=== PATIENT | male | born 1945 | race Caucasian/White ===

== ENCOUNTER → 2017-08-12 09:37 | Outpatient (CLI) | payer MEDICARE, BC, SELFPAY | PROVIDERS: Family Provider Family Medicine; PCP Family Medicine; Visit Provider Family Medicine | DX: R69 Illness, unspecified (principal) ==

== ENCOUNTER → 2017-08-16 15:08 | Outpatient (CLI) | payer MEDICARE, BC, SELFPAY ==
--- NOTE | 2017-08-16 16:00 | MRI_ITS ---
STUDY: MRI LUMBAR SPINE WITHOUT CONTRAST REASON FOR EXAM: Male, 72 years old. Low back pain with radicular symptoms in the right hip and leg. TECHNIQUE: Standardized fat and water weighted pulse sequences were obtained in the sagittal and axial planes. COMPARISON: CT of the lumbar spine dated February 13, 2016 and radiographs of the lumbar spine dated January 12, 2017. FINDINGS: T12-L1: Normal endplates. Normal disc height, signal and morphology. Normal bilateral facet joints. Normal central canal and bilateral lateral recesses. Normal bilateral intervertebral neural foramina. There is straightening of the normal lumbar lordosis. There is no substantial scoliosis. Normal conus medullaris that terminates at the T12-L1 level. L1-2: There is narrowing of the disc. There is an annular disc bulge and osteophyte complex. There is mild degenerative arthropathy of facet joints. Neural foramina are bilaterally narrowed without evidence for nerve impingement. There is mild central acquired canal stenosis. L2-3: There is abnormal signal of the inferior endplate of L2 consistent with acute Modic changes. There is also central stenosis. Appears to be a broad central disc protrusion with mild central acquired canal stenosis. There is mild degenerative arthropathy of facet joints. There is artifact at L3 related to the interpedicular screws. Neural foramina are bilaterally narrowed without evidence for nerve impingement. L3-4: There is narrowing of the disc. There is a disc bulge and osteophyte complex. There is significant artifact caused by the interpedicular screws at this level. Bilateral neural foramina are narrowed, severely on the left with potential impingement of the left L3 nerve root at the neural foramen. L4-5: There is narrowing of the disc. There is a disc bulge and osteophyte complex. Patient appears to have had laminectomies at L4 and L5. There is significant artifact secondary to interpedicular screws at this level. There is no significant central acquired canal stenosis. Neural foramina are bilaterally narrowed with potential impingement of the left L4 nerve root at the neural foramen. L5-S1: There is narrowing of the disc. There are chronic Modic signal changes of the endplates. There is an annular disc bulge and osteophyte complex. Patient has had laminectomies of L5. There is moderate degenerative arthropathy of facet joints. There is no significant central acquired canal stenosis. Neural foramina are bilaterally narrowed without definite nerve impingement. Normal visualized sacral ala. There is abnormal signal within the paraspinal soft tissues posterior to L3, L4, L5 and sacrum that are probably postoperative in etiology. There is also suggestion for paraspinal musculature atrophy particularly at L4 and L5. Appears be a large left-sided renal cyst measuring approximately 7.1 cm in greatest dimension. There is a right sided renal cyst measuring 2.1 cm. There is a small left-sided renal cyst. MRI/Spine Lumbar (Routine) IMPRESSION: 1. Status post surgical fusion of the L3, L4, L5 and S1 vertebral segments. 2. There is multilevel degenerative disc disease and degenerative arthropathy of the lumbar spine with neural foraminal narrowing, acquired canal stenosis and potential nerve impingement, as described. Electronically Signed: Briana Vizcarra MD at 6:59 EDT , Service support ,
== END ==
PROVIDERS: Family Provider Family Medicine; PCP Family Medicine
DX: M54.41 Lumbago with sciatica, right side (principal); G89.29 Other chronic pain; M54.16 Radiculopathy, lumbar region; M48.062 Spinal stenosis, lumbar region with neurogenic claudication
CPT/HCPCS: 72148

== ENCOUNTER → 2017-09-14 08:39 | Outpatient (CLI) | payer MEDICARE, BC, SELFPAY ==
[2017-09-14 09:28] LABS: Absolute Lymphocyte Count 1.28 X10^3/ul (0.83-4.51); Absolute Neutrophil Count 1.7 X10^3/uL (2.0-7.7); Basophil# 0.02 X10^3/uL; Basophil% 0.6 % (0-1); Eosinophil# 0.07 X10^3/uL; Eosinophils% 2.1 % (0-5); Hematocrit 44.1 % (40-54); Hemoglobin 14.9 g/dl (13.0-16.5); Lymphocyte # 1.28 X10^3/ul (4.0); Lymphocyte % 38.1 % (19-41); Mean Corp Hgb Conc 33.8 g/gl (32-36); Mean Corpuscular Hgb 31.2 pg (27.0-32.0); Mean Corpuscular Volume 92.3 fL (80-94); Mean Platelet Vol. 10.2 fl (6.2-12.0); Monocyte# 0.26 X10^3/uL; Monocyte% 7.7 % (0-10); Neutrophil # 1.72 X10^3/uL (2.7-7.7); Neutrophil % 51.2 % (47-70); POSITIVE COUNT NO; POSITIVE DIFFERENTIAL NO; POSITIVE MORPHOLOGY NO; Platelet Count 187 K/mm3 (150-450); RBC Distribution Width CV 12.6 % (11.6-14.6); RBC Distribution Width SD 42.2 fl (35.1-43.9); Red Blood Count 4.78 M/mm3 (4.6-6.2); White Blood Count 3.4 K/mm3 (4.4-11.0)
[2017-09-14 09:58] LABS: Vitamin B12 378 pg/mL (211-911)
[2017-09-14 10:05] LABS: BUN 16 mg/dL (7-18); Creatinine, Serum 1.17 mg/dL (0.70-1.30); Glucose 85 mg/dL (74-106)
[2017-09-14 10:06] LABS: ALB/GLOB Ratio 1.1 RATIO (0.9-2.4); AST(SGOT) 26 U/L (15-37); Alanine Aminotransfer ALT/SGPT 25 U/L (16-61); Albumin, Serum 3.6 g/dL (3.2-5.0); Alkaline Phosphatase 68 U/L (45-117); Anion Gap 5 (5-15); BUN/Creat Ratio 13.7 RATIO (10-20); Calcium,Total 8.5 mg/dL (8.5-10.1); Chloride 105 mmol/L (98-107); Cholesterol 194 mg/dL (200); EST Glomerular Filtration Rate 65 mL/min (>60); Est Glom Filt Rate - Afr Amer 79 mL/min (>60); Globulin 3.3 g/dL (2.2-4.2); High Density Lipoprotein 46 mg/dL; Potassium 4.1 mmol/L (3.5-5.1); Protein, Total 6.9 g/dL (6.4-8.2); Sodium Level 139 mmol/L (136-145); Thyroid Stim Hormone (TSH) 0.81 uIU/mL (0.358-3.74); Triglycerides 334 mg/dL; Very Low Density Lipoprotein 67 mg/dL (5-40)
[2017-09-17 09:21] LABS: Vitamin B1, Thiamine 108.3 nmol/L (66.5-200.0)
== END ==
PROVIDERS: Family Provider Family Medicine; PCP Family Medicine; Visit Provider Family Medicine
DX: I25.10 Atherosclerotic heart disease of native coronary artery without angina pectoris (principal); G62.9 Polyneuropathy, unspecified; I10 Essential (primary) hypertension
CPT/HCPCS: 36415; 80053; 80061; 82607; 84425; 84443; 85025

== ENCOUNTER 2017-11-23 11:30 | Outpatient (RCR) | payer MEDICARE, BC, SELFPAY ==
--- NOTE | 2017-10-31 11:15 | HP.PTEVAL_ITS ---
Patient's Visit Information CALE PULLIAM is a 72 year old M referred to Physical Therapy by Saul Maxwell MD with a diagnosis of CHRONIC BACK PAIN AND RADICULAR PAIN. Date of Evaluation: 10/31/17 Physical Therapist: Cary Goode - Visit Plan Frequency: 2-3x /Week Duration: 4-6 Weeks Plan: AQUATIC THERAPY FOR PAIN RELEIF, POSTURE CORRECTION/STRENGTHENING, INSTRUCTION IN APPROPRIATE BODY MECHANICS AND ACTIVITY MODIFICATIONS. DLS STARTING WITH A NEUTRAL SPINE PROGRESSING ROM TOLERATED. ILA LE ROM, STRETCHING AND STRENGTHENING. HEP INSTRUCTION. 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 Present symptoms : PRIMARILY IN LEFT LOW BACK, ILA HIPS AND ON DOWN BOTH LEGS TO THE FEET. SOMETIMES TOES. PAIN, NUMBNESS AND TINGLING AT TIMES. Present since: CHRONIC. Pain Scale: WORST 7/10, LEAST 2/10. Currently: 08/04. Commenced as a result of: DDD. Symptoms at onset: LOW BACK. 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 GETTING DOWN ON HANDS AND KNEES TO PULL WEEDS, ESPECIALLY STANDING ON CONCRETE. 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 TRYING TO EX ON LAND HERE AT [employer] WITH [employer] MEMBERSHIP. Better : HOT TUB, MASSAGING HAMSTRINGS. Disturbed sleep: NO. Previous history/ treatment: BACK SURGERY WITH PT HERE IN MAY 2016. [facility]. HISTORY OF AQUATIC THERAPY HERE. Coughing/sneezing/straining: NEGATIVE. Gait: NO AD'S BUT DISTANCE LIMITED. FEELS STIFF WHEN HE WALKS. Difficulty initiating urinatin: NO. Accidents: NONE SINCE OPERATION ON BACK. Unexplained weight loss: NO. Imaging: LUMBAR MRI: MRI/Spine Lumbar (Routine). IMPRESSION: 1. Status post surgical fusion of the L3, L4, L5 and S1 vertebral. segments. 2. There is multilevel degenerative disc disease and degenerative. arthropathy of the lumbar spine with neural foraminal narrowing, acquired. canal stenosis and potential nerve impingement, as described. Electronically Signed: Briana Vizcarra MD. at 6:59 EDT. PMH: HEART BYPASS 2012. OTHER: PATIENT REPORTS HE SAW DR. INMAN IN [place] A FEW MONTHS AGO. HE ORDERED MRI. PATIENT REPORTS DR. INMAN SAID HE DIDN'T SEE ANYTHING THAT WOULD MAKE HIM THINK HE HAS TO GO BACK IN AND OPERATE AGAIN. NCT PENDING NOV 21 2017. - Objective Sitting/Standing Posture: POOR. Lordosis: REDUCED. Lateral shift: NO. Relevant shift: N/A. Active Correction of posture: BETTER. Other Observations : INDEP GAIT INTO PT WITHOUT ANY AD'S. GOOD CADANCE. PPT. Motor deficit: ILA LE STRENGTH GROSSLY 5/5 WITH MMT'ING EXCEPT HIPS 4/5. Sensory deficit: DECREASED LIGHT TOUCH RIGHT LATERAL LEG COMPARED TO LEFT. NCT PENDING. ROM deficit: TIGHT ILA HS'S AND GASTROC SOLEUS COMPLEX'S. GOOD HIP FLEXION ROM ILA. Reflexes: NT. Dural Signs: NEGATIVE. Lumbar mvmt loss: flex - MOD. ext - KEMAR. R SG - KEMAR. L SG - KEMAR. Core strength: POOR. Palpation: NO ACUTE TENDERNESS OR LOWER THORACIC OR LUMBAR SPINE REGIONS. NOT TENDER IN GREATER TROCH REGIONS EITHER. OTHER: POSITIVE ILA DAVID TESTS. - Goals Goal 1:: DECREASE C/O LOW BACK AND ILA LE SX'S. Goal Time Frame: 4-6 Weeks Goal 2:: IMPROVE SITTING, STANDING, WALKING AND WORK FUNCTION Goal Time Frame: 4-6 Weeks Goal 3:: INSTRUCT IN PROPHYLAXIS Goal Time Frame: 4-6 Weeks - Rehabilitation Potential Rehabilitation Potential: Fair - Anticipated Interventions Patient/Client Instruction: Educate patient on: Condition, Plan of Care, Risk Factors, Benefits of Fitness Program For the Purpose of:: To improve self management Therapeutic Exercise to Include: Strength training, Body mechanics, Postural training, Flexibilty training, Gait and locomotor training, In an aquatic setting, Active ROM, Dynamic Lumbar Stabilization For the Purpose of:: To decrease pain, To decrease swelling/inflammation, To increase ROM, To improve muscle performance and motor function, To increase tolerance to activity/condition/position, To improve ability of physical actions for home/community/work/leisure, To improve gait and locomotor functions Thank you for the opportunity to evaluate your patient. For Medicare and Medicare HMO plans, please review the plan of care and approve it. It will need to be FAXED BACK to us at [phone] for Medicare purposes. Please let me know if there are questions or concerns regarding this plan of care. Physician Signature: Date:
--- NOTE | 2017-11-23 12:23 | HP.PTEVAL ---
Patient's Visit Information CALE PULLIAM is a 72 year old M referred to Physical Therapy by Saul Maxwell MD with a diagnosis of CHRONIC BACK PAIN AND RADICULAR PAIN. Date of Evaluation: 10/31/17 Physical Therapist: Cary Goode - Visit Plan Frequency: 2-3x /Week Duration: 4-6 Weeks Plan: D/C TO INDEP WATER EX, MASSAGE THERAPY AND HOME EX PROGRAM. PATIENT IS AGREEABLE. 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 Present symptoms: PRIMARILY IN LEFT LOW BACK, ILA HIPS AND ON DOWN BOTH LEGS TO THE FEET. SOMETIMES TOES. PAIN, NUMBNESS AND TINGLING AT TIMES. Present since: CHRONIC. Pain Scale: WORST 7/10, LEAST 2/10. Currently: 08/04. Commenced as a result of: DDD. Symptoms at onset: LOW BACK. 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 GETTING DOWN ON HANDS AND KNEES TO PULL WEEDS, ESPECIALLY STANDING ON CONCRETE. 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 TRYING TO EX ON LAND HERE AT [employer] WITH [employer] MEMBERSHIP. Better: HOT TUB, MASSAGING HAMSTRINGS. Disturbed sleep: NO. Previous history/treatment: BACK SURGERY WITH PT HERE IN MAY 2016. [facility]A'[facility]. HISTORY OF AQUATIC THERAPY HERE. Coughing/sneezing/straining: NEGATIVE. Gait: NO AD'S BUT DISTANCE LIMITED. FEELS STIFF WHEN HE WALKS. Difficulty initiating urinatin: NO. Accidents: NONE SINCE OPERATION ON BACK. Unexplained weight loss: NO. Imaging: LUMBAR MRI: MRI/Spine Lumbar (Routine). IMPRESSION: 1. Status post surgical fusion of the L3, L4, L5 and S1 vertebral. segments. 2. There is multilevel degenerative disc disease and degenerative. arthropathy of the lumbar spine with neural foraminal narrowing, acquired. canal stenosis and potential nerve impingement, as described. Electronically Signed: Briana Vizcarra MD. at 6:59 EDT. PMH: HEART BYPASS 2012. OTHER: PATIENT REPORTS HE SAW DR. INMAN IN [place] A FEW MONTHS AGO. HE ORDERED MRI. PATIENT REPORTS DR. INMAN SAID HE DIDN'T SEE ANYTHING THAT WOULD MAKE HIM THINK HE HAS TO GO BACK IN AND OPERATE AGAIN. NCT PENDING NOV 21 2017. - Pain Lumbar Spine Pain Intensity (Out of 10): 2 Comment: L-sided, stiff. RLE Pain Intensity (Out of 10): 1 Comment: Muscle fatigue LLE Pain Intensity (Out of 10): 1 Comment: muscle fatigue - Objective Sitting/Standing Posture: POOR. Lordosis: REDUCED. Lateral shift: NO. Relevant shift: N/A. Active Correction of posture: BETTER. Other Observations: INDEP GAIT INTO PT WITHOUT ANY AD'S. GOOD CADANCE. PPT. Motor deficit: ILA LE STRENGTH GROSSLY 5/5 WITH MMT'ING EXCEPT HIPS 4/5. Sensory deficit: DECREASED LIGHT TOUCH RIGHT LATERAL LEG COMPARED TO LEFT. NCT PENDING. ROM deficit: TIGHT ILA HS'S AND GASTROC SOLEUS COMPLEX'S. GOOD HIP FLEXION ROM ILA. Reflexes: NT. Dural Signs: NEGATIVE. Lumbar mvmt loss: flex - MOD. ext - KEMAR. R SG - KEMAR. L SG - KEMAR. Core strength: POOR. Palpation: NO ACUTE TENDERNESS OR LOWER THORACIC OR LUMBAR SPINE REGIONS. NOT TENDER IN GREATER TROCH REGIONS EITHER. OTHER: POSITIVE ILA DAVID TESTS. - Goals Goal 1:: DECREASE C/O LOW BACK AND ILA LE SX'S. Goal Time Frame: 4-6 Weeks Goal 2:: IMPROVE SITTING, STANDING, WALKING AND WORK FUNCTION Goal Time Frame: 4-6 Weeks Goal 3:: INSTRUCT IN PROPHYLAXIS Goal Time Frame: 4-6 Weeks - Rehabilitation Potential Rehabilitation Potential: Fair - Anticipated Interventions Patient/Client Instruction: Educate patient on: Condition, Plan of Care, Risk Factors, Benefits of Fitness Program For the Purpose of:: To improve self management Therapeutic Exercise to Include: Strength training, Body mechanics, Postural training, Flexibilty training, Gait and locomotor training, In an aquatic setting, Active ROM, Dynamic Lumbar Stabilization For the Purpose of:: To decrease pain, To decrease swelling/inflammation, To increase ROM, To improve muscle performance and motor function, To increase tolerance to activity/condition/position, To improve ability of physical actions for home/community/work/leisure, To improve gait and locomotor functions Thank you for the opportunity to evaluate your patient. For Medicare and Medicare HMO plans, please review the plan of care and approve it. It will need to be FAXED BACK to us at [phone] for Medicare purposes. Please let me know if there are questions or concerns regarding this plan of care. Physician Signature: Date:
--- NOTE | 2017-11-23 12:24 | HP.PTREVAL_ITS ---
Saul Maxwell MD, It has been my pleasure to treat CALE PULLIAM over the last 10 visits for CHRONIC BACK PAIN AND RADICULAR PAIN. Please see the progress note below for an update on the physical therapy plan of care! Subjective: HAD N. CONDUCTION TEST. STATES WASN'T REAL DEFINATIVE BUT THINKS MRI OF THORACIC REGION WILL BE RECOMMENDED. TODAY I FEEL THE BEST THAT I HAVE IN A MONTH. MASSAGE THERAPY HERE AT [facility] YESTERDAY. PATIENT REPORTS HIS FLEXABILITY HAS IMPROVED SINCE STARTING PT THIS TIME. HE STATES THE HOME EX'S AREN'T HIS FAVORITE THING TO DO BUT HE DOES THINK THEY ARE HELPING. PATIENT REPORTS UP TO 6-7/10 BACK AND LEG PAIN AT ITS WORST NOW. 1/10 BACK AND LEG PAIN AT THE LEAST. PATIENT REPORTS THE WATER EX'S SEEM TO BE WORKING HIM OUT GOOD BUT WITHOUT THE PAIN HE GETS EXERCISING ON LAND. Objective/Function: SLOW PROGRESS TOWARD ALL PT GOALS. PATIENT IS A GOOD CANDIDATE TO CONTINUE WATER EX PROGRAM INDEP'LY VS LAND AT THIS TIME. UPON EXAM HE STILL HAS POOR POSTURE AND IS ONLY ABLE TO PARTIALLY CORRECT. DECREASED LORDOSIS. Motor deficit: ILA LE STRENGTH GROSSLY 5/5 WITH MMT'ING EXCEPT HIPS 4/5 AND PATIENT IS ABLE TO INDEP'LY TRANSFER FROM SIT TO STAND WITHOUT UE ASSIST EASILY. Sensory deficit: ILA LE LIGHT TOUCH SENSATION IS INTACT AND SYMMETRICAL WITH TESTING TODAY WHICH WAS AN IMPROVEMENT FROM EVAL. ROM deficit : PATIENT CONTINUES TO HAVE TIGHT ILA HS'S AND GASTROC SOLEUS COMPLEX'S BUT IS TOLERATING STRETCHING PROGRAM WELL. Dural Signs: NEGATIVE. Lumbar mvmt loss: flex - MOD. ext - KEMAR. R SG - KEMAR. L SG - KEMAR. Core strength: FAIR. Palpation: NO ACUTE TENDERNESS OR LOWER THORACIC OR LUMBAR SPINE REGIONS. 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 Plan Plan: D/C TO INDEP WATER EX, MASSAGE THERAPY AND HOME EX PROGRAM. PATIENT IS AGREEABLE. Goals Goal 1:: DECREASE C/O LOW BACK AND ILA LE SX'S. Goal Time Frame: 4-6 Weeks Goal Progress: Goal Met Goal 2:: IMPROVE SITTING, STANDING, WALKING AND WORK FUNCTION Goal Time Frame: 4-6 Weeks Goal Progress: Goal Met Goal 3:: INSTRUCT IN PROPHYLAXIS Goal Time Frame: 4-6 Weeks Goal Progress: Goal Met Anticipated Interventions Patient/Client Instruction: Educate patient on: Condition, Plan of Care, Risk Factors, Benefits of Fitness Program For the Purpose of:: To improve self management Therapeutic Exercise to Include: Strength training, Body mechanics, Postural training, Flexibilty training, Gait and locomotor training, In an aquatic setting, Active ROM, Dynamic Lumbar Stabilization For the Purpose of:: To decrease pain, To decrease swelling/inflammation, To increase ROM, To improve muscle performance and motor function, To increase tolerance to activity/condition/position, To improve ability of physical actions for home/community/work/leisure, To improve gait and locomotor functions Please do not hesitate to contact me at [phone] by phone or Fax: if you have questions or concerns regarding this new plan of care! Sincerely, Cary Goode
--- NOTE | 2017-12-22 13:07 | HP.PTDCSUM ---
HP - PT D/C Summary It has been my pleasure to treat CALE PULLIAM under orders from Saul Maxwell MD, for the diagnosis of CHRONIC BACK PAIN AND RADICULAR PAIN for a total of 10 visit(s). Discharge Date: Please see the following information for a summary of their discharge status. - Subjective Subjective: HAD N. CONDUCTION TEST. STATES WASN'T REAL DEFINATIVE BUT THINKS MRI OF THORACIC REGION WILL BE RECOMMENDED. TODAY I FEEL THE BEST THAT I HAVE IN A MONTH. MASSAGE THERAPY HERE AT [facility] YESTERDAY. PATIENT REPORTS HIS FLEXABILITY HAS IMPROVED SINCE STARTING PT THIS TIME. HE STATES THE HOME EX'S AREN'T HIS FAVORITE THING TO DO BUT HE DOES THINK THEY ARE HELPING. PATIENT REPORTS UP TO 6-7/10 BACK AND LEG PAIN AT ITS WORST NOW. 1/10 BACK AND LEG PAIN AT THE LEAST. PATIENT REPORTS THE WATER EX'S SEEM TO BE WORKING HIM OUT GOOD BUT WITHOUT THE PAIN HE GETS EXERCISING ON LAND. - Pain Lumbar Spine Pain Intensity (Out of 10): 2 RLE Pain Intensity (Out of 10): 1 LLE Pain Intensity (Out of 10): 1 - Overall Improvement % Improvement: 35 - Objective Objective/Function: SLOW PROGRESS TOWARD ALL PT GOALS. PATIENT IS A GOOD CANDIDATE TO CONTINUE WATER EX PROGRAM INDEP'LY VS LAND AT THIS TIME. UPON EXAM HE STILL HAS POOR POSTURE AND IS ONLY ABLE TO PARTIALLY CORRECT. DECREASED LORDOSIS. Motor deficit: ILA LE STRENGTH GROSSLY 5/5 WITH MMT'ING EXCEPT HIPS 4/5 AND PATIENT IS ABLE TO INDEP'LY TRANSFER FROM SIT TO STAND WITHOUT UE ASSIST EASILY. Sensory deficit: ILA LE LIGHT TOUCH SENSATION IS INTACT AND SYMMETRICAL WITH TESTING TODAY WHICH WAS AN IMPROVEMENT FROM EVAL. ROM deficit: PATIENT CONTINUES TO HAVE TIGHT ILA HS'S AND GASTROC SOLEUS COMPLEX'S BUT IS TOLERATING STRETCHING PROGRAM WELL. Dural Signs: NEGATIVE. Lumbar mvmt loss: flex - MOD. ext - KEMAR. R SG - KEMAR. L SG - KEMAR. Core strength: FAIR. Palpation: NO ACUTE TENDERNESS OR LOWER THORACIC OR LUMBAR SPINE REGIONS. 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 - Goals Goal 1:: DECREASE C/O LOW BACK AND ILA LE SX'S. Goal Progress: Goal Met Goal 2:: IMPROVE SITTING, STANDING, WALKING AND WORK FUNCTION Goal Progress: Goal Met Goal 3:: INSTRUCT IN PROPHYLAXIS Goal Progress: Goal Met - Plan Plan: D/C TO INDEP WATER EX, MASSAGE THERAPY AND HOME EX PROGRAM. PATIENT IS AGREEABLE. - D/C Information If there are questions or concerns regarding this patient's physical therapy, please feel free to call me at [phone]. Thank you for the referral of this patient. Sincerely, Cary Goode
== END 2017-11-23 19:00 | disposition home or self-care (01) ==
LOC: PT 11:30
PROVIDERS: Family Provider Family Medicine; PCP Family Medicine; Visit Provider Family Medicine
DX: M54.9 Dorsalgia, unspecified (principal); G89.29 Other chronic pain; M54.10 Radiculopathy, site unspecified
CPT/HCPCS: 97113; 97162; 97164; 97530

== ENCOUNTER → 2018-02-01 14:07 | Outpatient (CLI) | payer MEDICARE, BC, SELFPAY ==
[2018-02-01 15:39] LABS: Basophil# 0.02 X10^3/uL; Basophil% 0.5 % (0-1); Eosinophil# 0.11 X10^3/uL; Eosinophils% 2.7 % (0-5); Hematocrit 44.8 % (40-54); Hemoglobin 15.1 g/dl (13.0-16.5); Lymphocyte % 39.5 % (19-41); Mean Corp Hgb Conc 33.7 g/gl (32-36); Mean Corpuscular Hgb 31.4 pg (27.0-32.0); Mean Corpuscular Volume 93.1 fL (80-94); Mean Platelet Vol. 10.4 fl (6.2-12.0); Monocyte# 0.32 X10^3/uL; Monocyte% 7.9 % (0-10); Neutrophil # 1.99 X10^3/uL (2.7-7.7); Neutrophil % 49.2 % (47-70); Platelet Count 209 K/mm3 (150-450); RBC Distribution Width CV 12.8 % (11.6-14.6); RBC Distribution Width SD 42.4 fl (35.1-43.9); Red Blood Count 4.81 M/mm3 (4.6-6.2); White Blood Count 4.1 K/mm3 (4.4-11.0)
[2018-02-01 15:43] LABS: POSITIVE COUNT NO; POSITIVE DIFFERENTIAL NO; POSITIVE MORPHOLOGY NO
[2018-02-01 16:06] LABS: Vitamin B12 582 pg/mL (211-911); Vitamin D,25 Hydroxy 17.1 ng/mL (29.95-100.01)
[2018-02-01 16:12] LABS: ALB/GLOB Ratio 1.2 RATIO (0.9-2.4); AST(SGOT) 24 U/L (15-37); Alanine Aminotransfer ALT/SGPT 34 U/L (16-61); Albumin, Serum 3.8 g/dL (3.2-5.0); Alkaline Phosphatase 83 U/L (45-117); Anion Gap 9 (5-15); BUN 13 mg/dL (7-18); BUN/Creat Ratio 11.5 RATIO (10-20); Calcium,Total 8.6 mg/dL (8.5-10.1); Chloride 106 mmol/L (98-107); Cholesterol 209 mg/dL (200); Creatinine, Serum 1.13 mg/dL (0.70-1.30); EST Glomerular Filtration Rate 68 mL/min (>60); Est Glom Filt Rate - Afr Amer 82 mL/min (>60); Globulin 3.2 g/dL (2.2-4.2); Glucose 90 mg/dL (74-106); High Density Lipoprotein 45 mg/dL; Potassium 4.1 mmol/L (3.5-5.1); Sodium Level 141 mmol/L (136-145); Triglycerides 516 mg/dL
[2018-02-01 16:13] LABS: CRP < 2.90 mg/L (0.0-3.0); Rheumatoid Factor < 10.0 IU/mL (<15); Thyroid Stim Hormone (TSH) 0.95 uIU/mL (0.358-3.74)
[2018-02-01 16:23] LABS: Erythrocyte Sedimentation Rate 6 mm/hr (0-20)
[2018-02-04 10:45] LABS: ANTINUCLEAR ANTIBODIES DIRECT Negative (Negative)
== END ==
PROVIDERS: Family Provider Family Medicine; PCP Family Medicine; Visit Provider Family Medicine
DX: R53.83 Other fatigue (principal); M25.50 Pain in unspecified joint; I25.10 Atherosclerotic heart disease of native coronary artery without angina pectoris
CPT/HCPCS: 36415; 80053; 80061; 82306; 82607; 84443; 85025; 85652; 86038; 86140; 86431

== ENCOUNTER → 2018-02-07 12:33 | Outpatient (CLI) | payer MEDICARE, BC, SELFPAY ==
--- NOTE | 2018-02-07 12:35 | CT_ITS ---
STUDY: CT CHEST WITHOUT CONTRAST REASON FOR EXAM: Male, 73 years old. Follow-up lung nodule. RADIATION DOSAGE (If Supplied By Facility): CTDIvol = ( 15.21 ) mGy, DLP = ( 535.83 ) mGycm TECHNIQUE: Transaxial imaging was performed without the administration of intravenous contrast material. Water Individualized dose optimization techniques were used for this CT. COMPARISON: CTA of the chest, November 23, 2016. FINDINGS: The lungs are well expanded. There is a 3 mm nodule in the right middle lobe along the underside of the horizontal fissure best seen on image 55 of series 4. There is a pleural-based 5 mm nodule in the right middle lobe best seen on image 63. No other masses or infiltrates are noted. There is no demonstrated pleural abnormality. Normal heart and pericardium. Sternal cerclage wires and vascular clips are present from a prior sternotomy and coronary artery bypass graft procedure (CABG). There are calcified paratracheal lymph nodes. There is small calcifications in the AP window. Normal hilar regions. Normal unenhanced pulmonary arteries. There is atherosclerotic calcification of the aortic arch with tortuosity and elongation of the aortic arch and descending thoracic aorta. There is an increased kyphosis of the thoracic spine. Calcified granulomata within the spleen. CT/Chest without Contrast IMPRESSION: Stable nodular densities in the right middle lobe. Electronically Signed: Azeem Richards DO at 22:38 EST Tel [phone], Service support ,
== END ==
PROVIDERS: Family Provider Family Medicine; PCP Family Medicine; Referring Provider Family Medicine; Visit Provider Family Medicine
DX: R91.1 Solitary pulmonary nodule (principal)
CPT/HCPCS: 71250

== ENCOUNTER → 2018-02-22 10:51 | Outpatient (CLI) | payer MEDICARE, BC, SELFPAY ==
[2018-02-22 12:36] LABS: Cholesterol 186 mg/dL (200); High Density Lipoprotein 53 mg/dL; Triglycerides 138 mg/dL; Very Low Density Lipoprotein 28 mg/dL (5-40)
--- OUTSIDE RECORDS SUMMARY | 2018-04-19 19:22 | XMS RPT_ITS ---
:1945 Author Organization OHIP Support Name Relationship Address Phone PULLIAM, ANTHONY Unavailable [address] + [place] [address] R Unavailable Unavailable Unavailable PULLIAM, ANTHONY Unavailable [address] + [place] [address] R Unavailable Unavailable Unavailable PULLIAM, ANTHONY Unavailable [address] + [place] [address] R Unavailable Unavailable Unavailable PULLIAM, ANTHONY Unavailable [address] + [place] [address] R Unavailable Unavailable Unavailable PULLIAM, ANTHONY Unavailable [address] + [place] [address] R Unavailable Unavailable Unavailable PULLIAM, ANTHONY Unavailable [address] + [place] [address] R Unavailable Unavailable Unavailable PULLIAM, ANTHONY Unavailable [address] + [place] [address] R Unavailable Unavailable Unavailable PULLIAM, ANTHONY Unavailable Unavailable + CALE PULLIAM Unavailable Unavailable Unavailable CJJASKARAN BLACK Unavailable Unavailable + PULLIAM, ANTHONY Unavailable [address] + [place] [address] R Unavailable Unavailable Unavailable PULLIAM, ANTHONY Unavailable [address] + [place] [address] R Unavailable Unavailable Unavailable PULLIAM, ANTHONY Unavailable Unavailable + CALE PULLIAM Unavailable Unavailable Unavailable CJJASKARAN BLACK Unavailable Unavailable + PULLIAM, ANTHONY Unavailable Unavailable + CALE PULLIAM Unavailable Unavailable Unavailable CJJASKARAN BLACK Unavailable Unavailable + PULLIAM, ANTHONY Unavailable [address] + [place] [address] R Unavailable Unavailable Unavailable ANTHONY PULLIAM Unavailable [address] + [place] [address] R Unavailable Unavailable Unavailable Care Team Providers Name Role Phone LUDY REI Attending Unavailable SELF, SELF Referring Unavailable WAYT, ISABEL P Primary Care Unavailable LUNA BOSTONDAR Attending Unavailable RAMIN BERGER Referring Unavailable WAYT, ISABEL P Primary Care Unavailable REI BOSTON Attending Unavailable BOSTON, SAFDAR Referring Unavailable WAYT, ISABEL P Primary Care Unavailable Hortencia, Kush Attending Unavailable Wayt, Isabel Referring Unavailable Hortencia, Kush Attending Unavailable Wayt, Isabel Referring Unavailable Wayt, Isabel Primary Care Unavailable Wayt, Isabel Attending Unavailable Wayt, Isabel Primary Care Unavailable DEON FERNANDEZ Attending Unavailable DEON FERNANDEZ Referring Unavailable Schinner, Saul E Primary Care Unavailable DEON FERNANDEZ Consulting Unavailable Schinner, Saul E Attending Unavailable Schinner, Saul E Primary Care Unavailable Schinner, Saul E Attending Unavailable Schinner, Saul E Referring Unavailable Schinner, Saul E Primary Care Unavailable Schinner, Saul E Attending Unavailable Schinner, Saul E Referring Unavailable Schinner, Saul E Primary Care Unavailable Schinner, Saul E Attending Unavailable Schinner, Saul E Primary Care Unavailable Schinner, Saul E Attending Unavailable Schinner, Saul E Referring Unavailable Schinner, Saul E Primary Care Unavailable Schinner, Saul E Attending Unavailable Schinner, Saul E Primary Care Unavailable Schinner, Saul E Attending Unavailable Schinner, Saul E Referring Unavailable Schinner, Saul E Primary Care Unavailable PROBLEMS PROBLEMS DATE TYPE CONDITION / CODE ATTENDING STATUS SOURCE Unknown 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, 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 / Z95.1(ICD-10) Hospital Repository Unknown M25.559 - Pain in Schinner, Active [place] [facility] unspecified hip / Saul E Community M25.559(ICD-10) Hospital Repository Unknown M54.9 - Dorsalgia, Schinner, Active [place] [facility] unspecified / Saul E Community M54.9(ICD-10) Hospital Repository Unknown 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, 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 / Repository I25.10(ICD-10) Unknown 414.00 - Coronary Schmarcos, Active [facility] atherosclerosis of [facility] unspecified type of Hospital vessel, [place] or graft / Repository 414.00(ICD-9) Unknown G62.9 - Polyneuropathy, Schinphil, Active [place] [facility] unspecified / [facility] G62.9(ICD-10) Hospital Repository Unknown 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, Active [facility] unspecified site / [facility] 355.9(ICD-9) Hospital Repository Admitting Low back pain / LUDY LUNADAR Active [facility] diagnosis M54.5(ICD-10) [facility] Repository Admitting Other chronic pain / LUDY SAFDAR Active [facility] 7 diagnosis G89.29(ICD-10) [facility] Repository Admitting Arthrodesis status / BOSTON, SAFDAR Active [facility] 7 diagnosis Z98.1(ICD-10) [facility] Repository Admitting Follow-up / 145() BOSTON SAFDAR Active [facility] 8 diagnosis [facility] Repository Unknown I48.0 - Paroxysmal atrial Hortencia, Kush Active [facility] fibrillation / Community I48.0(ICD-10) Hospital Repository Unknown I10 - Essential (primary) Hortencia, Kush Active [place] [facility] hypertension / Community I10(ICD-10) Hospital Repository Unknown E78.00 - Pure Hortencia, Kush Active [place] [facility] hypercholesterolemia, Community unspecified / Hospital E78.00(ICD-10) Repository Unknown E78.0 - Pure Hortencia, Kush Active [facility] hypercholesterolemia / Community E78.0(ICD-10) Hospital Repository PROCEDURES PROCEDURES No Procedure Records FoundRESULTS RESULTS HIPS B/L MIN 2 Observed: 03/02/2018 Status: F Source: [place] VIEWS W/ PELVIS 2:04 PM [facility] Imaging Services [address] [place] [address] Hips B/L min 2 views w/ Pelvis MR#: [id number] Acct: [id number] Name: CALE PULLIAM Rep #: [id number] : 1945 M 73 From: Darius Duncan MD PCP: Saul Maxwell MD Status: REG CLI Study: Hips B/L min 2 views w/ Pelvis Date of Exam: 03/02/18 Exam# [id number] Ordering Dr: Saul Maxwell MD STUDY: X-RAY - BILATERAL HIPS WITHOUT PELVIS REASON FOR EXAM: Male, 73 years old. Bilateral hip pain TECHNIQUE: 2 views of the right hip, and 2 views of the left hip were obtained. One view of the pelvis COMPARISON: None. FINDINGS: Right Hip: Normal right femoral head, neck, intertrochanteric region and visualized proximal femur. Normal right acetabulum. There is mild articular joint space narrowing of the right hip. Left Hip: Normal left femoral head, neck, intertrochanteric region and visualized proximal femur. Normal left acetabulum. There is mild articular joint space narrowing of the left hip. Normal bilateral superior and inferior pubic rami , ischial tuberosities and pubic symphysis. Surgical hardware in the lower lumbar spine free of complication, there has been previous laminectomy. RAD/Hips B/L min 2 views w/ Pelvis IMPRESSION: Mild degenerative changes, no demonstrated fracture or suspicious osseous lesion Electronically Signed: Justo Duncan MD at 15:16 EST , Service support , CC: Saul Maxwell MD Microbiology Professor: Signed LIPID PROFILE Collected: 02/22/2018 Status: F Source: [place] 10:52 AM [facility] TYPE CODE TESTS RESULT OUT OF RANGE REFERENCE UNITS LAB L501.4900 200 mg/dL Normal CHOL 186 Result Comment: <200 mg/dL Desirable 200-240 mg/dL Borderline >240 mg/dL High Risk LAB L501.5000 mg/dL Normal TRIG 138 Result Comment: The drugs N-Acetylcysteine and Metamizole may falsely depress this assay. Serum Triglycerides Reference Interval Normal <150 mg/dL Borderline high 150 - 199 mg/dL High 200 - 499 mg/dL Very High > or = 500 mg/dL LAB L501.6400 mg/dL Normal HDL 53 Result Comment: The drugs N-Acetylcysteine and Metamizole may falsely depress this assay. Reference Range HDL <40 mg/dL Low HDL Cholesterol HDL >or= 60 mg/dL High HDL Cholesterol LAB L501.6500 0-130 mg/dL Normal LDL 105 LAB L501.6600 5-40 mg/dL Normal VLDL 28 Performed By: #### L500.4100 #### [facility] [address] [facility] [place], [address] CHEST WITHOUT Observed: 02/07/2018 Status: F Source: [place] CONTRAST 12:35 PM [facility] Imaging Services [address] [place] [address] Chest without Contrast MR#: [id number] Acct: [id number] Name: CALE PULLIAM Rep #: [id number] : 1945 M 73 From: Azeem Richards DO PCP: Saul Maxwell MD Status: REG CLI Study: Chest without Contrast Date of Exam: 02/07/18 Exam# [id number] Ordering Dr: Saul Maxwell MD STUDY: CT CHEST WITHOUT CONTRAST REASON FOR EXAM: Male, 73 years old. Follow-up lung nodule. RADIATION DOSAGE (If Supplied By Facility): CTDIvol = ( 15.21 ) mGy, DLP = ( 535.83 ) mGycm TECHNIQUE: Transaxial imaging was performed without the administration of intravenous contrast material. Water Individualized dose optimization techniques were used for this CT. COMPARISON: CTA of the chest, November 23, 2016. FINDINGS: The lungs are well expanded. There is a 3 mm nodule in the right middle lobe along the underside of the horizontal fissure best seen on image 55 of series 4. There is a pleural-based 5 mm nodule in the right middle lobe best seen on image 63. No other masses or infiltrates are noted. There is no demonstrated pleural abnormality. Normal heart and pericardium. Sternal cerclage wires and vascular clips are present from a prior sternotomy and coronary artery bypass graft procedure (CABG). There are calcified paratracheal lymph nodes. There is small calcifications in the AP window. Normal hilar regions. Normal unenhanced pulmonary arteries. There is atherosclerotic calcification of the aortic arch with tortuosity and elongation of the aortic arch and descending thoracic aorta. There is an increased kyphosis of the thoracic spine. Calcified granulomata within the spleen. CT/Chest without Contrast IMPRESSION: Stable nodular densities in the right middle lobe. Electronically Signed: Azeem Richards DO at 22:38 EST Tel [phone], Service support , CC: Saul Maxwell MD Microbiology Professor: Signed CBC W/DIFF, AUTOMATED Collected: 02/01/2018 Status: F Source: [place] 2:08 PM [facility] TYPE CODE TESTS RESULT OUT OF RANGE REFERENCE UNITS LAB L100.1000 4.4-11.0 K/mm3 Low WBC 4.1 LAB L100.1200 4.6-6.2 M/mm3 Normal RBC 4.81 LAB L100.1300 13.0-16.5 g/dl Normal HGB 15.1 LAB L100.1400 40-54 % Normal HCT 44.8 LAB L100.1500 80-94 fL Normal MCV 93.1 LAB L100.1600 27.0-32.0 pg Normal MCH 31.4 LAB L100.1700 32-36 g/gl Normal MCHC 33.7 LAB L100.1810 11.6-14.6 % Normal RDW CV 12.8 LAB L100.1820 35.1-43.9 fl Normal RDW SD 42.4 LAB L100.1900 150-450 K/mm3 Normal PLT 209 LAB L100.2000 6.2-12.0 fl Normal MPV 10.4 LAB L100.2100 47-70 % Normal NEUT% 49.2 LAB L100.2200 19-41 % Normal LY% 39.5 LAB L100.2300 0-10 % Normal MONO% 7.9 LAB L100.2400 0-5 % Normal EO% 2.7 LAB L100.2500 0-1 % Normal BASO% 0.5 LAB L100.2550 0.0-0.9 % Normal IM GRAN % 0.200 Result Comment: IG% - Immature Granulocytes (promyelocytes, myelocytes and metamyelocytes) > 1% indicates that a LEFT SHIFT is Present. LAB L100.2620 2.0-7.7 X10 3/uL Normal Absolute Neut 2.0 LAB L100.2720 0.83-4.51 X10 3/ul Normal Absolute Lymph 1.60 Performed By: #### L100.0100, L503.0105, L506.1000, L500.4050, L500.4100, L501.9520, L505.7010, L101.9900 #### [facility] [address] [place], [address] #### L3100.5475 #### [facility] (refer to report for specific site) refer to report for address and phone number VITAMIN B12 Collected: 02/01/2018 Status: F Source: [place] 2:08 PM [facility] TYPE CODE TESTS RESULT OUT OF RANGE REFERENCE UNITS LAB L503.0105 211-911 pg/mL Normal Vitamin B12 582 Performed By: #### L100.0100, L503.0105, L506.1000, L500.4050, L500.4100, L501.9520, L505.7010, L101.9900 #### [facility] [address] [facility]. [place], [place], [address] #### L3100.5475 #### [facility] (refer to report for specific site) refer to report for address and phone number VITAMIN D,25 HYDROXY Collected: 02/01/2018 Status: F Source: [place] 2:08 PM [facility] TYPE CODE TESTS RESULT OUT OF REFERENCE UNITS RANGE LAB L506.1000 29.95-100.01 ng/mL Low Vitamin D 17.1 25-OH Result Comment: Vitamin D 25(OH) Status Range Deficiency <20 ng/mL (50nmol/L) Insuffciency 20 - 30 ng/mL (50 - 75 nmol/L) Sufficiency 30 - 100 ng/mL (75 - 250 nmol/L) Toxicity >100 ng/mL (>250 nmol/L) Performed By: #### L100.0100, L503.0105, L506.1000, L500.4050, L500.4100, L501.9520, L505.7010, L101.9900 #### [facility] [address] [place], [address] #### L3100.5475 #### [facility] (refer to report for specific site) refer to report for address and phone number COMPREHENSIVE METABOLIC Collected: 02/01/2018 Status: F Source: [facility] 2:08 PM [facility] TYPE CODE TESTS RESULT OUT OF RANGE REFERENCE UNITS LAB L501.0100 74-106 mg/dL Normal GLU 90 Result Comment: Please note revised GLUCOSE reference range effective 2017. LAB L501.1000 7-18 mg/dL Normal BUN 13 LAB L501.1100 0.70-1.30 mg/dL Normal CREAT,SERUM 1.13 Result Comment: The validity of the calculated GFR AND GFRAA in patients over 70 years has not been determined. Clinical correlation is essential. LAB L501.1110 >60 mL/min Normal EST GFR 68 Result Comment: Non- GFR Calc LAB L501.1115 >60 mL/min Normal EST GFR - AA 82 Result Comment: GFR Calc LAB L501.1300 10-20 RATIO Normal BUN/CRE 11.5 LAB L501.1500 6.4-8.2 g/dL T Normal PROT 7.0 LAB L501.1800 3.2-5.0 g/dL Normal ALB 3.8 LAB L501.1950 2.2-4.2 g/dL Normal GLOB 3.2 LAB L501.2000 0.9-2.4 RATIO Normal A/G 1.2 LAB L501.2200 8.5-10.1 mg/dL CA Normal 8.6 LAB L501.4100 15-37 U/L Normal AST 24 Result Comment: Slight Hemolysis, Result may be falsely increased. LAB L501.4305 45-117 U/L Normal ALK P 83 LAB L501.4405 16-61 U/L Normal ALT 34 LAB L501.4600 0.20-1.00 mg/dL Normal T BILI 0.30 LAB L501.5300 136-145 mmol/L Normal NA 141 LAB L501.5600 3.5-5.1 mmol/L Normal K 4.1 Result Comment: Slight Hemolysis, Result may be falsely increased. LAB L501.5900 98-107 mmol/L Normal CL 106 LAB L501.6100 21.0-32.0 mmol/L Normal CO2 26.0 LAB L501.6200 5-15 Normal 9 GAP Performed By: #### L100.0100, L503.0105, L506.1000, L500.4050, L500.4100, L501.9520, L505.7010, L101.9900 #### [facility] [address] [place], [address] #### L3100.5475 #### [facility] (refer to report for specific site) refer to report for address and phone number LIPID PROFILE Collected: 02/01/2018 Status: F Source: [place] 2:08 PM [facility] TYPE CODE TESTS RESULT OUT OF RANGE REFERENCE UNITS LAB L501.4900 200 mg/dL High CHOL 209 Result Comment: <200 mg/dL Desirable 200-240 mg/dL Borderline >240 mg/dL High Risk LAB L501.5000 mg/dL High TRIG 516 Result Comment: The drugs N-Acetylcysteine and Metamizole may falsely depress this assay. TRIGLYCERIDE IS GREATER THAN 400 mg/dL. LDL RESULT IS INVALID AND WILL NOT BE REPORTED. Serum Triglycerides Reference Interval Normal <150 mg/dL Borderline high 150 - 199 mg/dL High 200 - 499 mg/dL Very High > or = 500 mg/dL LAB L501.6400 mg/dL Normal HDL 45 Result Comment: The drugs N-Acetylcysteine and Metamizole may falsely depress this assay. Reference Range HDL <40 mg/dL Low HDL Cholesterol HDL >or= 60 mg/dL High HDL Cholesterol LAB L501.6500 0-130 mg/dL Test Normal not performed LDL LAB L501.6600 5-40 mg/dL Test Normal not performed VLDL Performed By: #### L100.0100, L503.0105, L506.1000, L500.4050, L500.4100, L501.9520, L505.7010, L101.9900 #### [facility] [address] [facility] [place], [address] #### L3100.5475 #### [facility] (refer to report for specific site) refer to report for address and phone number THYROID STIM HORMONE Collected: 02/01/2018 Status: F Source: [place] ([facility]) 2:08 PM [facility] TYPE CODE TESTS RESULT OUT OF RANGE REFERENCE UNITS LAB L501.9520 0.358-3.74 uIU/mL Normal TSH 0.95 Performed By: #### L100.0100, L503.0105, L506.1000, L500.4050, L500.4100, L501.9520, L505.7010, L101.9900 #### [facility] [facility] [place], [address] #### L3100.5475 #### [facility] (refer to report for specific site) refer to report for address and phone number RHEUMATOID FACTOR Collected: 02/01/2018 Status: F Source: [place] 2:08 PM [facility] TYPE CODE TESTS RESULT OUT OF RANGE REFERENCE UNITS LAB L505.7010 <15 IU/mL Normal RHEUMATOID FAC < 10.0 Performed By: #### L100.0100, L503.0105, L506.1000, L500.4050, L500.4100, L501.9520, L505.7010, L101.9900 #### [facility] [address] [facility] [place], [address] #### L3100.5475 #### [facility] (refer to report for specific site) refer to report for address and phone number ERYTHROCYTE SED RATE Collected: 02/01/2018 Status: F Source: [place] 2:08 PM [facility] TYPE CODE TESTS RESULT OUT OF RANGE REFERENCE UNITS LAB L102.0000 0-20 mm/hr Normal SED RATE 6 Performed By: #### L100.0100, L503.0105, L506.1000, L500.4050, L500.4100, L501.9520, L505.7010, L101.9900 #### [facility] [address] [facility] [place], [address] #### L3100.5475 #### [facility] (refer to report for specific site) refer to report for address and phone number ANTINUCLEAR ANTIBODIES Collected: 02/01/2018 Status: F Source: [place] DIRECT 2:08 PM [facility] TYPE CODE TESTS RESULT OUT OF RANGE REFERENCE UNITS LAB L3100.5475 Negative Normal Negative GERMANIA-DIRECT Result Comment: Performed at: - [facility] [id number] [employer] Sales Manager: Sukhdev Benedict PhD, Phone: [phone] Performed By: #### L100.0100, L503.0105, L506.1000, L500.4050, L500.4100, L501.9520, L505.7010, L101.9900 #### [facility] [address] [facility] [place], [address] #### L3100.5475 #### [facility] (refer to report for specific site) refer to report for address and phone number CRP Collected: 02/01/2018 Status: F Source: [place] 2:08 PM [facility] TYPE CODE TESTS RESULT OUT OF RANGE REFERENCE UNITS LAB L501.6710 0.0-3.0 mg/L Normal < 2.90 C-REACTIVE PROT Result Comment: C-Reactive Protein (CRP) provides useful information for the diagnosis, therapy and monitoring of inflammatory processes and associated diseases. For the evaluation of Relative Risk for Cardiovascular Disease, a High Sensitivity CRP (HSCRP) should be ordered. Performed By: #### L501.6710 #### [facility] [address] [place], [address] PT D/C SUMMARY (1) Observed: 12/22/2017 Status: F Source: [place] 1:07 PM [facility] [address] [place] [address] Fax REHABILITATION SERVICES DISCHARGE SUMMARY MR#: [id number] Acct: [id number] Name: CALE PULLIAM Rep #: [id number] : 1945 72 From: Cary Goode PT, Cert. MDT Referring Dr.: Saul Maxwell MD Status: REG RCR Insurance: MEDICARE PART A B [facility] [facility] - PT D/C Summary It has been my pleasure to treat CALE PULLIAM under orders from Saul Maxwell MD, for the diagnosis of CHRONIC BACK PAIN AND RADICULAR PAIN for a total of 10 visit(s). Discharge Date: Please see the following information for a summary of their discharge status. - Subjective Subjective: HAD N. CONDUCTION TEST. STATES WASN'T REAL DEFINATIVE BUT THINKS MRI OF THORACIC REGION WILL BE RECOMMENDED. TODAY I FEEL THE BEST THAT I HAVE IN A MONTH. MASSAGE THERAPY HERE AT [facility] YESTERDAY. PATIENT REPORTS HIS FLEXABILITY HAS IMPROVED SINCE STARTING PT THIS TIME. HE STATES THE HOME EX'S AREN'T HIS FAVORITE THING TO DO BUT HE DOES THINK THEY ARE HELPING. PATIENT REPORTS UP TO 6-7/10 BACK AND LEG PAIN AT ITS WORST NOW. 1/10 BACK AND LEG PAIN AT THE LEAST. PATIENT REPORTS THE WATER EX'S SEEM TO BE WORKING HIM OUT GOOD BUT WITHOUT THE PAIN HE GETS EXERCISING ON LAND. - Pain Lumbar Spine Pain Intensity (Out of 10): 2 RLE Pain Intensity (Out of 10): 1 LLE Pain Intensity (Out of 10): 1 - Overall Improvement % Improvement: 35 - Objective Objective/Function: SLOW PROGRESS TOWARD ALL PT GOALS. PATIENT IS A GOOD CANDIDATE TO CONTINUE WATER EX PROGRAM INDEP'LY VS LAND AT THIS TIME. UPON EXAM HE STILL HAS POOR POSTURE AND IS ONLY ABLE TO PARTIALLY CORRECT. DECREASED LORDOSIS. Motor deficit: ILA LE STRENGTH GROSSLY 5/5 WITH MMT'ING EXCEPT HIPS 4/5 AND PATIENT IS ABLE TO INDEP'LY TRANSFER FROM SIT TO STAND WITHOUT UE ASSIST EASILY. Sensory deficit: ILA LE LIGHT TOUCH SENSATION IS INTACT AND SYMMETRICAL WITH TESTING TODAY WHICH WAS AN IMPROVEMENT FROM EVAL. ROM deficit: PATIENT CONTINUES TO HAVE TIGHT ILA HS'S AND GASTROC SOLEUS COMPLEX'S BUT IS TOLERATING STRETCHING PROGRAM WELL. Dural Signs: NEGATIVE. Lumbar mvmt loss: flex - MOD. ext - KEMAR. R SG - KEMAR. L SG - KEMAR. Core strength: FAIR. Palpation: NO ACUTE TENDERNESS OR LOWER THORACIC OR LUMBAR SPINE REGIONS. 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 - Goals Goal 1:: DECREASE C/O LOW BACK AND ILA LE SX'S. Goal Progress: Goal Met Goal 2:: IMPROVE SITTING, STANDING, WALKING AND WORK FUNCTION Goal Progress: Goal Met Goal 3:: INSTRUCT IN PROPHYLAXIS Goal Progress: Goal Met - Plan Plan: D/C TO INDEP WATER EX, MASSAGE THERAPY AND HOME EX PROGRAM. PATIENT IS AGREEABLE. - D/C Information If there are questions or concerns regarding this patient's physical therapy, please feel free to call me at [phone]. Thank you for the referral of this patient. Sincerely, Cary Goode <Electronically signed by Cert. LUZ MARIA Alvarado PTT> 12/22/17 1307 CC: Saul Maxwell MD CHANDRA Signed RE-EVALUATION - PT (1) Observed: 11/23/2017 Status: F Source: [place] 12:38 PM [facility] [address] [facility] [place] [address] Fax REEVALUATION / MEDICARE RECERTIFICATION PHYSICAL THERAPY MR#: [id number] Acct: [id number] Name: CALE PULLIAM Rep #: [id number] : 1945 72 From: Cary Goode PT CertFlorentin LOERAT Referring Dr.: Saul Maxwell MD Status: REG RCR Insurance: MEDICARE PART A B ANTHCHANA Madridner, MD, It has been my pleasure to treat CALE PULLIAM over the last 10 visits for CHRONIC BACK PAIN AND RADICULAR PAIN. Please see the progress note below for an update on the physical therapy plan of care! Subjective: HAD N. CONDUCTION TEST. STATES WASN'T REAL DEFINATIVE BUT THINKS MRI OF THORACIC REGION WILL BE RECOMMENDED. TODAY I FEEL THE BEST THAT I HAVE IN A MONTH. MASSAGE THERAPY HERE AT [facility] YESTERDAY. PATIENT REPORTS HIS FLEXABILITY HAS IMPROVED SINCE STARTING PT THIS TIME. HE STATES THE HOME EX'S AREN'T HIS FAVORITE THING TO DO BUT HE DOES THINK THEY ARE HELPING. PATIENT REPORTS UP TO 6-7/10 BACK AND LEG PAIN AT ITS WORST NOW. 1/10 BACK AND LEG PAIN AT THE LEAST. PATIENT REPORTS THE WATER EX'S SEEM TO BE WORKING HIM OUT GOOD BUT WITHOUT THE PAIN HE GETS EXERCISING ON LAND. Objective/Function: SLOW PROGRESS TOWARD ALL PT GOALS. PATIENT IS A GOOD CANDIDATE TO CONTINUE WATER EX PROGRAM INDEP'LY VS LAND AT THIS TIME. UPON EXAM HE STILL HAS POOR POSTURE AND IS ONLY ABLE TO PARTIALLY CORRECT. DECREASED LORDOSIS. Motor deficit: ILA LE STRENGTH GROSSLY 5/5 WITH MMT'ING EXCEPT HIPS 4/5 AND PATIENT IS ABLE TO INDEP'LY TRANSFER FROM SIT TO STAND WITHOUT UE ASSIST EASILY. Sensory deficit: ILA LE LIGHT TOUCH SENSATION IS INTACT AND SYMMETRICAL WITH TESTING TODAY WHICH WAS AN IMPROVEMENT FROM EVAL. ROM deficit: PATIENT CONTINUES TO HAVE TIGHT ILA HS'S AND GASTROC SOLEUS COMPLEX'S BUT IS TOLERATING STRETCHING PROGRAM WELL. Dural Signs: NEGATIVE. Lumbar mvmt loss: flex - MOD. ext - KEMAR. R SG - KEMAR. L SG - KEMAR. Core strength: FAIR. Palpation: NO ACUTE TENDERNESS OR LOWER THORACIC OR LUMBAR SPINE REGIONS. 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 Plan Plan: D/C TO INDEP WATER EX, MASSAGE THERAPY AND HOME EX PROGRAM. PATIENT IS AGREEABLE. Goals Goal 1:: DECREASE C/O LOW BACK AND ILA LE SX'S. Goal Time Frame: 4-6 Weeks Goal Progress: Goal Met Goal 2:: IMPROVE SITTING, STANDING, WALKING AND WORK FUNCTION Goal Time Frame: 4-6 Weeks Goal Progress: Goal Met Goal 3:: INSTRUCT IN PROPHYLAXIS Goal Time Frame: 4-6 Weeks Goal Progress: Goal Met Anticipated Interventions Patient/Client Instruction: Educate patient on: Condition, Plan of Care, Risk Factors, Benefits of Fitness Program For the Purpose of:: To improve self management Therapeutic Exercise to Include: Strength training, Body mechanics, Postural training, Flexibilty training, Gait and locomotor training, In an aquatic setting, Active ROM, Dynamic Lumbar Stabilization For the Purpose of:: To decrease pain, To decrease swelling/inflammation, To increase ROM, To improve muscle performance and motor function, To increase tolerance to activity/condition/position, To improve ability of physical actions for home/community/work/leisure, To improve gait and locomotor functions Please do not hesitate to contact me at [phone] by phone or if you have questions or concerns regarding this new plan of care! Sincerely, Cary Goode <Electronically signed by Cert. JEFFERY Alvarado PT> 11/23/17 1238 CC: Saul Maxwell MD CHANDRA Signed For Medicare only, by signing this I certify the plan of care. Physicians Signature Date INITAL EVALUATION (1) Observed: 10/31/2017 Status: F Source: [place] - PT 12:33 PM [facility] [place] [place] [address] Fax REHABILITATION SERVICES INITIAL EVALUATION MR#: [id number] Acct: [id number] Name: CALE PULLIAM Rep #: [id number] : 1945 72 From: Cert. JEFFERY Alvarado PT Referring Dr.: Saul Maxwell MD Status: REG RCR Insurance: MEDICARE PART A B ANTH Patient's Visit Information CALE PULLIAM is a 72 year old M referred to Physical Therapy by Saul Maxwell MD with a diagnosis of CHRONIC BACK PAIN AND RADICULAR PAIN. Date of Evaluation: 10/31/17 Physical Therapist: Cary Tolentino Cross - Visit Plan Frequency: 2-3x /Week Duration: 4-6 Weeks Plan: AQUATIC THERAPY FOR PAIN RELEIF, POSTURE CORRECTION/STRENGTHENING, INSTRUCTION IN APPROPRIATE BODY MECHANICS AND ACTIVITY MODIFICATIONS. DLS STARTING WITH A NEUTRAL SPINE PROGRESSING ROM TOLERATED. ILA LE ROM, STRETCHING AND STRENGTHENING. HEP INSTRUCTION. 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 Present symptoms: PRIMARILY IN LEFT LOW BACK, ILA HIPS AND ON DOWN BOTH LEGS TO THE FEET. SOMETIMES TOES. PAIN, NUMBNESS AND TINGLING AT TIMES. Present since: CHRONIC. Pain Scale: WORST 7/10, LEAST 2/10. Currently: 08/04. Commenced as a result of: DDD. Symptoms at onset: LOW BACK. 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 GETTING DOWN ON HANDS AND KNEES TO PULL WEEDS, ESPECIALLY STANDING ON CONCRETE. 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 TRYING TO EX ON LAND HERE AT [employer] WITH [employer]. Better: HOT TUB, MASSAGING HAMSTRINGS. Disturbed sleep: NO. Previous history/treatment: BACK SURGERY WITH PT HERE IN MAY 2016. LAURA'S. HISTORY OF AQUATIC THERAPY HERE. Coughing/sneezing/straining: NEGATIVE. Gait: NO AD'S BUT DISTANCE LIMITED. FEELS STIFF WHEN HE WALKS. Difficulty initiating urinatin: NO. Accidents: NONE SINCE OPERATION ON BACK. Unexplained weight loss: NO. Imaging: LUMBAR MRI: MRI/Spine Lumbar (Routine). IMPRESSION: 1. Status post surgical fusion of the L3, L4, L5 and S1 vertebral. segments. 2. There is multilevel degenerative disc disease and degenerative. arthropathy of the lumbar spine with neural foraminal narrowing, acquired. canal stenosis and potential nerve impingement, as described. Electronically Signed: Briana Vizcarra MD. at 6:59 EDT. PMH: HEART BYPASS 2012. OTHER: PATIENT REPORTS HE SAW DR. INMAN IN [place] A FEW MONTHS AGO. HE ORDERED MRI. PATIENT REPORTS DR. INMAN SAID HE DIDN'T SEE ANYTHING THAT WOULD MAKE HIM THINK HE HAS TO GO BACK IN AND OPERATE AGAIN. NCT PENDING NOV 21 2017. - Objective Sitting/Standing Posture: POOR. Lordosis: REDUCED. Lateral shift: NO. Relevant shift: N/A. Active Correction of posture: BETTER. Other Observations: INDEP GAIT INTO PT WITHOUT ANY AD'S. GOOD CADANCE. PPT. Motor deficit: ILA LE STRENGTH GROSSLY 5/5 WITH MMT'ING EXCEPT HIPS 4/5. Sensory deficit: DECREASED LIGHT TOUCH RIGHT LATERAL LEG COMPARED TO LEFT. NCT PENDING. ROM deficit: TIGHT ILA HS'S AND GASTROC SOLEUS COMPLEX'S. GOOD HIP FLEXION ROM ILA. Reflexes: NT. Dural Signs: NEGATIVE. Lumbar mvmt loss: flex - MOD. ext - KEMAR. R SG - KEMAR. L SG - KEMAR. Core strength: POOR. Palpation: NO ACUTE TENDERNESS OR LOWER THORACIC OR LUMBAR SPINE REGIONS. NOT TENDER IN GREATER TROCH REGIONS EITHER. OTHER: POSITIVE ILA DAVID TESTS. - Goals Goal 1:: DECREASE C/O LOW BACK AND ILA LE SX'S. Goal Time Frame: 4-6 Weeks Goal 2:: IMPROVE SITTING, STANDING, WALKING AND WORK FUNCTION Goal Time Frame: 4-6 Weeks Goal 3:: INSTRUCT IN PROPHYLAXIS Goal Time Frame: 4-6 Weeks - Rehabilitation Potential Rehabilitation Potential: Fair - Anticipated Interventions Patient/Client Instruction: Educate patient on: Condition, Plan of Care, Risk Factors, Benefits of Fitness Program For the Purpose of:: To improve self management Therapeutic Exercise to Include: Strength training, Body mechanics, Postural training, Flexibilty training, Gait and locomotor training, In an aquatic setting, Active ROM, Dynamic Lumbar Stabilization For the Purpose of:: To decrease pain, To decrease swelling/inflammation, To increase ROM, To improve muscle performance and motor function, To increase tolerance to activity/condition/position, To improve ability of physical actions for home/community/work/leisure, To improve gait and locomotor functions Thank you for the opportunity to evaluate your patient. For Medicare and Medicare HMO plans, please review the plan of care and approve it. It will need to be FAXED BACK to us at [phone] for Medicare purposes. Please let me know if there are questions or concerns regarding this plan of care. Physician Signature: Date: <Electronically signed by Cary Goode PT, Cert. MDT> 10/31/17 1233 CC: Saul Maxwell MD CHANDRA Signed For Medicare only, by signing this I certify the plan of care. Physicians Signature Date VITAMIN B1, THIAMINE Collected: 09/14/2017 Status: F Source: [place] 8:51 AM [facility] [place] TYPE CODE TESTS RESULT OUT OF RANGE REFERENCE UNITS LAB L3300.8000 66.5-200.0 nmol/L Normal VIT B1 108.3 Result Comment: This test was developed and its performance characteristics determined by [facility]. It has not been cleared or approved by the Food and Drug Administration. Performed at: [facility] [address] [id number] Agricultural Equipment Sales Manager: Shane Putnam MD, Phone: [phone] Performed By: #### L3300.8000 #### [facility] (refer to report for specific site) refer to report for address and phone number CBC W/DIFF, AUTOMATED Collected: 09/14/2017 Status: F Source: [place] 8:49 AM [facility] [place] Order Comment: Order Date: 09/08/17 Order Info: [id number] - CBCD TYPE CODE TESTS RESULT OUT OF RANGE REFERENCE UNITS LAB L100.1000 4.4-11.0 K/mm3 Low WBC 3.4 LAB L100.1200 4.6-6.2 M/mm3 Normal RBC 4.78 LAB L100.1300 13.0-16.5 g/dl Normal HGB 14.9 LAB L100.1400 40-54 % Normal HCT 44.1 LAB L100.1500 80-94 fL Normal MCV 92.3 LAB L100.1600 27.0-32.0 pg Normal MCH 31.2 LAB L100.1700 32-36 g/gl Normal MCHC 33.8 LAB L100.1810 11.6-14.6 % Normal RDW CV 12.6 LAB L100.1820 35.1-43.9 fl Normal RDW SD 42.2 LAB L100.1900 150-450 K/mm3 Normal PLT 187 LAB L100.2000 6.2-12.0 fl Normal MPV 10.2 LAB L100.2100 47-70 % Normal NEUT% 51.2 LAB L100.2200 19-41 % Normal LY% 38.1 LAB L100.2300 0-10 % Normal MONO% 7.7 LAB L100.2400 0-5 % Normal EO% 2.1 LAB L100.2500 0-1 % Normal BASO% 0.6 LAB L100.2550 0.0-0.9 % Normal IM GRAN % 0.300 Result Comment: IG% - Immature Granulocytes (promyelocytes, myelocytes and metamyelocytes) > 1% indicates that a LEFT SHIFT is Present. LAB L100.2620 2.0-7.7 X10 3/uL Low Absolute Neut 1.7 LAB L100.2720 0.83-4.51 X10 3/ul Normal Absolute Lymph 1.28 Performed By: #### L100.0100, L503.0105, L500.4050, L500.4100, L501.9520 #### [facility] [address] [facility]. [place], [place], [address] VITAMIN B12 Collected: 09/14/2017 Status: F Source: [place] 8:49 AM [facility] [place] Order Comment: Order Date: 09/08/17 Order Info: 2132-9 - B12 TYPE CODE TESTS RESULT OUT OF RANGE REFERENCE UNITS LAB L503.0105 211-911 pg/mL Normal Vitamin B12 378 Performed By: #### L100.0100, L503.0105, L500.4050, L500.4100, L501.9520 #### [facility] [address] [place], [place], [address] COMPREHENSIVE METABOLIC Collected: 09/14/2017 Status: F Source: [facility] 8:49 AM [facility] Order Comment: Order Date: 09/08/17 Order Info: [id number] - CMP Order Info: [id number] - LIPID Order Info: 3016-3 - TSH TYPE CODE TESTS RESULT OUT OF RANGE REFERENCE UNITS LAB L501.0100 74-106 mg/dL Normal GLU 85 Result Comment: Please note revised GLUCOSE reference range effective 2017. LAB L501.1000 7-18 mg/dL Normal BUN 16 LAB L501.1100 0.70-1.30 mg/dL Normal CREAT,SERUM 1.17 Result Comment: The validity of the calculated GFR AND GFRAA in patients over 70 years has not been determined. Clinical correlation is essential. LAB L501.1110 >60 mL/min Normal EST GFR 65 Result Comment: Non- GFR Calc LAB L501.1115 >60 mL/min Normal EST GFR - AA 79 Result Comment: GFR Calc LAB L501.1300 10-20 RATIO Normal BUN/CRE 13.7 LAB L501.1500 6.4-8.2 g/dL T Normal PROT 6.9 LAB L501.1800 3.2-5.0 g/dL Normal ALB 3.6 LAB L501.1950 2.2-4.2 g/dL Normal GLOB 3.3 LAB L501.2000 0.9-2.4 RATIO Normal A/G 1.1 LAB L501.2200 8.5-10.1 mg/dL CA Normal 8.5 LAB L501.4100 15-37 U/L Normal AST 26 LAB L501.4305 45-117 U/L Normal ALK P 68 LAB L501.4405 16-61 U/L Normal ALT 25 LAB L501.4600 0.20-1.00 mg/dL T Normal BILI 0.60 LAB L501.5300 136-145 mmol/L NA Normal 139 LAB L501.5600 3.5-5.1 mmol/L K Normal 4.1 LAB L501.5900 98-107 mmol/L CL Normal 105 LAB L501.6100 21.0-32.0 mmol/L Normal CO2 29.0 LAB L501.6200 5-15 Normal GAP 5 Performed By: #### L100.0100, L503.0105, L500.4050, L500.4100, L501.9520 #### [facility] [address] [place], [address] LIPID PROFILE Collected: 09/14/2017 Status: F Source: [place] 8:49 AM [facility] Order Comment: Order Date: 09/08/17 Order Info: [id number] - CMP Order Info: [id number] - LIPID Order Info: 3016-3 - TSH TYPE CODE TESTS RESULT OUT OF RANGE REFERENCE UNITS LAB L501.4900 200 mg/dL Normal CHOL 194 Result Comment: <200 mg/dL Desirable 200-240 mg/dL Borderline >240 mg/dL High Risk LAB L501.5000 mg/dL High TRIG 334 Result Comment: The drugs N-Acetylcysteine and Metamizole may falsely depress this assay. Serum Triglycerides Reference Interval Normal <150 mg/dL Borderline high 150 - 199 mg/dL High 200 - 499 mg/dL Very High > or = 500 mg/dL LAB L501.6400 mg/dL Normal HDL 46 Result Comment: The drugs N-Acetylcysteine and Metamizole may falsely depress this assay. Reference Range HDL <40 mg/dL Low HDL Cholesterol HDL >or= 60 mg/dL High HDL Cholesterol LAB L501.6500 0-130 mg/dL Normal LDL 81 LAB L501.6600 5-40 mg/dL High VLDL 67 Performed By: #### L100.0100, L503.0105, L500.4050, L500.4100, L501.9520 #### [facility] [address] [facility]. [place], [place], [address] THYROID STIM HORMONE Collected: 09/14/2017 Status: F Source: [place] (TSH) 8:49 AM [facility] [place] Order Comment: Order Date: 09/08/17 Order Info: [id number] - CMP Order Info: [id number] - LIPID Order Info: [id number] - TSH TYPE CODE TESTS RESULT OUT OF RANGE REFERENCE UNITS LAB L501.9520 0.358-3.74 uIU/mL Normal TSH 0.81 Performed By: #### L100.0100, L503.0105, L500.4050, L500.4100, L501.9520 #### [facility] [address] [facility] [place], [address] SPINE LUMBAR Observed: 08/16/2017 Status: F Source: [place] (ROUTINE) 3:39 PM [facility] Services [address] [place] [address] Spine Lumbar (Routine) MR#: [id number] Acct: [id number] Name: CALE PULLIAM Rep #: [id number] : 1945 M 72 From: Briana Vizcarra MD PCP: Saul Maxwell MD Status: REG CLI Study: Spine Lumbar (Routine) Date of Exam: 08/16/17 Exam# [id number] Ordering Dr: Ramin Berger STUDY: MRI LUMBAR SPINE WITHOUT CONTRAST REASON FOR EXAM: Male, 72 years old. Low back pain with radicular symptoms in the right hip and leg. TECHNIQUE: Standardized fat and water weighted pulse sequences were obtained in the sagittal and axial planes. COMPARISON: CT of the lumbar spine dated February 13, 2016 and radiographs of the lumbar spine dated January 12, 2017. FINDINGS: T12-L1: Normal endplates. Normal disc height, signal and morphology. Normal bilateral facet joints. Normal central canal and bilateral lateral recesses. Normal bilateral intervertebral neural foramina. There is straightening of the normal lumbar lordosis. There is no substantial scoliosis. Normal conus medullaris that terminates at the T12-L1 level. L1-2: There is narrowing of the disc. There is an annular disc bulge and osteophyte complex. There is mild degenerative arthropathy of facet joints. Neural foramina are bilaterally narrowed without evidence for nerve impingement. There is mild central acquired canal stenosis. L2-3: There is abnormal signal of the inferior endplate of L2 consistent with acute Modic changes. There is also central stenosis. Appears to be a broad central disc protrusion with mild central acquired canal stenosis. There is mild degenerative arthropathy of facet joints. There is artifact at L3 related to the interpedicular screws. Neural foramina are bilaterally narrowed without evidence for nerve impingement. L3-4: There is narrowing of the disc. There is a disc bulge and osteophyte complex. There is significant artifact caused by the interpedicular screws at this level. Bilateral neural foramina are narrowed, severely on the left with potential impingement of the left L3 nerve root at the neural foramen. L4-5: There is narrowing of the disc. There is a disc bulge and osteophyte complex. Patient appears to have had laminectomies at L4 and L5. There is significant artifact secondary to interpedicular screws at this level. There is no significant central acquired canal stenosis. Neural foramina are bilaterally narrowed with potential impingement of the left L4 nerve root at the neural foramen. L5-S1: There is narrowing of the disc. There are chronic Modic signal changes of the endplates. There is an annular disc bulge and osteophyte complex. Patient has had laminectomies of L5. There is moderate degenerative arthropathy of facet joints. There is no significant central acquired canal stenosis. Neural foramina are bilaterally narrowed without definite nerve impingement. Normal visualized sacral ala. There is abnormal signal within the paraspinal soft tissues posterior to L3, L4, L5 and sacrum that are probably postoperative in etiology. There is also suggestion for paraspinal musculature atrophy particularly at L4 and L5. Appears be a large left-sided renal cyst measuring approximately 7.1 cm in greatest dimension. There is a right sided renal cyst measuring 2.1 cm. There is a small left-sided renal cyst. MRI/Spine Lumbar (Routine) IMPRESSION: 1. Status post surgical fusion of the L3, L4, L5 and S1 vertebral segments. 2. There is multilevel degenerative disc disease and degenerative arthropathy of the lumbar spine with neural foraminal narrowing, acquired canal stenosis and potential nerve impingement, as described. Electronically Signed: Briana Vizcarra MD at 6:59 EDT , Service support , CC: Saul Maxwell MD; Ramin Berger Microbiology Professor: Signed XR SPINE LUMBOSACRAL AP Observed: 08/09/2017 Status: F Source: [facility] 2:47 PM [facility] REPOSITORY EXAM: XR SPINE LUMBOSACRAL AP AND LATERAL, 08/09/2017 14:36 PM COMPARISON: Lumbar spine radiographs 10/06/2016 CLINICAL INDICATIONS: postop RELEVANT CLINICAL HISTORY: Z98.1:Arthrodesis status M54.5:Low back pain G89.29:Other chronic pain FINDINGS: 2 images obtained Vertebral: There are 5 typical lumbar spine vertebral bodies in unchanged alignment with intact L3-L1 posterior fusion hardware. Stable L2-L4 minimal stepwise retrolisthesis. Disc: Disc spaces are stable with multilevel degenerative disc disease. Joint: Facet joints appear anatomically aligned. IMPRESSION: Intact L3-S1 posterior fusion hardware with multilevel degenerative disc disease and unchanged alignment. TOTAL+%FREE Collected: 03/23/2017 Status: F Source: [place] 9:51 AM [facility] TYPE CODE TESTS RESULT OUT OF RANGE REFERENCE UNITS LAB L3110.0700 0.0-4.0 ng/mL Normal PSA, 1.1 TOTAL Result Comment: Stephanie ECLIA methodology. According to the [place] [employer], Serum PSA should decrease and remain at undetectable levels after radical prostatectomy. The AUA defines biochemical recurrence as an initial PSA value 0.2 ng/mL or greater followed by a subsequent confirmatory PSA value 0.2 ng/mL or greater. Values obtained with different assay methods or kits cannot be used interchangeably. Results cannot be interpreted as absolute evidence of the presence or absence of malignant disease. LAB L3110.0800 N/A ng/mL Normal PSA, 0.27 FREE Result Comment: Stephanie ECLIA methodology. LAB L3110.0900 . % Normal PSA, FREE 24.5 % Result Comment: The table below lists the probability of prostate cancer for men with non-suspicious JORGE results and total PSA between 4 and 10 ng/mL, by patient age (Vincent et al, LORI 1998, 279:1542). % Free PSA 50-64 yr 65-75 yr 0.00-10.00% 56% 55% 10.01-15.00% 24% 35% 15.01-20.00% 17% 23% 20.01-25.00% 10% 20% >25.00% 5% 9% Please note: Vincent et al did not make specific recommendations regarding the use of percent free PSA for any other population of men. Performed at: [facility] [id number] Agricultural Equipment Sales Manager: Sukhdev Benedict PhD, Phone: [phone] Performed By: #### L3110.0500 #### [facility] (refer to report for specific site) refer to report for address and phone number CARDIOLOGY VISIT Observed: 03/15/2017 Status: F Source: [place] REPORT 9:34 AM [facility] [place] [address] [place] [address] OFFICE VISIT Date of Service: 03/15/17 MR#: [id number] Acct: [id number] Name: CALE PULLIAM Rep #: [id number] : 1945 Provider: Kush Burnett MD Age/Sex: 72/M Location: [facility] Status: Signed HPI 6 M FU: Chief Complaint: Follow up Details: CALE PULLIAM, is a 72 M who presents to the office today for a follow-up visit. He is a gentleman with a history of coronary artery disease status post coronary bypass surgery in 2012. He had a left internal mammary artery to the left anterior descending artery, saphenous vein graft to the diagonal vessel and ramus intermedius. He also had some postoperative atrial fibrillation as well as hypertension and hyperlipidemia. His major complaints today are related to occasional swelling of his lower extremities for which his has adjusted his Lasix. He has had no dizziness or diaphoresis no near syncope or syncope. As you remember he had back surgery and says that it is getting better. He has no major complaints that at this time. His physical exam demonstrates clear lung moeller regular rate and rhythm and no pedal edema. Intake Vital Signs03/15/17 Height 5 ft 5 in 03/15/17 Weight: 407 lb 13.683 oz 03/15/17 Body Mass Index (BMI) 67.8 03/15/17 Blood Pressure 90/50 Intake Visit Reasons: 6 M FU Accompanied by: Allergies egg Allergy (Severe, Verified 06/14/16 18:44) Other Egg Derived Allergy (Severe, Verified 06/14/16 18:44) Food Allergy soy Allergy (Verified 06/14/16 18:45) Nausea flu shot Adverse Reaction (Severe, Uncoded 03/14/17 07:55) unknown Medications Flaxseed Oil/[place] 3,6,9 [Sv Flaxseed Oil 1,300 mg Sftgl] 1 ea PO DAILY 09/03/13 [History Confirmed 03/14/17] Magnesium 250 mg PO DAILY 09/03/13 [History Confirmed 03/14/17] Cyanocobalamin (Vitamin B-12) [Vitamin B-12] 200 mcg PO BID 06/14/16 [History Confirmed 03/14/17] Acetaminophen [Tylenol Tablet] 325 - 650 mg PO Q4H PRN PRN #0 tab 06/22/16 [Rx Confirmed 03/14/17] Aspirin [Aspirin, Baby] 81 mg PO DAILY@0800 tab.chew 06/22/16 [Rx Confirmed 03/14/17] Calcium Carb/Vitamin D [Os-Marito 500MG + D] 1 tab PO BIDCM tab 06/22/16 [Rx Confirmed 03/14/17] Gabapentin [Neurontin] 600 mg PO DAILY@1700,2200 #60 tab 06/22/16 [Rx Confirmed 03/14/17] Magnesium Hydroxide [Milk Of Magnesia] 30 ml PO .PRN X 1 PRN #0 udc 06/22/16 [Rx Confirmed 03/14/17] docusate sodium 100 mg capsule 100 mg PO QDAY 03/14/17 [History Confirmed 03/14/17] ibuprofen 200 mg tablet 200 mg PO .COMPLEX 03/14/17 [History Confirmed 03/14/17] modafinil 200 mg tablet 200 mg PO QDAY 03/14/17 [History Confirmed 03/14/17] apixaban 5 mg tablet 5 mg PO BID 03/15/17 [History Confirmed 03/15/17] apixaban 5 mg tablet 5 mg PO BID #60 tab 03/15/17 [Rx Confirmed 03/15/17] furosemide 40 mg tablet 40 mg PO .1/2 to 1 tablet qd tab 03/15/17 [History Confirmed 03/15/17] metoprolol tartrate 25 mg tablet 12.5 mg PO BID #60 tab 03/15/17 [Rx Confirmed 03/15/17] riboflavin (vitamin B2) 100 mg tablet 100 mg PO QDAY 03/15/17 [History Confirmed 03/15/17] Ejection fraction %: 65 to 70 PFSH Medical History Bradycardia (Chronic) Hyperlipidemia (Chronic) Atherosclerotic heart disease of [place] coronary artery without angina pectoris (Chronic) HTN (hypertension) (Chronic) AF (paroxysmal atrial fibrillation) (Chronic) Hypopituitarism (Chronic) CAD (coronary artery disease) (Chronic) Lumbar stenosis (Chronic) Obesity (Acute) RLS (restless legs syndrome) (Chronic) JULIA (obstructive sleep apnea) (Chronic) Laceration of hand (Inactive) Restless leg syndrome (Inactive) Surgical History S/P CABG x 3 (Chronic) Family History Father CAD (coronary artery disease) CABG and pacemaker COPD (chronic obstructive pulmonary disease) Mother , age 69 infection, aneurysms No problems noted. Sister Clotting disorder Brother Clotting disorder Social History Smoking Status: Never smoker ROS Const Const: Negative for fatigue, weakness, body ache, fever(s), headache(s), chills, frequent falls, night sweats, daytime sleepiness, difficulty sleeping, excessive sweating, weight gain, weight loss, increased appetite, poor appetite, anorexia or other ENT ENT: Negative for headache(s), Negative for balance problems Cardio Chest Pain: No Palpitations: Negative for Yes or No Edema: Bilateral (Increased Lasix back to full pill Tuesday) Muscle aches with walking: None Resp Respiratory: Negative for SOB with activity, SOB at rest, SOB orthopnea\SOB lying down, Coughing up blood/hemoptysis, chest congestion, pain on inspiration, snoring, stridor, wheezing, crackles, paroxysmal nocturnal dyspnea or other Musc Musc: Negative for muscle aches/ myalgia, muscle weakness, joint pain or balance problems Neuro Neuro: Negative for weakness, Negative for headache(s), Negative for frequent falls Endo Endo: Negative for fatigue or excessive sweating Cardiology Exam Const Appearance: cooperative, healthy appearing, well developed, well groomed and no acute distress Nutritional Appearance: well nourished and average body habitus Orientation: alert, awake and oriented x3 Head Head: normal to inspection, normocephalic and atraumatic Ears: hearing grossly normal bilaterally and external ears normal Nose: external nose normal, nasal mucous membranes and turbinates normal, nares normal, septum normal, no nasal discharge Face and Sinus: face symmetric Mouth: oral mucosae normal, tongue normal, oropharynx normal and moist mucous membranes Teeth and gingiva: dentition normal Throat: posterior oropharynx normal, tonsils normal and uvula midline Eyes General: appearance normal, both eyes and all related structures Eyelids: eyelids normal Conjunctivae: conjunctivae normal Pupils: PERRL, normal by confrontation and accommodation normal EOM: EOM intact bilaterally Neck Neck: normal visual inspection, trachea midline and no JVD JVD: +5 Carotids: normal carotid upstroke and bounding pulses Chest Chest inspection: normal inspection of the chest, symmetric chest movement and normal respiratory effort Auscultation: Bilateral: Clear to Auscultation Cardio Palpation: normal PMI Rate: regular rate Rhythm: regular rhythm Heart sounds: S1 normal, S2 normal and normal, physiologic split S2; negative rub, gallop or murmur GI GI: normal to inspection, soft, no hepatosplenomegaly and bowel sounds present Neuro General: alert, awake, oriented x3, no focal sensory deficit, gait normal and moves all extremities Skin Skin: no rashes or lesions noted Extremities Pulses: Normal: Right Femoral Pulse, Left Femoral Pulse, Right Dorsalis Pedis Pulse, Left Dorsalis Pedis Pulse, Right Posterior Tibial Pulse, Left Posterior Tibial Pulse, Right Radial Pulse, Left Radial Pulse Lower Extremity Edema: None: Bilateral Musculoskel Musculoskeletal: No joint tenderness Psych Psychological: normal affect Assessment AND Plan 1. S/P CABG x 3 Z95.1 [facility] 12/01/2012 Plan He appears to be stable at this time my plan is for him to continue the current medical therapy without making any changes. He remains active and at this time I do not think we need any stress testing. 2. AF (paroxysmal atrial fibrillation) I48.0 Plan He does have a history of paroxysmal atrial fibrillation but it does not appear that he has had any symptomatic recurrence at this time we will continue to monitor him closely and he will remain on anticoagulation. 3. Essential hypertension I10; I10; I10 Plan His blood pressure appears to be better controlled on the current medical therapy he has not had any dizziness and will continue watching him on the same without making any changes. As noted before he can adjust his Lasix based on his weight as well as evidence of pedal edema. 4. Pure hypercholesterolemia E78.00; E78.00; E78.00; E78.0 Plan His most recent lipid profile demonstrated total cholesterol of 190, LDL of 89, and HDL of 64. We will continue the same without making any changes. 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) 03/15/17 0934 <Electronically signed by Kush Burnett MD> Date Kush Burnett MD Cosigner Signature: Date (if applicable) CC: Isabel Art ALLERGIES ALLERGIES DATE TYPE / CODE NAME / REACTION SEVERITY SOURCE CODE 03/14/2018 Drug Egg Food Allergy [place] Allergy/[id number](SN Derived/F0 Community OMED CT) [id number]([facility]) Repository 03/14/2018 Drug egg/K56205 Other [place] Allergy/126238983(SN 6947(RXNOR [facility] OMED CT) M) Hospital Repository 03/14/2018 Drug soy/F27340 Nausea Unknown [place] Allergy/316838034(SN 3405(RXNOR [facility] OMED CT) M) Hospital Repository 03/14/2017 Miscellaneous flu shot Unknown SV [place] Allergy/672256655([facility]) Hospital Repository ENCOUNTERS ENCOUNTERS ADMIT/DISCHARGE ACCOUNT NUMBER ADMITTING ENCOUNTER LOCATION SOURCE CLASS 03/14/2018/03/14/20 [id number] Ambulatory BMSBuilding: Kristin 18 BMS.[facility] Repository 03/02/2018 [id number] Ambulatory [facility] ding:MTRAD Repository 02/22/2018 [id number] Ambulatory [facility] ding:MFPLAB Repository 02/07/2018 [id number] [facility] ding:CT Repository 02/01/2018 [id number] [facility] ding:MFPLAB Repository 11/23/2017/11/24/19 [id number] Ambulatory [address] ding:PT Repository 09/14/2017 [id number] Ambulatory [facility] ding:LAB Repository 08/16/2017 [id number] Ambulatory Building:IMG [facility] Repository 08/16/2017 [id number] Ambulatory [facility] ding:MRI Repository 08/12/2017 [id number] Ambulatory [facility] ding:MFPLAB Repository 08/09/2017 [id number] Ambulatory Building:CRD [facility] Repository 08/09/2017 [id number] Ambulatory Building:STACY [facility] Repository 03/23/2017 [id number] Ambulatory [facility] ding:LAB Repository 03/15/2017/03/15/20 [id number] Ambulatory BMSBuilding: Kristin 17 BMS.[facility] Repository PAYERS PAYERS ENCOUNTER GUARANTOR PAYER SUBSCRIBER SOURCE 03/14/2018 CALE Boyd Primary CALE [id number] Insurance:MEDICARE PART CHAPMANDOB: [facility] HARRIS A olicy Number: [id number] [id number] Repository [address]Kto: 330) Date:2017-03-15 [phone] () 03/14/2018 Secondary CALE Foster Insurance:ANTHEMPolicy [facility] Community Number: [id number] [id number] Repository Date:[id number] [address]SJ: 03/14/2018 Tertiary Insurance:SELF NOT GIVENUNK [place] PAY INSURANCEPolicy Community Number: Effective Hospital Date:2018-03-14 Repository 03/02/2018 CALE Boyd Primary CALE [id number] Insurance:MEDICARE PART CHAPMANDOB: [facility] HARRIS A olicy Number: [id number], [place] [id number] Repository [address]Jle: (330) Date:2018-03-02 [phone] () 03/02/2018 Secondary CALE Foster Insurance:ANTHEMPolicy [facility]: Community Number: [id number] Hospital [id number] Repository Date:8776-77-03[address]BSMFWZ, [place] [address]AE: 03/02/2018 Tertiary Insurance:SELF NOT GIVENUNK [place] PAY INSURANCEPolicy Community Number: Effective Hospital Date:2018-03-02 Repository 02/22/2018 CALE L Primary CALE [place] [id number] Insurance:MEDICARE PART CHAPMANDOB: [place] BPolicy Number: [id number], [place] [id number] Repository [address]Xog: (634) Date:2018-02-22 [phone] () 02/22/2018 Secondary CALE Boyd Kristin Insurance:ANTHEMPolicy CHAPMANDOB: Community Number: [id number] Health Care [id number] Repository Date:6180-97-38[address]JQRZBEF, [place] [address]MV: 02/22/2018 Tertiary Insurance:SELF NOT GIVENUNK [place] PAY INSURANCEPolicy Community Number: Effective Hospital Date:2018-02-22 Repository 02/07/2018 CALE L Primary CALE Boyd [place] [id number] Insurance:MEDICARE PART CHAPMANDOB: [place] BPolicy Number: [id number], [place] [id number] Repository [address]Llc: (392) Date:2018-02-02 [phone] () 02/07/2018 Secondary CALE Deb Kristin Insurance:ANTHEMPolicy CHAPMANDOB: Community Number: [id number] Health Care [id number] Repository Date:9079-86-11[address]OTHFY[place], [place] [address]PZ: 02/07/2018 Tertiary Insurance:SELF NOT GIVENUNK [place] PAY INSURANCEPolicy Community Number: Effective Hospital Date:2018-02-02 Repository 02/01/2018 CALE L Primary CALE [place] [id number] Insurance:MEDICARE PART CHAPMANDOB: [facility] KIMBERLY [place] BPolicy Number: [id number], [place] [id number] Repository [address]Tiv: ([phone]) Date:2018-02-01 [phone] () 02/01/2018 Secondary CALE Boyd [place] Insurance:ANTHEMPolicy CHAPMANDOB: Community Number: [id number] Hospital [id number] Repository Date:4606-20-97[address]ZJDTHVT [place] [address]RJ: 02/01/2018 Tertiary Insurance:SELF NOT GIVENUNK Krist[place] PAY INSURANCEPolicy Community Number: Effective Hospital Date:2018-02-01 Repository 11/23/2017 CALE L Primary CALE Foster [id number] Insurance:MEDICARE PART CHAPMANDOB: [facility] HARRIS A BPolicy Number: [id number], [place] [id number] Repository [address]Wtd: 330) Date:2012-01-27 [phone] () 11/23/2017 Secondary CALE Boyd [place] Insurance:ANTHEMPolicy CHAPMANDOB: Community Number: [id number] Health Care [id number] Repository Date:4029-92-31[address]BQUQYBZ, [place] [address]AR: 11/23/2017 Tertiary Insurance:SELF NOT GIVENUNK [place] PAY INSURANCEPolicy Community Number: Effective Hospital Date:2017-10-26 Repository 09/14/2017 CALE L Primary CALE [place] [id number] Insurance:MEDICARE PART CHAPMANDOB: [facility] HARRIS A BPolicy Number: [id number], [place] [id number] Repository [address]Jau: (330) Date:2017-09-14 [phone] () 09/14/2017 Secondary CALE Boyd [place] Insurance:ANTHEMPolicy CHAPMANDOB: Community Number: [id number] Health Care [id number] Repository Date:5898-44-02[address]BBDVBZG [place] [address]RK: 09/14/2017 Tertiary Insurance:SELF NOT GIVENUNK [place] PAY INSURANCEPolicy Community Number: Effective Hospital Date:2017-09-14 Repository 08/16/2017 CALE L Primary CALE Deb [facility] CHAPMANDOB: Insurance:MEDICARE A CHAPMANDOB: [place] W AND BPolicy Number: [id number] [facility] [id number] [address] [place], [place] Date:4495-51-00Bxct [place], [place] Repository [address]Lio: (330) Name:CARE [id number]: () [phone] () 08/16/2017 Secondary CALE Boyd [facility] Insurance:ANTHEM CHAPMANDOB: [facility] [id number] [facility] Number: W [facility] [id number] [place], [place] Repository Date:0251-21-11Glvu [address]Bvm: (330) Name:[facility] CARE 2-1014 () 08/16/2017 CALE Boyd Primary CALE Foster [id number] W Insurance:MEDICARE PART CHAPMANDOB: [facility] HARRIS BPolicy Number: [id number], [place] [id number] Repository [address]Kwe: (330) Date:2017-08-10 [phone] () 08/16/2017 Secondary CALE Foster Insurance:ANTHEMPolicy [facility]: Community Number: [id number] Health Care [id number] Repository Date:9783-68-12[address]IBWBEYM, [place] [address]RR: 08/16/2017 Tertiary Insurance:SELF NOT GIVENUNK [place] [facility] Number: Effective Hospital Date:2017-08-10 Repository 08/12/2017 CALE Boyd Primary CALE Foster [id number] W Insurance:MEDICARE PART CHAPMANDOB: [facility] HARRIS A BPolicy Number: [id number], [place] [id number] Repository [address]Zqz: (330) Date:2017-08-12 [phone] () 08/12/2017 Secondary CALE Foster Insurance:ANTHEMPolicy [facility]: Community Number: [id number] Hospital [id number] Repository Date:3526-83-25V[address]ZWHTV[address], [place] [address]AG: 08/12/2017 Tertiary Insurance:[facility] Number: Effective Hospital Date:2017-08-12 Repository 08/09/2017 CALE Boyd Primary CALE Boyd [facility] Insurance:MEDICARE A CHAPMANDOB: [place] W AND BPolicy Number: [id number] [facility] [id number] W [facility] [place], [place] Date:9135-00-50Incb [place] Repository [address]Njw: (330) Name:CARE [id number]: (HP) [phone] () 08/09/2017 Secondary CALE Boyd [facility] Insurance:[facility]: [facility] [id number] [facility] Number: [facility] [id number] [place] Repository Date:2761-00-92Guzm [address]Wbz: (330) Name:MANAGED CARE 8-43 () 08/09/2017 CALE Boyd Primary CALE Boyd [facility]: Insurance:MEDICARE A [facility]: [place] W AND BPolicy Number: [id number] [facility] [id number] W [facility] [place], [place] Date:3003-98-24Ugzz [place] Repository [address]Iik: (330) Name:CARE [id number]: (HP) [phone] () 08/09/2017 Secondary CALE Boyd [facility]: [facility] [id number] [facility] Number: [facility] [id number] [place] Repository Date:4867-55-00Ivhw [address]Enx: (330) Name:MANAGED CARE [phone] () 03/23/2017 CALE Boyd Primary CALE Boyd [place] [address] [address] Insurance:MEDICARE PART CHAPMANDOB: [facility] BPolicy Number: [id number], [place] [id number] Repository [address]Jtd: (330) Date:2017-03-23 [phone] () 03/23/2017 Secondary CALE Boyd Kristin Insurance:ANTHEMPolicy CHAPMANDOB: Community Number: [id number] Hospital [id number] Repository Date:6251-51-75[address]SFUWMOD, [place] [address]DX: 03/23/2017 Tertiary Insurance:SELF NOT GIVENUNK [place] PAY INSURANCEPolicy Community Number: Effective Hospital Date:2017-03-23 Repository 03/15/2017 CALE Boyd Primary CALE Foster [id number] Insurance:MEDICARE PART CHAPMANDOB: [facility] KIMBERLY [place] BPolicy Number: [id number], [place] [id number] Repository [address]Voe: (330) Date:2017-02-26 [phone] () 03/15/2017 Secondary CALE [place] Insurance:ANTHEMPolicy CHAPMANDOB: Community Number: [id number] Hospital [id number] Repository Date:6104-58-65[address]EUHHNHQ, [place] [address]CL: 03/15/2017 Tertiary Insurance:SELF NOT GIVENUNK [place] PAY INSURANCEPolicy Community Number: Effective Hospital Date:2017-02-26 Repository
== END ==
PROVIDERS: Family Provider Family Medicine; PCP Family Medicine; Visit Provider Family Medicine
DX: E78.1 Pure hyperglyceridemia (principal)
CPT/HCPCS: 36415; 80061

== ENCOUNTER → 2018-03-02 13:58 | Outpatient (CLI) | payer MEDICARE, BC, SELFPAY ==
--- NOTE | 2018-03-02 14:02 | RAD_ITS ---
STUDY: X-RAY - BILATERAL HIPS WITHOUT PELVIS REASON FOR EXAM: Male, 73 years old. Bilateral hip pain TECHNIQUE: 2 views of the right hip, and 2 views of the left hip were obtained. One view of the pelvis COMPARISON: None. FINDINGS: Right Hip: Normal right femoral head, neck, intertrochanteric region and visualized proximal femur. Normal right acetabulum. There is mild articular joint space narrowing of the right hip. Left Hip: Normal left femoral head, neck, intertrochanteric region and visualized proximal femur. Normal left acetabulum. There is mild articular joint space narrowing of the left hip. Normal bilateral superior and inferior pubic rami , ischial tuberosities and pubic symphysis. Surgical hardware in the lower lumbar spine free of complication, there has been previous laminectomy. RAD/Hips B/L min 2 views w/ Pelvis IMPRESSION: Mild degenerative changes, no demonstrated fracture or suspicious osseous lesion Electronically Signed: Justo Duncan MD at 15:16 EST , Service support ,
== END ==
PROVIDERS: Family Provider Family Medicine; PCP Family Medicine; Referring Provider Family Medicine; Visit Provider Family Medicine
DX: M25.559 Pain in unspecified hip (principal)
CPT/HCPCS: 73521

== ENCOUNTER → 2018-04-12 15:46 | Outpatient (CLI) | payer MEDICARE, BC, SELFPAY ==
[2018-03-14 08:43] VITALS: BMI 29.9
--- NOTE | 2018-04-12 15:52 | RAD_ITS ---
STUDY: X-RAY CHEST REASON FOR EXAM: Male, 73 years old. Bronchitis with shortness of breath and cough TECHNIQUE: PA and lateral COMPARISON: November 18, 2016 FINDINGS: Mild eventration right hemidiaphragm and minor prominence of the markings in the right lower lobe There is no demonstrated pleural abnormality. Normal size heart. Normal mediastinum and chaitanya. Normal visualized pulmonary arteries. Normal visualized aortic arch and descending thoracic aorta. Postsurgical change status post median sternotomy and CABG Dorsal spine demonstrates moderate spondylosis. Normal visualized ribs, clavicles, and shoulders. There is no demonstrated abnormality of the visualized soft tissue structures of the upper abdomen. No significant change since prior study RAD/Chest PA and Lateral IMPRESSION: No acute cardiopulmonary pathology Electronically Signed: Jean Kurtz MD at 16:08 EST , Service support ,
--- OUTSIDE RECORDS SUMMARY | 2018-06-17 15:21 | XMS RPT_ITS ---
:1945 Author Organization OHIP Support Name Relationship Address Phone ANTHONY PULLIAM Unavailable [address] + [place] [address] R Unavailable Unavailable Unavailable PULLIAM, ANTHONY Unavailable [address] + [place] [address] R Unavailable Unavailable Unavailable PULLIAM, ANTHONY Unavailable [address] + [place] [address] R Unavailable Unavailable Unavailable PULLIAM, ANTHONY Unavailable [address] + [place] [address] R Unavailable Unavailable Unavailable PULLIAM, ANTHONY Unavailable [address] + [place] [address] R Unavailable Unavailable Unavailable PULLIAM, ANTHONY Unavailable [address] + [place] [address] R Unavailable Unavailable Unavailable PULLIAM, ANTHONY Unavailable [address] + [place] [address] R Unavailable Unavailable Unavailable PULLIAM, ANTHONY Unavailable [address] + [place] [address] R Unavailable Unavailable Unavailable PULLIAM, ANTHONY Unavailable [address] + [place] [address] R Unavailable Unavailable Unavailable PULLIAM, ANTHONY Unavailable [address] + [place] [address] R Unavailable Unavailable Unavailable PULLIAM, ANTHONY Unavailable Unavailable + CALE PULLIAM Unavailable Unavailable Unavailable JASKARAN CORONA Unavailable Unavailable + PULLIAM, ANTHONY Unavailable [address] + [place] [address] R Unavailable Unavailable Unavailable PULLIAM, ANTHONY Unavailable [address] + [place] [address] R Unavailable Unavailable Unavailable LAURA PULLIAMLA Unavailable Unavailable + PULLIAMCALE GORDON Unavailable Unavailable Unavailable CJJASKARAN BLACK Unavailable Unavailable + ANTHONY PULLIAM Unavailable Unavailable + CALE PULLIAM Unavailable Unavailable Unavailable CJJASKARAN BLACK Unavailable Unavailable + Care Team Providers Name Role Phone BOSTONLUNADAShanthi Attending Unavailable BOSTON, SAFDAR Referring Unavailable WAYT, ISABEL P Primary Care Unavailable BOSTON, SAFDAR Attending Unavailable SELF, SELF Referring Unavailable WAYT, ISABEL P Primary Care Unavailable BOSTON, SAFDAR Attending Unavailable RAMIN BERGER Referring Unavailable WAYT, ISABEL P Primary Care Unavailable Hortencia, [place] Attending Unavailable Wayt, Isabel Referring Unavailable Hortencia, [place] Attending Unavailable Hortencia, [place] Referring Unavailable Schinner, Saul E Primary Care Unavailable Schinner, Saul E Attending Unavailable Schinner, Saul E Referring Unavailable Schinner, Saul E Primary Care Unavailable Schinner, Saul E Primary Care Unavailable Darlene Farmer Attending Unavailable DEON FERNANDEZ Attending Unavailable DEON FERNANDEZ [...] TYPE CONDITION / CODE ATTENDING STATUS SOURCE 04/12/2018 Unknown J20.9 - Acute Saul Maxwell Active [facility] bronchitis, [facility] unspecified / Hospital J20.9(ICD-10) Repository 03/14/2018 Unknown 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, [place] Active [place] aortocoronary bypass Community graft / Hospital Z95.1(ICD-10) Repository 03/02/2018 Unknown M25.559 - Pain in Saul Maxwell [place] unspecified hip / [facility] M25.559(ICD-10) Hospital Repository 12/22/2017 Unknown M54.9 - Dorsalgia, Saul Maxwell Active [place] unspecified / E Community M54.9(ICD-10) Hospital Repository 10/11/2017 Unknown I25.10 - Alissa Saul Badillo [place] Atherosclerotic E Community heart disease of [facility] coronary Repository artery without angina pectoris / I25.10(ICD-10) 10/11/2017 Unknown 414.00 - Coronary CristopherevanSaul villarreal [facility] atherosclerosis of [facility] unspecified type of Hospital vessel, [facility] or Repository graft / 414.00(ICD-9) 10/11/2017 Unknown G62.9 - Cristopherevanphil Saul Active [facility] Polyneuropathy, [facility] unspecified / Hospital G62.9(ICD-10) Repository 10/11/2017 Unknown 355.9 - Mononeuritis MercyphilSaul Active [facility] of unspecified site E Community / 355.9(ICD-9) Hospital Repository 01/11/2017 Admitting Low back pain / BOSTON, SAFDAR Active [facility] diagnosis M54.5(ICD-10) [facility] Repository 01/11/2017 Admitting Other chronic pain / BOSTON, SAFDAR Active [facility] diagnosis G89.29(ICD-10) [facility] Repository 07/12/2016 Admitting Arthrodesis status / BOSTON, SAFDAR Active [facility] diagnosis Z98.1(ICD-10) [facility] Repository 08/09/2017 Admitting Follow-up / 145() BOSTON, SAFDAR Active [facility] diagnosis [facility] Repository PROCEDURES PROCEDURES No Procedure Records FoundRESULTS RESULTS EMERGENCY DEPARTMENT Observed: 04/22/2018 Status: F Source: LONGS SUMMARY 4:39 PM [facility] HOSPITAL REPOSITORY [facility] Medical Records Department [address] [place] [address] Emergency Department Summary 04/22/18 1045 MR#: [id number] Acct: [id number] Name: CALE PULLIAM Rep #: [id number] : 1945 73 From: Darlene Farmer MD PCP: Saul Maxwell MD Status: DEP ER - ER Visit Summary Date of Service: 04/22/18 Chief Complaint: Cough with right-sided chest pain History of Present Illness: The patient is a 73 M who was diagnosed with bronchitis 10 days ago. He finished a Z-Diallo on April 16. Cough continues and has sharp right-sided chest pain that started yesterday. He had 2 episodes of hemoptysis today. states that the cough actually started in early February while he was tearing out an old floor in their home. Past history is significant for coronary disease, hypertension, high cholesterol, A. fib, sleep apnea. Patient has had a prior PE in 2017. Physical Examination: Vital signs significant only for bradycardia with a heart rate of 52. Patient sitting upright in bed. He appears ill but in no acute distress. Head neck examination was dry mucous membranes. Heart is bradycardic and regular. Lungs sounds are clear. He does have reproducible chest wall tenderness on the right. No crepitus noted. Abdomen is soft nontender. Lower extremity examination was no significant calf tenderness or edema. Test Results: EKG is sinus bradycardia 52 bpm. Lateral T inversions are noted that are unchanged when compared to prior study. Portable chest x- ray shows no acute disease per my review. CBC was a white count of 4.3, otherwise normal. Chemistry studies normal. Troponin negative. CTA of the chest shows no evidence of PE or dissection. No infiltrate noted. Emergency Department Course and Treatment: Patient was given IV fluids here. Test results are discussed with patient and at bedside. At this time patient likely has viral bronchitis and that it is not responding to antibiotics. He has reproducible chest wall pain. There is reported hemoptysis, but this is likely from airway irritation from his frequent coughing. Patient reportedly cannot afford Tessalon Perles and Robitussin has not been beneficial. They state they have not tried Delsym [id number]. They are willing to try this. Treatment Plan: [] Disposition: Discharge Impression: 1. Bronchitis 2. Chest wall pain 3. Reported hemoptysis This note was generated with LettuceThinneration software. It may contain incorrect words, spelling, and punctuation that were not noted in review of the chart prior to signing ED Disposition - Plan for ED Patient: Disposition: Home or Assisted Living Chief Complaint: Chest Pain Instructions: Acute Bronchitis, ED Strain Chest Wall, ED Hemoptysis Prescriptions: Benzonatate [Tessalon Perle] 200 mg PO TID PRN PRN #20 capsule PRN Reason: Cough Referrals: Saul Maxwell MD [Primary Care Provider] - 3-5 Days What to do if you have Problems For any increased pain, shortness of breath, bleeding, nausea or vomiting, chest pain, or any unexpected problems, contact your Primary Care Provider. Call [facility] ([phone]) or report to the closest Emergency Room. Call 911 if necessary. 04/22/18 1639 <Electronically signed by Darlene Farmer MD> Date Darlene Farmer MD Cosigner Signature (If Indicated): Date CC: Saul Maxwell MD DISCHARGE INSTRUCTION Observed: 04/22/2018 Status: F Source: LONGS 12:17 PM [facility] [place] [place] REPOSITORY [facility] Medical Records Department [address] [place] [address] Discharge Instruction 04/22/18 1216 MR#: [id number] Acct: [id number] Name: CALE PULLIAM Rep #: [id number] : 1945 73 From: Darlene Farmer MD PCP: Saul Maxwell MD Status: REG ER ED Disposition - Plan for ED Patient: Disposition: Home or Assisted Living Chief Complaint: Chest Pain Instructions: Acute Bronchitis, ED Strain Chest Wall, ED Hemoptysis Referrals: Saul Maxwell MD [Primary Care Provider] - 3-5 Days What to do if you have Problems For any increased pain, shortness of breath, bleeding, nausea or vomiting, chest pain, or any unexpected problems, contact your Primary Care Provider. Call [facility] ([phone]) or report to the closest Emergency Room. Call 911 if necessary. 04/22/18 1217 <Electronically signed by Darlene Farmer MD> Date Darlene Farmer MD Cosigner Signature (If Indicated): Date CC: Saul Maxwell MD DISCHARGE INSTRUCTION Observed: 04/22/2018 Status: F Source: KRISTIN 12:10 PM [facility] [place] [place] REPOSITORY [facility] Medical Records Department [address] [place] [address] Discharge Instruction 04/22/18 1208 MR#: [id number] Acct: [id number] Name: HERACLIOCALE Deb Rep #: [id number] : 1945 73 From: Darlene Farmer MD PCP: Saul aMxwell MD Status: REG ER ED Disposition - Plan for ED Patient: Disposition: Home or Assisted Living Chief Complaint: Chest Pain Instructions: ED Strain Chest Wall, Acute Bronchitis, ED Hemoptysis Prescriptions: Benzonatate [Tessalon Perle] 200 mg PO TID PRN PRN #20 capsule PRN Reason: Cough Referrals: Saul Maxwell MD [Primary Care Provider] - 3-5 Days What to do if you have Problems For any increased pain, shortness of breath, bleeding, nausea or vomiting, chest pain, or any unexpected problems, contact your Primary Care Provider. Call [facility] ([phone]) or report to the closest Emergency Room. Call 911 if necessary. 04/22/18 1210 <Electronically signed by Darlene Farmer MD> Date Darlene Farmer MD Cosigner Signature (If Indicated): Date CC: Saul Maxwell MD CTA CHEST W/WO Observed: 04/22/2018 Status: F Source: K[place]ST[place] CONTRAST 10:31 AM [facility] [place] [place] REPOSITORY [facility] Imaging Services [address] [place] [address] CTA Chest W/WO Contrast MR#: [id number] Acct: [id number] Name: CALE PULLIAM Rep #: [id number] : 1945 M 73 From: Joey Araya MD PCP: Saul Maxwell MD Status: REG ER Study: CTA Chest W/WO Contrast Date of Exam: 04/22/18 Exam# [id number] Ordering Dr: Darlene Farmer MD STUDY: CTA CHEST REASON FOR EXAM: Male, 73 years old. Chest pain. Bronchitis and hemoptysis. Previous history of PE. RADIATION DOSAGE (If Supplied By Facility): CTDIvol = ( 18.35 ) mGy, DLP = ( 579.52 ) mGycm TECHNIQUE: The examination was performed with the intravenous administration of 75ML ml of Isovue 370 contrast material. Post-processing of the angiographic images was performed, with multiplanar reformation and 3D reconstruction. Individualized dose optimization techniques were used for this CT. COMPARISON: 11/23/2016. FINDINGS: Normal enhancement of the main pulmonary artery and right and left pulmonary arteries. Normal enhancement of the bilateral peripheral pulmonary arteries. There is no demonstrated pulmonary embolism. Normal thoracic aorta and visualized great vessels. There is no demonstrated aortic dissection. Normal heart and pericardium. Normal mediastinum. Normal hilar regions. Normal visualized trachea and bronchi. The lungs are hyper expanded, with flattening of the hemidiaphragms. No infiltrates or effusions. Stable small nodules in the right middle lobe as far back as November 14, 2016. Normal chest wall structures. Normal osseous structures. Normal visualized upper abdomen. CT/CTA Chest W/WO Contrast IMPRESSION: Normal CTA chest examination, without a demonstrated pulmonary embolism or arterial dissection. No acute chest disease. Electronically Signed: Joey Araya MD at 11:22 EST , Service support , CC: Darlene Farmer MD; Saul Maxwell MD Beer Cooler: Signed CBC W/DIFF, AUTOMATED Collected: 04/22/2018 Status: F Source: KRISTIN 10:00 AM [facility] [place] [place] REPOSITORY TYPE CODE TESTS RESULT OUT OF RANGE REFERENCE UNITS LAB L100.1000 4.4-11.0 K/mm3 Low WBC 4.3 LAB L100.1200 4.6-6.2 M/mm3 Normal RBC 4.86 LAB L100.1300 13.0-16.5 g/dl Normal HGB 14.7 LAB L100.1400 40-54 % Normal HCT 45.2 LAB L100.1500 80-94 fL Normal MCV 93.0 LAB L100.1600 27.0-32.0 pg Normal MCH 30.2 LAB L100.1700 32-36 g/gl Normal MCHC 32.5 LAB L100.1810 11.6-14.6 % Normal RDW CV 12.8 LAB L100.1820 35.1-43.9 fl Normal RDW SD 43.3 LAB L100.1900 150-450 K/mm3 Normal PLT 221 LAB L100.2000 6.2-12.0 fl Normal MPV 9.5 LAB L100.2100 47-70 % Normal NEUT% 54.2 LAB L100.2200 19-41 % Normal LY% 34.1 LAB L100.2300 0-10 % Normal MONO% 8.0 LAB L100.2400 0-5 % Normal EO% 2.8 LAB L100.2500 0-1 % Normal BASO% 0.7 LAB L100.2550 0.0-0.9 % Normal IM GRAN % 0.200 Result Comment: IG% - Immature Granulocytes (promyelocytes, myelocytes and metamyelocytes) > 1% indicates that a LEFT SHIFT is Present. LAB L100.2620 2.0-7.7 X10 3/uL Normal Absolute Neut 2.3 LAB L100.2720 0.83-4.51 X10 3/ul Normal Absolute Lymph 1.45 Performed By: #### L100.0100 #### [facility] [address] [place], [place], [id number] BASIC METABOLIC Collected: 04/22/2018 Status: F Source: LONGS PROFILE (BMP) 10:00 AM [facility] [place] [place] REPOSITORY TYPE CODE TESTS RESULT OUT OF RANGE REFERENCE UNITS LAB L501.0100 74-106 mg/dL Normal GLU 85 Result Comment: Please note revised GLUCOSE reference range effective 2017. LAB L501.1000 7-18 mg/dL Normal BUN 18 LAB L501.1100 0.70-1.30 mg/dL Normal CREAT,SERUM 1.21 Result Comment: The validity of the calculated GFR AND GFRAA in patients over 70 years has not been determined. Clinical correlation is essential. LAB L501.1110 >60 mL/min Normal EST GFR 63 Result Comment: Non- GFR Calc LAB L501.1115 >60 mL/min Normal EST GFR - AA 76 Result Comment: GFR Calc LAB L501.1255 ml/min Normal Estimated CRCL 48.71 LAB L501.1300 10-20 RATIO Normal BUN/CRE 14.9 LAB L501.2200 8.5-10 mg/dL Normal .1 CA 8.8 LAB L501.5300 136-14 mmol/L Normal 5 NA 145 LAB L501.5600 3.5-5. mmol/L Normal 1 K 4.1 LAB L501.5900 98-107 mmol/L Normal CL 106 LAB L501.6100 21.0-3 mmol/L Normal 2.0 CO2 29.0 LAB L501.6200 5-15 Normal GAP 10 Performed By: #### L500.2500, L501.4010 #### [facility] [address] [place], [place], [id number] TROPONIN-I Collected: 04/22/2018 Status: F Source: LONGS 10:00 AM [facility] [place] [place] REPOSITORY TYPE CODE TESTS RESULT OUT OF RANGE REFERENCE UNITS LAB L501.4010 <0.045 ng/mL Normal < 0.015 TROPONIN-I Result Comment: TROPONIN-I EXPECTED VALUES <0.045 Negative 0.045 - 0.590 Consistent with Cardiac Damage > OR = 0.600 Critical Value Not every elevated troponin is indicative of [place]. These values should be used with clinical judgement in examining the patient's clinical picture for diagnosis. To establish a diagnosis of [place] versus myocardial injury, there must be a demonstrated rise and/or fall in the troponin values, in addition to ischemic symptoms, EKG changes, new regional wall motion abnormality, and/or angiographical evidence. PLEASE NOTE: REFERENCE RANGES EDITED 17 Performed By: #### L500.2500, L501.4010 #### [facility] [address] [place], [address] CHEST 1 VIEW Observed: 04/22/2018 Status: F Source: LONGS (PORTABLE) 9:52 AM [facility] [place] [place] REPOSITORY [facility] Imaging Services [address] [place] [address] Chest 1 View (Portable) MR#: [id number] Acct: [id number] Name: HERACLIOCALE Deb Rep #: [id number] : 1945 M 73 From: Darius Reyna MD PCP: Saul Maxwell MD Status: REG ER Study: Chest 1 View (Portable) Date of Exam: 04/22/18 Exam# [id number] Ordering Dr: Darlene Farmer MD STUDY: X-RAY CHEST REASON FOR EXAM: Male, 73 years old. Cough. TECHNIQUE: Single AP portable upright view of the chest. COMPARISON: PA and lateral chest x-ray April 12, 2018. FINDINGS: The lungs overall are more fully expanded today, there is mild elevation of the right diaphragm. Small linear densities in the lung bases may be focal sites of scarring. The lungs are otherwise clear. There is no demonstrated pleural abnormality. Normal size heart. Sternal cerclage wires are present from a prior sternotomy. Normal mediastinum and chaitanya. Normal visualized pulmonary arteries. There is stable mild tortuosity of the descending thoracic aorta. There are stable multilevel degenerative changes of the visualized thoracic spine. Normal visualized ribs, clavicles, and shoulders. There is no demonstrated abnormality of the visualized soft tissue structures of the upper abdomen. RAD/Chest 1 View (Portable) IMPRESSION: Prior median sternotomy. No acute cardiopulmonary disease. Electronically Signed: Justo Reyna MD at 12:20 EST , Service support , CC: Darlene Farmer MD; Saul Maxwell MD Beer Cooler: Signed CHEST PA AND LATERAL Observed: 04/12/2018 Status: F Source: LONGS 3:52 PM [facility] [place] [place] REPOSITORY [facility] Imaging Services [address] [place] [address] Chest PA and Lateral MR#: [id number] Acct: [id number] Name: PULLIAMCALE Rep #: [id number] : 1945 73 From: Jean Kurtz MD PCP: Saul Maxwell MD Status: REG CLI Study: Chest PA and Lateral Date of Exam: 04/12/18 Exam# [id number] Ordering Dr: Saul Maxwell MD STUDY: X-RAY CHEST REASON FOR EXAM: Male, 73 years old. Bronchitis with shortness of breath and cough TECHNIQUE: PA and lateral COMPARISON: November 18, 2016 FINDINGS: Mild eventration right hemidiaphragm and minor prominence of the markings in the right lower lobe There is no demonstrated pleural abnormality. Normal size heart. Normal mediastinum and chaitanya. Normal visualized pulmonary arteries. Normal visualized aortic arch and descending thoracic aorta. Postsurgical change status post median sternotomy and CABG Dorsal spine demonstrates moderate spondylosis. Normal visualized ribs, clavicles, and shoulders. There is no demonstrated abnormality of the visualized soft tissue structures of the upper abdomen. No significant change since prior study RAD/Chest PA and Lateral IMPRESSION: No acute cardiopulmonary pathology Electronically Signed: Jean Kurtz MD at 16:08 EST , Service support , CC: Saul Maxwell MD Beer Cooler: Signed CARDIOLOGY VISIT Observed: 03/16/2018 Status: F Source: LONGS REPORT 1:44 PM [facility] [place] [place] REPOSITORY [facility] [address] [place] [address] OFFICE VISIT Date of Service: 03/14/18 MR#: [id number] Acct: [id number] Name: CALE PULLIAM Rep #: [id number] : 1945 Provider: Kush Burnett MD Age/Sex: 73/M [place] [facility] Status: Signed HPI HPI Chief Complaint: Follow up Details: CALE PULLIAM, is a 73 M who presents to the office today [...] rhythm and no pedal edema. Intake Vital Signs03/14/18 Height 5 ft 5 in 03/14/18 Weight: 180 lb 03/14/18 Body Mass Index (BMI) 29.9 03/14/18 Blood Pressure 108/78 03/14/18 Blood Pressure Location Lt brachial Intake Visit Reasons: 1 Y FU Signal Inspector Required: No Accompanied by: Is patient in pain?: No Allergies egg Allergy (Severe, Verified 03/14/18 08:43) Other Egg Derived Allergy (Severe, Verified 03/14/18 08:43) Food Allergy soy Allergy (Verified 03/14/18 08:43) Nausea flu shot Adverse Reaction (Severe, Uncoded 03/14/17 07:55) unknown Medications Flaxseed Oil/[place] 3,6,9 [Sv Flaxseed Oil 1,300 mg Sftgl] 1 ea PO DAILY 09/03/13 [History Confirmed 03/14/18] Aspirin [Aspirin, Baby] 81 mg PO DAILY@0800 tab.chew 06/22/16 [Rx Confirmed 03/14/18] Gabapentin [Neurontin] 600 mg PO DAILY@1700,2200 #60 tab 06/22/16 [Rx Confirmed 03/14/18] modafinil 200 mg tablet 200 mg PO QDAY 03/14/17 [History Confirmed 03/14/18] riboflavin (vitamin B2) 100 mg tablet 100 mg PO QDAY 03/15/17 [History Confirmed 03/14/18] metoprolol tartrate 25 mg tablet 12.5 mg PO BID #60 tab 07/29/17 [Rx Confirmed 03/14/18] furosemide 40 mg tablet 40 mg PO QDAY PRN #90 tab 03/14/18 [Rx Confirmed 03/14/18] PFSH Medical History Bradycardia (Chronic) Hyperlipidemia (Chronic) Atherosclerotic heart disease of [facility] coronary artery without angina pectoris (Chronic) HTN (hypertension) (Chronic) AF (paroxysmal atrial fibrillation) (Chronic) Hypopituitarism (Chronic) CAD (coronary artery disease) (Chronic) JULIA (obstructive sleep apnea) (Chronic) Surgical History S/P CABG x 3 (Chronic) Family History Father CAD (coronary artery disease) CABG and pacemaker COPD (chronic obstructive pulmonary disease) Mother , age 69 infection, aneurysms No problems noted. Sister Clotting disorder Brother Clotting disorder Social History Smoking Status: Never smoker ROS Const Const: Negative for fatigue, weakness, night sweats, excessive sweating, frequent falls, headache(s) or daytime sleepiness Eyes Eyes: Negative for loss of peripheral vision, transient loss of vision, blind spots, double vision or blurry vision ENT ENT: Negative for headache(s), dizziness, balance problems, Nosebleed/epistaxis, tongue swelling or lip swelling Cardio Chest Pain: No Palpitations: No Edema: None Muscle aches with walking: None Resp Respiratory: Negative for SOB at rest, SOB orthopnea\SOB lying down, Cough, paroxysmal nocturnal dyspnea or SOB with activity GI GI: Negative nausea, vomiting, heartburn, black,tarry stools or bright, red blood in stools : Negative for hematuria Musc Musc: Negative for balance problems, muscle aches/ myalgia, muscle weakness or joint pain Skin Skin: Negative non-healing lesions, unusual bruising or rash Neuro Neuro: Negative for weakness, frequent falls, headache(s), double vision, dizziness, lightheadedness, orthostatic symptoms, blurry vision or lack of coordination Tony Hematologic/Lymphatic: Negative for easy bruising or easy bleeding Endo Endo: Negative for fatigue, excessive sweating, cold intolerance, heat intolerance, increased thirst/drinking or hair loss Psych Psych: Negative for anxiety or depression Allergy Allergy/Immunology: Negative for throat swelling, Negative for tongue swelling, Negative for hives, Negative for rash, Negative for lip swelling Cardiology Exam Const Appearance: cooperative, healthy appearing, [...] Plan 1. S/P CABG x 3 Z95.1 [facility] 12/01/2012 Plan He appears to be doing well status post coronary artery bypass surgery. At this time it is 5 years since his bypass surgery and at some point I would suggest that we obtain a myocardial perfusion stress test. Orders Orders: 2. Essential hypertension I10 Plan He does have a history of hypertension which is well controlled on the current medical therapy no changes will be made. He would adjust his Lasix on an as-needed basis. 3. AF (paroxysmal atrial fibrillation) I48.0 Plan He does have a history of paroxysmal atrial fibrillation but it does not appear that he has had any symptomatic recurrence. He remains on anticoagulation which will be continued. 4. Pure hypercholesterolemia E78.00 Plan He does have a history of hyperlipidemia. His most recent lipid profile demonstrated total cholesterol 186, LDL 105, and HDL 53. No other changes will be made. Thank you for allowing me to participate in the care of your patient. 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) Coding Level of Care Code Off vis,est,level 3 Diagnoses S/P CABG x 3 Z95.1 Essential hypertension I10 Hypertension type: essential hypertension AF (paroxysmal atrial fibrillation) I48.0 Pure hypercholesterolemia E78.00 Hyperlipidemia type: pure hypercholesterolemia Coding Level of Care Code Off vis,est,level 3 Diagnoses S/P CABG x 3 Z95.1 Essential hypertension I10 Hypertension type: essential hypertension AF (paroxysmal atrial fibrillation) I48.0 Pure hypercholesterolemia E78.00 Hyperlipidemia type: pure hypercholesterolemia 03/16/18 1344 <Electronically signed by Kush Burnett MD> Date Kush Becerra Signature: Date (if applicable) CC: ANAND Art HIPS B/L MIN 2 Observed: 03/02/2018 Status: F Source: KRISTIN VIEWS W/ PELVIS 2:04 PM [facility] [place] [place] REPOSITORY [facility] Imaging Services [address] [place] [address] Hips B/L min 2 views w/ Pelvis MR#: [id number] Acct: [id number] Name: CALE PULLIAM Rep #: [id number] : 1945 M 73 From: Darius Duncan MD PCP: Saul Maxwell MD Status: REG CLI Study: Hips B/L min 2 views w/ Pelvis Date of Exam: 03/02/18 Exam# [id number] Ordering Dr: Saul Maxwell MD STUDY: X-RAY [...] Service support , CC: Saul Maxwell MD Beer Cooler: Signed LIPID PROFILE Collected: 02/22/2018 Status: F Source: KRISTIN 10:52 AM [facility] [place] REPOSITORY TYPE CODE TESTS RESULT OUT OF [...] VLDL 28 Performed By: #### L500.4100 #### [facility] [address] [place], [address] CHEST WITHOUT Observed: 02/07/2018 Status: F Source: KRISTIN CONTRAST 12:35 PM [facility] [place] [place] REPOSITORY [facility] Imaging Services [address] [place] [address] Chest without Contrast MR#: [id number] Acct: [id number] Name: HERACLIOCALE Deb Rep #: [id number] : 1945 M 73 From: Azeem Richards DO PCP: Saul Maxwell MD Status: REG CLI Study: Chest without Contrast Date of Exam: 02/07/18 Exam# [id number] Ordering Dr: Saul Maxwell MD STUDY: CT [...] Azeem Richards DO at 22:38 EST Tel [phone], Service support , CC: Saul Maxwell MD Beer Cooler: Signed CBC W/DIFF, AUTOMATED Collected: 02/01/2018 Status: F Source: KRISTIN 2:08 PM [facility] [place] [place] REPOSITORY TYPE CODE TESTS RESULT OUT OF [...] L506.1000, L500.4050, L500.4100, L501.9520, L505.7010, L101.9900 #### [facility] [place], [address] #### L3100.5475 #### [facility] (refer to report for specific site) refer to report for address and phone number VITAMIN B12 Collected: 02/01/2018 Status: F Source: LONGS 2:08 PM [facility] [place] [place] REPOSITORY TYPE CODE TESTS RESULT OUT OF RANGE REFERENCE UNITS LAB L503.0105 211-911 pg/mL Normal Vitamin B12 582 Performed By: #### L100.0100, L503.0105, L506.1000, L500.4050, L500.4100, L501.9520, L505.7010, L101.9900 #### [facility] [address] [place], [address] #### L3100.5475 #### [facility] (refer to report for specific site) refer to report for address and phone number VITAMIN D,25 HYDROXY Collected: 02/01/2018 Status: F Source: LONGS 2:08 PM [facility] [place] REPOSITORY TYPE CODE TESTS RESULT OUT OF [...] L506.1000, L500.4050, L500.4100, L501.9520, L505.7010, L101.9900 #### [facility] [address] [place], [address] #### L3100.5475 #### [facility] (refer to report for specific site) refer to report for address and phone number COMPREHENSIVE METABOLIC Collected: 02/01/2018 Status: F Source: [facility] 2:08 PM [facility] [place] [place] REPOSITORY TYPE CODE TESTS RESULT OUT OF [...] L506.1000, L500.4050, L500.4100, L501.9520, L505.7010, L101.9900 #### [facility] [address] [place], [place], [address] #### L3100.5475 #### [facility] (refer to report for specific site) refer to report for address and phone number LIPID PROFILE Collected: 02/01/2018 Status: F Source: KRISTIN 2:08 PM [facility] [place] REPOSITORY TYPE CODE TESTS RESULT OUT OF [...] L506.1000, L500.4050, L500.4100, L501.9520, L505.7010, L101.9900 #### [facility] [address] [place], [address] #### L3100.5475 #### [facility] (refer to report for specific site) refer to report for address and phone number THYROID STIM HORMONE Collected: 02/01/2018 Status: F Source: LONGS (TSH) 2:08 PM [facility] [place] [place] REPOSITORY TYPE CODE TESTS RESULT OUT OF RANGE REFERENCE UNITS LAB L501.9520 0.358-3.74 uIU/mL Normal TSH 0.95 Performed By: #### L100.0100, L503.0105, L506.1000, L500.4050, L500.4100, L501.9520, L505.7010, L101.9900 #### [facility] [address] [place], [address] #### L3100.5475 #### [facility] (refer to report for specific site) refer to report for address and phone number RHEUMATOID FACTOR Collected: 02/01/2018 Status: F Source: KRISTIN 2:08 PM [facility] [place] REPOSITORY TYPE CODE TESTS RESULT OUT OF RANGE REFERENCE UNITS LAB L505.7010 <15 IU/mL Normal RHEUMATOID FAC < 10.0 Performed By: #### L100.0100, L503.0105, L506.1000, L500.4050, L500.4100, L501.9520, L505.7010, L101.9900 #### [facility] [address] [place], [address] #### L3100.5475 #### [facility] (refer to report for specific site) refer to report for address and phone number ERYTHROCYTE SED RATE Collected: 02/01/2018 Status: F Source: LONGS 2:08 PM [facility] [place] [place] REPOSITORY TYPE CODE TESTS RESULT OUT OF RANGE REFERENCE UNITS LAB L102.0000 0-20 mm/hr Normal SED RATE 6 Performed By: #### L100.0100, L503.0105, L506.1000, L500.4050, L500.4100, L501.9520, L505.7010, L101.9900 #### [facility] [place], [address] #### L3100.5475 #### [facility] (refer to report for specific site) refer to report for address and phone number ANTINUCLEAR ANTIBODIES Collected: 02/01/2018 Status: F Source: KRISTIN DIRECT 2:08 PM [facility] [place] [place] REPOSITORY TYPE CODE TESTS RESULT OUT OF RANGE REFERENCE UNITS LAB L3100.5475 Negative Normal Negative GERMANIA-DIRECT Result Comment: Performed at: - [facility] [address] [place], [place] [id number] Slip Cover Operator: Sukhdev Benedict PhD, Phone: [phone] Performed By: #### L100.0100, L503.0105, L506.1000, L500.4050, L500.4100, L501.9520, L505.7010, L101.9900 #### [facility] [address] [place], [address] #### L3100.5475 #### [facility] (refer to report for specific site) refer to report for address and phone number CRP Collected: 02/01/2018 Status: F Source: LONGS 2:08 PM [facility] [place] [place] REPOSITORY TYPE CODE TESTS RESULT OUT OF RANGE REFERENCE UNITS LAB L501.6710 0.0-3.0 mg/L Normal < 2.90 C-REACTIVE PROT Result Comment: C-Reactive Protein (CRP) provides useful information for the diagnosis, therapy and monitoring of inflammatory processes and associated diseases. For the evaluation of Relative Risk for Cardiovascular Disease, a High Sensitivity CRP (HSCRP) should be ordered. Performed By: #### L501.6710 #### [facility] [address] [place], [address] PT D/C SUMMARY (1) Observed: 12/22/2017 Status: F Source: LONGS 1:07 PM [facility] [place] [place] REPOSITORY [facility] Therapy [address] [place], [place] [address] Fax REHABILITATION SERVICES DISCHARGE SUMMARY MR#: [id number] Acct: [id number] Name: CALE PULLIAM Rep #: [id number] : 1945 72 From: Cary Goode PT, Cert. MDT Referring Dr.: Saul Maxwell MD Status: REG RCR Insurance: MEDICARE PART A B ANTHEM - PT D/C Summary It has been [...] IN A MONTH. MASSAGE THERAPY HERE AT [facility] YESTERDAY. PATIENT REPORTS HIS FLEXABILITY HAS IMPROVED [...] please feel free to call me at [phone]. Thank you for the referral of this patient. Sincerely, Cary Goode <Electronically signed by Cary Goode PT, Cert. MDT> 12/22/17 1300 CC: Saul Maxwell MD CHANDRA Signed RE-EVALUATION - PT (1) Observed: 11/23/2017 Status: F Source: KRISTIN 12:38 PM [facility] [place] [place] REPOSITORY [facility] [address] [place], [place] [address] Fax REEVALUATION / MEDICARE RECERTIFICATION PHYSICAL THERAPY MR#: [id number] Acct: [id number] Name: CALE PULLIAM Rep #: [id number] : 1945 72 From: Cary Goode PT, Cert. MDT Referring Dr.: Saul Maxwell MD Status: REG RCR Insurance: MEDICARE PART A B ANTHEM Saul Maxwell MD, It has been my pleasure to [...] IN A MONTH. MASSAGE THERAPY HERE AT [facility] YESTERDAY. PATIENT REPORTS HIS FLEXABILITY HAS IMPROVED [...] do not hesitate to contact me at [phone] by phone or if you have questions or concerns regarding this new plan of care! Sincerely, Cary Goode <Electronically signed by Cary Goode PT, Cert. MDT> 11/23/17 1238 CC: Saul Maxwell MD CHANDRA Signed For Medicare only, by signing this I certify the plan of care. Physicians Signature Date INITAL EVALUATION (1) Observed: 10/31/2017 Status: F Source: KRISTIN Fontaine PT 12:33 PM [facility] [place] [place] REPOSITORY [facility] [address] [place] [address]. [address] [place] [address] Fax REHABILITATION SERVICES INITIAL EVALUATION MR#: [id number] Acct: [id number] Name: CALE PULLIAM Rep #: [id number] : 1945 72 From: Cary Goode PT, Cert. MDT Referring Dr.: Saul Maxwell MD Status: REG RCR Insurance: MEDICARE PART A B ANTHEM Patient's Visit Information CALE PULLIAM is a 72 year old M referred to Physical Therapy by Saul Maxwell MD with a diagnosis of CHRONIC BACK PAIN AND RADICULAR PAIN. Date of Evaluation: 10/31/17 Physical Therapist: Cary Goode - Visit Plan Frequency: 2-3x /Week Duration: [...] TRYING TO EX ON L[place] HERE AT [place] WITH [employer]. Better: HOT TUB, MASSAGING HAMSTRINGS. Disturbed [...] PATIENT REPORTS HE SAW DR. INMAN IN [place] A FEW MONTHS AGO. HE ORDERED MRI. [...] to be FAXED BACK to us at [phone] for Medicare purposes. Please let me know if there are questions or concerns regarding this plan of care. Physician Signature: Date: <Electronically signed by Cary Goode PT, Cert. MDT> 10/31/17 1233 CC: Saul Maxwell MD CHANDRA Signed For Medicare only, by signing this I certify the plan of care. Physicians Signature Date VITAMIN B1, THIAMINE Collected: 09/14/2017 Status: F Source: KRISTIN 8:51 AM [facility] [place] REPOSITORY TYPE CODE TESTS RESULT OUT OF RANGE REFERENCE UNITS LAB L3300.8000 66.5-200.0 nmol/L Normal VIT B1 108.3 Result Comment: This test was developed and its performance characteristics determined by [facility]. It has not been cleared or approved by the Food and Drug Administration. Performed at: [address] [id number] Slip Cover Operator: Shane Putnam MD, Phone: [phone] Performed By: #### L3300.8000 #### [facility] (refer to report for specific site) refer to report for address and phone number CBC W/DIFF, AUTOMATED Collected: 09/14/2017 Status: F Source: KRISTIN 8:49 AM [facility] [place] [place] REPOSITORY Order Comment: Order Date: 09/08/17 Order [...] #### L100.0100, L503.0105, L500.4050, L500.4100, L501.9520 #### [facility] [address] [place], [address] VITAMIN B12 Collected: 09/14/2017 Status: F Source: KRISTIN 8:49 AM [facility] [place] [place] REPOSITORY Order Comment: Order Date: 09/08/17 Order Info: 2132-9 - B12 TYPE CODE TESTS RESULT OUT OF RANGE REFERENCE UNITS LAB L503.0105 211-911 pg/mL Normal Vitamin B12 378 Performed By: #### L100.0100, L503.0105, L500.4050, L500.4100, L501.9520 #### [facility] [place], [address] COMPREHENSIVE METABOLIC Collected: 09/14/2017 Status: F Source: KRISTIN FISHER 8:49 AM [facility] [place] [place] REPOSITORY Order Comment: Order Date: 09/08/17 Order Info: 0786-1 - CMP Order Info: 90252-8 - LIPID Order Info: 3016-3 - TSH [...] #### L100.0100, L503.0105, L500.4050, L500.4100, L501.9520 #### [facility] [address] [place], [place], [address] LIPID PROFILE Collected: 09/14/2017 Status: F Source: KRISTIN 8:49 AM [facility] [place] [place] REPOSITORY Order Comment: Order Date: 09/08/17 Order Info: 0786-1 - CMP Order Info: 90622-3 - LIPID Order Info: 3016-3 - TSH [...] #### L100.0100, L503.0105, L500.4050, L500.4100, L501.9520 #### [facility] [address] [place], [place], [address] THYROID STIM HORMONE Collected: 09/14/2017 Status: F Source: KRISTIN (TSH) 8:49 AM [facility] [place] [place] REPOSITORY Order Comment: Order Date: 09/08/17 Order Info: 0786-1 - CMP Order Info: [id number] - LIPID Order Info: 3016-3 - TSH TYPE CODE TESTS RESULT OUT OF RANGE REFERENCE UNITS LAB L501.9520 0.358-3.74 uIU/mL Normal TSH 0.81 Performed By: #### L100.0100, L503.0105, L500.4050, L500.4100, L501.9520 #### [facility] [address] [place], [address] SPINE LUMBAR Observed: 08/16/2017 Status: F Source: LONGS (ROUTINE) 3:39 PM [facility] [place] [place] REPOSITORY [facility] Imaging Services [address] [place] [address] Spine Lumbar (Routine) MR#: [id number] Acct: [id number] Name: CALE PULLIAM Rep #: [id number] : 1945 M 72 From: Briana Vizcarra MD PCP: Saul Maxwell MD Status: REG CLI Study: Spine Lumbar (Routine) Date of Exam: 08/16/17 Exam# [id number] Ordering Dr: Ramin Berger STUDY: MRI LUMBAR [...] , CC: Saul Maxwell MD; Ramin Berger Beer Cooler: Signed XR SPINE LUMBOSACRAL AP Observed: 08/09/2017 Status: F Source: [facility] 2:47 PM [facility] REPOSITORY EXAM: XR SPINE LUMBOSACRAL AP AND [...] multilevel degenerative disc disease and unchanged alignment. RGIES ALLERGIES DATE TYPE / CODE NAME / REACTION SEVERITY SOURCE CODE 04/22/2018 Drug Egg Food Allergy SV [place] Allergy/354535283(SN Derived/F0 [facility] OMED CT) 12628100([facility] Repository 04/22/2018 Drug egg/B36079 Other SV Kristin Allergy/659242412(SN 6947(RXNOR [facility] OMED CT) M) Hospital Repository 04/22/2018 Drug soy/U89007 Nausea Unknown [place] Allergy/658572305(SN 3405(RXNOR [facility] OMED CT) M) Hospital Repository 04/22/2018 Miscellaneous flu shot Unknown SV [place] Allergy/227432542([facility]ly [facility] OMED CT) Hospital Repository ENCOUNTERS ENCOUNTERS ADMIT/DISCHARGE ACCOUNT NUMBER ADMITTING ENCOUNTER LOCATION SOURCE CLASS 04/22/2018/04/22/19 [id number] Emergency [place] ding:ED Repository 04/12/2018 [id number] Ambulatory [facility] ding:MTRAD Repository 04/10/2018 [id number] Ambulatory [facility] ding:CVS Repository 03/14/2018/03/14/20 [id number] Ambulatory BMSBuilding: [place] 18 [facility] Hospital Repository 03/02/2018 [id number] Ambulatory [facility] ding:MTRAD Repository 02/22/2018 [id number] Ambulatory [facility] ding:MFPLAB Repository 02/07/2018 [id number] Ambulatory [facility] ding:CT Repository 02/01/2018 [id number] Ambulatory [facility] ding:MFPLAB Repository 11/23/2017/11/24/19 [id number] Ambulatory Kristin [address] ding:PT Repository 09/14/2017 [id number] Ambulatory [facility] ding:LAB Repository 08/16/2017 [id number] Ambulatory Building:IMG [facility] Repository 08/16/2017 [id number] [facility] Rep[facility] 08/12/2017 [id number] Ambulatory [facility] ding:MFPLAB Repository 08/09/2017 [id number] Ambulatory Building:CRD [facility] Repository 08/09/2017 [id number] Ambulatory Building:STACY [facility] Repository PAYERS PAYERS ENCOUNTER GUARANTOR PAYER SUBSCRIBER SOURCE 04/22/2018 CALE Boyd Primary CALE Foster [id number] W Insurance:MEDICARE PART CHAPMANDOB: [facility] KIMBERLY [place] BPolicy Number: [id number] [id number] Repository [address]Ztv: 330) Date:2018-04-22 [phone] (HP) 04/22/2018 Secondary CALE Foster Insurance:ANTHEMPolicy CHAPMANDOB: [facility] Number: [id number] Hospital [id number] Repository Date:1691-17-00[address] [place] [address]OH: 04/22/2018 Tertiary Insurance:SELF NOT GIVENUNK [place] PAY INSURANCEPoly [facility] Number: Effective Hospital Date:2018-04-22 Repository 04/12/2018 CALE Boyd Primary CALE [place] [id number] Insurance:MEDICARE PART CHAPMANDOB: Community [place] A BPolicy Number: [id number], [place] [id number] Repository [address]Azj: (330) Date:2018-04-12 [phone] () 04/12/2018 Secondary CALE Boyd [place] Insurance:ANTHEMPolicy CHAPMANDOB: Community Number: [id number] Hospital [id number] Repository Date:9058-09-88HC [address] [place] [address]IS: 04/12/2018 Tertiary Insurance:SELF NOT GIVENUNK Kristin PAY INSURANCEPolicy Community Number: Effective Hospital Date:2018-04-12 Repository 04/10/2018 CALE Boyd Primary CALE [place] [id number] Insurance:MEDICARE PART CHAPMANDOB: Community [place] A BPolicy Number: [id number], [place] [id number] Repository [address]Mej: 330) Date:2018-03-15 [phone] () 04/10/2018 Secondary CALE Boyd [place] Insurance:ANTHEMPolicy CHAPMANDOB: Community Number: [id number] Comprehensive Health Care [id number] Repository Date:4728-14-99SL [address] [place] [address]OS: 04/10/2018 Tertiary Insurance:SELF NOT GIVENUNK [place] PAY INSURANCEPolicy Community Number: Effective Hospital Date:2018-03-15 Repository 03/14/2018 CALE Boyd Primary CALE Foster [id number] W Insurance:MEDICARE PART CHAPMANDOB: Community [place] A BPolicy Number: [id number], [place] [id number] Repository [address]Sbx: 330) Date:2017-03-15 [phone] () 03/14/2018 Secondary CALE Boyd [place] Insurance:ANTHEMPolicy CHAPMANDOB: Community Number: [id number] Hospital [id number] Repository Date:3576-75-92EO [address] [place] [address]FV: 03/14/2018 Tertiary Insurance:SELF NOT GIVENUNK Kristin PAY INSURANCEPolicy Community Number: Effective Hospital Date:2018-03-14 Repository 03/02/2018 CALE Boyd Primary CALE [id number] Insurance:MEDICARE PART CHAPMANDOB: Community [place] A BPolicy Number: [id number], [place] [id number] Repository [address]Aqb: 330) Date:2018-03-02 [phone] () 03/02/2018 Secondary CALE Boyd Kristin Insurance:ANTHEMPolicy CHAPMANDOB: Community Number: [id number] Hospital [id number] Repository Date:4306-33-18PC [address] [place] [address] 19[address]IP: 03/02/2018 Tertiary Insurance:SELF NOT GIVENUNK Kristin PAY INSURANCEPolicy Community Number: Effective Hospital Date:2018-03-02 Repository 02/22/2018 CLAE Boyd Primary CALE PULLIAM[address] Insurance:MEDICARE PART CHAPMANDOB: Community [place] A BPolicy Number: [id number], [place] [id number] Repository [address]Wsd: (404) Date:2018-02-22 [phone] () 02/22/2018 Secondary CALE Foster Insurance:ANTHEMPolicy CHAPMANDOB: Community Number: [id number] Hospital [id number] Repository Date:5239-82-81MI [address] [place] [address]VI: 02/22/2018 Tertiary Insurance:SELF NOT GIVENUNK Kristin PAY INSURANCEPolicy Community Number: Effective Hospital Date:2018-02-22 Repository 02/07/2018 CALE Boyd Primary CALE PULLIAM[address] Insurance:MEDICARE PART CHAPMANDOB: Community [place] A BPolicy Number: [id number], [place] [id number] Repository [address]Rwv: (330) Date:2018-02-02 [phone] () 02/07/2018 Secondary CALE Boyd Kristin Insurance:ANTHEMPolicy CHAPMANDOB: Community Number: [id number] Hospital [id number] Repository Date:0463-32-22ZS [address], [place] [address]TE: 02/07/2018 Tertiary Insurance:SELF NOT GIVENUNK [place] PAY INSURANCEPolicy Community Number: Effective Hospital Date:2018-02-02 Repository 02/01/2018 CALE L Primary CALE [place] [id number] W Insurance:MEDICARE PART CHAPMANDOB: [place] BPolicy Number: [id number], [place] [id number] Repository [address]Oqx: (505) Date:2018-02-01 [phone] () 02/01/2018 Secondary CALE Boyd Kristin Insurance:ANTHEMPolicy CHAPMANDOB: Community Number: [id number] Comprehensive Health Care [id number] Repository Date:9828-89-95[address], [place] [address]UK: 02/01/2018 Tertiary Insurance:SELF NOT GIVENUNK [place] PAY INSURANCEPolicy Community Number: Effective Hospital Date:2018-02-01 Repository 11/23/2017 CALE L Primary CALE [place] [id number] W Insurance:MEDICARE PART CHAPMANDOB: [place] BPolicy Number: [id number], [place] [id number] Repository [address]Kox: (330) Date:2012-01-27 [phone] () 11/23/2017 Secondary CALE Boyd [place] Insurance:ANTHEMPolicy CHAPMANDOB: Community Number: [id number] Hospital [id number] Repository Date:5375-13-16[address], [place] [address]FY: 11/23/2017 Tertiary Insurance:SELF NOT GIVENUNK Kristin PAY INSURANCEPolicy Community Number: Effective Hospital Date:2017-10-26 Repository 09/14/2017 CALE L Primary CALE [place] [id number] W Insurance:MEDICARE PART CHAPMANDOB: [facility] KIMBERLY [place] BPolicy Number: [id number], [place] [id number] Repository [address]Aui: (330) Date:2017-09-14 [phone] () 09/14/2017 Secondary CALE Deb [place] Insurance:ANTHEMPolicy CHAPMANDOB: Community Number: [id number] Hospital [id number] Repository Date:2367-32-77[address]XZMOMNB, [place] [address]LA: 09/14/2017 Tertiary Insurance:SELF NOT GIVENUNK [place] PAY INSURANCEPolicy Community Number: Effective Hospital Date:2017-09-14 Repository 08/16/2017 CALE Boyd Primary CALE Boyd [facility] CHAPMANDOB: Insurance:MEDICARE A CHAPMANDOB: [place] W AND BPolicy Number: [id number] [facility] [id number] [place], [place] Date:0717-28-88Bnon [place], [place] Repository [address]Udb: (330) Name:CARE [id number]: () [phone] () 08/16/2017 Secondary CALE Boyd [facility] Insurance:ANTHEM CHAPMANDOB: [facility] [id number] [place] [address] Number: [facility] [id number] [place], [place] Repository Date:3536-38-04Tosh [address]Vbd: (330) Name:MANAGED CARE [phone] () 08/16/2017 CALE Boyd Primary CALE Boyd [id number] Insurance:MEDICARE PART CHAPMANDOB: [facility] BPolicy Number: [id number], [place] [id number] Repository [address]Mxz: (330) Date:2017-08-10 [phone] () 08/16/2017 Secondary CALE Boyd [place] Insurance:ANTHEMPolicy CHAPMANDOB: Community Number: [id number] Hospital [id number] Repository Date:5741-86-72YK [address]IBZD[address], [place] [address]SN: 08/16/2017 Tertiary Insurance:SELF NOT GIVENUNK [place] PAY INSURANCEPoly Community Number: Effective Hospital Date:2017-08-10 Repository 08/12/2017 CALE Boyd Primary CALE Boyd [place] [address] [address] Insurance:MEDICARE PART CHAPMANDOB: [facility] BPolicy Number: [id number], [place] [id number] Repository [address]Otu: (330) Date:2017-08-12 [phone] () 08/12/2017 Secondary CALE Boyd [place] Insurance:ANTHEMPolicy CHAPMANDOB: [facility] Number: [id number] Hospital [id number] Repository Date:4700-73-29HM [address]XSXCRGW, [place] [address]GG: 08/12/2017 Tertiary Insurance:SELF NOT GIVENUNK [place] [facility] Community Number: Effective Hospital Date:2017-08-12 Repository 08/09/2017 CALE Boyd Primary CALE Boyd [facility]: Insurance:MEDICARE A CHAPMANDOB: [place] AND BPolicy Number: [id number] [facility] [id number] [place] Date:[id number] [place], [place] Repository [address]Mlv: ([phone]) Name:CARE [id number]: () [phone] () 08/09/2017 Secondary CALE Boyd [facility] Insurance:ANTHEM CHAPMANDOB: [facility] [id number] [facility] Medical Number: [facility] [id number] [place] Repository Date:[id number] [id number]: ([phone]) Name:[facility] CARE [phone] () 08/09/2017 CALE Boyd [facility] [place] W AND BPolicy Number: [id number] [facility] [id number] [place], [place] Date:[id number] [place], [place] Repository [address]Acn: ([phone]) Name:CARE [id number]: () [phone] () 08/09/2017 Secondary CALE Boyd [facility] Insurance:DON ORTIZ: [facility] [id number] [facility] Number: [facility] [id number] [place], [place] Repository Date:[id number] [id number]: ([phone]) Name:[facility] CARE [phone] ()
== END ==
PROVIDERS: Family Provider Family Medicine; PCP Family Medicine; Referring Provider Family Medicine; Visit Provider Family Medicine
DX: J20.9 Acute bronchitis, unspecified (principal)
CPT/HCPCS: 71046

== ENCOUNTER 2018-04-22 09:23 | Emergency (ER) | payer MEDICARE, BC, SELFPAY ==
[2018-03-14 08:43] VITALS: BMI 29.9
[2018-04-22] VITALS (7 sets, daily range): BP systolic 109–144; BP diastolic 76–92; PULSE 49–55; RESP 13–18; TEMP 36.9; O2SAT 95–98; BMI 30.7
--- NOTE | 2018-04-22 09:51 | RAD_ITS ---
STUDY: X-RAY CHEST REASON FOR EXAM: Male, 73 years old. Cough. TECHNIQUE: Single AP portable upright view of the chest. COMPARISON: PA and lateral chest x-ray April 12, 2018. FINDINGS: The lungs overall are more fully expanded today, there is mild elevation of the right diaphragm. Small linear densities in the lung bases may be focal sites of scarring. The lungs are otherwise clear. There is no demonstrated pleural abnormality. Normal size heart. Sternal cerclage wires are present from a prior sternotomy. Normal mediastinum and chaitanya. Normal visualized pulmonary arteries. There is stable mild tortuosity of the descending thoracic aorta. There are stable multilevel degenerative changes of the visualized thoracic spine. Normal visualized ribs, clavicles, and shoulders. There is no demonstrated abnormality of the visualized soft tissue structures of the upper abdomen. RAD/Chest 1 View (Portable) IMPRESSION: Prior median sternotomy. No acute cardiopulmonary disease. Electronically Signed: Justo Reyna MD at 12:20 EST , Service support ,
--- NOTE | 2018-04-22 09:51 | EKG12_ITS ---
Test Reason : CP Blood Pressure : / mmHG Vent. Rate : 052 BPM Atrial Rate : 052 BPM P-R Int : 140 ms QRS Dur : 102 ms QT Int : 432 ms P-R-T Axes : 022 019 108 degrees QTc Int : 401 ms Sinus bradycardia Incomplete right bundle branch block T wave abnormality, consider lateral ischemia Abnormal ECG Confirmed by FAZAL LOERA, JING ([id number]), avid editor FERNANDO ROLDAN ([id number]) on 04/25/2018 2:12:27 PM Referred By: MARISABEL Confirmed By:JING DIEHL MD
[2018-04-22 10:16] LABS: Absolute Lymphocyte Count 1.45 X10^3/ul (0.83-4.51); Absolute Neutrophil Count 2.3 X10^3/uL (2.0-7.7); Basophil# 0.03 X10^3/uL; Basophil% 0.7 % (0-1); Eosinophil# 0.12 X10^3/uL; Eosinophils% 2.8 % (0-5); Hematocrit 45.2 % (40-54); Hemoglobin 14.7 g/dl (13.0-16.5); Lymphocyte # 1.45 X10^3/ul (4.0); Lymphocyte % 34.1 % (19-41); Mean Corp Hgb Conc 32.5 g/gl (32-36); Mean Corpuscular Hgb 30.2 pg (27.0-32.0); Mean Platelet Vol. 9.5 fl (6.2-12.0); Monocyte# 0.34 X10^3/uL; Neutrophil % 54.2 % (47-70); POSITIVE COUNT NO; POSITIVE DIFFERENTIAL NO; POSITIVE MORPHOLOGY NO; Platelet Count 221 K/mm3 (150-450); RBC Distribution Width CV 12.8 % (11.6-14.6); RBC Distribution Width SD 43.3 fl (35.1-43.9); Red Blood Count 4.86 M/mm3 (4.6-6.2); White Blood Count 4.3 K/mm3 (4.4-11.0)
[2018-04-22] MEDS: 0.9% Normal Saline 1,000 ML 150 ML IV (10:16)
[2018-04-22 10:29] LABS: Anion Gap 10 (5-15); BUN 18 mg/dL (7-18); BUN/Creat Ratio 14.9 RATIO (10-20); Calcium,Total 8.8 mg/dL (8.5-10.1); Chloride 106 mmol/L (98-107); Creatinine, Serum 1.21 mg/dL (0.70-1.30); EST Glomerular Filtration Rate 63 mL/min (>60); Est Glom Filt Rate - Afr Amer 76 mL/min (>60); Estimated Creatinine Clearance 48.71 ml/min; Glucose 85 mg/dL (74-106); Potassium 4.1 mmol/L (3.5-5.1); Sodium Level 145 mmol/L (136-145)
--- NOTE | 2018-04-22 10:31 | CT_ITS ---
STUDY: CTA CHEST REASON FOR EXAM: Male, 73 years old. Chest pain. Bronchitis and hemoptysis. Previous history of PE. RADIATION DOSAGE (If Supplied By Facility): CTDIvol = ( 18.35 ) mGy, DLP = ( 579.52 ) mGycm TECHNIQUE: The examination was performed with the intravenous administration of 75ML ml of Isovue 370 contrast material. Post-processing of the angiographic images was performed, with multiplanar reformation and 3D reconstruction. Individualized dose optimization techniques were used for this CT. COMPARISON: 11/23/2016. FINDINGS: Normal enhancement of the main pulmonary artery and right and left pulmonary arteries. Normal enhancement of the bilateral peripheral pulmonary arteries. There is no demonstrated pulmonary embolism. Normal thoracic aorta and visualized great vessels. There is no demonstrated aortic dissection. Normal heart and pericardium. Normal mediastinum. Normal hilar regions. Normal visualized trachea and bronchi. The lungs are hyper expanded, with flattening of the hemidiaphragms. No infiltrates or effusions. Stable small nodules in the right middle lobe as far back as November 14, 2016. Normal chest wall structures. Normal osseous structures. Normal visualized upper abdomen. CT/CTA Chest W/WO Contrast IMPRESSION: Normal CTA chest examination, without a demonstrated pulmonary embolism or arterial dissection. No acute chest disease. Electronically Signed: Joey Araya MD at 11:22 EST , Service support ,
--- NOTE | 2018-04-22 10:45 | ED.VISSUMM ---
- ER Visit Summary Date of Service: 04/22/18 Chief Complaint: Cough with right-sided chest pain History of Present Illness: The patient is a 73 M who was diagnosed with bronchitis 10 days ago. He finished a Z-Diallo on April 16. Cough continues and has sharp right-sided chest pain that started yesterday. He had 2 episodes of hemoptysis today. states that the cough actually started in early February while he was tearing out an old floor in their home. Past history is significant for coronary disease, hypertension, high cholesterol, A. fib, sleep apnea. Patient has had a prior PE in 2017. Physical Examination: Vital signs significant only for bradycardia with a heart rate of 52. Patient sitting upright in bed. He appears ill but in no acute distress. Head neck examination was dry mucous membranes. Heart is bradycardic and regular. Lungs sounds are clear. He does have reproducible chest wall tenderness on the right. No crepitus noted. Abdomen is soft nontender. Lower extremity examination was no significant calf tenderness or edema. Test Results: EKG is sinus bradycardia 52 bpm. Lateral T inversions are noted that are unchanged when compared to prior study. Portable chest x-ray shows no acute disease per my review. CBC was a white count of 4.3, otherwise normal. Chemistry studies normal. Troponin negative. CTA of the chest shows no evidence of PE or dissection. No infiltrate noted. Emergency Department Course and Treatment: Patient was given IV fluids here. Test results are discussed with patient and at bedside. At this time patient likely has viral bronchitis and that it is not responding to antibiotics. He has reproducible chest wall pain. There is reported hemoptysis, but this is likely from airway irritation from his frequent coughing. Patient reportedly cannot afford Tessalon Perles and Robitussin has not been beneficial. They state they have not tried Delsym [id number]. They are willing to try this. Treatment Plan: [] Disposition: Discharge Impression: 1. Bronchitis 2. Chest wall pain 3. Reported hemoptysis This note was generated with [employer] dictation software. It may contain incorrect words, spelling, and punctuation that were not noted in review of the chart prior to signing ED Disposition - Plan for ED Patient: Disposition: Home or Assisted Living Chief Complaint: Chest Pain Instructions: Acute Bronchitis, ED Strain Chest Wall, ED Hemoptysis Prescriptions: Benzonatate [Tessalon Perle] 200 mg PO TID PRN PRN #20 capsule PRN Reason: Cough Referrals: Saul Maxwell MD [Primary Care Provider] - 3-5 Days
--- NOTE | 2018-04-22 12:08 | ED.DEP ---
ED Disposition - Plan for ED Patient: Disposition: Home or Assisted Living Chief Complaint: Chest Pain Instructions: ED Strain Chest Wall, Acute Bronchitis, ED Hemoptysis Prescriptions: Benzonatate [Tessalon Perle] 200 mg PO TID PRN PRN #20 capsule PRN Reason: Cough Referrals: Saul Maxwell MD [Primary Care Provider] - 3-5 Days
--- NOTE | 2018-04-22 12:16 | ED.DEP ---
ED Disposition - Plan for ED Patient: Disposition: Home or Assisted Living Chief Complaint: Chest Pain Instructions: Acute Bronchitis, ED Strain Chest Wall, ED Hemoptysis Referrals: Saul Maxwell MD [Primary Care Provider] - 3-5 Days
== END 2018-04-22 13:07 | disposition home or self-care (01) ==
PROVIDERS: Emergency Provider Emergency Medicine; Family Provider Family Medicine; PCP Family Medicine
DX: J40 Bronchitis, not specified as acute or chronic (principal); R07.89 Other chest pain; R04.2 Hemoptysis; I10 Essential (primary) hypertension; E78.00 Pure hypercholesterolemia, unspecified; I48.91 Unspecified atrial fibrillation; I25.10 Atherosclerotic heart disease of native coronary artery without angina pectoris; G47.30 Sleep apnea, unspecified; Z86.711 Personal history of pulmonary embolism; Z95.1 Presence of aortocoronary bypass graft
CPT/HCPCS: 71045; 71275; 80048; 84484; 85025; 93005; 96360; 96361; 99284; J7030; Q9967; A4216

== ENCOUNTER → 2018-05-24 08:03 | Outpatient (CLI) | payer MEDICARE, BC, SELFPAY ==
[2018-04-22 09:27] VITALS: BMI 30.7
[2018-05-24 10:19] LABS: Absolute Lymphocyte Count 1.51 X10^3/ul (0.83-4.51); Basophil# 0.01 X10^3/uL; Basophil% 0.2 % (0-1); Eosinophil# 0.14 X10^3/uL; Eosinophils% 3.5 % (0-5); Hematocrit 47.1 % (40-54); Hemoglobin 15.6 g/dl (13.0-16.5); Lymphocyte # 1.51 X10^3/ul (4.0); Lymphocyte % 37.5 % (19-41); Mean Corp Hgb Conc 33.1 g/gl (32-36); Mean Corpuscular Hgb 30.8 pg (27.0-32.0); Mean Corpuscular Volume 93.1 fL (80-94); Mean Platelet Vol. 10.2 fl (6.2-12.0); Monocyte# 0.35 X10^3/uL; Monocyte% 8.7 % (0-10); Neutrophil # 2.01 X10^3/uL (2.7-7.7); Neutrophil % 49.9 % (47-70); Platelet Count 187 K/mm3 (150-450); RBC Distribution Width CV 12.5 % (11.6-14.6); RBC Distribution Width SD 41.9 fl (35.1-43.9); Red Blood Count 5.06 M/mm3 (4.6-6.2)
[2018-05-24 10:23] LABS: POSITIVE COUNT NO; POSITIVE DIFFERENTIAL NO; POSITIVE MORPHOLOGY NO
[2018-05-24 10:53] LABS: Vitamin D,25 Hydroxy 39.1 ng/mL (29.95-100.01)
[2018-05-24 11:04] LABS: ALB/GLOB Ratio 1.4 RATIO (0.9-2.4); AST(SGOT) 26 U/L (15-37); Alanine Aminotransfer ALT/SGPT 27 U/L (16-61); Albumin, Serum 3.8 g/dL (3.2-5.0); Alkaline Phosphatase 72 U/L (45-117); Anion Gap 7 (5-15); BUN 17 mg/dL (7-18); BUN/Creat Ratio 14.9 RATIO (10-20); Calcium,Total 8.7 mg/dL (8.5-10.1); Chloride 105 mmol/L (98-107); Cholesterol 219 mg/dL (200); Creatinine, Serum 1.14 mg/dL (0.70-1.30); EST Glomerular Filtration Rate 67 mL/min (>60); Est Glom Filt Rate - Afr Amer 81 mL/min (>60); Globulin 2.8 g/dL (2.2-4.2); Glucose 81 mg/dL (74-106); High Density Lipoprotein 48 mg/dL; Magnesium 2.1 mg/dL (1.6-2.6); Potassium 4.7 mmol/L (3.5-5.1); Protein, Total 6.6 g/dL (6.4-8.2); Sodium Level 139 mmol/L (136-145); Triglycerides 337 mg/dL; Very Low Density Lipoprotein 67 mg/dL (5-40)
== END ==
PROVIDERS: Family Provider Family Medicine; PCP Family Medicine; Referring Provider Family Medicine; Visit Provider Family Medicine
DX: E55.9 Vitamin D deficiency, unspecified (principal); I48.0 Paroxysmal atrial fibrillation; I25.10 Atherosclerotic heart disease of native coronary artery without angina pectoris
CPT/HCPCS: 36415; 80053; 80061; 82306; 83735; 85025

== ENCOUNTER → 2018-10-10 | Outpatient (CLI) | payer MEDICARE, BC, SELFPAY ==
[2018-08-04 13:22] VITALS: BMI 29.9
[2018-10-10 12:30] LABS: Absolute Lymphocyte Count 0.98 X10^3/uL (0.83-4.51); Absolute Neutrophil Count 1.9 X10^3/uL (2.0-7.7); Basophil# 0.02 X10^3/uL; Basophil% 0.6 % (0-1); Eosinophil# 0.07 X10^3/uL; Eosinophils% 2.1 % (0-5); Hematocrit 45.6 % (40-54); Lymphocyte # 0.98 X10^3/ul (4.0); Lymphocyte % 29.1 % (19-41); Mean Corp Hgb Conc 32.9 g/dL (32-36); Mean Corpuscular Hgb 30.7 pg (27.0-32.0); Mean Corpuscular Volume 93.3 fL (80-94); Mean Platelet Vol. 9.9 fl (6.2-12.0); Monocyte# 0.37 X10^3/uL; NRBC Flagged by Analyzer 0 % (0-5); Neutrophil # 1.92 X10^3/uL (2.7-7.7); Neutrophil % 56.9 % (47-70); Platelet Count 172 K/mm3 (150-450); RBC Distribution Width CV 11.9 % (11.6-14.6); Red Blood Count 4.89 M/mm3 (4.6-6.2); White Blood Count 3.4 K/mm3 (4.4-11.0)
[2018-10-10 13:05] LABS: Vitamin D,25 Hydroxy 23.8 ng/mL (29.95-100.01)
[2018-10-10 13:18] LABS: ALB/GLOB Ratio 1.5 RATIO (0.9-2.4); AST(SGOT) 32 U/L (15-37); Alanine Aminotransfer ALT/SGPT 25 U/L (16-61); Albumin, Serum 3.8 g/dL (3.2-5.0); Alkaline Phosphatase 87 U/L (45-117); Anion Gap 4 (5-15); BUN 15 mg/dL (7-18); BUN/Creat Ratio 13.8 RATIO (10-20); Calcium,Total 8.8 mg/dL (8.5-10.1); Chloride 109 mmol/L (98-107); Creatinine, Serum 1.09 mg/dL (0.70-1.30); EST Glomerular Filtration Rate 71 mL/min (>60); Est Glom Filt Rate - Afr Amer 86 mL/min (>60); Globulin 2.6 g/dL (2.2-4.2); Glucose 79 mg/dL (74-106); Magnesium 2.2 mg/dL (1.6-2.6); Potassium 4.2 mmol/L (3.5-5.1); Protein, Total 6.4 g/dL (6.4-8.2); Sodium Level 142 mmol/L (136-145)
[2018-10-11 09:04] LABS: CPK Total, Creatine Kinase 426 U/L (39-308); Ferritin 105 ng/mL (26-388)
== END | disposition home or self-care (01) ==
LOC: MFPLAB 11:00
PROVIDERS: Family Provider Family Medicine; PCP Family Medicine; Referring Provider Family Medicine; Visit Provider Family Medicine
DX: E55.9 Vitamin D deficiency, unspecified (principal); G47.62 Sleep related leg cramps; I48.0 Paroxysmal atrial fibrillation; I25.10 Atherosclerotic heart disease of native coronary artery without angina pectoris
CPT/HCPCS: 36415; 80053; 82306; 82550; 82728; 83735; 85025

== ENCOUNTER → 2018-11-20 09:53 | Outpatient (CLI) | payer MEDICARE, BC, SELFPAY ==
[2018-08-04 13:22] VITALS: BMI 29.9
[2018-11-20 13:03] LABS: CPK Total, Creatine Kinase 347 U/L (39-308); Ferritin 94 ng/mL (26-388)
== END ==
PROVIDERS: Family Provider Family Medicine; PCP Family Medicine; Visit Provider Family Medicine
DX: G47.62 Sleep related leg cramps (principal)
CPT/HCPCS: 36415; 82550; 82728

== ENCOUNTER → 2018-11-22 11:08 | Outpatient (CLI) | payer MEDICARE, BC, SELFPAY ==
[2018-08-04 13:22] VITALS: BMI 29.9
[2018-11-22 14:36] LABS: PSA,Total - Annual Screen 0.94 ng/mL (0.00-4.00)
== END ==
PROVIDERS: Family Provider Family Medicine; PCP Family Medicine; Referring Provider Family Medicine; Visit Provider Family Medicine
DX: Z12.5 Encounter for screening for malignant neoplasm of prostate (principal)
CPT/HCPCS: 36415; 84153; G0103

== ENCOUNTER → 2019-03-14 15:55 | Outpatient (CLI) | payer MEDICARE, BC, SELFPAY ==
[2018-08-04 13:22] VITALS: BMI 29.9
[2019-03-14 17:40] LABS: Absolute Lymphocyte Count 1.17 X10^3/uL (0.83-4.51); Absolute Neutrophil Count 4.4 X10^3/uL (2.0-7.7); Basophil# 0.02 X10^3/uL; Basophil% 0.3 % (0-1); Eosinophil# 0.11 X10^3/uL; Eosinophils% 1.8 % (0-5); Hematocrit 46.2 % (40-54); Hemoglobin 15.3 g/dL (13.0-16.5); Lymphocyte # 1.17 X10^3/ul (4.0); Mean Corp Hgb Conc 33.1 g/dL (32-36); Mean Corpuscular Hgb 30.8 pg (27.0-32.0); Mean Corpuscular Volume 93.1 fL (80-94); Mean Platelet Vol. 10.1 fl (6.2-12.0); Monocyte% 8.1 % (0-10); NRBC Flagged by Analyzer 0 % (0-5); Neutrophil # 4.35 X10^3/uL (2.7-7.7); Neutrophil % 70.6 % (47-70); Platelet Count 208 K/mm3 (150-450); RBC Distribution Width CV 12.4 % (11.6-14.6); RBC Distribution Width SD 42.3 fl (35.1-43.9); Red Blood Count 4.96 M/mm3 (4.6-6.2); White Blood Count 6.2 K/mm3 (4.4-11.0)
[2019-03-14 18:12] LABS: ALB/GLOB Ratio 1.5 RATIO (0.9-2.4); AST(SGOT) 27 U/L (15-37); Alanine Aminotransfer ALT/SGPT 27 U/L (16-61); Alkaline Phosphatase 83 U/L (45-117); Anion Gap 4 (5-15); BUN 19 mg/dL (7-18); BUN/Creat Ratio 16.2 RATIO (10-20); Calcium,Total 9.4 mg/dL (8.5-10.1); Chloride 106 mmol/L (98-107); Cholesterol 210 mg/dL (200); Creatinine, Serum 1.17 mg/dL (0.70-1.30); EST Glomerular Filtration Rate 65 mL/min (>60); Est Glom Filt Rate - Afr Amer 79 mL/min (>60); Globulin 2.7 g/dL (2.2-4.2); Glucose 112 mg/dL (74-106); High Density Lipoprotein 54 mg/dL; Potassium 4.4 mmol/L (3.5-5.1); Protein, Total 6.7 g/dL (6.4-8.2); Sodium Level 142 mmol/L (136-145); Triglycerides 304 mg/dL; Very Low Density Lipoprotein 61 mg/dL (5-40)
[2019-03-14 18:25] LABS: Vitamin D,25 Hydroxy 48.4 ng/mL (29.95-100.01)
[2019-03-15 10:21] LABS: Hemoglobin A1c 5.7 % (4.2-6.3)
== END ==
PROVIDERS: Family Provider Family Medicine; PCP Family Medicine; Referring Provider Family Medicine; Visit Provider Family Medicine
DX: E55.9 Vitamin D deficiency, unspecified (principal); I25.10 Atherosclerotic heart disease of native coronary artery without angina pectoris; I10 Essential (primary) hypertension; R73.09 Other abnormal glucose
CPT/HCPCS: 36415; 80053; 80061; 82306; 83036; 85025

== ENCOUNTER → 2019-11-07 08:08 | Outpatient (CLI) | payer MEDICARE, BC, SELFPAY ==
[2019-03-15 08:14] VITALS: BMI 29.9
[2019-11-07 10:03] LABS: Absolute Lymphocyte Count 1.62 X10^3/uL (0.83-4.51); Absolute Neutrophil Count 3.1 X10^3/uL (2.0-7.7); Basophil# 0.03 X10^3/uL; Basophil% 0.6 % (0-1); Eosinophil# 0.09 X10^3/uL; Eosinophils% 1.7 % (0-5); Hematocrit 49.2 % (40-54); Hemoglobin 16.2 g/dL (13.0-16.5); Lymphocyte # 1.62 X10^3/ul (4.0); Lymphocyte % 30.6 % (19-41); Mean Corp Hgb Conc 32.9 g/dL (32-36); Mean Corpuscular Hgb 31.7 pg (27.0-32.0); Mean Corpuscular Volume 96.3 fL (80-94); Mean Platelet Vol. 9.7 fl (6.2-12.0); Monocyte# 0.49 X10^3/uL; Monocyte% 9.2 % (0-10); NRBC Flagged by Analyzer 0 % (0-5); Neutrophil # 3.05 X10^3/uL (2.7-7.7); Neutrophil % 57.5 % (47-70); Platelet Count 208 K/mm3 (150-450); RBC Distribution Width CV 12.9 % (11.6-14.6); RBC Distribution Width SD 45.7 fl (35.1-43.9); Red Blood Count 5.11 M/mm3 (4.6-6.2); White Blood Count 5.3 K/mm3 (4.4-11.0)
[2019-11-07 10:36] LABS: Vitamin D,25 Hydroxy 84.6 ng/mL
[2019-11-07 10:40] LABS: ALB/GLOB Ratio 1.1 RATIO (0.9-2.4); AST(SGOT) 33 U/L (15-37); Alanine Aminotransfer ALT/SGPT 39 U/L (16-61); Albumin, Serum 3.7 g/dL (3.2-5.0); Alkaline Phosphatase 62 U/L (45-117); Anion Gap 4 (5-15); BUN 20 mg/dL (7-18); BUN/Creat Ratio 17.5 RATIO (10-20); Calcium,Total 9.1 mg/dL (8.5-10.1); Chloride 105 mmol/L (98-107); Cholesterol 199 mg/dL (200); Creatinine, Serum 1.14 mg/dL (0.70-1.30); EST Glomerular Filtration Rate 67 mL/min (>60); Est Glom Filt Rate - Afr Amer 81 mL/min (>60); Globulin 3.4 g/dL (2.2-4.2); Glucose 91 mg/dL (74-106); High Density Lipoprotein 65 mg/dL; Magnesium 2.4 mg/dL (1.6-2.6); Potassium 4.6 mmol/L (3.5-5.1); Protein, Total 7.1 g/dL (6.4-8.2); Sodium Level 140 mmol/L (136-145); Triglycerides 142 mg/dL; Very Low Density Lipoprotein 28 mg/dL (5-40)
[2019-11-07 11:46] LABS: Hemoglobin A1c 5.6 % (3.8-5.6)
== END ==
PROVIDERS: PCP Family Medicine; Referring Provider Family Medicine; Visit Provider Family Medicine
DX: E55.9 Vitamin D deficiency, unspecified (principal); I48.0 Paroxysmal atrial fibrillation; R73.02 Impaired glucose tolerance (oral); I25.10 Atherosclerotic heart disease of native coronary artery without angina pectoris
CPT/HCPCS: 36415; 80053; 80061; 82306; 83036; 83735; 85025

== ENCOUNTER → 2019-11-28 08:27 | Outpatient (CLI) | payer MEDICARE, BC, SELFPAY ==
[2019-03-15 08:14] VITALS: BMI 29.9
--- NOTE | 2019-11-28 08:32 | RAD_ITS ---
STUDY: X-RAY - RIGHT SHOULDER REASON FOR EXAM: Male, 74 years old. Right shoulder pain after cutting trees x 3 weeks TECHNIQUE: 4 view(s) of the shoulder. COMPARISON: None. FINDINGS: Normal glenohumeral articulation. Normal acromioclavicular joint. Normal acromion. Normal humeral head and visualized proximal humerus. Soft tissue calcification superior to the humeral head may be due to calcific tendinopathy. Normal visualized pulmonary apex. 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 Electronically Signed: Wilfred Meyers DO at 16:51 EDT Tel [phone], Service support ,
== END ==
PROVIDERS: PCP Family Medicine; Referring Provider Family Medicine; Visit Provider Family Medicine
DX: M25.511 Pain in right shoulder (principal)
CPT/HCPCS: 73030

== ENCOUNTER → 2020-01-21 09:16 | Outpatient (CLI) | payer MEDICARE, BC, SELFPAY ==
[2019-03-15 08:14] VITALS: BMI 29.9
[2020-01-21 11:08] LABS: BUN 18 mg/dL (7-18); Creatinine, Serum 1.15 mg/dL (0.70-1.30); EST Glomerular Filtration Rate 66 mL/min (>60); Est Glom Filt Rate - Afr Amer 80 mL/min (>60)
== END ==
PROVIDERS: PCP Family Medicine; Visit Provider Family Medicine
DX: Z01.812 Encounter for preprocedural laboratory examination (principal)
CPT/HCPCS: 36415; 82565; 84520

== ENCOUNTER → 2020-01-25 12:23 | Outpatient (CLI) | payer MEDICARE, BC, SELFPAY ==
[2019-03-15 08:14] VITALS: BMI 29.9
--- NOTE | 2020-01-25 12:29 | MRI_ITS ---
STUDY: MRI LUMBAR SPINE WITH AND WITHOUT CONTRAST REASON FOR EXAM: Male, 74 years old. Stenosis, prior surgery, persistant pain lower back and legs TECHNIQUE: Standardized fat and water weighted pulse sequences were obtained in the sagittal and axial planes. iv dotarem 17cc was administered for the contrast portion of the examination. COMPARISON: 08/16/2017 FINDINGS: T12-L1: Normal endplates. Normal disc height, hydration and morphology. Normal bilateral facet joints. Normal central canal and bilateral lateral recesses. Normal bilateral intervertebral neural foramina. Normal lumbar lordosis. Mild dextroscoliosis. Normal conus medullaris that terminates at the T12. L1-2: No change in the mild broad disc protrusion which produces mild spinal stenosis and mild bilateral neural foraminal stenosis. L2-3: Mild bilateral facet hypertrophy with fluid in the facet joints consistent with instability and mild ligament flavum hypertrophy. No change in the 2 mm retrolisthesis of L2 on L3 with a mild broad disc protrusion which produces moderate spinal stenosis with moderate bilateral lateral recess stenosis with abutment of the L3 nerve roots bilaterally and moderate bilateral neural foraminal stenosis. L3-4: Status post transpedicular fixation with anatomic alignment and no spinal stenosis or neural foraminal stenosis which is unchanged. L4-5: Status post posterior decompression and transpedicular fixation with anatomic alignment and no spinal stenosis or neural foraminal stenosis which is unchanged. L5-S1: Status post posterior decompression with transpedicular fixation with 2 mm retrolisthesis of L5 on S1 with mild spinal stenosis and mild bilateral neural foraminal stenosis which is unchanged. Normal visualized sacral ala. Normal visualized paraspinous soft tissue structures. There is no demonstrated abnormal enhancement. MRI/Spine Lumbar W/WO Contrast IMPRESSION: No change from 08/16/2017. Electronically Signed: Ayden Torres MD at 18:36 EDT Tel , Service support ,
== END ==
PROVIDERS: PCP Family Medicine; Referring Provider Anesthesiology Pain Medicine; Visit Provider Anesthesiology Pain Medicine
DX: M46.96 Unspecified inflammatory spondylopathy, lumbar region (principal); M51.37 Other intervertebral disc degeneration, lumbosacral region; M54.17 Radiculopathy, lumbosacral region; M47.817 Spondylosis without myelopathy or radiculopathy, lumbosacral region; M48.07 Spinal stenosis, lumbosacral region
CPT/HCPCS: 72158; A9575

== ENCOUNTER → 2020-03-26 13:28 | Outpatient (CLI) | payer MEDICARE, BC, SELFPAY ==
[2020-02-26 12:07] VITALS: BMI 29.9
== END ==
PROVIDERS: PCP Family Medicine; Visit Provider Family Medicine
DX: B34.9 Viral infection, unspecified (principal)
CPT/HCPCS: 87635; U0003

== ENCOUNTER → 2020-04-30 15:53 | Outpatient (CLI) | payer MEDICARE, BC, SELFPAY ==
[2020-02-26 12:07] VITALS: BMI 29.9
--- NOTE | 2020-04-30 15:55 | RAD_ITS ---
STUDY: X-RAY - CERVICAL SPINE REASON FOR EXAM: Male, 75 years old. right shoulder pain that goes up into the right side of the neck sometimes TECHNIQUE: 5 view(s) of the cervical spine were obtained. COMPARISON: 05/23/2012 FINDINGS: Normal anterior atlantoaxial articulation. Normal odontoid process. Normal cervical lordosis. There is multi-level endplate spondylosis. There is multi-level degenerative disc disease with multilevel disc space narrowing. There is multi-level osseous foraminal stenosis. 2 mm retrolisthesis of C3 on C4, 2 mm of anterolisthesis of C4 on C5, and 2 mm retrolisthesis of C5 on C6. The soft tissue structures are unremarkable. RAD/Cerv Spine 4 or 5 Views IMPRESSION: Worsening diffuse degenerative disc disease with subluxation at multiple levels. Electronically Signed: Ayden Torres MD at 16:20 EST Tel , Service support ,
== END ==
PROVIDERS: PCP Family Medicine; Referring Provider Nurse Practitioner Family; Visit Provider Nurse Practitioner Family
DX: M54.2 Cervicalgia (principal)
CPT/HCPCS: 72050

== ENCOUNTER → 2020-05-27 08:27 | Outpatient (CLI) | payer MEDICARE, BC, SELFPAY ==
[2020-02-26 12:07] VITALS: BMI 29.9
[2020-05-27 10:05] LABS: Absolute Lymphocyte Count 1.64 X10^3/uL (0.83-4.51); Absolute Neutrophil Count 2.4 X10^3/uL (2.0-7.7); Basophil# 0.02 X10^3/uL; Basophil% 0.4 % (0-1); Eosinophil# 0.09 X10^3/uL; Eosinophils% 1.9 % (0-5); Hematocrit 47.2 % (40-54); Hemoglobin 15.6 g/dL (13.0-16.5); Lymphocyte # 1.64 X10^3/ul (4.0); Lymphocyte % 35.5 % (19-41); Mean Corp Hgb Conc 33.1 g/dL (32-36); Mean Corpuscular Hgb 30.9 pg (27.0-32.0); Mean Corpuscular Volume 93.5 fL (80-94); Mean Platelet Vol. 9.7 fl (6.2-12.0); Monocyte# 0.45 X10^3/uL; Monocyte% 9.7 % (0-10); NRBC Flagged by Analyzer 0 % (0-5); Neutrophil % 52.1 % (47-70); Platelet Count 217 K/mm3 (150-450); RBC Distribution Width CV 12.5 % (11.6-14.6); RBC Distribution Width SD 42.9 fl (35.1-43.9); Red Blood Count 5.05 M/mm3 (4.6-6.2); White Blood Count 4.6 K/mm3 (4.4-11.0)
[2020-05-27 10:32] LABS: ALB/GLOB Ratio 1.2 RATIO (0.9-2.4); AST(SGOT) 28 U/L (15-37); Alanine Aminotransfer ALT/SGPT 28 U/L (16-61); Albumin, Serum 3.6 g/dL (3.2-5.0); Alkaline Phosphatase 56 U/L (45-117); Anion Gap 4 (5-15); BUN 12 mg/dL (7-18); Calcium,Total 8.7 mg/dL (8.5-10.1); Chloride 108 mmol/L (98-107); Cholesterol 204 mg/dL (200); Creatinine, Serum 1.09 mg/dL (0.70-1.30); EST Glomerular Filtration Rate 70 mL/min (>60); Est Glom Filt Rate - Afr Amer 85 mL/min (>60); Globulin 3.1 g/dL (2.2-4.2); Glucose 86 mg/dL (74-106); High Density Lipoprotein 48 mg/dL; Magnesium 2.2 mg/dL (1.6-2.6); Potassium 4.3 mmol/L (3.5-5.1); Protein, Total 6.7 g/dL (6.4-8.2); Sodium Level 139 mmol/L (136-145); Triglycerides 384 mg/dL; Very Low Density Lipoprotein 77 mg/dL (5-40)
[2020-05-27 10:35] LABS: Hemoglobin A1c 5.3 % (3.8-5.6); Vitamin D,25 Hydroxy 61.8 ng/mL
== END ==
PROVIDERS: PCP Family Medicine; Referring Provider Family Medicine; Visit Provider Family Medicine
DX: I48.0 Paroxysmal atrial fibrillation (principal); E55.9 Vitamin D deficiency, unspecified; I25.10 Atherosclerotic heart disease of native coronary artery without angina pectoris; R73.02 Impaired glucose tolerance (oral)
CPT/HCPCS: 36415; 80053; 80061; 82306; 83036; 83735; 85025

== ENCOUNTER 2020-07-07 09:41 | Observation (INO) | payer MEDICARE, BC, SELFPAY ==
[2020-02-26 12:07] VITALS: BMI 29.9
[2020-07-07] VITALS (8 sets, daily range): BP systolic 121–144; BP diastolic 70–108; PULSE 55–65; RESP 12–18; TEMP 36.6–37.1; O2SAT 96–98; BMI 29.9
--- NOTE | 2020-07-07 09:59 | EKG12_ITS ---
Test Reason : Blood Pressure : / mmHG Vent. Rate : 057 BPM Atrial Rate : 057 BPM P-R Int : 140 ms QRS Dur : 146 ms QT Int : 436 ms P-R-T Axes : 015 028 109 degrees QTc Int : 424 ms Sinus bradycardia with marked sinus arrhythmia Right bundle branch block Abnormal ECG Confirmed by JENI LOERA, RAMIN ([id number]), newspaper photo editor SHAMEKA VARGAS ([id number]) on 07/09/2020 11:17:59 AM Referred By: FRANKLIN Confirmed By:RAMIN NGO MD
--- NOTE | 2020-07-07 10:00 | RAD_ITS ---
STUDY: X-RAY - RIGHT KNEE REASON FOR EXAM: Male, 75 years old. Trauma TECHNIQUE: 4 view(s) of the knee. COMPARISON: Comparison is made with prior study dated 09/27/2015. FINDINGS: Normal visualized distal femur. Normal visualized proximal tibia and fibula. Normal proximal tibiofibular articulation. There is moderate degenerative arthrosis of the medial femorotibial compartment with moderate joint space narrowing. Normal lateral femorotibial compartment. There is mild degenerative arthrosis of the patellofemoral articulation. Surgical clips are seen along the posterior medial portion of the knee joint. RAD/Knee 4 or More Views IMPRESSION: Degenerative arthrosis. Electronically Signed: Vicente Sexton MD at 11:27 EDT , Service support ,
--- NOTE | 2020-07-07 10:00 | VDLE_ITS ---
Reason For Study: Pain RIGHT GSV is normal. CFV is compressible, spontaneous, phasic, competent and demonstrates normal augmentation. FV is compressible, spontaneous, phasic, competent and demonstrates normal augmentation. POP V is compressible, spontaneous, phasic, competent and demonstrates normal augmentation. T/P Trunk is compressible. PTV is compressible. RT PerV is compressible. Procedure This is a venous duplex using B-mode, color flow and spectral Doppler. Exam performed portable in ED. A preliminary report was called and/or faxed to [facility]. VL/Venous Duplex US, Unilateral Interpretation Summary Deep veins of the right lower extremity are patent and compressible segmentally . There is no evidence of right lower extremity deep vein thrombosis. Valvular competence erum ears intact within the proximal deep venous system on the right . The right great saphenous vein a ppears patent and compressible segmentally. Ordering Physician: Luis Carlos Kothari Referring Physician: Saul Maxwell Performed By: Lianna Plunkett RVT
--- NOTE | 2020-07-07 10:02 | ED.DCSUM_ITS ---
History of Present Illness Chief Complaint: Dizziness Narrative: Patient presents with lightheadedness that started while he was at [employer] today. He had an appointment today for knee injury that he sustained about a week ago that has not gone away completely. He felt very lightheaded and he felt like he was going to pass out if he was going to stand too much longer. No chest pain or shortness of breath no pleuritic component no back pain or tearing sensation. No vertigo. No headache or vision changes. Past medical history: High blood pressure, hypercholesterolemia, history of coronary artery bypass Medications: Reviewed Social history: Lives with Review of systems: All systems negative except as indicated General: Denies: Fever. There is lightheadedness as in HPI Eyes: Denies: Visual changes - bilaterally ENT: Denies: Rhinorrhea, Sore throat Cardiovascular: Denies: Chest pain Respiratory: Denies: Dyspnea, Cough Gastrointestinal: Denies: Abdominal pain, Nausea, Vomiting Genitourinary: Denies: Dysuria Musculoskeletal: Right knee pain and contusion as in HPI Skin: Denies: Rash Neurological: Denies: Headache, no focal weakness Psych: Reports: negative Hematologic: Denies: Easy bruising, Easy bleeding Physical exam General: Well nourished, Well developed, No Acute Distress Head: Normocephalic, Atraumatic Eyes: Conjunctiva not pale ENT: Slightly dry mucous membranes Neck: Supple, Nontender, No lymphadenopathy Cardiovascular: Regular rate, Regular rhythm Respiratory: No distress, CTA bilaterally Abdomen: Soft, Nontender, Nondistended Back: Nontender, Normal Inspection. Negative for: CVA tenderness Extremities: Right knee has some tenderness its mostly in the popliteal region. There is no laxity on anterior posterior medial or lateral stressors. Normal extensor mechanism. There is a contusion distally all the way to the ankle. Skin: Normal color, No rash Neurological: Alert, Normal Strength, Normal Sensation Psychological: Normal affect Past Medical History - Allergies and Home Meds Allergies/Adverse Reactions: Allergies egg Allergy (Severe, Verified 07/07/20 09:44) Other fluid retention, nausea Egg Derived Allergy (Severe, Verified 07/07/20 09:44) Food Allergy nausea, vomitting, fluid retention soy Allergy (Verified 07/07/20 09:44) Nausea flu shot Adverse Reaction (Severe, Uncoded 07/07/20 09:44) unknown Primary Care Physician: Saul Maxwell MD [Primary Care Provider] - Surgical History: coronary bypass surgery, herniorrhaphy, total knee arthroplasty, tonsillectomy Smoking Status: Never smoker - Family History Maternal Family History: Family History (Last Reviewed 02/26/20 @ 13:[address] uKsh Burnett MD) Father CAD (coronary artery disease) COPD (chronic obstructive pulmonary disease) Mother No problems noted. Sister Clotting disorder Brother Clotting disorder Family History: Reports: No pertinent history - age 69 Paternal Family History: Family History (Last Reviewed 02/26/20 @ 13:[address] Kush Burnett MD) Father CAD (coronary artery disease) COPD (chronic obstructive pulmonary disease) Mother No problems noted. Sister Clotting disorder Brother Clotting disorder Family History: Reports: Cancer - age 88 Physical Exam Vital Signs/Narrative: Vital Signs Temp Pulse Resp BP Pulse Ox 07/07/20 09:44 98 F 55 L 16 136/70 H 96 Diagnostic/Tx/Re-eval Chest X-Ray - ED: 1 View, Read by ED Physician, Read by Radiologist, Normal, Lungs - Rhythm Strip Rhythm Strip: Sinus Rhythm Rate: 57 Ectopy: None - EKG Initial EKG Interpretation: - - Sinus rhythm with a rate of 57. Normal MN and QTc intervals. - Medical Decision Making Patient is found to have an acute stroke. His NIH stroke scale however is a 0 he does have a positive Romberg. I will admit him. His NIH is 0 therefore he does not meet criteria for TPA. ED Disposition - Plan for ED Patient: Disposition: Acute Care Hospital [facility] Referrals: Saul Maxwell MD [Primary Care Provider] -
[2020-07-07 10:31] LABS: Hemoglobin 14.9 g/dL (13.0-16.5); Mean Corp Hgb Conc 32.4 g/dL (32-36); Mean Corpuscular Volume 95.6 fL (80-94); Mean Platelet Vol. 9.5 fl (6.2-12.0); Platelet Count 213 K/mm3 (150-450); RBC Distribution Width CV 12.7 % (11.6-14.6); RBC Distribution Width SD 44.8 fl (35.1-43.9); Red Blood Count 4.81 M/mm3 (4.6-6.2); White Blood Count 4.6 K/mm3 (4.4-11.0)
[2020-07-07 10:47] LABS: ALB/GLOB Ratio 1.2 RATIO (0.9-2.4); AST(SGOT) 32 U/L (15-37); Alanine Aminotransfer ALT/SGPT 35 U/L (16-61); Albumin, Serum 3.7 g/dL (3.2-5.0); Alkaline Phosphatase 52 U/L (45-117); Anion Gap 3 (5-15); BUN 17 mg/dL (7-18); BUN/Creat Ratio 16.2 RATIO (10-20); Chloride 104 mmol/L (98-107); Creatinine, Serum 1.05 mg/dL (0.70-1.30); EST Glomerular Filtration Rate 74 mL/min (>60); Est Glom Filt Rate - Afr Amer 89 mL/min (>60); Glucose 78 mg/dL (74-106); Potassium 3.8 mmol/L (3.5-5.1); Protein, Total 6.7 g/dL (6.4-8.2); Sodium Level 138 mmol/L (136-145)
[2020-07-07] MEDS: Ondansetron 4 MG/2 ML Vial IV (10:57)
[2020-07-07] MEDS: 0.9% Normal Saline 1,000 ML 999 ML IV (10:57)
--- NOTE | 2020-07-07 11:10 | RAD_ITS ---
STUDY: X-RAY CHEST REASON FOR EXAM: Male, 75 years old. Weakness TECHNIQUE: Single AP portable view of the chest. COMPARISON: Comparison is made with prior study dated 10/20/2018. FINDINGS: EKG electrodes are seen. Mild elevation of the right diaphragm. Minimal increased linear markings at the left lung base suggestive of linear atelectasis. There is no demonstrated pleural abnormality. Sternal cerclage wires and vascular clips are present from a prior sternotomy and coronary artery bypass graft procedure (CABG). Normal mediastinum and chaitanya. Normal visualized pulmonary arteries. There is atherosclerotic calcification of the aortic arch with tortuosity. There are degenerative changes of the visualized thoracic spine. Normal visualized ribs, clavicles, and shoulders. There is no demonstrated abnormality of the visualized soft tissue structures of the upper abdomen. RAD/Chest 1 View (Portable) IMPRESSION: Minimal increased linear markings at the left lung base suggestive of linear atelectasis. Electronically Signed: Vicente Sexton MD at 11:28 EDT , Service support ,
--- NOTE | 2020-07-07 12:06 | CT_ITS ---
STUDY: CT BRAIN WITHOUT CONTRAST REASON FOR EXAM: Male, 75 years old. Disequilibrium. Lightheadedness. RADIATION DOSAGE (If Supplied By Facility): CTDIvol = ( 44.99 ) mGy, DLP = ( 779.24 ) mGycm TECHNIQUE: Transaxial CT imaging of the brain was performed without administration of intravenous contrast material. Individualized dose optimization techniques were used for this CT. COMPARISON: Comparison is made with prior study 06/19/2016. FINDINGS: Normal soft tissue structures. Normal calvarium. There is mild cerebral atrophy with widening of the extra-axial spaces and ventricular dilatation. I suspect a focal area of decreased attenuation in the deep left parietal lobe. This may represent an early area of ischemia. Normal basal ganglia and thalami. Normal brainstem. Normal cerebellum. There is no intracranial hemorrhage. There are no findings of an acute ischemic infarction. Atherosclerotic calcification of the vertebral arteries and the cavernous portions of the internal carotid arteries bilaterally. Normal visualized paranasal sinuses. CT/Brain/Head without Contrast IMPRESSION: Findings suggestive of early area of ischemia in the deep left parietal lobe. Electronically Signed: Vicente Sexton MD at 13:03 EDT , Service support ,
--- NOTE | 2020-07-07 13:41 | ED.DCSUM_ITS ---
History of Present Illness Chief Complaint: Dizziness Narrative: This template was generated solely for the purpose of an NIH stroke scale. See the general template for full dictation. Past Medical History - Allergies and Home Meds Allergies/Adverse Reactions: Allergies egg Allergy (Severe, Verified 07/07/20 09:44) Other fluid retention, nausea Egg Derived Allergy (Severe, Verified 07/07/20 09:44) Food Allergy nausea, vomitting, fluid retention soy Allergy (Verified 07/07/20 09:44) Nausea flu shot Adverse Reaction (Severe, Uncoded 07/07/20 09:44) unknown Primary Care Physician: Saul Maxwell MD [Primary Care Provider] - Surgical History: coronary bypass surgery, herniorrhaphy, total knee arthroplasty, tonsillectomy Smoking Status: Never smoker - Family History Maternal Family History: Family History (Last Reviewed 02/26/20 @ 13:[address] Kush Burnett MD) Father CAD (coronary artery disease) COPD (chronic obstructive pulmonary disease) Mother No problems noted. Sister Clotting disorder Brother Clotting disorder Family History: Reports: No pertinent history - age 69 Paternal Family History: Family History (Last Reviewed 02/26/20 @ 13:[address] Kush Burnett MD) Father CAD (coronary artery disease) COPD (chronic obstructive pulmonary disease) Mother No problems noted. Sister Clotting disorder Brother Clotting disorder Family History: Reports: Cancer - age 88 STROKE Vital Signs/Narrative: Vital Signs Temp Pulse Resp BP Pulse Ox 07/07/20 10:44 57 L 15 139/88 H 98 07/07/20 09:44 98 F 55 L 16 136/70 H 96 - NIHSS Initial 1a Level of Consciousness: 0 1b LOC Questions (Score 2 if aphasic/stupor): 0 1c LOC Commands (Only score 1st attempt): 0 2 Best Gaze (If aphasic, use reflexive mvmts.): 0 3 Visual: 0 4 Facial Palsy: 0 5 Motor Arm Right (UN = amputation/fusion): 0 5 Motor Arm Left: 0 6 Motor Leg Right: 0 6 Motor Leg Left: 0 7 Limb ataxia (Only + if out of proportion): 0 8 Sensory (Aphasia/stupor=0 or 1, coma=2): 0 9 Best Language: 0 10 Dysarthria (mute, coma=2, intubated=UN): 0 11 Extinction and Inattention (only scored if +): 0 Total Score: 0 Diagnostic/Tx/Re-eval - Rhythm Strip Rhythm Strip: Sinus Rhythm Rate: 57 Ectopy: None ED Disposition - Plan for ED Patient: Disposition: Acute Care Hospital [facility] Referrals: Saul Maxwell MD [Primary Care Provider] -
--- NOTE | 2020-07-07 13:48 | NURSING ---
DR GRACE IN ER
--- NOTE | 2020-07-07 13:49 | PCM.HP.STD ---
Problem List (1) Atherosclerosis of coronary artery of [place] heart without angina pectoris Status: Chronic (2) H/O coronary artery bypass surgery Status: Chronic Comment: CABG x 3: HOROWITZ-LAD, SVG-D1 and SVG-Ramus 12/01/2012 (3) Essential (primary) hypertension Status: Chronic (4) Hyperlipidemia Status: Chronic Qualifiers: Hyperlipidemia type: pure hypercholesterolemia Qualified Code(s): E78.00 - Pure hypercholesterolemia, unspecified; E78.00 - Pure hypercholesterolemia, unspecified; E78.00 - Pure hypercholesterolemia, unspecified; E78.0 - Pure hypercholesterolemia History of Present Illness Date of Admission: 07/07/20 Chief Complaint: Dizziness, The patient is a 75 year old M with past medical history as mentioned above presented to the emergency room because of dizziness. Today, patient was walking at [employer], felt dizzy and lightheaded. He sat down and this lasted for about couple of minutes and then he felt better. He mentioned that he was about to pass out but he did not. He denied syncope. He denied chest pain or shortness of breath. He described this dizziness as being unsteady and about to fall. He denied spinning sensation. He stated that a week ago, he fell off a ladder and he injured his right knee. He has been having right knee pain and 3 days ago, he had large bruise on his right knee down to his right leg. In the emergency department, patient stood up, closed his eyes and he was about to fall. He had positive Romberg sign. He had a history of CAD status post CABG and he has been on aspirin and beta-blockers. He had a history of hypertension which has been under control with metoprolol. He had a history of hyperlipidemia and currently, he is not on statins. In the emergency department, he was bradycardic, other vitals were stable. Initial NIH stroke scale was 0. He did have positive Romberg sign according to ED physician. Routine blood work was unremarkable. EKG revealed sinus bradycardia, no acute ischemic changes. Troponin was negative. X-ray of the right knee showed no fractures. Chest x-ray showed no acute findings. CT scan brain showed findings suggestive of early ischemia of the deep left parietal lobe. Patient is being admitted for suspected stroke for evaluation and treatment. Past Medical History Past Medical History (Chronic Problems): Chronic Problems (Last Reviewed 02/26/20 @ 13:[address] Kush Burnett MD) Atherosclerosis of coronary artery of [place] heart without angina pectoris (Chronic) H/O coronary artery bypass surgery (Chronic 12/01/12) CABG x 3: HOROWITZ-LAD, SVG-D1 and SVG-Ramus 12/01/2012 Right bundle branch block (RBBB) (Chronic) Essential (primary) hypertension (Chronic) Hyperlipidemia (Chronic) Medical History: Medical History (Last Reviewed 02/26/20 @ 13:[address] Kush Burnett MD) Atherosclerosis of coronary artery of [place] heart without angina pectoris (Chronic) I25.10 Right bundle branch block (RBBB) (Chronic) I45.10 Essential (primary) hypertension (Chronic) I10 Hyperlipidemia (Chronic) E78.5 Basal cell carcinoma C44.91 Lumbar stenosis M48.061 Lung nodule R91.1 Obesity E66.9 Obstructive sleep apnea G47.33 Peripheral neuropathy G62.9 RLS (restless legs syndrome) G25.81 Squamous cell carcinoma C44.92 Postoperative atrial fibrillation I97.89, I48.91 Pulmonary embolism Onset Date: 10/2016 I26.99 Bradycardia (Inactive) R00.1 Allergies egg Allergy (Severe, Verified 07/07/20 09:44) Other fluid retention, nausea Egg Derived Allergy (Severe, Verified 07/07/20 09:44) Food Allergy nausea, vomitting, fluid retention soy Allergy (Verified 07/07/20 09:44) Nausea flu shot Adverse Reaction (Severe, Uncoded 07/07/20 09:44) unknown Home Medications: Ambulatory Orders Medication Instructions Recorded Flaxseed Oil/[place] 3,6,9 [Sv 1 ea PO BID 09/03/13 Flaxseed Oil 1,300 mg Sftgl] Aspirin [Aspirin, Baby] 81 mg PO DAILY@0800 tab.chew 06/22/16 modafinil 200 mg tablet 200 mg PO QDAY 03/14/17 lactobacillus combination no.4 3 3,000 mmu cells PO DAILY 03/15/19 billion cell capsule metoprolol tartrate 25 mg tablet 12.5 mg PO BID #60 tab 09/24/19 ascorbic acid (vitamin C) 1,000 mg 1,000 mg PO DAILY tab 02/26/20 tablet baclofen 10 mg tablet 10 mg PO TID PRN tab 02/26/20 C,E,Zinc,Copper 11/Gvduw8g/Lut 1 capsule PO DAILY 07/07/20 [Ocuvite Adult 50 Plus Softgel] Cholecalciferol (Vitamin D3) 2,000 unit PO DAILY 07/07/20 [D3-2000] Furosemide 20 mg PO DAILY 07/07/20 Gabapentin [Neurontin] 600 mg PO QHS 07/07/20 Multivitamins,Therapeutic 1 tablet PO DAILY 07/07/20 [Multivitamin] Tonic Water 8 oz PO QHS 07/07/20 Zinc Sulfate (50mg elemental) 220 mg PO DAILY 07/07/20 [Zinc Sulfate] Surgical History: Surgical History (Last Reviewed 02/26/20 @ 13:[address] Kush Burnett MD) H/O coronary artery bypass surgery (Chronic) Onset Date: 12/01/12 Z95.1 CABG x 3: HOROWITZ-LAD, SVG-D1 and SVG-Ramus 12/01/2012 History of lumbar laminectomy Z98.890 Surgical History: coronary bypass surgery, herniorrhaphy, total knee arthroplasty, tonsillectomy Psychiatric History: No pertinent psych hx Lives: Spouse/ Significant Other Smoking Status: Never smoker Alcohol: Occasional Drugs: None - *Family History Maternal Family History: Family History (Last Reviewed 02/26/20 @ 13:[address] Kush Burnett MD) Father CAD (coronary artery disease) COPD (chronic obstructive pulmonary disease) Mother No problems noted. Sister Clotting disorder Brother Clotting disorder Paternal Family History: Family History (Last Reviewed 02/26/20 @ 13:[address] Kush Burnett MD) Father CAD (coronary artery disease) COPD (chronic obstructive pulmonary disease) Mother No problems noted. Sister Clotting disorder Brother Clotting disorder History Items: Cancer - age 88 Review of Systems Constitutional: Denies: Anorexia, Chills, Fever, Weakness Eyes: Denies: Blurred vision, Double vision, Drainage, Redness HEENT: Denies: Difficulty Hearing, Ear Pain, Eye Pain, Nasal Congestion, Sore Throat Cardiovascular: Reports: Light Headedness. Denies: Chest Pain, Chest Pressure, Chest Tightness, Palpitations, Syncope Respiratory: Denies: Cough, Hemoptysis, Pleuritic Pain, Sputum production, Wheezing Gastrointestinal: Reports: Nausea. Denies: Abdominal Pain, Constipation, Diarrhea, Vomiting Genitourinary: Denies: Dysuria, Frequency, Hematuria Musculoskeletal: Reports: Joint Pain. Denies: Arm Pain, Back Pain, Foot Pain Skin: Denies: Dryness, Rash Neurological: Reports: Balance problems. Denies: Double vision, Change in Speech, Slurred speech, Confusion, Headaches, Incoordination, Numbness Psychiatric: Denies: Anxiety, Depression Endocrine: Denies: Change in Body Habitus, Polydipsia, Polyuria VTE Information - Inpt Only VTE Present on Admission: No VTE Mechan Device Prophylaxis: None VTE Pharm Prophylaxis ordered?: Yes - Physical Exam Vitals/I&O's: Vital Signs Temp Pulse Resp BP Pulse Ox 98 F 57 L 15 139/88 H 98 07/07/20 09:44 07/07/20 10:44 07/07/20 10:44 07/07/20 10:44 07/07/20 10:44 Oxygen Delivery Method Room Air Weight: 180 lb Body Mass Index (BMI) 29.9 Finger Stick Blood Glucose 128 Intake and Output for Last 24 Hours 07/05/20 07/06/20 07/07/20 23:59 23:59 23:59 Intake Total 1000 / 1000 Balance 1000 / 1000 General: Alert, Oriented x3, Cooperative, No apparent distress HEENT: Atraumatic, PERRLA, EOMI, Normocephalic Oral: Moist Mucosa, No Gingival or Mucosal Lesions/ Ulcerations Neck: Supple, No JVD, Negative Carotid Bruits, Trachea Midline, Thyroid Normal Size and Texture Lungs: Clear to auscultation, Normal air movement, No rhonchi, No wheeze, No rales Cardiovascular: Regular rate, Regular Rhythm, Normal S1, Normal S2, PMI Normal Abdomen: Bowel Sounds Present, Soft, Non Tender, Non-Distended, No Hepato-splenomegaly Extremities: No clubbing, No cyanosis, No edema Skin: No rashes, No breakdown Lymphatic: No Cervical, Supraclavicular, or Inguinal Adenopathy Neurological: Cranial nerves II-XII grossly intact, Motor Exam 5/5 strength throughout Psych/Mental Status: Normal Affect, Appropriate, Alert and oriented to time, place, person, mood and affect Laboratory Results 07/07/20 10:20: WBC 4.6, RBC 4.81, Hgb 14.9, Hct 46.0, MCV 95.6 H, MCH 31.0, MCHC 32.4, RDW Std Deviation 44.8 H, RDW Coeff of [place] 12.7, Plt Count 213, MPV 9.5 07/07/20 10:20: Sodium 138, Potassium 3.8, Chloride 104, Carbon Dioxide 31.0, Anion Gap 3 L, BUN 17, Creatinine 1.05, Estim Creat Clear Calc 54.50, Est GFR (MDRD) Af Amer 89, Est GFR (MDRD) Non-Af 74, BUN/Creatinine Ratio 16.2, Glucose 78, Calcium 9.0, Total Bilirubin 0.40, AST 32, ALT 35, Alkaline Phosphatase 52, Troponin I < 0.015, Total Protein 6.7, Albumin 3.7, Globulin 3.0, Albumin/Globulin Ratio 1.2 Clinical Impression(s) from Imaging Studies Knee X-Ray 07/07/20 10:00 IMPRESSION: Degenerative arthrosis. Electronically Signed: Vicente Sexton MD at 11:27 EDT , Service support , Chest X-Ray 07/07/20 11:10 IMPRESSION: Minimal increased linear markings at the left lung base suggestive of linear atelectasis. Electronically Signed: Vicente Sexton MD at 11:28 EDT , Service support , Brain CT 07/07/20 12:06 IMPRESSION: Findings suggestive of early area of ischemia in the deep left parietal lobe. Electronically Signed: Vicente Sexton MD at 13:03 EDT , Service support , Assessment/Plan This is a 75 years old male patient presented to the emergency room because of dizziness, had a history of fall and right knee pain 1 week ago, found to have positive Romberg sign in the ED and CT scan brain revealed findings suggestive of early area of ischemia in the deep left parietal lobe and he is being admitted for suspected stroke. #1 dizziness/ataxia/suspected stroke: CT scan brain reviewed as above. Patient has no focal deficit on physical exam at this time. NIH stroke scale was 0 in the ED, not a candidate for TPA. EKG revealed sinus bradycardia, no acute findings. Plan: Admit to PCU for observation, cardiac monitoring, NIH stroke scale, start aspirin and Lipitor, MRI brain, MRA of the the neck, 2D echocardiogram, IV fluids, Tylenol as needed, Zofran as needed, PT OT evaluation and treatment. Consider consult [facility] tele-neurology if MRI is positive for stroke. #2 fall/right knee injury: Due to mechanical fall. X-ray of the right knee showed no acute fractures. Plan for pain control. #3 CAD status post CABG: EKG was unremarkable. Troponin was negative. Continue aspirin, statins and beta-blockers. #4 hypertension: Blood pressure stable, continue metoprolol. #5 hyperlipidemia: Check lipid profile, start Lipitor. #6 DVT prophylaxis: Subcu Lovenox. This note was generated with [employer] dictation software. It may contain incorrect words, spelling, and punctuation that were not noted in checking the note before signing. OBSV E&M: 00652 Initial observation care L3
--- NOTE | 2020-07-07 14:13 | MRI_ITS ---
STUDY: MRA NECK WITH AND WITHOUT CONTRAST REASON FOR EXAM: Male, 75 years old. Ataxia TECHNIQUE: 3-D xsyv-gn-mpsego (TOF) imaging was performed in an 1.5 T MRI scanner. IV dotarem 15ml was administered for the contrast enhanced images. COMPARISON: None. FINDINGS: RIGHT CAROTID ARTERIES: Normal right common carotid artery (CCA). Normal right common carotid bulb. Normal origin of the right internal carotid (ICA) artery without a hemodynamically significant stenosis. Normal visualized cervical portion of the right internal carotid artery. Normal origin of the right external carotid artery (ECA). LEFT CAROTID ARTERIES: Normal left common carotid artery (CCA). Normal left common carotid bulb. Normal origin of the left internal carotid (ICA) artery without a hemodynamically significant stenosis. Normal visualized cervical portion of the left internal carotid artery. Normal origin of the left external carotid artery (ECA). VERTEBRAL ARTERIES: Normal antegrade flow within the bilateral vertebral artery without a hemodynamically significant stenosis. MRI/MRA Neck WITH and W/O Contrast IMPRESSION: Normal bilateral cervical carotid and vertebral arteries. Electronically Signed: Jean Kurtz MD at 22:38 EDT , Service support ,
--- NOTE | 2020-07-07 14:13 | MRI_ITS ---
STUDY: MRA OF THE HEAD WITHOUT CONTRAST REASON FOR EXAM: Male, 75 years old. Ataxia TECHNIQUE: 3-D bbhc-fv-mpwsqv (TOF) imaging was performed with MIPs. The study was performed unenhanced. COMPARISON: None. FINDINGS: Normal bilateral petrous carotid arteries. Normal right cavernous carotid artery with a normal supraclinoid bifurcation. Normal left cavernous carotid artery with a normal supraclinoid bifurcation. Normal right A1 segments of the anterior cerebral artery. Normal left A1 segments of the anterior cerebral artery. Anterior communicating artery not visualized consistent with normal variant. Normal bilateral A2 segments of the anterior cerebral arteries. Normal right M1 and diminished flow within the M2 segments of the middle cerebral arteries, with a normal M1 bifurcation. Normal left M1 and diminished flow in the M2 segments of the middle cerebral arteries, with a normal M1 bifurcation. Posterior communicating arteries are not visualized consistent with normal variant). Normal bilateral vertebral arteries. Normal basilar artery with a normal basilar bifurcation. The visualized bilateral superior cerebellar (SCA) arteries are normal. Normal bilateral P1, P2 and visualized P3 segments of the posterior cerebral arteries. There is no demonstrated aneurysm of the [place] of [place]. There is no major vessel occlusion or hemodynamically significant stenosis. There is no demonstrated abnormality of the visualized brain. MRI/MRA Head ONLY without Contrast IMPRESSION: There appears to be diminished flow within the M2 segments of the middle cerebral arteries bilaterally possibly artifactual. Repeat scan with contrast or CTA would be helpful for further evaluation if clinically warranted Electronically Signed: Jean Kurtz MD at 22:38 EDT , Service support ,
--- NOTE | 2020-07-07 14:13 | MRI_ITS ---
STUDY: MRI BRAIN WITHOUT CONTRAST REASON FOR EXAM: Male, 75 years old. Imbalance TECHNIQUE: Standardized multiplanar fat and water weighted pulse sequences were obtained. COMPARISON: CT of the brain 07/07/2020 FINDINGS: Mild atrophy and moderate periventricular white matter ischemic changes without mass effect or restricted diffusion... Vertebrobasilar dolichoectasia consistent with systemic hypertension Normal bilateral basal ganglia. Normal thalami. There is no extra-axial fluid accumulation. Normal flow voids within the major intracranial circulation suggesting patency by spin echo criteria. Normal sella turcica, pituitary gland, infundibular stalk, optic chiasm and hypothalamus. Normal tectal plate and pineal gland. Normal midbrain, hugh and medulla. Normal cerebellum. Normal basal cisterns. Normal bilateral temporal bones. Normal bilateral internal auditory canals. No demonstrated orbital abnormality, within the constraints of a routine brain study. Normal visualized paranasal sinuses. Normal calvarium and skull base. Normal visualized soft tissue structures. Normal visualized upper cervical spine. MRI/Brain without Contrast IMPRESSION: Moderate periventricular white matter ischemic changes without evidence for acute infarct. Electronically Signed: Jean Kurtz MD at 22:34 EDT , Service support ,
--- NOTE | 2020-07-07 14:13 | ECHOD_ITS ---
Reason For Study: Syncope/Near Syncope Procedure This was a 2D Doppler, Color Flow transthoracic echocardiogram. Exam performed portable in patient room. Left Ventricle Normal LV size. Left ventricular systolic function is normal. The estimated ejection fraction is 55 %. Mild segmental systolic dysfunction (see wall motion). Stage 1 diastolic dysfunction. Infero- Basal: Akinetic. Mid-Inferior: Hypokinetic. Basal inferoseptal: Hypokinetic. There are regional wall motion abnormalities as specified. Right Ventricle Normal RV size. Normal systolic function. Atria Normal left atrium. Normal right atrium. Bubble contrast study negative for right to left interatrial shunt. Mitral Valve Mild focal mitral valve calcification. Tricuspid Valve Normal tricuspid valve. Mild tricuspid valve insufficiency. Pulmonary artery systolic pressure is 30 mmHg. Aortic Valve Trisinus/trileaflet aortic valve. Mild focal aortic valve calcification. Pulmonic Valve Normal pulmonic valve. Great Vessels Normal aortic root. The pulmonary artery is normal size. Normal inferior vena cava. Pericardium/Pleural No pericardial effusion. Medication Performed a rapid injection of agitated mix of 9 cc saline and 1cc air to assess for atrial septal defect. MMode/2D Measurements & Calculations LVIDd: 5.0 cm IVSd: 1.6 cm Ao root diam: 3.3 cm LVIDs: 3.0 cm LVPWd: 1.1 cm RVDd: 4.7 cm FS: 40.4 % LAV(MOD-bp): 76.3 ml LVAd ap4: 25.8 cm2 SV(MOD-sp4): 48.4 ml LAV(MOD-bp) Indexed: 40.3 ml/m2 EDV(MOD-sp4): 78.1 ml LAV(MOD-sp2): 81.2 ml EDV(sp4-el): 74.0 ml LAV(MOD-sp4): 70.8 ml LVAs ap4: 14.0 cm2 ESV(MOD-sp4): 29.7 ml ESV(sp4-el): 27.6 ml EF(MOD-sp4): 61.9 % EF(sp4-el): 62.7 % SV(sp4-el): 46.4 ml LA A4 area: 22.1 cm2 LA dimension(2D): 5.7 cm RA A4 area: 14.7 cm2 Doppler Measurements & Calculations MV E max yakov: 72.5 cm/sec Lat Peak E' Yakov: 8.8 cm/sec Med Peak E' Yakov: 4.8 cm/sec MV A max yakov: 99.3 cm/sec E/E' lat: 8.3 E/E' med: 15.0 MV E/A: 0.73 Ao V2 max: 188.3 cm/sec LV V1 max: 92.5 cm/sec PA V2 max: 88.6 cm/sec Ao max P.2 mmHg LV V1 max P.4 mmHg Ao V2 mean: 129.8 cm/sec Ao mean P.5 mmHg Ao V2 VTI: 41.0 cm PI end-d yakov: 134.8 cm/sec TR max yakov: 255.7 cm/sec TR max P.1 mmHg ECHO/Echo Complete Interpretation Summary Normal LV size. Left ventricular systolic function is normal. The estimated ejection fraction is 55 %. Mild segmental systolic dysfunction (see wall motion). Bubble contrast study negative for right to left interatrial shunt. Stage 1 diastolic dysfunction. Pulmonary artery systolic pressure is 30 mmHg. Ordering Physician: Abbe Jeong Referring Physician: Saul Maxwell Performed By: Maria Teresa Mcginnis, MARLA, RVT
[2020-07-07] MEDS: Acetaminophen 325 MG Tablet 650 MG PO (15:59)
[2020-07-07] MEDS: 0.9% Normal Saline 1,000 ML 75 ML IV (16:07)
--- NOTE | 2020-07-07 20:00 | NURSING ---
Nih late d/t pt being off the floor at mri. [facility] completed as soon as pt returned from mri.
[2020-07-08] VITALS (13 sets, daily range): BP systolic 106–153; BP diastolic 58–88; PULSE 49–68; RESP 16–18; TEMP 36.7–36.9; O2SAT 95–98
[2020-07-08] MEDS: Acetaminophen 325 MG Tablet 650 MG PO (02:32)
[2020-07-08 05:52] LABS: Cholesterol 186 mg/dL (200); High Density Lipoprotein 39 mg/dL; Triglycerides 448 mg/dL
--- NOTE | 2020-07-08 09:24 | MRI_ITS ---
STUDY: MRI CERVICAL SPINE WITHOUT CONTRAST REASON FOR EXAM: Male, 75 years old. ataxia, cervical pathology suspected TECHNIQUE: Standardized fat and water weighted pulse sequences were obtained in the sagittal and axial planes. COMPARISON: X-ray , MRI 02/13/2016 FINDINGS: Normal foramen magnum and brainstem-cervical cord junction. Normal craniovertebral junction. Normal anterior atlantoaxial articulation. Normal odontoid process. Normal cervical lordosis. Normal vertebral bodies and posterior osseous elements. C2-3: Normal endplates. Normal disc height, signal and morphology. Normal central canal and intervertebral neural foramina. C3-4: No change in the mild broad disc osteophyte complex which produces mild spinal stenosis and mild bilateral neural foraminal stenosis. C4-5: No change in the 2 mm of anterolisthesis of C4 on C5 with a mild broad disc osteophyte complex which produces mild spinal stenosis and mild bilateral neural foraminal stenosis. C5-6: No change in the mild broad disc osteophyte complex which produces mild spinal stenosis and mild bilateral neural foraminal stenosis. C6-7: No change in the mild broad disc osteophyte complex which produces mild spinal stenosis and mild bilateral neural foraminal stenosis. C7-T1: Normal endplates. Normal disc height, signal and morphology. Normal central canal and intervertebral neural foramina. Normal cervical cord. Normal visualized soft tissue structures. MRI/Spine Cervical (Routine) IMPRESSION: No change from 02/13/2016. Electronically Signed: Ayden Torres MD at 11:01 EDT Tel , Service support ,
[2020-07-08] MEDS: Aspirin 81 MG TAB.CHEW PO (09:29)
[2020-07-08] MEDS: Meclizine 12.5 MG Tablet PO (12:36)
[2020-07-08 12:45] LABS: Vitamin B12 481 pg/mL (211-911)
--- NOTE | 2020-07-08 15:45 | PCM.PN.HOSP ---
Reason for Visit: Follow-up on ataxia Subjective: Patient was seen and examined. He admits to dizziness especially when he turns his head or moves around. MRI cervical spine shows chronic changes, unchanged from previous. Orthostatic vitals are negative. Objective: Physical exam: General: Alert, Oriented x3, Cooperative, No apparent distress, Well developed HEENT: Atraumatic Oral: Moist Mucosa Neck: Supple Lungs: Clear to auscultation Cardiovascular: HS I+II, regular, no murmurs Abdomen: Bowel Sounds Present, Soft, Non Tender Extremities: No edema Skin: No rashes, No breakdown Neurological: Grossly intact Psych/Mental Status: Appropriate Vitals/I&O's: Vital Signs Temp Pulse Resp BP Pulse Ox 98.4 F 64 18 128/84 H 96 07/08/20 15:10 07/08/20 15:10 07/08/20 15:10 07/08/20 15:10 07/08/20 15:10 Oxygen Delivery Method Room Air Weight: 81.873 kg Body Mass Index (BMI) 30.0 Finger Stick Blood Glucose 128 Orthostatic Vital Signs Start: 07/08/20 09:45 Freq: q24h Status: Active Protocol: Activity Type Activity Date Activity User E-Sign Co-Sign Detail Recorded Client Recorded Date Recorded By Document 07/08/20 09:10 [facility] [id number] 07/08/20 09:46 [facility] 07/08/20 09:10 Orthostatic Vitals Standing -Blood Pressure (90/60-120/80) 153/88 H -Extremity Use Right Arm -Pulse Rate (60-100) 59 L Sitting -Blood Pressure (90/60-120/80) 138/77 H -Extremity Use Right Arm -Pulse Rate (60-100) 62 Lying -Blood Pressure (90/60-120/80) 130/69 H -Extremity Use Right Arm -Pulse Rate (60-100) 58 L Intake and Output for Last 24 Hours 07/06/20 07/07/20 07/08/20 23:59 23:59 23:59 Intake Total 1908.75 / 1908.75 1191.25 / 1191.25 Output Total 250 / 250 750 / 750 Balance 1658.75 / 1658.75 441.25 / 441.25 Laboratory Results 07/07/20 10:20: Vitamin B12 481 07/08/20 05:20: Triglycerides 448 H, Cholesterol 186, LDL Cholesterol TNP, VLDL Cholesterol TNP, HDL Cholesterol 39 L 07/08/20 05:20: Folate 34.80 Current Medications Acetaminophen (Acetaminophen 325 Mg Tablet) 650 mg PO Q6H PRN PRN PRN Reason: Pain Score 1-10/Temp > 100.7 F Last Admin: 07/08/20 02:32 Dose: 650 mg Documented by: Aspirin (Aspirin 81 Mg Tab.Chew) 81 mg PO DAILY@0800 [facility] Last Admin: 07/08/20 09:29 Dose: 81 mg Documented by: Atorvastatin Calcium (Atorvastatin Calcium 80 Mg Tablet) 80 mg PO QHS [facility] Last Admin: 07/07/20 20:59 Dose: Not Given Documented by: Enoxaparin Sodium (Enoxaparin 40 Mg/0.4 Ml Syringe) 40 mg SC DAILY [facility] Last Admin: 07/08/20 09:15 Dose: Not Given Documented by: Gabapentin (Gabapentin 600 Mg Tablet) 600 mg PO QHS [facility] Last Admin: 07/07/20 20:58 Dose: Not Given Documented by: Meclizine HCl (Meclizine 12.5 Mg Tablet) 12.5 mg PO TID PRN PRN PRN Reason: Vertigo Last Admin: 07/08/20 12:36 Dose: 12.5 mg Documented by: Metoprolol Tartrate (Metoprolol Tartrate 25 Mg Tablet) 12.5 mg PO BID [facility] Last Admin: 07/08/20 09:00 Dose: Not Given Documented by: Modafinil (Modafinil 200 Mg Tablet) 200 mg PO DAILY [facility] Last Admin: 07/08/20 09:28 Dose: Not Given Documented by: Ondansetron HCl (Ondansetron 4 Mg/2 Ml Vial) 4 mg IV Q8H PRN PRN PRN Reason: NAUSEA/VOMITING Senna/Docusate Sodium (Senna/Docusate Sodium 1 Tablet) 2 tablet PO BID PRN PRN PRN Reason: Constipation Sodium Chloride (0.9% Saline Lock 10 Ml Syringe) 10 - 40 ml IV UD PRN PRN Reason: SALINE FLUSH STROKE Vital Signs/Narrative: Vital Signs Temp Pulse Resp BP Pulse Ox 07/08/20 15:10 98.4 F 64 18 128/84 H 96 07/08/20 12:10 62 Medical Necessity - Tobacco Use Smoking Status: Never smoker Tobacco Use: Non-smoker Assessment/Plan 1. Acute ataxia, likely secondary to acute BPPV. Acute stroke ruled out with negative MRI. Cervical spine MRI shows straightening of lordosis with mild degenerative changes with annular bulges from C3-4 through C6-7. C4-5 mild right foraminal stenosis, C5-6 mild left foraminal stenosis. We will do a trial of meclizine, PT to teach vestibular exercises ENT follow-up at discharge 2. Right knee/thigh hematoma secondary to mechanical fall, x-ray of the right knee showed no acute fractures, continue to monitor 3. CAD status post CABG/hypertension/hyperlipidemia, continue on metoprolol, atorvastatin, aspirin, gabapentin 4. DVT PPx- Lovenox SC Inpatient E&M: 51754 Subs Hosp L2
[2020-07-08] MEDS: Metoprolol Tartrate 25 MG Tablet 12.5 MG PO (20:56)
[2020-07-08] MEDS: Gabapentin 600 MG Tablet PO (20:57)
[2020-07-09 02:50] VITALS: BP 104/69; PULSE 52; RESP 15; TEMP 36.6; O2SAT 95
[2020-07-09 03:00] VITALS: PULSE 54
[2020-07-09 05:55] VITALS: BP 110/74; BP 114/87; BP 119/73; PULSE 53; PULSE 57; PULSE 60
[2020-07-09] MEDS: Acetaminophen 325 MG Tablet 650 MG PO (06:05)
[2020-07-09 07:00] VITALS: PULSE 56
[2020-07-09 08:05] VITALS: O2SAT 8
[2020-07-09 08:50] VITALS: BP 114/65; PULSE 54; RESP 18; TEMP 36.7; O2SAT 98
--- NOTE | 2020-07-09 09:05 | DCINST_ITS ---
- Discharge Diagnoses Current Active Problems: Current Active and Chronic Problems (Last Reviewed 02/26/20 @ 13:[address] Kush Burnett MD) Atherosclerosis of coronary artery of [place] heart without angina pectoris (Chronic) H/O coronary artery bypass surgery (Chronic 12/01/12) CABG x 3: HOROWITZ-LAD, SVG-D1 and SVG-Ramus 12/01/2012 Essential (primary) hypertension (Chronic) Hyperlipidemia (Chronic) Reason(s) for Visit for Discharge Instructions: Ataxia You will use the following diet at home:: Cardiac Your food should be the consistency of: Regular Your liquids should be the consistency of: Regular/Thin Discharge Activity: Return to Normal Activity Allergies/Adverse Reactions: Allergies egg Allergy (Severe, Verified 07/07/20 14:27) fluid retention, nausea, flu-like symptoms fluid retention, nausea Egg Derived Allergy (Severe, Verified 07/07/20 09:44) Food Allergy nausea, vomitting, fluid retention soy Allergy (Verified 07/07/20 14:27) Nausea/BODY ACHES/flu like symptoms flu shot Allergy (Severe, Uncoded 07/07/20 14:27) hypotension/kidney failure Medications to take at Discharge Aspirin [Aspirin, Baby] 81 mg PO DAILY@0800 tab.chew 06/22/16 modafinil 200 mg tablet 200 mg PO QDAY 03/14/17 lactobacillus combination no.4 3 billion cell capsule 3,000 mmu cells PO DAILY 03/15/19 metoprolol tartrate 25 mg tablet 12.5 mg PO BID #60 tab 09/24/19 ascorbic acid (vitamin C) 1,000 mg tablet 1,000 mg PO DAILY tab 02/26/20 C,E,Zinc,Copper 11/Bvqoa6s/Lut [Ocuvite Adult 50 Plus Softgel] 1 capsule PO DAILY 07/07/20 Cholecalciferol (Vitamin D3) [D3-2000] 2,000 unit PO DAILY 07/07/20 Multivitamins,Therapeutic [Multivitamin] 1 tablet PO DAILY 07/07/20 Gabapentin [Neurontin] 100 mg PO QHS 30 Days #30 capsule 07/09/20 Meclizine HCl [Antivert] 12.5 mg PO TID PRN PRN 3 Days #9 tablet 07/09/20 The following prescriptions were given: Meclizine HCl [Antivert] 12.5 mg PO TID PRN PRN 3 Days #9 tablet PRN Reason: Vertigo Transmission Status: Pending to [facility] Gabapentin [Neurontin] 100 mg PO QHS 30 Days #30 capsule Transmission Status: Pending to [facility] Primary Care Physician: Saul Maxwell MD [Primary Care Provider] - Please follow up with your Primary Care Physician in: within 2 weeks Test Results: Test results from this visit will be discussed in further detail at your follow- up appointment, if applicable. Please Follow Up With: NEUROLOGY When: as scheduled Please Follow Up With: Shahid Joseph MD When: as scheduled Proposed Discharge Date: 07/09/20
[2020-07-09] MEDS: Aspirin 81 MG TAB.CHEW PO (09:06)
--- NOTE | 2020-07-09 09:06 | DS.PCM_ITS ---
Discharge Date and Diagnosis Date of Admission: 07/07/20 Date of Discharge: 07/09/20 - Primary Discharge Diagnosis Acute Problems: Ataxia likely secondary to BPPV Polypharmacy Right knee/thigh hematoma secondary to acute mechanical fall - Secondary Discharge Diagnosis Chronic Problems: Chronic Problems (Last Reviewed 02/26/20 @ 13:[address] Kush Burnett MD) Atherosclerosis of coronary artery of [place] heart without angina pectoris (Chr onic) H/O coronary artery bypass surgery (Chronic 12/01/12) CABG x 3: HOROWITZ-LAD, SVG-D1 and SVG-Ramus 12/01/2012 Right bundle branch block (RBBB) (Chronic) Essential (primary) hypertension (Chronic) Hyperlipidemia (Chronic) Hospital Course and Treatment Imaging Results: Clinical Impression(s) from Imaging Studies Knee X-Ray 07/07/20 10:00 IMPRESSION: Degenerative arthrosis. Electronically Signed: Vicente Sexton MD at 11:27 EDT , Service support , Venous Doppler Study 07/07/20 10:00 Interpretation Summary Deep veins of the right lower extremity are patent and compressible segmentally. There is no evidence of right lower extremity deep vein thrombosis. Valvular competence appears intact within the proximal deep venous system on the right . The right great saphenous vein appears patent and compressible segmentally. Ordering Physician: Luis Carlos Kothari Referring Physician: Saul Maxwell Performed By: Lianna Plunkett RVT Chest X-Ray 07/07/20 11:10 IMPRESSION: Minimal increased linear markings at the left lung base suggestive of linear atelectasis. Electronically Signed: Vicente Sexton MD at 11:28 EDT , Service support , Brain CT 07/07/20 12:06 IMPRESSION: Findings suggestive of early area of ischemia in the deep left parietal lobe. Electronically Signed: Vicente Sexton MD at 13:03 EDT , Service support , Brain MRI 07/07/20 14:13 IMPRESSION: Moderate periventricular white matter ischemic changes without evidence for acute infarct. Electronically Signed: Jean Kurtz MD at 22:34 EDT , Service support , Echocardiogram 07/07/20 14:13 Interpretation Summary Normal LV size. Left ventricular systolic function is normal. The estimated ejection fraction is 55 %. Mild segmental systolic dysfunction (see wall motion). Bubble contrast study negative for right to left interatrial shunt. Stage 1 diastolic dysfunction. Pulmonary artery systolic pressure is 30 mmHg. Ordering Physician: Abbe Jeong Referring Physician: Saul Maxwell Performed By: Maria Teresa Mcginnis, HEIDICS, RVT Head MRA 07/07/20 14:13 IMPRESSION: There appears to be diminished flow within the M2 segments of the middle cerebral arteries bilaterally possibly artifactual. Repeat scan with contrast or CTA would be helpful for further evaluation if clinically warranted Electronically Signed: Jean Kurtz MD at 22:38 EDT , Service support , Neck MRA 07/07/20 14:13 IMPRESSION: Normal bilateral cervical carotid and vertebral arteries. Electronically Signed: Jean Kurtz MD at 22:38 EDT , Service support , Cervical Spine MRI 07/08/20 09:24 IMPRESSION: No change from 02/13/2016. Electronically Signed: Ayden Torres MD at 11:01 EDT Tel , Service support , Operations: None Procedures: 2-D Echocardiogram Summary of Care Provided: The patient is a 75 year old M has medical history of restless leg, hypertension who comes in with dizziness that okay as well as he was at [facility]. Patient felt lightheaded and felt he was going to pass out. Did not pass out. He sat down and afterward felt better. He fell a week prior to admission was he was on a ladder and injured his right knee. He has been having right knee pain with a large bruise to his right leg. In the emergency department, patient had a positive Romberg sign on exam. His NIHSS score was 0. His EKG showed sinus bradycardia, no acute ischemic changes. Troponins were negative. X-ray of the right knee showed no fractures. CT of the brain was suggestive of early ischemia of the deep left parietal lobe. He was admitted to the telemetry floor for stroke evaluation. He had MRI of the brain as well as MRA of the head and neck that were done and was negative. His 2D echo with an EF of 55%, stage I diastolic dysfunction. Triglycerides were 448, cholesterol was 186, current B12 was 481, folate was 34.8. Patient continued to be dizzy. Orthostatic vitals were negative. He underwent MRI of the cervical spine that showed unchanged chronic degenerative changes. Patient was started on a trial of meclizine and PT and OT were consulted. He underwent vestibular exercises. He felt improved the next day was discharged to follow-up with his primary care doctor as well as ENT and neurology. Subjective: On the day of discharge, patient was seen and examined. He denied any dizziness. I had a long discussion with him and his at the bedside. We went over his medications. He has severe restless leg syndrome and gabapentin and other medications help. I had decreased her gabapentin to 100 mg. I asked him to follow-up with ENT and also with neurology to have his medications titrated. Objective: Physical exam: General: Alert, Oriented x3, Cooperative, No apparent distress, Well developed HEENT: Atraumatic Oral: Moist Mucosa Neck: Supple Lungs: Clear to auscultation Cardiovascular: HS I+II, regular, no murmurs Abdomen: Bowel Sounds Present, Soft, Non Tender Extremities: No edema Skin: No rashes, No breakdown Neurological: Grossly intact Psych/Mental Status: Appropriate - Physical Exam Vitals/I&O's: Vital Signs Temp Pulse Resp BP Pulse Ox 98.1 F 54 L 18 114/65 98 07/09/20 08:50 07/09/20 08:50 07/09/20 08:50 07/09/20 08:50 07/09/20 08:50 Oxygen Delivery Method Room Air Weight: 81.873 kg Body Mass Index (BMI) 30.0 Finger Stick Blood Glucose 128 Orthostatic Vital Signs Start: 07/08/20 09:45 Freq: q24h Status: Active Protocol: Activity Type Activity Date Activity User E-Sign Co-Sign Detail Recorded Client Recorded Date Recorded By Document 07/09/20 05:55 JEIMY [id number] 07/09/20 06:02 JEIMY 07/09/20 05:55 Orthostatic Vitals Standing -Blood Pressure (90/60-120/80) 114/87 H -Extremity Use Left Arm -Pulse Rate (60-100) 60 Sitting -Blood Pressure (90/60-120/80) 119/73 -Extremity Use Left Arm -Pulse Rate (60-100) 57 L Lying -Blood Pressure (90/60-120/80) 110/74 -Extremity Use Left Arm -Pulse Rate (60-100) 53 L Intake and Output for Last 24 Hours 07/07/20 07/08/20 07/09/20 23:59 23:59 23:59 Intake Total 1908.75 / 1908.75 1431.25 / 1731.25 480 / 480 Output Total 250 / 250 1075 / 1075 Balance 1658.75 / 1658.75 356.25 / 656.25 480 / 480 Laboratory Results 07/07/20 10:20: Vitamin B12 481 07/08/20 05:20: Folate 34.80 Current Medications Acetaminophen (Acetaminophen 325 Mg Tablet) 650 mg PO Q6H PRN PRN PRN Reason: Pain Score 1-10/Temp > 100.7 F Last Admin: 07/09/20 06:05 Dose: 650 mg Documented by: Aspirin (Aspirin 81 Mg Tab.Chew) 81 mg PO DAILY@0800 [facility] Last Admin: 07/08/20 09:29 Dose: 81 mg Documented by: Atorvastatin Calcium (Atorvastatin Calcium 80 Mg Tablet) 80 mg PO QHS [facility] Last Admin: 07/08/20 20:55 Dose: Not Given Documented by: Enoxaparin Sodium (Enoxaparin 40 Mg/0.4 Ml Syringe) 40 mg SC DAILY [facility] Last Admin: 07/08/20 09:15 Dose: Not Given Documented by: Gabapentin (Gabapentin 100 Mg Capsule) 100 mg PO QHS [facility] Meclizine HCl (Meclizine 12.5 Mg Tablet) 12.5 mg PO TID PRN PRN PRN Reason: Vertigo Last Admin: 07/08/20 12:36 Dose: 12.5 mg Documented by: Metoprolol Tartrate (Metoprolol Tartrate 25 Mg Tablet) 12.5 mg PO BID [facility] Last Admin: 07/08/20 20:56 Dose: 12.5 mg Documented by: Modafinil (Modafinil 200 Mg Tablet) 200 mg PO DAILY [facility] Last Admin: 07/08/20 09:28 Dose: Not Given Documented by: Ondansetron HCl (Ondansetron 4 Mg/2 Ml Vial) 4 mg IV Q8H PRN PRN PRN Reason: NAUSEA/VOMITING Senna/Docusate Sodium (Senna/Docusate Sodium 1 Tablet) 2 tablet PO BID PRN PRN PRN Reason: Constipation Sodium Chloride (0.9% Saline Lock 10 Ml Syringe) 10 - 40 ml IV UD PRN PRN Reason: SALINE FLUSH Discharge Diet: Low fat/ Low Cholesterol, 2000 mg Sodium Diet Discharge Activity: Return to Normal Activity Home Medications: Medications to take at Discharge Aspirin [Aspirin, Baby] 81 mg PO DAILY@0800 tab.chew 06/22/16 modafinil 200 mg tablet 200 mg PO QDAY 03/14/17 lactobacillus combination no.4 3 billion cell capsule 3,000 mmu cells PO DAILY 03/15/19 metoprolol tartrate 25 mg tablet 12.5 mg PO BID #60 tab 09/24/19 ascorbic acid (vitamin C) 1,000 mg tablet 1,000 mg PO DAILY tab 02/26/20 C,E,Zinc,Copper 11/Xdeha1k/Lut [Ocuvite Adult 50 Plus Softgel] 1 capsule PO DAILY 07/07/20 Cholecalciferol (Vitamin D3) [D3-2000] 2,000 unit PO DAILY 07/07/20 Multivitamins,Therapeutic [Multivitamin] 1 tablet PO DAILY 07/07/20 Gabapentin [Neurontin] 100 mg PO QHS 30 Days #30 capsule 07/09/20 Meclizine HCl [Antivert] 12.5 mg PO TID PRN PRN 3 Days #9 tablet 07/09/20 Following Prescriptions Were Given to Patient: Meclizine HCl [Antivert] 12.5 mg PO TID PRN PRN 3 Days #9 tablet PRN Reason: Vertigo Transmission Status: [facility] Gabapentin [Neurontin] 100 mg PO QHS 30 Days #30 capsule Transmission Status: [facility] Primary Care Physician: Saul Maxwell MD [Primary Care Provider] - Please follow up with your Primary Care Physician in: within 2 weeks Please Follow Up With: NEUROLOGY When: as scheduled Please Follow Up With: Shahid Joseph MD When: as scheduled Disposition: Home Minutes spent on discharge:: 40 Patient Condition:: Stable Medical Necessity - Tobacco Use Smoking Status: Never smoker Tobacco Use: Non-smoker Meaningful Use Info Meaningful Use Diagnoses (Choose all that apply): None applicable OBSV E&M: 51680 Observation care discharge
[2020-07-09] MEDS: Modafinil 200 MG Tablet PO (09:09)
--- NOTE | 2020-07-09 10:03 | PHA.DC.MC ---
Pharmacy Service has performed discharge medication reconciliation and counseling for this patient. 1. MECLIZINE 12.5MG PO TID PRN VERTIGO The patient's discharge medication list was reviewed for discrepancies and discrepancies were resolved. Home Medications Aspirin [Aspirin, Baby] 81 mg PO DAILY@0800 tab.chew 06/22/16 modafinil 200 mg tablet 200 mg PO QDAY 03/14/17 lactobacillus combination no.4 3 billion cell capsule 3,000 mmu cells PO DAILY 03/15/19 metoprolol tartrate 25 mg tablet 12.5 mg PO BID #60 tab 09/24/19 ascorbic acid (vitamin C) 1,000 mg tablet 1,000 mg PO DAILY tab 02/26/20 C,E,Zinc,Copper 11/Bcrau9v/Lut [Ocuvite Adult 50 Plus Softgel] 1 capsule PO DAILY 07/07/20 Cholecalciferol (Vitamin D3) [D3-2000] 2,000 unit PO DAILY 07/07/20 Multivitamins,Therapeutic [Multivitamin] 1 tablet PO DAILY 07/07/20 Gabapentin [Neurontin] 100 mg PO QHS 30 Days #30 capsule 07/09/20 Meclizine HCl [Antivert] 12.5 mg PO TID PRN PRN 3 Days #9 tablet 07/09/20 The patient was counseled on the following discharge medications and changes in medications for homegoing were reviewed. The Reason for Use, instructions for use, and potential side effects were reviewed for all new medications. The patient's questions regarding all of their medications were answered. The patient was able to verbally demonstrate an understanding of their discharge medications.
--- NOTE | 2020-07-09 10:09 | CASEMGMT ---
This RN CM to room with MEI form, explanation done-pt voices understanding, and signs MEI form. Original to chart and copy to pt. Pt provided with Medicare IP vs OBS booklet. Pt voices no further questions/concerns/needs. SStaten RN CM
--- NOTE | 2020-07-09 11:03 | CASEMGMT ---
SW did not complete a PHQ 9 as per chart patient did not have a Stroke or TIA. Felisha Montesinos [employer] MARY
== END 2020-07-09 09:00 | disposition home or self-care (01) ==
LOC: ED 13:39 → PCU 14:30
PROVIDERS: Admitting Provider Hospitalist; Emergency Provider Emergency Medicine; PCP Family Medicine; Visit Provider Internal Medicine
DX: H81.10 Benign paroxysmal vertigo, unspecified ear (principal); I10 Essential (primary) hypertension; R29.700 NIHSS score 0; I25.10 Atherosclerotic heart disease of native coronary artery without angina pectoris; E78.5 Hyperlipidemia, unspecified; S70.11XA Contusion of right thigh, initial encounter; W11.XXXA Fall on and from ladder, initial encounter; Y93.9 Activity, unspecified; Y92.9 Unspecified place or not applicable; Y99.9 Unspecified external cause status; R00.1 Bradycardia, unspecified; I45.10 Unspecified right bundle-branch block; E66.9 Obesity, unspecified; G47.33 Obstructive sleep apnea (adult) (pediatric); G25.81 Restless legs syndrome; G62.9 Polyneuropathy, unspecified; Z86.711 Personal history of pulmonary embolism; Z95.1 Presence of aortocoronary bypass graft; Z79.899 Other long term (current) drug therapy; Z79.82 Long term (current) use of aspirin; Z68.30 Body mass index [BMI] 30.0-30.9, adult
CPT/HCPCS: 70450; 70544; 70549; 70551; 71045; 72141; 73564; 80053; 80061; 82607; 82746; 84484; 85027; 93005; 93306; 93971; 94762; 96361; 96374; 97110; 97162; 97166; 97530; 97535; 99218; 99284; A9575; J7030; A4216; G0378; J2405

== ENCOUNTER → 2020-08-21 09:40 | Outpatient (CLI) | payer MEDICARE, BC, SELFPAY ==
--- NOTE | 2020-08-21 09:43 | CDU_ITS ---
Reason For Study: Right ICA stenosis Rt. Velocities/BP Lt. Velocities/BP Prox CCA 98.2/14.7 cm/sec. Prox CCA 112.1/15.1 cm/sec. Mid CCA 100.8/13.4 cm/sec. Mid CCA 96.1/17.6 cm/sec. Dist CCA 87.8/14.7 cm/sec. Dist CCA 92.4/16.3 cm/sec. Prox ICA 102.3/20 cm/sec. Prox ICA 90/9.7 cm/sec. Mid ICA 94.9/22.5 cm/sec. Mid ICA 65.1/20.1 cm/sec. Dist ICA 74/22.5 cm/sec. Dist ICA 91.6/26.7 cm/sec. Rt. ICA/CCA = 1.04. Lt. ICA/CCA = 0.95. Prox ECA 152.1/11.5 cm/sec. Prox ECA 147.7/9.4 cm/sec. Rt. Vert. 38.1/8.8 cm/sec. Lt. Vert. 39.5/10.7 cm/sec. Right Extracranial There is intimal thickening but no significant atherosclerotic plaque noted in the right common carotid artery. There is heterogeneous, irregular atherosclerotic plaque noted in the right internal carotid artery. There is intimal thickening but no significant atherosclerotic plaque noted in the right external carotid artery. Antegrade flow is noted in the right vertebral artery. There is heterogeneous, irregular atherosclerotic plaque noted in the right bulb. Left Extracranial There is homogeneous, smooth atherosclerotic plaque noted in the left common carotid artery. There is heterogeneous, smooth atherosclerotic plaque noted in the left internal carotid artery. There is intimal thickening but no significant atherosclerotic plaque noted in the left external carotid artery. Antegrade flow is noted in the left vertebral artery. There is heterogeneous, irregular atherosclerotic plaque noted in the left bulb. Procedure Carotid Duplex 23756. This is a Carotid Duplex examination using B-mode, color flow and specral Doppler. Exam performed in department. VL/Carotid Duplex Ultrasound Interpretation Summary Calcific plaque of the proximal right internal carotid artery with less than 50 % stenosis. Less than 50% stenosis right external carotid artery Smooth plaque at the proximal left internal carotid artery with less than 50% s tenosis Less than 50% stenosis left external carotid artery Patent and antegrade vertebral arteries bilaterally Ordering Physician: Jeff Barber Referring Physician: Saul Maxwell Performed By: Lianna Plunkett RVT
== END ==
PROVIDERS: PCP Family Medicine; Referring Provider Psychiatry & Neurology Neurology; Visit Provider Psychiatry & Neurology Neurology
DX: R55 Syncope and collapse (principal); I69.322 Dysarthria following cerebral infarction
CPT/HCPCS: 93880

== ENCOUNTER → 2020-09-11 05:56 | Outpatient (CLI) | payer MEDICARE, BC, SELFPAY ==
--- NOTE | 2020-09-11 17:20 | STRESSREP ---
Stress Test Report Exercise myocardial perfusion stress test. 75-year-old man with a history of coronary artery bypass surgery. Stress protocol: Resting EKG demonstrates normal sinus rhythm with a rate of 52 bpm T wave inversions are noted inferolaterally. The resting blood pressure is 1 and 30/80 8 mmHg. The patient exercised according to regular Giuseppe protocol for total duration of 8 minutes completing 2 minutes into stage III of the Giuseppe protocol. The maximum heart rate attained was 157 bpm which was 106% of maximum protected heart rate the maximum workload was 10.1 metabolic equivalents. At rest there were no ST or T wave changes noted to suggest ischemia and at peak exercise upsloping ST changes were noted with did not meet the criteria for ischemia. No clinical angina was noted. Test was terminated due to dyspnea. Myocardial perfusion protocol. 11.9 mCi of technetium 99m sestamibi was injected at rest. The patient exercised for 8 minutes and at peak exercise 33.1 mCi of technetium 99m sestamibi was injected stress images were obtained stress and rest images were reconstructed and compared in the short axis vertical long and horizontal long axis. Gated images were also obtained to Perfusion SPECT analysis: Review of the stress images demonstrate normal uptake of tracer noted in all areas of the myocardium the resting images similarly demonstrate normal uptake of tracer noted in all areas of the myocardium. No areas of reversibility are noted to suggest ischemia and no previous infarct is noted. Gated SPECT analysis: The gated ejection fraction is 61%. Conclusion: Normal exercise myocardial perfusion stress test at a moderate to high workload. No clinical angina noted. No arrhythmias noted. Preserved ejection fraction.
== END ==
PROVIDERS: PCP Family Medicine; Referring Provider Nurse Practitioner Family; Visit Provider Nurse Practitioner Family
DX: R53.83 Other fatigue (principal); I47.2 Ventricular tachycardia; Z95.1 Presence of aortocoronary bypass graft
CPT/HCPCS: 78452; 93017; A9500; A4216

== ENCOUNTER → 2020-11-26 10:59 | Outpatient (CLI) | payer MEDICARE, BC, SELFPAY ==
[2020-11-26 12:54] LABS: PSA,Total - Annual Screen 1.03 ng/mL (0.00-4.00)
== END ==
PROVIDERS: PCP Family Medicine; Referring Provider Family Medicine; Visit Provider Family Medicine
DX: Z12.5 Encounter for screening for malignant neoplasm of prostate (principal)
CPT/HCPCS: 36415; 84153; G0103

== ENCOUNTER → 2020-12-04 10:20 | Outpatient (CLI) | payer MEDICARE, BC, SELFPAY ==
[2020-12-04 11:34] LABS: Anion Gap 6 (5-15); BUN 16 mg/dL (7-18); BUN/Creat Ratio 15.7 RATIO (10-20); Calcium,Total 9.1 mg/dL (8.5-10.1); Chloride 107 mmol/L (98-107); Creatinine, Serum 1.02 mg/dL (0.70-1.30); EST Glomerular Filtration Rate 76 mL/min (>60); Est Glom Filt Rate - Afr Amer 92 mL/min (>60); Glucose 110 mg/dL (74-106); Potassium 4.1 mmol/L (3.5-5.1); Sodium Level 140 mmol/L (136-145)
== END ==
PROVIDERS: PCP Family Medicine; Referring Provider Physician Assistant Medical; Visit Provider Physician Assistant Medical
DX: I25.10 Atherosclerotic heart disease of native coronary artery without angina pectoris (principal)
CPT/HCPCS: 36415; 80048

== ENCOUNTER → 2021-01-22 12:53 | Outpatient (CLI) | payer MEDICARE, BC, SELFPAY ==
--- NOTE | 2021-01-22 12:56 | CT_ITS ---
STUDY: CT SCAN SHOULDER RIGHT REASON FOR EXAM: Male, 75 years old. 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 Individualized dose optimization techniques were used for this CT.? TECHNIQUE: Multiple axial tomographic images were obtained without intravenous contrast administration. Sagittal and coronal imaging was obtained as well. COMPARISON: None. FINDINGS: Mild to moderate degree of joint space narrowing of the glenohumeral joint. There is narrowing of the distance between the humeral head and the acromion suggestive of rotator cuff pathology. No soft tissue masses seen. 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 Electronically Signed: Vicente Sexton MD at 15:43 EDT , Service support ,
== END ==
PROVIDERS: PCP Family Medicine; Referring Provider Specialist; Visit Provider Specialist
DX: M19.011 Primary osteoarthritis, right shoulder (principal)
CPT/HCPCS: 73200

== ENCOUNTER → 2021-02-25 17:49 | Outpatient (CLI) | payer MEDICARE, BC, SELFPAY | PROVIDERS: PCP Family Medicine; Referring Provider Family Medicine; Visit Provider Family Medicine | DX: U07.1 COVID-19 (principal) | CPT/HCPCS: 87635; U0005; U0003 ==

== ENCOUNTER 2021-02-27 15:02 | Outpatient (CLI) | payer MEDICARE, BC, SELFPAY ==
[2021-02-27] MEDS: 0.9% Normal Saline 1,000 ML 999 ML IV (15:15)
[2021-02-27 15:39] VITALS: BP 120/73; PULSE 66; RESP 16; TEMP 38.3; O2SAT 95; BMI 29.9
[2021-02-27] MEDS: 0.9% Saline Lock 10 ML Syringe IV (15:42)
[2021-02-27 16:43] VITALS: BP 125/70; PULSE 79; RESP 16; TEMP 36.6; O2SAT 95
[2021-02-27 17:04] VITALS: BP 129/71; PULSE 59; RESP 16; TEMP 37.4; O2SAT 96
[2021-02-27 17:56] VITALS: BP 124/76; PULSE 61; RESP 16; TEMP 37.6; O2SAT 97
== END 2021-02-27 18:04 | disposition home or self-care (01) ==
LOC: MS3OUT 15:02 → MS3 15:03
PROVIDERS: PCP Family Medicine; Referring Provider Nurse Practitioner Adult Health; Visit Provider Nurse Practitioner Adult Health
DX: Z23 Encounter for immunization (principal); U07.1 COVID-19
CPT/HCPCS: J7030; J7050; M0245; Q0245; A4216

== ENCOUNTER 2021-03-03 13:35 | Emergency (ER) | payer MEDICARE, BC, SELFPAY ==
[2021-03-03 13:36] VITALS: BP 142/84; PULSE 60; RESP 20; TEMP 36.1; O2SAT 99; BMI 29.9
[2021-03-03 14:08] VITALS: RESP 16; O2SAT 96
--- NOTE | 2021-03-03 14:08 | RAD_ITS ---
STUDY: X-RAY CHEST REASON FOR EXAM: Male, 76 years old. sob TECHNIQUE: AP portable COMPARISON: 07/07/2020 FINDINGS: Elevated right hemidiaphragm and mild subsegmental atelectasis in the right lower lobe.. There is no demonstrated pleural abnormality. Postop change status post median sternotomy and CABG. Normal size heart. Normal mediastinum and chaitanya. Normal visualized pulmonary arteries. Mildly calcified aortic arch and descending thoracic aorta. Normal visualized thoracic spine. Normal visualized ribs, clavicles, and shoulders. There is no demonstrated abnormality of the visualized soft tissue structures of the upper abdomen. RAD/Chest 1 View (Portable) IMPRESSION: Elevated right hemidiaphragm and mild subsegmental atelectasis at the right base Electronically Signed: Jean Kurtz MD at 18:24 EST , Service support ,
--- NOTE | 2021-03-03 15:20 | EKG12_ITS ---
Test Reason : R/O BLOOD CLOTS COVI Blood Pressure : / mmHG Vent. Rate : 059 BPM Atrial Rate : 059 BPM P-R Int : 138 ms QRS Dur : 132 ms QT Int : 416 ms P-R-T Axes : 034 005 056 degrees QTc Int : 411 ms Sinus bradycardia Right bundle branch block T wave abnormality, consider lateral ischemia Abnormal ECG When compared with ECG of 07-JUL-2020 10:21, Nonspecific T wave abnormality, improved in Inferior leads Confirmed by FAZAL LOERA, JING ([id number]), editor newspaper SHAMEKA VARGAS ([id number]) on 03/04/2021 1:57:44 PM Referred By: BIANKA Confirmed By:JING DIEHL MD
--- NOTE | 2021-03-03 15:57 | CT_ITS ---
EXAM: CT ANGIOGRAPHY CHEST WITHOUT AND WITH INTRAVENOUS CONTRAST CLINICAL INDICATION: hemoptysis TECHNIQUE: Helically acquired angiography images were obtained of the chest without and with intravenous contrast. This CT exam was performed using one or more of the following dose reduction techniques: automated exposure control, adjustment of the mA and/or kV according to patient size, and/or use of iterative reconstruction technique. This report was created using [employer] report generation technology. MIP reconstructed images were created and reviewed. CONTRAST: IV 100mL [id number] COMPARISON: 04/22/2018 FINDINGS: PULMONARY ARTERIES: No demonstrated pulmonary embolism or arterial dissection. AORTA: There are thoracic aortic calcifications consistent for atherosclerotic disease. There is no dissection or hematoma noted in the thoracic aorta. There are coronary arterial calcifications. GREAT VESSELS OF AORTIC ARCH: Unremarkable. Normal in caliber. No evidence of dissection. LUNGS AND PLEURAL SPACES: Bilateral peripheral infiltrates suggesting pneumonia. No mass. No pleural effusion or thickening. HEART: See findings above and below. MEDIASTINUM: Unremarkable. No mediastinal or hilar adenopathy. Esophagus is unremarkable. No hiatal hernia. THYROID: Unremarkable. No thyroid lesions. BONES/JOINTS: Multiple median sternotomy wires are noted consistent for cardiac surgery. No suspicious lytic or blastic abnormality. KIDNEYS AND URETERS: Simple cysts of both kidneys. These are stable. NO Follow-up required. CT/CTA Chest W/WO Contrast IMPRESSION: 1. Bilateral peripheral infiltrates suggesting pneumonia. 2. No demonstrated pulmonary embolism or arterial dissection. Electronically Signed: Waylon Huber MD at 17:37 EST , Service support ,
--- NOTE | 2021-03-03 16:07 | EDS_ITS ---
HPI History of Present Illness Chief Complaint: Shortness of Breath Detail of Chief Complaint: Covid, hemoptysis Informant: patient Narrative Narrative: Patient presents on day 8 of Covid symptoms. He states this morning around 4 AM he got a coughing fit and when he spit into the sink had blood in the sputum. Because he has a history of PE he contacted his doctor who wanted him checked for a blood clot. Patient does report some chest pain but states it seems to be more consistent with soreness from coughing. He does have some chills. He is not vaccinated against Covid secondary to a prior reaction to the flu shot. [facility] Medical History Atherosclerosis of coronary artery of [place] heart without angina pectoris Basal cell carcinoma Bradycardia Essential (primary) hypertension Hyperlipidemia Lumbar stenosis Lung nodule Obesity Obstructive sleep apnea Peripheral neuropathy Postoperative atrial fibrillation Pulmonary embolism (10/2016) Right bundle branch block (RBBB) RLS (restless legs syndrome) Squamous cell carcinoma Home Medications aspirin 81 mg PO DAILY@0800 tab.chew 06/22/16 [Rx Last Taken 07/06/20] modafinil 200 mg tablet 200 mg PO QDAY 03/14/17 [History Last Taken 07/06/20] lactobacillus combination no.4 3 billion cell capsule 3,000 mmu cells PO DAILY 03/15/19 [History Last Taken 07/07/20] ascorbic acid (vitamin C) 1,000 mg tablet 1,000 mg PO DAILY tab 02/26/20 [History Last Taken 07/07/20] C,E,zinc,copper [id number] 1 capsule PO DAILY 07/07/20 [History Last Taken 07/06/20] cholecalciferol (vitamin D3) 2,000 unit PO DAILY 07/07/20 [History Last Taken 07/07/20] multivitamin 1 tablet PO DAILY 07/07/20 [History Last Taken 07/07/20] loratadine 10 mg tablet 10 mg PO DAILY #14 tab 07/28/20 [Rx Last Taken Unknown] furosemide 20 mg tablet 20 mg PO DAILY #90 tab 12/02/20 [Rx Last Taken Unknown] metoprolol tartrate 25 mg tablet 12.5 mg PO BID #90 tab 12/02/20 [Rx Last Taken Unknown] flaxseed 2,400 mg PO DAILY 02/27/21 [History Last Taken Unknown] gabapentin 600 mg PO QHS 02/27/21 [History Last Taken Unknown] dexamethasone [Decadron] 6 mg PO DAILY #9 tab 03/03/21 [Rx Last Taken Unknown] Allergy/AdvReac Type Severity Reaction Status Date / Time egg Allergy Severe fluid Verified 03/03/21 13:38 retention, nausea, flu-like symptoms Egg Derived Allergy Severe Food Verified 03/03/21 13:38 Allergy soy Allergy Nausea/BODY Verified 03/03/21 13:38 ACHES/flu like symptoms flu shot Allergy Severe hypotension/kidney Uncoded 03/03/21 13:38 failure Family History Father CAD (coronary artery disease) CABG and pacemaker COPD (chronic obstructive pulmonary disease) Alcoholism Myocardial infarction Melanoma Heart disease Mother , age 69 infection, aneurysms Hypertension Heart disease Depression Sister Clotting disorder Brother Clotting disorder Grandfather Seizures Surgical History H/O coronary artery bypass surgery (12/01/12) History of lumbar laminectomy Social History Smoking Status: Never smoker Electronic Cigarette Use: not used second hand exposure: Yes (Mother and Father smoked when he was a child ) alcohol intake: current alcohol intake frequency: 0-2 drinks per day Alcohol type: beer and wine substance use type: does not use ROS ROS ED Constitutional Constitutional ED: Reports chills; Denies fever(s) Eyes Eyes: Denies change in vision ENT ENT ED: Denies sore throat Cardiovascular Cardiovascular: Reports chest pain Respiratory/Chest Respiratory/Chest: Reports cough, dyspnea and sputum Gastrointestinal Gastrointestinal: Denies abdominal pain, diarrhea, nausea or vomiting Genitourinary Genitourinary ED: Denies dysuria Musculoskeletal Musculoskeletal: Denies back pain Integumentary Denies rash Neurologic Neurologic: Reports weakness Allergic/Immunologic Allergic/Immunologic ED: Denies urticaria EXAM Physical Exam Const Vital Signs: 03/03/21 13:36 03/03/21 14:08 03/03/21 16:20 Temperature 97.0 F L Temperature Source Temporal Pulse Rate 60 62 Respiratory Rate 20 H 16 18 Respiratory Effort Respiratory Depth Respiratory Pattern Blood Pressure 142/84 H 142/87 H Blood Pressure Mean 103 105 Pulse Ox 99 96 98 Oxygen Delivery Method Room Air Room Air Room Air 03/03/21 16:21 Temperature Temperature Source Pulse Rate Respiratory Rate Respiratory Effort Normal Respiratory Depth Normal Respiratory Pattern Normal Blood Pressure Blood Pressure Mean Pulse Ox Oxygen Delivery Method Room Air Positive well nourished and well developed General Appearance ED: well developed HEENT Reports normocephalic and head/scalp atraumatic Eyes PERRL and EOMs intact bilaterally Neck supple Chest Wall inspection of chest normal and palpation of chest normal Resp normal respiratory effort Auscultation: diminished lung sounds Cardio regular rate and regular rhythm GI non-tender Palpation: soft Extremity normal to inspection Neuro oriented x3 Neuro Narrative: No focal neuro deficits. Sensorium / Orientation: alert Psych mental status grossly normal Skin no rashes or lesions noted MDM MDM MDM Narrative Medical decision making narrative: Chest x-ray and EKG obtained per nursing protocol. Lab work and CTA ordered at the time of my exam. Lab Data Attestation: I reviewed the patient's lab results. Labs: Laboratory Results - last 24 hr 03/03/21 03/03/21 14:35 14:35 WBC 4.1 L RBC 5.03 Hgb 15.6 Hct 47.0 MCV 93.4 MCH 31.0 MCHC 33.2 RDW Std Deviation 40.9 RDW Coeff of Heather 11.9 Plt Count 169 MPV 10.5 Immature Gran % (Auto) 0.200 Neut % (Auto) 60.5 Lymph % (Auto) 28.6 Wise % (Auto) 9.0 Eos % (Auto) 1.2 Baso % (Auto) 0.5 Absolute Neuts (auto) 2.5 Absolute Lymphs (auto) 1.18 Nucleated RBC % 0 Sodium 140 Potassium 4.8 Chloride 106 Carbon Dioxide 29.0 Anion Gap 5 BUN 14 Creatinine 1.00 Estim Creat Clear Calc 56.38 Est GFR (MDRD) Af Amer 94 Est GFR (MDRD) Non-Af 78 BUN/Creatinine Ratio 14.0 Glucose 93 Calcium 9.7 Radiography Chest X-Ray - ED: 1 View, Read by ED Physician and Chronic Changes Diagnostic Testing: Clinical Impression(s) from Imaging Studies Chest CTA 03/03/21 15:57 IMPRESSION: 1. Bilateral peripheral infiltrates suggesting pneumonia. 2. No demonstrated pulmonary embolism or arterial dissection. Electronically Signed: Waylon Huber MD at 17:37 EST , Service support , EKG Initial EKG: Attestation: I personally reviewed and interpreted this EKG as follows: Interpretation: Sinus Bradycardia (Sinus bradycardia 59 bpm. Lateral T inversions. No prior studies available for comparison. No ST change.) Treatment and Re-Evaluation Comments:: Lab work unremarkable. CTA of the chest reveals bilateral infiltrates but no evidence of PE. O2 sats are stable in the mid 90s on room air. Patient has not been treated with steroids for his Covid. I will treat him with a course of Decadron, first dose given here. I believe his hemoptysis likely secondary to his coughing spell causing small tear and some capillaries. Discharge Plan Triage Chief Complaint: Shortness of Breath ED Provider: Darlene Farmer Dx/Rx/DC Orders Clinical Impression: COVID-19 Instructions: Coronavirus Disease 2019 (COVID-19): Overview, Coronavirus D isease 2019 (COVID-19): Caring for Yourself or Others Prescriptions: New dexamethasone [Decadron] 6 mg tablet 6 mg PO DAILY Qty: 9 RF: 0 No Action modafinil 200 mg tablet 200 mg PO QDAY RF: 0 Probiotic 3 billion cell capsule 3,000 mmu cells PO DAILY RF: 0 ascorbic acid (vitamin C) 1,000 mg tablet 1,000 mg PO DAILY RF: 0 loratadine 10 mg tablet 10 mg PO DAILY Qty: 14 RF: 0 aspirin 81 MG tablet,chewable 81 mg PO DAILY@0800 RF: 0 C,E,zinc,copper [id number] 1 EACH capsule 1 capsule PO DAILY RF: 0 multivitamin 1 TABLET tablet 1 tablet PO DAILY RF: 0 cholecalciferol (vitamin D3) 50 MCG capsule 2,000 unit PO DAILY RF: 0 gabapentin 600 mg tablet 600 mg PO QHS RF: 0 flaxseed 1,000 mg Capsule 2,400 mg PO DAILY RF: 0 metoprolol tartrate 25 mg tablet 12.5 mg PO BID Qty: 90 RF: 3 furosemide 20 mg tablet 20 mg PO DAILY Qty: 90 RF: 3 Primary Care Provider: Saul Maxwell Referrals: Saul Maxwell MD [Primary Care Provider] - 1-2 Weeks Disposition Disposition: Home, Self Care
[2021-03-03 16:20] VITALS: BP 142/87; PULSE 62; RESP 18; O2SAT 98
[2021-03-03 16:21] VITALS: O2SAT 99
[2021-03-03 16:33] LABS: Absolute Lymphocyte Count 1.18 X10^3/uL (0.83-4.51); Absolute Neutrophil Count 2.5 X10^3/uL (2.0-7.7); Basophil# 0.02 X10^3/uL; Basophil% 0.5 % (0-1); Eosinophil# 0.05 X10^3/uL; Eosinophils% 1.2 % (0-5); Hemoglobin 15.6 g/dL (13.0-16.5); Lymphocyte # 1.18 X10^3/ul (0.83-4.51); Lymphocyte % 28.6 % (19-41); Mean Corp Hgb Conc 33.2 g/dL (32-36); Mean Corpuscular Volume 93.4 fL (80-94); Mean Platelet Vol. 10.5 fl (6.2-12.0); Monocyte# 0.37 X10^3/uL; NRBC Flagged by Analyzer 0 % (0-5); Neutrophil % 60.5 % (47-70); Platelet Count 169 K/mm3 (150-450); RBC Distribution Width CV 11.9 % (11.6-14.6); RBC Distribution Width SD 40.9 fl (35.1-43.9); Red Blood Count 5.03 M/mm3 (4.6-6.2); White Blood Count 4.1 K/mm3 (4.4-11.0)
[2021-03-03 16:46] LABS: Anion Gap 5 (5-15); BUN 14 mg/dL (7-18); Calcium,Total 9.7 mg/dL (8.5-10.1); Chloride 106 mmol/L (98-107); EST Glomerular Filtration Rate 78 mL/min (>60); Est Glom Filt Rate - Afr Amer 94 mL/min (>60); Estimated Creatinine Clearance 56.38 ml/min; Glucose 93 mg/dL (74-106); Potassium 4.8 mmol/L (3.5-5.1); Sodium Level 140 mmol/L (136-145)
[2021-03-03 18:13] VITALS: BP 168/90; PULSE 68; RESP 18; O2SAT 96
[2021-03-03] MEDS: dexAMETHasone 4 MG Tablet 6 MG PO (18:15)
== END 2021-03-03 18:22 | disposition home or self-care (01) ==
PROVIDERS: Emergency Provider Emergency Medicine; PCP Family Medicine
DX: U07.1 COVID-19 (principal); E66.9 Obesity, unspecified; E78.5 Hyperlipidemia, unspecified; G47.33 Obstructive sleep apnea (adult) (pediatric); G62.9 Polyneuropathy, unspecified; I10 Essential (primary) hypertension; I25.10 Atherosclerotic heart disease of native coronary artery without angina pectoris; I45.10 Unspecified right bundle-branch block; I48.91 Unspecified atrial fibrillation; M48.061 Spinal stenosis, lumbar region without neurogenic claudication; Z79.52 Long term (current) use of systemic steroids; Z79.82 Long term (current) use of aspirin; Z86.711 Personal history of pulmonary embolism
CPT/HCPCS: 71045; 71275; 80048; 85025; 93005; 94760; 99285; Q9967; A4216

== ENCOUNTER 2021-04-02 08:57 | Outpatient (CLI) | payer MEDICARE, BC, SELFPAY ==
[2021-04-02 09:00] LABS: Bacteria 0 SEEN /hpf (None Seen); Mucous, Urine 0 SEEN /hpf (<or=2+); Red Blood Cells-Urine 0 SEEN /hpf (0-5); White Blood Cells 0 SEEN /hpf (0-5)
[2021-04-02 10:02] LABS: Color, Urine Yellow (Yellow); Glucose, Dipstick Normal (Normal); Ketone-Dipstick 5 mg/dl (Negative); Leukocyte Esterase-Dipstick Negative /ul (Negative); Nitrite-Dipstick Negative (Negative); Occult Blood-Urine Negative /ul (Negative); Protein-Dipstick 15 mg/dl (Negative); Specific Gravity, Urine 1.025 (1.002-1.030); Urine Bilirubin Dipstick Negative (Negative); Urine Clarity Sl. Cloudy (Clear); Urine Urobilinogen Normal (Normal)
[2021-04-02 10:06] LABS: Absolute Lymphocyte Count 1.13 X10^3/uL (0.83-4.51); Absolute Neutrophil Count 2.8 X10^3/uL (2.0-7.7); Basophil# 0.03 X10^3/uL; Basophil% 0.7 % (0-1); Eosinophil# 0.12 X10^3/uL; Eosinophils% 2.6 % (0-5); Hematocrit 44.3 % (40-54); Hemoglobin 14.3 g/dL (13.0-16.5); Lymphocyte # 1.13 X10^3/ul (0.83-4.51); Lymphocyte % 24.7 % (19-41); Mean Corp Hgb Conc 32.3 g/dL (32-36); Mean Corpuscular Hgb 30.7 pg (27.0-32.0); Mean Corpuscular Volume 95.1 fL (80-94); Mean Platelet Vol. 9.6 fl (6.2-12.0); Monocyte# 0.45 X10^3/uL; Monocyte% 9.8 % (0-10); NRBC Flagged by Analyzer 0 % (0-5); Neutrophil # 2.82 X10^3/uL (2.7-7.7); Neutrophil % 61.8 % (47-70); Platelet Count 232 K/mm3 (150-450); RBC Distribution Width CV 12.7 % (11.6-14.6); RBC Distribution Width SD 44.5 fl (35.1-43.9); Red Blood Count 4.66 M/mm3 (4.6-6.2); White Blood Count 4.6 K/mm3 (4.4-11.0)
[2021-04-02 10:12] LABS: Calcium Oxalate Crystals Ur RARE /hpf (<or=2+); Squamous Epithelial Cells - UA 0-5 SEEN /hpf (0-5)
[2021-04-02 10:27] LABS: Vitamin D,25 Hydroxy 71.7 ng/mL
[2021-04-02 10:32] LABS: Hemoglobin A1c 5.5 % (3.8-5.6)
[2021-04-02 10:35] LABS: ALB/GLOB Ratio 0.9 RATIO (0.9-2.4); AST(SGOT) 23 U/L (15-37); Alanine Aminotransfer ALT/SGPT 30 U/L (16-61); Alkaline Phosphatase 72 U/L (45-117); Anion Gap 6 (5-15); BUN 16 mg/dL (7-18); BUN/Creat Ratio 16.8 RATIO (10-20); Calcium,Total 8.6 mg/dL (8.5-10.1); Chloride 106 mmol/L (98-107); Cholesterol 181 mg/dL (200); Creatinine, Serum 0.95 mg/dL (0.70-1.30); EST Glomerular Filtration Rate 82 mL/min (>60); Est Glom Filt Rate - Afr Amer 99 mL/min (>60); Globulin 3.5 g/dL (2.2-4.2); Glucose 96 mg/dL (74-106); High Density Lipoprotein 42 mg/dL; Magnesium 2.4 mg/dL (1.6-2.6); Protein, Total 6.5 g/dL (6.4-8.2); Sodium Level 141 mmol/L (136-145); Thyroid Stim Hormone (TSH) 0.73 uIU/mL (0.358-3.74); Triglycerides 397 mg/dL; Very Low Density Lipoprotein 79 mg/dL (5-40)
== END 2021-04-02 23:59 | disposition short-term general hospital (02) ==
LOC: MFPLAB 08:58
PROVIDERS: PCP Family Medicine; Referring Provider Family Medicine; Visit Provider Family Medicine
DX: I10 Essential (primary) hypertension (principal); R73.02 Impaired glucose tolerance (oral); E55.9 Vitamin D deficiency, unspecified
CPT/HCPCS: 36415; 80053; 80061; 81001; 82306; 83036; 83735; 84443; 85025

== ENCOUNTER 2021-06-15 08:21 | Day surgery (SDC) | payer MEDICARE, BC, SELFPAY ==
[2021-06-15] VITALS (7 sets, daily range): BP systolic 122–135; BP diastolic 78–88; PULSE 58–62; RESP 16–18; TEMP 36.3–36.9; O2SAT 94–99; BMI 30.9
[2021-06-15] MEDS: Lactated Ringers 1,000 ML 15 ML IV (10:15)
[2021-06-15] MEDS: Cefazolin 2 GM in 0.9% Normal Saline 100 ML IV (10:35)
--- NOTE | 2021-06-15 10:45 | RAD_ITS ---
EXAM: XR LUMBOSACRAL SPINE, 2 OR 3 VIEWS : 1945 CLINICAL INDICATION: percutaneous spinal cord stimulator TECHNIQUE: Frontal and lateral views of the lumbar spine and sacrum. This report was created using [employer] report [employer] technology. COMPARISON: None. FINDINGS: VERTEBRAE: Unremarkable. Preserved vertebral body height. No fracture. No spondylolisthesis. Preservation of the normal lumbar lordosis. No significant facet arthropathy. DISC SPACES: No acute findings. Disc spaces are maintained. GASTROINTESTINAL TRACT: Unremarkable as visualized. Included bowel gas pattern is non-obstructive. TUBES, LINES AND DEVICES: 7 images were obtained intraoperatively. These show placement of stimulator leads posterior to the mid thoracic vertebral bodies. They are or the lateral pedicle screws in the lumbar spine. RAD/Lumbar Spine 2 or 3 Views IMPRESSION: Intraoperative placement of spinal stimulators. at 1207 Reported and signed by: Johnathon Burrows MD Electronically Signed: Johnathon Burrows MD at 12:05 EDT ,
[2021-06-15] MEDS: Lidocaine 2% (20 ml mdv) 20 ML Vial (11:41)
[2021-06-15] MEDS: Bupivacaine 0.25% 30 ML Vial (11:41)
--- NOTE | 2021-06-15 15:49 | OP.PCM_ITS ---
Report of Operation Date of Procedure: 06/15/21 Description of Surgical Findings:: Pre-Operative Diagnosis: Lumbosacral radiculopathy, lumbosacral degenerative disc disease, lumbosacral spinal stenosis, lumbar postlaminectomy syndrome Post-Operative Diagnosis: Lumbosacral radiculopathy, lumbosacral degenerative d isc disease, lumbosacral spinal stenosis, postlaminectomy syndrome of the lumbar spine Surgery/Procedure Performed:: 1. Spinal cord stimulator thoracolumbar leads placement x2 #2 spinal cord stimulator Medtronic intellus generator placement #3 spinal cord stimulator generator pocket creation at the left gluteal region #4 spinal cord stimulator programming, 5-intraoperative fluoroscopic interpretation ANESTHESIA: MAC COMPLICATIONS: None BLOOD LOSS: Minimal Implanted device: Spinal cord stimulator lead [id number] lot number [id number], lead #2 [id number] lot number [id number] Medtronic spinal cord stimulator generator intellus serial number [id number] PROCEDURE IN DETAIL: History and physical today was reviewed. Risks and benefits of procedure explained. The patient understood, agreed to procedure, informed consent was obtained. IV inserted per routine protocol. The patient was taken to the operating room, placed in the prone position with a pillow positioned underneath the abdomen. A 2 g of Ancef IV piggyback was infused per anesthesia. The lower back and right gluteal area was prepped and draped in a sterile fashion using iodine x3 Ioban was placed. The C-arm was brought in p osition for AP view at the T12-L1 vertebral bodies under direct visualization fluoroscopy on a true AP view the T12-L1 interlaminar space was identified skin and subcutaneous tissue and size approximately 10 cc of a mix of 2% lidocaine and 0.25% Marcaine using a 25-gauge regular needle followed by a 25-gauge 3-1/2 inch spinal needle towards the interlaminar space at T12-L1, the skin and subcutaneous tissue were then anesthetized and using an 11-gauge blade was then taken down to the skin and subcutaneous tissue using a 14-gauge 3-1/2 inch Touhy needle provided by the [employer] kit the needle was passed through the skin towards the interlaminar space at T12-L1 and a left paramedian approach the needle was then advanced under direct visualization fluoroscopy towards the interlaminar space at L2-3 [id number] technique was then carried to air towards the interlaminar space at T12-L1 once the tip of the needle was in the epidural space and loss of resistance was encountered to air and after confirmation of AP-- as well as oblique view of the spinal cord stimulator lead was then advanced under direct visualization fluoroscopy to be at the tip of the lead at T8 and the bottom of the lead around mid T10 after confirmation of AP as well as well as lateral view to confirm correct placement of the lead in the posterior compartment of the epidural space the previous procedure was then repeated to the same level on the right parapmedian approach, interlaminar space the second lead was then inserted under direct visualization with fluoroscopy to be at the tip of T8 and mid T10 area the leads were were then connected to the external neurostimulator and patient was then awakened to confirm satisfactory coverage of the painful area once satisfactory coverage was then achieved the stylette of each needle was then removed and the skin and subcutaneous tissue on to the left of the paramedian needles was then taken anesthetized with a total of 10 cc of the previous mixture of 0.25% Marcaine and 2% lidocaine using a 25-gauge regular needle the incision was then taken down through the skin and subcutaneous tissue towards the fascia making sure hemostasis was then maintained via cautery, the spinal cord stimulator leads were then passed through the above incision and secured using the anhor and sutured down with a 2-0 silk to the fascia at that level the spinal cord stimul ator leads were then tunneled via a tunneler provided by the [employer] kit towards the previously incised spinal cord stimulator battery at the left gluteal region skin and subcutaneous tissue were anesthetized with approximately 10 cc of a mix of 2% lidocaine and 0.25% Marcaine using a 25 gauge regular needle, skin and subcutaneous tissue was then taken down with the 11-gauge blade hemostasis was maintained with Bovie and direct pressure the incision was then taken down to the fascia and the battery was then secured with the 2-0 silk sutures that were the spinal cord stimulator leads the upper lead was then marked the new until spinal cord stimulator battery was then provided Via [employer] kit the battery was then reattached of the spinal cord stimulator make ensure that the top lead is attached to the top position from 0-7 electrodes and the bottom from 8-15 electrodes once impedance was then checked to be in the proper average number the intellus battery was then inserted into the pocket and impedance with when checked again the pocket was then inspected to confirm hemostasis in place, the intellus battery was then secured to the fascia using a 2-0 silk to the upper eyes of the battery confirming an upward writing of the intellus facing posterior, once complete confirmation the battery was then placed in the position and the the mid paramedian and the gluteal incisions were then closed primarily through a 3-0 Vicryl in a running fashion followed by a 4- 0 Vicryl to the skin, hemostasis was then maintained during the procedure the skin was then covered with a Steri-Strips and bacitracin patient was then returned into the supine position in a stable condition and returned to recovery in a stable condition patient experienced no signs or symptoms of intrathecal or intravascular injection patient experienced no paresthesia the procedure was completed without any apparent difficulty any complication the patient appeared to tolerate well, motor as well as sensory function was unchanged from prior to the procedure ESTIMATED BLOOD LOSS: Minimal less than 25 mL ASSESSMENT AND PLAN: This is a 76-year-old male with lumbosacral radiculopathy lumbosacral degenerative disc disease lumbosacral spinal stenosis status post 1. Spinal cord stimulator thoracolumbar leads placement x2 #2 spinal cord stimulator Medtronic intellus generator placement #3 spinal cord stimulator generator pocket creation at the left gluteal region #4 spinal cord stimulator programming, 5-intraoperative fluoroscopic interpretation patient will continue his current medications a prescription was provided to the patient Augmentin 500 mg 1 p.o. every 8 hours for 7 days postop instruction were given in writing to the patient and his and daughter as well as verbally and in writing, davon ent will follow approximately 1 week for reevaluation.
== END 2021-06-15 23:59 | disposition home or self-care (01) ==
LOC: SDC 08:21 → AC 09:18
PROVIDERS: PCP Family Medicine; Referring Provider Anesthesiology Pain Medicine; Visit Provider Anesthesiology Pain Medicine
PROC: (CPT 63685; principal; 2021-06-15 09:55)
DX: M48.07 Spinal stenosis, lumbosacral region (principal); I48.91 Unspecified atrial fibrillation; M51.17 Intervertebral disc disorders with radiculopathy, lumbosacral region; M96.1 Postlaminectomy syndrome, not elsewhere classified; G89.29 Other chronic pain; Z79.899 Other long term (current) drug therapy; Z79.82 Long term (current) use of aspirin; Z86.16 Personal history of COVID-19; E78.5 Hyperlipidemia, unspecified; R42 Dizziness and giddiness; I45.10 Unspecified right bundle-branch block; I65.21 Occlusion and stenosis of right carotid artery; I25.10 Atherosclerotic heart disease of native coronary artery without angina pectoris; I10 Essential (primary) hypertension; Z95.1 Presence of aortocoronary bypass graft; R53.83 Other fatigue; M19.90 Unspecified osteoarthritis, unspecified site; Z86.14 Personal history of Methicillin resistant Staphylococcus aureus infection; Z86.19 Personal history of other infectious and parasitic diseases; R91.1 Solitary pulmonary nodule; E66.9 Obesity, unspecified; G47.33 Obstructive sleep apnea (adult) (pediatric); G62.9 Polyneuropathy, unspecified; Z86.711 Personal history of pulmonary embolism; G25.81 Restless legs syndrome; Z68.30 Body mass index [BMI] 30.0-30.9, adult
CPT/HCPCS: 63685; 63650; 72100; 76000; 87426; C1778; C1820; C9803; J7120; J2405; J3490

== ENCOUNTER → 2021-07-20 | Outpatient (CLI) | payer MEDICARE, BC, SELFPAY ==
[2021-07-20 10:10] LABS: Absolute Lymphocyte Count 1.47 X10^3/uL (0.83-4.51); Absolute Neutrophil Count 2.2 X10^3/uL (2.0-7.7); Basophil# 0.03 X10^3/uL; Basophil% 0.7 % (0-1); Eosinophil# 0.11 X10^3/uL; Eosinophils% 2.6 % (0-5); Hematocrit 46.9 % (40-54); Hemoglobin 15.2 g/dL (13.0-16.5); Lymphocyte # 1.47 X10^3/ul (0.83-4.51); Lymphocyte % 35.3 % (19-41); Mean Corp Hgb Conc 32.4 g/dL (32-36); Mean Corpuscular Hgb 30.8 pg (27.0-32.0); Mean Corpuscular Volume 94.9 fL (80-94); Mean Platelet Vol. 9.6 fl (6.2-12.0); Monocyte# 0.37 X10^3/uL; Monocyte% 8.9 % (0-10); NRBC Flagged by Analyzer 0 % (0-5); Neutrophil # 2.17 X10^3/uL (2.7-7.7); Neutrophil % 52.3 % (47-70); Platelet Count 200 K/mm3 (150-450); Red Blood Count 4.94 M/mm3 (4.6-6.2); White Blood Count 4.2 K/mm3 (4.4-11.0)
[2021-07-20 10:25] LABS: Vitamin D,25 Hydroxy 53.7 ng/mL
[2021-07-20 10:30] LABS: ALB/GLOB Ratio 1.1 RATIO (0.9-2.4); AST(SGOT) 30 U/L (15-37); Alanine Aminotransfer ALT/SGPT 32 U/L (16-61); Albumin, Serum 3.7 g/dL (3.2-5.0); Alkaline Phosphatase 57 U/L (45-117); Anion Gap 6 (5-15); BUN 17 mg/dL (7-18); BUN/Creat Ratio 15.5 RATIO (10-20); Calcium,Total 8.7 mg/dL (8.5-10.1); Chloride 106 mmol/L (98-107); Cholesterol 226 mg/dL (200); EST Glomerular Filtration Rate 70 mL/min (>60); Est Glom Filt Rate - Afr Amer 84 mL/min (>60); Globulin 3.3 g/dL (2.2-4.2); Glucose 102 mg/dL (74-106); High Density Lipoprotein 33 mg/dL; Magnesium 2.2 mg/dL (1.6-2.6); Potassium 4.2 mmol/L (3.5-5.1); Sodium Level 140 mmol/L (136-145); Triglycerides 614 mg/dL
[2021-07-21 11:27] LABS: Hemoglobin A1c 5.3 % (3.8-5.6)
== END | disposition home or self-care (01) ==
LOC: MTLAB 08:35
PROVIDERS: PCP Family Medicine; Referring Provider Family Medicine; Visit Provider Family Medicine
DX: R73.09 Other abnormal glucose (principal); I48.0 Paroxysmal atrial fibrillation; I25.10 Atherosclerotic heart disease of native coronary artery without angina pectoris; E55.9 Vitamin D deficiency, unspecified
CPT/HCPCS: 36415; 80053; 80061; 82306; 83036; 83735; 85025

== ENCOUNTER → 2021-08-01 | Outpatient (CLI) | payer MEDICARE, BC, SELFPAY ==
--- NOTE | 2021-08-01 07:56 | CT_ITS ---
STUDY: CT Chest W/O Contrast Injection 08/01/2021 9:38 AM REASON FOR EXAM: Male, 76 years old. nodule Individualized dose optimization techniques were used for this CT. TECHNIQUE: Transaxial imaging was performed withoutIV contrast material. COMPARISON: 03.03.21. 1.26.19 FINDINGS: There are degenerative changes of the shoulders. There is no pneumothorax. There is no demonstrated pleural abnormality. Bilateral minimal peripheral infiltrates suggesting pneumonia that is persistent but improved since the prior study. There are multiple median sternotomy wires. There are calcifications of the coronary arteries. Normal mediastinum. Normal hilar regions. Normal pulmonary arteries. There is atherosclerotic calcification of the aortic arch with tortuosity and elongation of the aortic arch and descending thoracic aorta. There are multi-level degenerative changes of the thoracic spine. There are hypodensities in both kidneys. These are consistent for cysts. No follow up required. CT/Chest without Contrast IMPRESSION: Bilateral minimal peripheral infiltrates suggesting pneumonia that is persistent but improved since the prior study vs recurrence . No nodules noted. There are hypodensities in both kidneys. These are consistent for cysts. If of concern CT of the abdomen and pelvis can better evaluate. Electronically Signed: Waylon Huber MD at 9:44 EDT ,
== END | disposition home or self-care (01) ==
LOC: CT 07:53
PROVIDERS: PCP Family Medicine; Referring Provider Family Medicine; Visit Provider Family Medicine
DX: R91.1 Solitary pulmonary nodule (principal)
CPT/HCPCS: 71250

== ENCOUNTER 2021-08-07 06:29 | Day surgery (SDC) | payer MEDICARE, BC, SELFPAY ==
[2021-08-07] VITALS (9 sets, daily range): BP systolic 91–135; BP diastolic 55–88; PULSE 60–67; RESP 16–18; TEMP 36.4–37.3; O2SAT 95–99; BMI 30.8
[2021-08-07] MEDS: Lactated Ringers 1,000 ML 15 ML IV (06:40)
--- NOTE | 2021-08-07 06:57 | HP.PCM_ITS ---
History and Physical Date of Admission: 08/07/21 Intake Visit Reasons: Colonoscopy Chief Complaint: c-scope Intelligence Manager Required: No Is patient in pain?: No Allergies egg Allergy (Severe, Verified 07/16/21 08:15) fluid retention, nausea, flu-like symptoms Egg Derived Allergy (Severe, Verified 07/16/21 08:15) Food Allergy soy Allergy (Verified 07/16/21 08:15) Nausea/BODY ACHES/flu like symptoms flu shot Allergy (Severe, Uncoded 07/16/21 08:15) hypotension/kidney failure Medications aspirin 81 mg PO DAILY@0800 tab.chew 06/22/16 [Rx Confirmed 07/16/21] modafinil 200 mg tablet 200 mg PO BID 03/14/17 [History Confirmed 07/16/21] lactobacillus combination no.4 3 billion cell capsule 3,000 mmu cells PO DAILY 03/15/19 [History Confirmed 07/16/21] ascorbic acid (vitamin C) 1,000 mg tablet 1,000 mg PO DAILY tab 02/26/20 [History Confirmed 07/16/21] cholecalciferol (vitamin D3) 2,000 unit PO DAILY 07/07/20 [History Confirmed 07/16/21] multivitamin 1 tablet PO DAILY 07/07/20 [History Confirmed 07/16/21] flaxseed 3,000 mg PO DAILY 02/27/21 [History Confirmed 07/16/21] gabapentin 600 mg PO QHS 02/27/21 [History Confirmed 07/16/21] furosemide 20 mg tablet 20 mg PO DAILY PRN #90 tab 03/31/21 [Rx Confirmed 07/16/21] vitamin B complex 1 tab PO DAILY 03/31/21 [History Confirmed 07/16/21] metoprolol tartrate 25 mg tablet 12.5 mg PO BID #90 tab 05/19/21 [Rx Confirmed 07/16/21] acetaminophen [Tylenol Arthritis] 1,300 mg PO Q8H 06/09/21 [History Confirmed 07/16/21] calcium 600 mg PO DAILY 06/09/21 [History Confirmed 07/16/21] duloxetine 60 mg PO QHS 06/09/21 [History Confirmed 07/16/21] elderberry fruit [Elderberry] 200 mg PO DAILY 06/09/21 [History Confirmed 07/16/21] hydrocodone-acetaminophen 1 tab PO Q8H PRN 06/09/21 [History Confirmed 07/16/21] methocarbamol 250 mg PO TID 06/09/21 [History Confirmed 07/16/21] milk thistle 200 mg PO DAILY 06/09/21 [History Confirmed 07/16/21] vit C,P-Cn-lxfui-lutein-zeaxan [PreserVision AREDS-2] 1 tab PO DAILY 06/09/21 [History Confirmed 07/16/21] zinc 50 mg PO DAILY 06/09/21 [History Confirmed 07/16/21] PFSH Medical History (Updated 07/16/21 @ 06:[address] Khurram Wilder MD) Alcohol use Ambulates with cane Arthritis Atherosclerosis of coronary artery of [place] heart without angina pectoris Basal cell carcinoma Bradycardia Cancer Cardiology follow-up encounter CPAP (continuous positive airway pressure) dependence Essential (primary) hypertension Hepatitis History of atrial fibrillation History of echocardiogram History of edema History of pain when walking History of steroid therapy History of stress test Hx MRSA infection Hx of benign essential tremor Hx of Clostridium difficile infection Hx of mitral valve prolapse Hyperlipidemia Injury of head and neck Leg cramps Loss of hearing Lumbar stenosis Lung nodule Non-smoker Obesity Obstructive sleep apnea Peripheral neuropathy Postoperative atrial fibrillation Pulmonary embolism (10/2016) Right bundle branch block (RBBB) RLS (restless legs syndrome) Squamous cell carcinoma Syncope Wears glasses Yeast infection Surgical History (Updated 06/09/21 @ 16:00 by Leann Hopson) H/O coronary artery bypass surgery (12/01/12) History of incision and drainage History of lumbar laminectomy Hx of hemorrhoidectomy Hx of hernia repair Hx of tonsillectomy Family History Father CAD (coronary artery disease) CABG and pacemaker COPD (chronic obstructive pulmonary disease) Alcoholism Myocardial infarction Melanoma Heart disease Mother , age 69 infection, aneurysms Hypertension Heart disease Depression Sister Clotting disorder Brother Clotting disorder Grandfather Seizures Social History Smoking Status: Never smoker Electronic Cigarette Use: not used second hand exposure: Yes (Mother and Father smoked when he was a child ) alcohol intake: current alcohol intake frequency: 0-2 drinks per day Alcohol type: beer and wine substance use type: does not use HPI HPI HPI: CALE PULLIAM, is a 76 M who presents to the office today for who presents in referral from Dr Saul Maxwell for colonoscopy. A written copy of my surgical consult recommendations will be returned to him. The patient had a previous colonoscopy in 2010. Patient has a history of atrial fibrillation. He he requests only being on a low-dose 81 mg aspirin. He has a history of mitral valve prolapse. He had Covid-19 February 25, 2021. He has chronic low back pain and a pain stimulator in the left lower back. He has had problems with urinary retention status post surgical procedures. Patient fairly recently has had a pain stimulator in place. This has greatly assisted with his back pain. He states that there is been wound drainage and has been on several courses of antibiotics. States the wound apparently is improving. When he was on extreme narcotics he did have some hemorrhoid problems. Now not so much. February 2020 when he had COVID-19. He did receive monoclonal antibody. If he has a residual problem that is chronic fatigue. He claims every time he has anesthesia he frequently gets urinary retention. He is not chronically on any treatment. Apparently it only happens with anesthesia. ROS General General: Yes fatigue; No weight change, appetite, colon cancer, breast cancer or weakness HEENT HEENT: No difficulty swallowing, eye injury, eye surgery, swollen glands or hoarseness Endo Endocrine: No thyroid disease, diabetes mellitus, thyroid cancer, Hair loss, heat intolerance or cold intolerance Skin Skin: No rash or changing moles Breast Breast: No left breast lump, right breast lump, nipple discharge, breast pain, abnormal mammogram, abnormal US or breast enlargement Musc Musculoskeletal: Yes back problems and arthritis; No rheumatoid arthritis, gout or joint pain Cardio Cardiovascular: Yes murmur, heart disease and high blood pressure; No pacemaker, atrial fibrillation, heart attack, heart stent, palpitations, shortness of breat with exertion or chest pain Psych Psychiatric: No depression, anxiety or hearing voices Resp Respiratory: No shortness of breath, Yes sleep apnea, No cough, No COPD, No asthma, No emphysema and No wheezing Gastro Gastrointestinal: No abdominal pain, No nausea or vomiting, No diarrhea, No constipation, Yes blood in stool, No acid reflux, Yes hemorrhoids, No ulcers, No gallbladder problem and No black,tarry stools Tony Hematologic: No blood thinners, No blood disorders, No bleeding, No anemia and No blood clots Neuro Neurologic: No system reviewed and no additional complaints, except as documented, No as per HPI, No abnormal gait, No abnormal hearing, No abnormal movements, No abnormal speech, No behavioral changes, No burning sensations, No confusion, No convulsions, No disequilibrium, No dizziness, No localized weakness, No frequent falls, No headache(s), No lack of coordination, No loss of vision, No memory loss, Yes numbness, No other visual disturbances, No radicular pain, No restless legs, No sensory deficit, No syncope, Yes tingling, No tremor(s), No weakness and No other Exam Const General: cooperative and no acute distress Nutritional Appearance: overweight Orientation: alert, awake and oriented x3 HENMT Head: normal to inspection Eyes General: appearance normal, both eyes and all related structures Chest Chest palpation & inspection: normal inspection of the chest Resp Effort & Inspection: normal respiratory effort Auscultation: clear to auscultation bilaterally Cardio Rate: regular rate Rhythm: regular rhythm GI Palpation: soft and no hepatosplenomegaly Auscultation: normal bowel sounds Neuro Other: Patient moves slowly, he is able to get up on the exam table, somewhat stiff Extrem General: no calf tenderness Psych Appearance: grossly normal Assessment and Plan Assessment and Plan (1) Screening for intestinal cancer: Status: Acute Plan - Dr. Khurram Wilder MD: Plan to proceed with a screening colonoscopy with possible biopsy or polypectomy as indicated. The patient is aware of the technique, benefit, risk, alternatives. He has had an opportunity to ask and have questions answered. We will schedule procedure at his discretion. I appreciate the opportunity of assisting with his surgical care. Because of the patient's urinary retention that occurs with anesthesia we will initiate him on tamsulosin 0.4 mg nightly at these 2 weeks preprocedure. He is aware and concurs. Because of the patient's pain stimulator with some report of wound issues we will contact Dr. Jerez's office to see if a IV preoperative dosing of antibiotic just prior to the colonoscopy would be pertinent. The patient's had an opportunity to ask and have questions answered. We will tr y to expedite his care. Copy: Dr Saul Maxwell and Dr. Solitario Wilder M.D., F.A.C.S. I have re-examined the patient. There are no clinical changes since date of exam. We were notified by Dr. Jerez's office that preoperative antibiotics would not be required Khurram Wilder M.D., F.A.C.S.
--- NOTE | 2021-08-07 07:30 | COLBX_PTH ---
PATIENT: CALE PULLIAM LOC: EN U#:[id number] AGE/SX: 76/M ROOM: RE08/07/[address]: Dr. Khurram Wilder MD : 1945 BED: DIS: 08/07/2021 SPEC #: [id number] RECD: 08/07/21 11:39 STATUS: JLUIS THAKKAR #: [id number] LASHELL: 08/07/21 07:[address]: Khurram Wilder DEPT: SURGICAL PATHOLOGY RECD BY: Tonia Hughes ENTERED: 08/07/21 12:40 SP TYPE: COLON BX OT DR: Dr. Saul Maxwell MD Tissues: A - Transverse colon B - Transverse colon C - Descending colon Procedures: Surgery Specimen Level IV HEADER OPERATION: Colonoscopy (MAC) PRE-OP DIAGNOSIS: Screening TISSUE SUBMITTED: A ? Mid transverse polyp ? cold snare, B - Mid transverse polyp #2, biopsy, C ? Descending polyps (x2) biopsy MICROSCOPIC DIAGNOSIS A. Mid transverse colon polyp, biopsy: Tubular adenoma. B. Mid transverse colon polyp #2, biopsy: Hyperplastic polyp. C. Descending colon polyps x2, biopsy: Fragments of tubular adenoma. MIRIAM:addy 08/10/2021 MICROSCOPIC DESCRIPTION Slides are reviewed. GROSS DESCRIPTION A - Received in fixative is one container labeled with the patient's name and designated mid transverse polyp. The specimen consists of one irregular fragment of light priest soft tissue that measures 0.3 x 0.1 x 0.1 cm. Multiple fragments of fecal material are also noted. The specimen is totally submitted in one cassette. B - Received in fixative is one container labeled with the patient's name and designated mid transverse polyp #2. The specimen consists of one irregular fragment of light priest soft tissue that measures 0.3 x 0.3 x 0.1 cm. The specimen is totally submitted in one cassette. C - Received in fixative is one container labeled with the patient's name and designated descending polyp (x2) biopsy. The specimen consists of two irregular fragments of light priest soft tissue that in aggregate measure 0.6 x 0.2 x 0.1 cm. The specimen is totally submitted in one cassette. / MIRIAM:addy 08/07/2021 TC:1 CPT: 77246 x3
--- NOTE | 2021-08-07 08:14 | OP.COLON_ITS ---
Patient Name: Jitendra Stoll Procedure Date: 08/07/2021 7:28 AM Date of : 1945 Age: 76 Procedure: Colonoscopy Indications: Screening for colorectal malignant neoplasm Providers: Khurram Wilder MD Referring MD: Saul Maxwell Medicines: See the Anesthesia note for documentation of the administered medications Patient Profile: Last Colonoscopy: 2010. Complications: No immediate complications. Procedure: Pre-Anesthesia Assessment: - Prior to the procedure, a History and Physical was performed, and patient medications and allergies were reviewed. The patient's tolerance of previous anesthesia was also reviewed. The risks and benefits of the procedure and the sedation options and risks were discussed with the patient. All questions were answered, and informed consent was obtained. Prior Anticoagulants: The patient has taken no previous anticoagulant or antiplatelet agents. ASA Grade Assessment: II - A patient with mild systemic disease. After reviewing the risks and benefits, the patient was deemed in satisfactory condition to undergo the procedure. After I obtained informed consent, the scope was passed under direct vision. Throughout the procedure, the patient's blood pressure, pulse, and oxygen saturations were monitored continuously. The colonoscope was introduced through the anus and advanced to the cecum, identified by appendiceal orifice and ileocecal valve. The colonoscopy was performed without difficulty. The patient tolerated the procedure well. The quality of the bowel preparation was good. The ileocecal valve and the appendiceal orifice were photographed. Scope In: 7:39:51 AM Scope Withdrawal Time 0 hours 17 minutes 14 seconds Scope Out: 8:02:15 AM Total Procedure Duration Time 0 hours 22 minutes 24 seconds Findings: The digital rectal exam findings include non-thrombosed external hemorrhoids, non-thrombosed internal hemorrhoids and internal hemorrhoids that prolapse with straining, but spontaneously regress to the resting position (Grade II). Pertinent negatives include normal prostate (size, shape, and consistency). A 8 mm polyp was found in the mid transverse colon. The polyp was sessile. The polyp was removed with a cold snare. Resection and retrieval were complete. A 4 mm polyp was found in the mid transverse colon. The polyp was sessile. The polyp was removed with a cold biopsy forceps. Resection and retrieval were complete. A 4 mm polyp was found in the mid descending colon. The polyp was sessile. The polyp was removed with a cold biopsy forceps. Resection and retrieval were complete. A 4 mm polyp was found in the mid descending colon. The polyp was sessile. The polyp was removed with a cold biopsy forceps. Resection and retrieval were complete. Impression: - Non-thrombosed external hemorrhoids, non-thrombosed internal hemorrhoids and internal hemorrhoids that prolapse with straining, but spontaneously regress to the resting position (Grade II) found on digital rectal exam. - One 8 mm polyp in the mid transverse colon, removed with a cold snare. Resected and retrieved. - One 4 mm polyp in the mid transverse colon, removed with a cold biopsy forceps. Resected and retrieved. - One 4 mm polyp in the mid descending colon, removed with a cold biopsy forceps. Resected and retrieved. - One 4 mm polyp in the mid descending colon, removed with a cold biopsy forceps. Resected and retrieved. Recommendation: - Repeat colonoscopy in 3 years for surveillance based on pathology results. - Telephone my office for pathology results in 1 week. - Continue present medications. Procedure Code(s): --- Professional --- 42049, Colonoscopy, flexible; with removal of tumor(s), polyp(s), or other lesion(s) by snare technique 96580, 59, Colonoscopy, flexible; with biopsy, single or multiple Diagnosis Code(s): --- Professional --- Z12.11, Encounter for screening for malignant neoplasm of colon K64.1, Second degree hemorrhoids K64.4, Residual hemorrhoidal skin tags D12.3, Benign neoplasm of transverse colon (hepatic flexure or splenic flexure) D12.4, Benign neoplasm of descending colon CPT copyright 2017 [employer]. All rights reserved. The codes documented in this report are preliminary and upon wheel loader operator review may be revised to meet current compliance requirements. Khurram Wilder MD 08/07/2021 8:13:46 AM This report has been signed electronically. Number of Addenda: 0 Note Initiated On: 08/07/2021 7:28 AM
--- NOTE | 2021-08-07 08:15 | OP.CCLET_ITS ---
08/07/2021 Saul Maxwell [address] [place] [address] Re : Colonoscopy procedure for Jitendra Kirk Dear Dr. Maxwell This procedure was performed on Saturday, August 07, 2021. My impressions and recommendations are as follows: Impressions : - Non-thrombosed external hemorrhoids, non-thrombosed internal hemorrhoids and internal hemorrhoids that prolapse with straining, but spontaneously regress to the resting position (Grade II) found on digital rectal exam. - One 8 mm polyp in the mid transverse colon, removed with a cold snare. Resected and retrieved. - One 4 mm polyp in the mid transverse colon, removed with a cold biopsy forceps. Resected and retrieved. - One 4 mm polyp in the mid descending colon, removed with a cold biopsy forceps. Resected and retrieved. - One 4 mm polyp in the mid descending colon, removed with a cold biopsy forceps. Resected and retrieved. Recommendations : - Repeat colonoscopy in 3 years for surveillance based on pathology results. - Telephone my office for pathology results in 1 week. - Continue present medications. My findings are described in the full procedure note, which is enclosed. If I can be of further assistance, please feel free to contact me at Doctor phone number(s): Work: . Sincerely, Khurram Wilder MD 08/07/2021 8:13:46 AM This report has been signed electronically.
== END 2021-08-07 09:13 | disposition home or self-care (01) ==
LOC: EN 06:30 → AC 06:30
PROVIDERS: PCP Family Medicine; Referring Provider Family Medicine; Visit Provider Surgery
PROC: 0DJD8ZZ Inspection of Lower Intestinal Tract, Via Natural or Artificial Opening Endoscopic (ICD-10-PCS; CPT 45378; principal; 2021-08-07 07:25)
DX: Z12.11 Encounter for screening for malignant neoplasm of colon (principal); K64.4 Residual hemorrhoidal skin tags; Z91.012 Allergy to eggs; R33.8 Other retention of urine; M54.9 Dorsalgia, unspecified; Z80.8 Family history of malignant neoplasm of other organs or systems; I10 Essential (primary) hypertension; I25.10 Atherosclerotic heart disease of native coronary artery without angina pectoris; E78.5 Hyperlipidemia, unspecified; K64.1 Second degree hemorrhoids; D12.3 Benign neoplasm of transverse colon; D12.4 Benign neoplasm of descending colon; Z99.89 Dependence on other enabling machines and devices; Z86.14 Personal history of Methicillin resistant Staphylococcus aureus infection; Z95.1 Presence of aortocoronary bypass graft
CPT/HCPCS: 45385; 45380; 87426; 88305; C9803; J7120; J2405

== ENCOUNTER 2021-08-19 12:16 | Observation (INO) | payer MEDICARE, BC, SELFPAY ==
--- NOTE | 2021-08-05 12:46 | EKG12_ITS ---
Test Reason : PREOP Blood Pressure : / mmHG Vent. Rate : 072 BPM Atrial Rate : 072 BPM P-R Int : 152 ms QRS Dur : 094 ms QT Int : 380 ms P-R-T Axes : 037 010 092 degrees QTc Int : 416 ms Normal sinus rhythm T wave abnormality, consider lateral ischemia Abnormal ECG Confirmed by JENI LOERA, RAMIN ([id number]), department editor SHAMEKA VARGAS ([id number]) on 08/06/2021 8:42:57 AM Referred By: Basilio Patel Confirmed By:RAMIN NGO MD
[2021-08-19] VITALS (13 sets, daily range): BP systolic 97–136; BP diastolic 60–87; PULSE 54–66; RESP 16–20; TEMP 36.4–36.8; O2SAT 92–100; BMI 30.7
--- NOTE | 2021-08-19 06:46 | PCM.OPRPT ---
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 Surgery/Procedure Performed:: Left reverse total shoulder replacement Description of Surgical Findings:: Stable shoulder Surgeon: Basilio Patel digital cartographer: Jassi Ellsworth Type of Anesthesia: General Anesthesiologist: Jay Agrawal Special Medications: 2 g Ancef, 2 g TXA lavage and wound prior to closure, 10 mg Decadron, joint cocktail (5 mg Duramorph, 30 mL of 0.5% Ropivicaine, 1000 units of epinephrine, 30 mg of Toradol), 1 g vancomycin at incision Specimen's removed: Bony cuts Estimated Blood Loss (mL): 200 Fluids Replaced: 1400 mL crystalloid Description of Procedure: Components used 1. Dawood reunion glenoid baseplate 2. Mustang reunion 36 mm, eccentric 2 mm, lateral 6mm Glenosphere 3. Dawood reunion 36mm, 4mm humeral liner 4. Mustang reunion reverse TSA humeral adapter tray 2mm 5. Dawood reunion humeral stem primary press-fit 13mm size Brief history/Operative indications: 76 yo M with history of left shoulder pain and cuff tear arthropathy. Patient failed conservative measures as mentioned in the H&P. After discussion of risk and benefits of reverse total shoulder replacement including but not limited to blood loss, DVTs, PEs, nerve vessel damage, infection, general risk of anesthesia including loss of life, instability and stiffness patient demonstrating understanding wish to proceed was able to sign informed consent. Medical clearance was obtained. Procedure: On the date of the procedure, patient's left upper extremity was marked in the preoperative area. Patient was taken back to the operating room where they were placed on the table in the supine position. Anesthesia assumed control of the C-spine and airway, then administered anesthetic. All bony prominences were identified well-padded, the head was secured and the patient was placed in the beachchair position at about 35? inclination. Anesthesia remained in control of the C-spine airway throughout the remainder of the procedure. Patient was then appropriately fastened to the table and the left upper extremity was prepped in a sterile fashion. The surgeons then scrubbed. Upon reentering the room, the left upper extremity was draped in a sterile fashion and the incision was marked out. Timeout was called, everyone agreed upon the side, the site, the procedure to be performed, patient identity and antibiotics given. Incision was taken down through skin and subcutaneous tissue, fat down to fascia. The stripe of the deltopectoral interval and cephalic vein were identified and blunt dissection was used to retract the deltoid. The cephalic vein was retracted laterally. Clavipectoral fascia was then incised and a cobra retractor was placed in the wound. The proximal one third of the pectoralis major insertion was released. Pectoralis tendon insertion was used to tenodesed the biceps tendon which was identified in the bicipital groove. Tenodesis was done with #1 Vicryl. Proximally we followed the biceps tendon after transecting it into the rotator interval. The rotator interval was split and the arm was externally rotated. The split was 1 cm medial to the bicipital groove. Subscapularis tendon was released. We released down the anterior portion of the humeral head and a yung elevator was used to release the inferior portion of the humeral head. The arm was externally rotated and the shoulder was dislocated. The humeral head was then cut at its natural retroversion. Once his humeral head cut was made humerus was retracted out of the way and the glenoid was exposed. After exposing the glenoid, the labrum and the remaining proximal biceps were debrided. At this time we are able to view the entire outer edge of the glenoid. A central pin was placed we sequentially reamed over this central pin to 40mm. Once this was completed the central screw was measured and found to be. The glenoid baseplate was screwed into place. Wound was closely irrigated out with normal saline we then drilled sequentially for 2 screws. Screws were placed superiorly and inferiorly and tightened down the screws. Once the screws were appropriately tightened into place the glenoid baseplate was compressed against the exposed subchondral bone. A 36 mm eccentric glenosphere was impacted into place engaging the Chapman taper. Attention was then turned towards the humerus. The humerus was again externally rotated exposing the proximal portion of the humerus. Central canal finder was then used to open up the canal. We reamed to a 13mm reamer. We then broached to a 13mm stem. We trialed the 4mm liner, with the 2mm humeral baseplate. We obtained an adequate reduction at this time with a nice stable shoulder. Good internal rotation to the gluteus, forward elevation to 140?, external rotation to 20?. Final components were then assembled on the back table, trials were removed and the wound was copiously irrigated with normal saline after dislocating the shoulder. Once the final components were assembled they were impacted into place. Shoulder was then reduced and found to be stable with good range of motion. Subscapularis tendon repaired using #2 FiberWire. The wound was with chlorhexidine solution then copiously irrigated out with a 1 L normal saline lavage. The deltopectoral fascia was then closed using #1 Vicryl skin was closed using 2-0 Vicryl interrupted sutures and final skin closure was done with 3-0 Monocryl. Steri-Strips are placed for final skin closure. Sterile dressing was placed patient was then placed in a sling and awakened by anesthesia. Patient was then transferred to the PACU for recovery. Postoperative plan: Patient will be admitted to the hospital overnight. They will get physical therapy starting in 2 weeks with normal postoperative regimen. Patient will be placed on Xarelto 10 mg daily for DVT prophylaxis due to previous VTE after 2 weeks of Xarelto patient will be started on aspirin 81 mg twice daily for an additional 2 weeks. The first postoperative appointment will be in 2 weeks for wound check and initiation of phase 1 physical therapy. During the course of the procedure the physician assistant hairstylist played a vital role. His intimate knowledge of my steps in the procedure aided in safe and expedient completion of the procedure. The PA played a vital rolls in positioning particularly in obtaining the appropriate beach chair position and securing the patient's body and head to the table. The PA was also vital in the retraction of soft tissues during the exposure and especially the glenoid work as this is a vital part of the procedure to prevent neurovascular damage. the PA was also vital and protecting soft tissues during times of bony cuts and reaming. He also played a vital role in closure with my direct supervision. The PA was also important during reduction and dislocation of the joint and trials intraoperatively. Complications No intraoperative Admit VTE Documentation VTE Present on Admission: No VTE Mechan Device Prophylaxis: SCD's VTE Pharm Prophylaxis ordered?: Yes
[2021-08-19] MEDS: Lactated Ringers 1,000 ML 999 ML IV ×2 (09:35→13:35)
[2021-08-19] MEDS: Gabapentin 600 MG Tablet PO ×2 (09:36→22:23)
[2021-08-19] MEDS: Acetaminophen 500 MG Tablet 1000 MG PO ×3 (09:36→22:25)
[2021-08-19] MEDS: Celecoxib 200 MG Capsule 400 MG PO (09:36)
[2021-08-19 09:56] LABS: Bedside Glucose 105 mg/dL (74-106)
[2021-08-19] MEDS: Lactated Ringers 1,000 ML 75 ML IV (10:30)
--- NOTE | 2021-08-19 11:15 | BON_PTH ---
PATIENT: CALE PULLIAM LOC: [facility] U#:[id number] AGE/SX: 76/M ROOM: [facility]314 RE08/19/[address]: Dr. Basilio Patel MD : 1945 BED: 1 DIS: 08/20/2021 SPEC #: [id number] RECD: 08/19/21 13:54 STATUS: JLUIS REKlarissa #: [id number] LASHELL: 08/19/21 11:[address]: Basilio Patel DEPT: SURGICAL PATHOLOGY RECD BY: Tonia Hughes ENTERED: 08/20/21 08:16 SP TYPE: Bone OTHR DR: MD Dr. Daisy Batista DO Tissues: Humerus, NOS Procedures: Decalcification bone/plaque Surgery Specimen Level IV HEADER OPERATION: ERAS, total shoulder replacement, reverse PRE-OP DIAGNOSIS: Grade 4 osteoarthritis right shoulder, full thickness rotator cuff tear TISSUE SUBMITTED: Humeral head MICROSCOPIC DIAGNOSIS Right humeral head, total shoulder replacement: Consistent with degenerative joint disease. AM:addy 08/25/2021 MICROSCOPIC DESCRIPTION Slides are reviewed. GROSS DESCRIPTION Received in fixative is one container labeled with the patient's name and designated humeral head. The specimen consists of a humeral head measuring 5 x 5 x 2.5 cm. The articular surface shows focal area of erosion and osteophyte formation. No soft tissue is identified. Producer Arborist Manager sections are submitted in one cassette after decalcification. / SJ:addy 08/20/2021 TC:5 CPT: 34217, 47776
[2021-08-19] MEDS: Cefazolin 2 GM in 0.9% Normal Saline 100 ML IV (11:34)
[2021-08-19] MEDS: TXA in NS 100ml (Placed in Wound) OPERA.SITE (12:41)
--- NOTE | 2021-08-19 13:35 | RAD_ITS ---
STUDY: X-RAY - RIGHT SHOULDER REASON FOR EXAM: Male, 76 years old. post op -- AP and Lateral X-Ray of operative shoulder in PACU TECHNIQUE: 2 view(s) of the shoulder. COMPARISON: 11/28/2019 FINDINGS: Interval recent reverse arthroplasty with subcutaneous emphysema. Normal acromioclavicular joint. Normal acromion. Normal humeral head and visualized proximal humerus. The soft tissue structures are unremarkable. Normal visualized pulmonary apex. RAD/Shoulder min 2 Views IMPRESSION: Interval recent reverse arthroplasty. Electronically Signed: Ayden Torres MD at 14:07 EDT ,
--- NOTE | 2021-08-19 15:27 | PCM.PN.HOSP ---
Documented by User: Emily Beatty NP, [employer]MENT [employer]ANER[employer] 08/19/21 15:40 Subjective Subjective Patient seen and examined. Patient underwent left total shoulder replacement secondary to left shoulder osteoarthritis with rotator cuff insufficiency. Resting comfortably in bed. Reports pain 0 out of 10. Hospitalist services consulted for medical management. Objective Data Objective Data Vital Signs: Vital Signs Temp Pulse Resp BP Pulse Ox 97.5 F L 61 18 106/70 97 08/19/21 14:44 08/19/21 14:44 08/19/21 14:44 08/19/21 14:44 08/19/21 14:44 Oxygen Flow Rate (L/min) 4 Oxygen Delivery Method Nasal Cannula Weight: 185 lb 0.014 oz Body Mass Index (BMI) 30.7 Intake & Output: Intake and Output for Last 24 Hours 08/17/21 08/18/21 08/19/21 23:59 23:59 23:59 Intake Total 2487 / 2487 Balance 2487 / 2487 Lab / Micro Data Labs: Laboratory Results - last 24 hr 08/19/21 09:32: POC Glucose 105 Micro: Microbiology 08/07/21 06:50 Interface Orders Nasal Screen MRSA/MSSA - Final Radiography Diagnostic Testing: Radiology Impression Shoulder X-Ray 08/19/21 13:35 IMPRESSION: Interval recent reverse arthroplasty. Electronically Signed: Ayden Torres MD at 14:07 EDT , Physical Exam Const alert, oriented x3 and no apparent distress Orientation / Consciousness: awake, oriented to person, oriented to place and oriented to time HEENT normocephalic and moist oral mucous membranes Eyes PERRL, EOMs intact bilaterally and conjunctivae normal Neck no lymphadenopathy Resp normal respiratory effort and clear to auscultation bilaterally Cardio regular rate and regular rhythm Peripheral Pulses: pulses 2+ throughout GI normal to inspection, nondistended, normoactive bowel sounds, non-tender and non-distended Extremity normal to inspection Extremity Narrative: Right arm postoperative sling/brace. Skin no rashes or lesions noted Lesions: no lesions Rashes: no rashes Trauma: no lacerations or abrasions Neuro CN's II-XII intact bilaterally, no focal motor deficits, no sensory deficits noted and deep tendon reflexes 2+ bilaterally Psych mental status grossly normal and affect normal Assessment & Plan Assessment/Plan (1) Essential (primary) hypertension: PLAN: 1. Left shoulder osteoarthritis with rotator cuff insufficiency status post left reverse total shoulder replacement-management per surgery. PT/OT. As needed pain regimen. 2. CAD with history of CABG-continue aspirin, metoprolol. 3. Hypertension-stable, continue metoprolol. 4. Hyperlipidemia- not on statin. Patient states he uses fish oil however has been off of it for few weeks. 5. History of mitral valve prolapse- follows with cardiology. 6. History of postoperative atrial fibrillation 7. JULIA-continue home CPAP regimen. 8. BPH-continue Flomax. 9. Restless leg syndrome-uses gabapentin. 10. Chronic back pain-stimulator pump in place. As needed methocarbamol. As needed pain regimen. DVT prophylaxis-Xarelto This patient was seen by PATRICE EagleC under the supervision of Dr. Aguiar. Documented by User: Dr. Daisy Aguiar DO 08/19/21 17:34 Subjective Subjective This patient was seen in conjunction with Emily Beatty NP. The following represents my independent history and physical examination. Please see below for addendum the above. Mr. Stoll is a 76-year-old white male who unfortunately sustained a shoulder injury approximately 2 years ago at which time he messed up his rotator cuff. He has had considerable trouble with his shoulder since that point in time and unfortunately failed noninvasive interventions. He presented to the hospital today on 08/19/2021 for a left reverse total shoulder replacement. I evaluated him in the immediate postoperative setting and while he was sleepy he was not complaining of any's and significant pain and was asking when he could eat some dinner. Physical Exam Const alert, oriented x3, no apparent distress, healthy appearing and well nourished Constitutional Narrative: Obese older white male lying in bed, somewhat sleepy but awakens appropriately to voice, at bedside, appears comfortable nontoxic Exam Limitations: no limitations Nutritional Appearance: obese HEENT head/scalp atraumatic, moist oral mucous membranes and oropharynx normal HEENT Narrative: Dentures in place, Mallampati 3, no thrush Head and Scalp: normocephalic Resp normal respiratory effort, no retractions, no use of accessory muscles and clear to auscultation bilaterally Auscultation: crackles, rales, rhonchi and wheezes Cardio regular rate, regular rhythm, S1 normal heart sound, S2 normal heart sound, no murmurs, no rub, no gallops, no clicks and no JVD GI normal to inspection, nondistended, normoactive bowel sounds, soft to palpation, non-tender and non-distended; Negative for hepatosplenomegaly Extremity no clubbing, cyanosis or edema Extremity Narrative: Right upper extremity in postoperative sling, polar ice in place Peripheral Pulses: Yes pulses 2+ throughout Neuro oriented x3 and CN's II-XII intact bilaterally Neuro Narrative: Moves bilateral lower extremities and left upper extremity without any difficulty Sensorium / Orientation: awake and alert Speech: speech normal Psych affect normal Assessment & Plan Assessment/Plan (1) Osteoarthritis of right shoulder: PLAN: Assessment: Left shoulder osteoarthritis with rotator cuff insufficiency CAD with history of CABG Hypertension Hyperlipidemia History of mitral valve prolapse History of postoperative atrial fibrillation JULIA BPH Restless leg syndrome Chronic back pain with recent stimulator placement Plan: -Patient is doing well in the immediate postoperative period -Surgical plan is to admit patient overnight and get physical therapy starting in 2 weeks -Xarelto 10 mg daily for DVT prophylaxis due to previous DVT x2 weeks then aspirin twice daily for an additional 2 weeks -Home medications as ordered Charges/Coding Visit Charges Inpatient E&M: 79757 Subs Hosp L2
[2021-08-19] MEDS: Metoprolol Tartrate 25 MG Tablet 12.5 MG PO (22:23)
[2021-08-19] MEDS: Cholecalciferol (VIT D3) 25 MCG TABLET (1,000 UNITS) 50 MCG PO (22:24)
[2021-08-19] MEDS: DULoxetine Hcl 60 MG Capsule PO (22:24)
[2021-08-19] MEDS: Tamsulosin HCl 0.4 MG Capsule PO (22:24)
[2021-08-19] MEDS: Senna/Docusate Sodium 1 Tablet 2 TABLET PO (22:24)
[2021-08-20 02:40] VITALS: BP 98/55; PULSE 66; RESP 16; TEMP 36.9; O2SAT 96
[2021-08-20] MEDS: Acetaminophen 500 MG Tablet 1000 MG PO (05:47)
[2021-08-20] MEDS: Rivaroxaban 10 MG Tablet PO (05:48)
[2021-08-20 06:00] LABS: Hematocrit 37.6 % (40-54); Hemoglobin 12.5 g/dL (13.0-16.5); Mean Corp Hgb Conc 33.2 g/dL (32-36); Mean Corpuscular Hgb 31.2 pg (27.0-32.0); Mean Corpuscular Volume 93.8 fL (80-94); Mean Platelet Vol. 9.7 fl (6.2-12.0); Platelet Count 220 K/mm3 (150-450); RBC Distribution Width CV 12.4 % (11.6-14.6); RBC Distribution Width SD 43.1 fl (35.1-43.9); Red Blood Count 4.01 M/mm3 (4.6-6.2); White Blood Count 8.7 K/mm3 (4.4-11.0)
[2021-08-20 06:26] LABS: Anion Gap 6 (5-15); BUN 18 mg/dL (7-18); BUN/Creat Ratio 16.1 RATIO (10-20); Calcium,Total 8.2 mg/dL (8.5-10.1); Chloride 104 mmol/L (98-107); Creatinine, Serum 1.12 mg/dL (0.70-1.30); EST Glomerular Filtration Rate 68 mL/min (>60); Est Glom Filt Rate - Afr Amer 82 mL/min (>60); Estimated Creatinine Clearance 50.33 ml/min; Glucose 110 mg/dL (74-106); Potassium 4.5 mmol/L (3.5-5.1); Sodium Level 137 mmol/L (136-145)
[2021-08-20 06:44] VITALS: BP 106/62; PULSE 60; RESP 16; TEMP 36.9; O2SAT 97
[2021-08-20 07:59] VITALS: BP 120/68; PULSE 68; RESP 18; TEMP 36.9; O2SAT 95
[2021-08-20] MEDS: Aspirin 81 MG TAB.CHEW PO (08:05)
[2021-08-20] MEDS: Multivitamins,Therapeutic Tablet 1 TABLET PO (08:05)
[2021-08-20 08:06] VITALS: BP 120/68; PULSE 68
[2021-08-20] MEDS: Meloxicam 7.5 MG Tablet PO (08:06)
[2021-08-20] MEDS: Metoprolol Tartrate 25 MG Tablet 12.5 MG PO (08:06)
[2021-08-20] MEDS: Famotidine 20 MG Tablet PO (08:07)
[2021-08-20] MEDS: Cholecalciferol (VIT D3) 25 MCG TABLET (1,000 UNITS) 50 MCG PO (08:08)
[2021-08-20] MEDS: Senna/Docusate Sodium 1 Tablet 2 TABLET PO (08:08)
[2021-08-20] MEDS: Calcium (Elemental) 500 MG Tablet PO (08:09)
[2021-08-20] MEDS: Ascorbic Acid 500 MG Tablet 1000 MG PO (08:10)
[2021-08-20] MEDS: Modafinil 200 MG Tablet PO (08:43)
--- NOTE | 2021-08-20 10:03 | PN.ORTHO_ITS ---
Subjective Subjective The patient was sitting in bedside chair eating breakfast upon examination. Patient denies any chest pain, shortness of breath, dizziness, lightheadedness, nausea or vomiting, or calf pain. Pain is controlled on medications. No adverse overnight events. Patient does have history of urinary retention postoperatively. He was already able to urinate on his own on 3 occasions. I did ask him if he has a urologist in which she states no. He states he follows his primary care physician and currently takes Flomax. Patient denies any numbness and tingling. He states overall he is doing very well. He also rep orts that he has an adjustable bed at home that he can elevate his back. Objective Data Objective Data Vital Signs: Vital Signs Temp Pulse Resp BP Pulse Ox 98.4 F 68 18 120/68 95 08/20/21 07:59 08/20/21 08:06 08/20/21 07:59 08/20/21 08:06 08/20/21 07:59 Oxygen Flow Rate (L/min) 4 Oxygen Delivery Method Room Air Weight: 83.915 kg Body Mass Index (BMI) 30.7 Intake & Output: Intake and Output for Last 24 Hours 08/18/21 08/19/21 08/20/21 23:59 23:59 23:59 Intake Total 3942 / 3942 355 / 355 Output Total 200 / 200 750 / 750 Balance 3742 / 3742 -395 / -395 Lab / Micro Data Result Diagrams: 08/20/21 05:15 08/20/21 05:15 Labs: Laboratory Results - last 24 hr 08/20/21 05:15: WBC 8.7, RBC 4.01 L, Hgb 12.5 L, Hct 37.6 L, MCV 93.8, MCH 31.2, MCHC 33.2, RDW Std Deviation 43.1, RDW Coeff of Heather 12.4, Plt Count 220, MPV 9.7 08/20/21 05:15: Sodium 137, Potassium 4.5, Chloride 104, Carbon Dioxide 27.0, Anion Gap 6, BUN 18, Creatinine 1.12, Estim Creat Clear Calc 50.33, Est GFR (MDRD) Af Amer 82, Est GFR (MDRD) Non-Af 68, BUN/Creatinine Ratio 16.1, Glucose 110 H, Calcium 8.2 L Micro: Microbiology 08/07/21 06:50 Interface Orders Nasal Screen MRSA/MSSA - Final Radiography Diagnostic Testing: Radiology Impression Shoulder X-Ray 08/19/21 13:35 IMPRESSION: Interval recent reverse arthroplasty. Electronically Signed: Ayden Torres MD at 14:07 EDT , Physical Exam Narrative Vital signs stable, afebrile SCDs are in place bilaterally Dressing is clean, dry, intact Ultra-sling fitting appropriately Sensation intact to axillary, radial, median, and ulnar distribution. Patient denies any numbness and tingling Motor intact to AIN, PIN, and ulnar nerve Const alert, oriented x3 and no apparent distress Assessment & Plan Assessment/Plan (1) Status post reverse total arthroplasty of right shoulder: PLAN: 1. S/P right reverse total shoulder arthroplasty POD #1 2. Continue Pain Medications: Tylenol and oxycodone as needed. Patient states his pain is very well controlled at this time. 3. DVT Prophylaxis: Xarelto for 2 weeks postoperatively due to history of previous DVT. 4. PT/OT: Continue with UltraSling at all times except to come out for range of motion exercises of the elbow and pendulum exercise 3 times daily. No range of motion of the postoperative shoulder until outpatient physical therapy begins. Outpatient physical therapy will begin 2 weeks postoperatively after follow-up with [facility] with x-rays and incision check. 5. H & H: 12.5/37.6, asymptomatic. Postoperative anemia secondary to acute blood loss from surgery without any intra operative complications. 6. Encouraged Incentive Spirometry 7. Continue postoperative medical management per medicine: Patient does have history of previous DVT as well as atrial fibrillation but he is not on any anticoagulation. Also has history of urinary retention postoperatively but he was able to urinate on 3 occasions postoperatively. He does not follow any urologist. Follows his primary care physician. We will have him continue with his Flomax and if any complications reach out to his primary care physician. 8. Disposition: Patient overall is doing very well and is orthopedically stable. I am okay with discharge home today as long as he is cleared by medicine. Patient will not participate in any formal physical therapy until after his 2-week follow-up with [facility] with x-ray and incision check. He was instructed on elbow range of motion and pendulum exercises. He will continue with the UltraSling at all times. Discussed no driving for 6 weeks postoperatively while using the UltraSling. He voiced understanding and agreement. He would like his prescriptions E scribed to [facility] pharmacy. He will follow-up per postop instructions. Contact our office with any concerns or questions upon discharge. I have reviewed the [place] Automated Rx Reporting System (OARRS) report for this patient for refill pattern and other prescriber involvement as part of the appropriate surveillance for the provision of acute and chronic controlled medications. The report was requested and reviewed on the date of this entry and was considered in the prescribing process. This dictation was created using voice recognition software. Phonetic and/or grammatical errors may exist.
--- NOTE | 2021-08-20 10:10 | PCM.DC ---
Discharge Instructions Diet Discharge Diet: No restrictions Activity Discharge Activity: May Not Drive (No driving for 6 weeks postoperatively and while taking narcotic pain medications.) May shower in (days): 1 (Dressing must be intact to skin. Turn dressing away from water.) Ice area for (Minutes): 20 (Every 1-2 hours while awake[address] place barrier between skin and ice pack.) Weight Bearing Status: No weight bearing (Postoperative upper extremity) Additional Activity Instructions:: Continue with UltraSling at all times. Please come out of UltraSling 3 times daily working on elbow range of motion and pendulum exercises. No range of motion of postoperative shoulder. Will begin outpatient physical therapy after 2-week scheduled follow-up. Dressing / Incision Call your doctor if your incision/area has: Continuous Slow Oozing, Sudden Increased Bleeding, Increased Pain/ Swelling, Increased Redness and Foul Smelling Discharge Call your doctor if you observe: Fever of 101 or Higher, Shortness of breath, Chest pain and Uncontrolled pain Remove Dressing in: 4 days (Okay to remove dressing on August 24, 2021) Additional Dressing/Incision Instructions:: Follow [facility] Post-op Instructions. Once postoperative dressing has been removed only use gentle soap and water over the incision. Do not use any ointments, Neosporin, salves, alcohol pads over the incision for 6 weeks postoperatively. Do not submerge underwater for 6 weeks postoperatively. Do NOT use alcohol with narcotic pain medication. Do NOT make important decisions while taking narcotic medication. If you have problems with taking your medication (rash, itching, nausea, etc.) call the office at once. Follow Up Care Test Results: Test results from this visit will be discussed in further detail at your follow-up appointment, if applicable. Discharge Plan Admission Admit Date/Time: 08/19/21 12:16 Attending Provider: Basilio Patel Primary Care Provider: Saul Maxwell Consulting Providers: Daisy Aguiar Discharge Orders/Prescriptions Prescriptions: New oxycodone 5 mg Tablet 5 - 10 mg PO Q4H PRN PRN (Reason: Pain Score 4-10) 5 Days Qty: 42 RF: 0 Xarelto 10 mg Tablet 10 mg PO DAILY@0600 Qty: 13 RF: 0 Continued modafinil 200 mg tablet 200 mg PO BID RF: 0 Probiotic 3 billion cell capsule 3,000 mmu cells PO DAILY RF: 0 ascorbic acid (vitamin C) 1,000 mg tablet 1,000 mg PO DAILY RF: 0 vitamin B complex [B Complex-Vitamin B12] Tablet 1 tab PO DAILY RF: 0 tamsulosin [Flomax] 0.4 mg capsule 0.4 mg PO QHS Qty: 30 RF: 1 aspirin 81 MG tablet,chewable 81 mg PO DAILY@0800 RF: 0 multivitamin 1 TABLET tablet 1 tablet PO DAILY RF: 0 cholecalciferol (vitamin D3) 50 MCG capsule 2,000 unit PO BID RF: 0 gabapentin 600 mg tablet 600 mg PO QHS RF: 0 flaxseed 1,000 mg Capsule 3,000 mg PO DAILY RF: 0 calcium 600 mg Capsule 600 mg PO DAILY RF: 0 methocarbamol 500 mg Tablet 250 mg PO TID PRN (Reason: Spasms) RF: 0 milk thistle 200 mg Capsule 200 mg PO DAILY RF: 0 acetaminophen 650 mg Tablet Extended Release 1,300 mg PO Q8H PRN (Reason: Pain) RF: 0 zinc 50 mg Capsule 50 mg PO DAILY RF: 0 duloxetine [Cymbalta] 60 mg Capsule,Delayed Release(Dr/Ec) 60 mg PO QHS RF: 0 PreserVision AREDS-2 250-90-40-1 mg Capsule 1 tab PO DAILY RF: 0 garlic 1,000 mg Capsule 1,000 mg PO DAILY RF: 0 docusate sodium [Colace] 100 mg Capsule 100 mg PO DAILY RF: 0 furosemide [Lasix] 20 mg tablet 20 mg PO DAILY PRN (Reason: edema) RF: 0 metoprolol tartrate 25 mg tablet 12.5 mg PO BID RF: 0 Discontinued hydrocodone-acetaminophen 5-325 mg Tablet 1 tab PO Q8H PRN (Reason: Pain) RF: 0 Other Ambulatory Orders: 12 Lead EKG (Routine) Location: None Selected Ordered By: Dr. Basilio Patel Referrals / Follow Up: Physical,therapy [Other] - 09/02/21 3:30 pm Saul Maxwell MD [Primary Care Provider] - Kassie Colbert PA [PHYSICIAN EVENTS SOLUTIONS CONSULTANT] - 09/02/21 2:30 pm Disposition Disposition (needs filled in before D/C Order can be placed): Home, Self Care
--- NOTE | 2021-08-20 10:20 | CASEMGMT ---
MILLY MORENO Face to Face with patient for initial transition planning/care coordination assessment. RN CM introduced self and role at [facility]. Patient sitting in chair, alert and oriented, at bedside. Patient willing to participate in assessment and is able to answer all questions appropriately. Care providers, pharmacy, and demographics verified. Patient wishes to discharge home with outpatient therapy starting in 2 weeks. Patient states he has no further needs or concerns at this time. CM to follow for discharge planning needs that may arise. PCP: Alissa Specialists: Jorge, ortho; Hortencia, commercial manager; Michael, last waxer; Jamil, pain; Robi, dermatology Preferred Pharmacy: [facility], [facility] retail at discharge. [facility]: yes Living Will/HPOA: yes, Anya Stoll LNOK: Living Arrangements: Patient lives with in a 2 story home with bed and bath on first floor. Patient states he was independent prior to surgery Transportation: DME/HHC: Patient has cane, walker, and cpap at home. No previous HHC or SNF. Patient is scheduled for outpatient therapy to start in 2 weeks after follow-up with ortho Disposition Plan: Patient to discharge home with family support and follow-up plans in place. Lianna MARTIN, RN, CM
--- NOTE | 2021-08-20 10:20 | CASEMGMT ---
MILLY CM in to complete MEI form with patient. RN JOSH explained MEI form to patient, patient voiced understanding. Patient signed MEI form and placed in chart. Patient provided with copy of signed MEI form. Patient had no further questions or concerns at this time.
--- NOTE | 2021-08-20 11:20 | PCM.PN.HOSP ---
Subjective Subjective States he is feeling great. Starting have a little bit of pain in the right shoulder however is very tolerable and he rates it about a 1. No issues overnight. Patient is anxious to go home. Objective Data Objective Data Vital Signs: Vital Signs Temp Pulse Resp BP Pulse Ox 98.4 F 68 18 120/68 95 08/20/21 07:59 08/20/21 08:06 08/20/21 07:59 08/20/21 08:06 08/20/21 07:59 Oxygen Flow Rate (L/min) 4 Oxygen Delivery Method Room Air Weight: 83.915 kg Body Mass Index (BMI) 30.7 Intake & Output: Intake and Output for Last 24 Hours 08/18/21 08/19/21 08/20/21 23:59 23:59 23:59 Intake Total 3942 / 3942 355 / 355 Output Total 200 / 200 750 / 750 Balance 3742 / 3742 -395 / -395 Lab / Micro Data Result Diagrams: 08/20/21 05:15 08/20/21 05:15 Labs: Laboratory Results - last 24 hr 08/20/21 05:15: WBC 8.7, RBC 4.01 L, Hgb 12.5 L, Hct 37.6 L, MCV 93.8, MCH 31.2, MCHC 33.2, RDW Std Deviation 43.1, RDW Coeff of Heather 12.4, Plt Count 220, MPV 9.7 08/20/21 05:15: Sodium 137, Potassium 4.5, Chloride 104, Carbon Dioxide 27.0, Anion Gap 6, BUN 18, Creatinine 1.12, Estim Creat Clear Calc 50.33, Est GFR (MDRD) Af Amer 82, Est GFR (MDRD) Non-Af 68, BUN/Creatinine Ratio 16.1, Glucose 110 H, Calcium 8.2 L Micro: Microbiology 08/07/21 06:50 Interface Orders Nasal Screen MRSA/MSSA - Final Radiography Diagnostic Testing: Radiology Impression Shoulder X-Ray 08/19/21 13:35 IMPRESSION: Interval recent reverse arthroplasty. Electronically Signed: Ayden Torres MD at 14:07 EDT , Physical Exam Const alert, oriented x3, no apparent distress, healthy appearing and well nourished Constitutional Narrative: , WatchingObese older white male sitting up in chair at bedside, appears comfortable nontoxic, very pleasant Orientation / Consciousness: awake, oriented to person, oriented to place and oriented to time Exam Limitations: no limitations Nutritional Appearance: obese HEENT normocephalic and head/scalp atraumatic Head and Scalp: normocephalic Resp normal respiratory effort, no retractions, no use of accessory muscles and clear to auscultation bilaterally Auscultation: crackles, rales, rhonchi and wheezes Cardio regular rate, regular rhythm, S1 normal heart sound, S2 normal heart sound, no murmurs, no rub, no gallops, no clicks and no JVD Peripheral Pulses: pulses 2+ throughout GI normal to inspection, nondistended, normoactive bowel sounds, soft to palpation, non-tender and non-distended; Negative for hepatosplenomegaly Extremity no clubbing, cyanosis or edema Extremity Narrative: Right upper extremity in postoperative sling, polar ice in place Peripheral Pulses: Yes pulses 2+ throughout Skin Lesions: no lesions Rashes: no rashes Trauma: no lacerations or abrasions Neuro oriented x3, no focal motor deficits and deep tendon reflexes 2+ bilaterally Neuro Narrative: Moves bilateral lower extremities and left upper extremity without any difficulty Sensorium / Orientation: awake and alert Psych mental status grossly normal Assessment & Plan Assessment/Plan (1) Osteoarthritis of right shoulder: PLAN: Assessment: Left shoulder osteoarthritis with rotator cuff insufficiency CAD with history of CABG Hypertension Hyperlipidemia History of mitral valve prolapse History of postoperative atrial fibrillation JULIA BPH Restless leg syndrome Chronic back pain with recent stimulator placement Plan: -Patient continues to do well -Patient to start outpatient therapy in 2 weeks -Xarelto 10 mg daily for DVT prophylaxis due to previous DVT x2 weeks then aspirin twice daily for an additional 2 weeks -Home medications as ordered -And labs reviewed no marked abnormalities -Okay for discharge per medical service Charges/Coding Visit Charges Inpatient E&M: 90003 Subs Hosp L2
[2021-08-20 11:35] VITALS: BP 110/65; PULSE 68; RESP 18; TEMP 36.5; O2SAT 98
== END 2021-08-20 14:36 | disposition home or self-care (01) ==
LOC: SDC 12:16 → MS3 12:16
PROVIDERS: Admitting Provider Specialist; PCP Family Medicine; Referring Provider Specialist; Visit Provider Specialist
PROC: (CPT 23472; principal; 2021-08-19 10:45)
DX: M19.012 Primary osteoarthritis, left shoulder (principal); Z86.718 Personal history of other venous thrombosis and embolism; I10 Essential (primary) hypertension; R33.9 Retention of urine, unspecified; G25.81 Restless legs syndrome; E78.5 Hyperlipidemia, unspecified; G89.29 Other chronic pain; I25.10 Atherosclerotic heart disease of native coronary artery without angina pectoris; G47.33 Obstructive sleep apnea (adult) (pediatric); N40.0 Benign prostatic hyperplasia without lower urinary tract symptoms; Z79.82 Long term (current) use of aspirin; Z79.899 Other long term (current) drug therapy; Z86.16 Personal history of COVID-19; Z95.1 Presence of aortocoronary bypass graft; Z86.79 Personal history of other diseases of the circulatory system; G25.0 Essential tremor; Z86.14 Personal history of Methicillin resistant Staphylococcus aureus infection; E66.9 Obesity, unspecified; Z68.30 Body mass index [BMI] 30.0-30.9, adult; M75.102 Unspecified rotator cuff tear or rupture of left shoulder, not specified as traumatic
CPT/HCPCS: 23472; 01638; 64415; 73030; 80048; 82962; 85027; 87077; 87081; 88305; 88311; 93005; 94762; 96365; 96366; 97166; 99218; 99251; C1776; J7050; J7120; G0378; G0463; J3475

== ENCOUNTER → 2021-10-19 | Outpatient (CLI) | payer MEDICARE, BC, SELFPAY ==
[2021-10-19 09:59] LABS: Absolute Lymphocyte Count 1.41 X10^3/uL (0.83-4.51); Absolute Neutrophil Count 1.7 X10^3/uL (2.0-7.7); Basophil# 0.02 X10^3/uL; Basophil% 0.6 % (0-1); Eosinophils% 2.9 % (0-5); Hematocrit 44.3 % (40-54); Hemoglobin 14.8 g/dL (13.0-16.5); Lymphocyte # 1.41 X10^3/ul (0.83-4.51); Lymphocyte % 40.3 % (19-41); Mean Corp Hgb Conc 33.4 g/dL (32-36); Mean Corpuscular Volume 95.7 fL (80-94); Mean Platelet Vol. 9.4 fl (6.2-12.0); Monocyte# 0.32 X10^3/uL; Monocyte% 9.1 % (0-10); NRBC Flagged by Analyzer 0 % (0-5); Neutrophil # 1.65 X10^3/uL (2.7-7.7); Neutrophil % 47.1 % (47-70); Platelet Count 208 K/mm3 (150-450); RBC Distribution Width CV 12.9 % (11.6-14.6); RBC Distribution Width SD 45.5 fl (35.1-43.9); Red Blood Count 4.63 M/mm3 (4.6-6.2); White Blood Count 3.5 K/mm3 (4.4-11.0)
[2021-10-19 10:16] LABS: Vitamin D,25 Hydroxy 58.9 ng/mL
[2021-10-19 10:18] LABS: Hemoglobin A1c 5.4 % (3.8-5.6)
[2021-10-19 10:24] LABS: AST(SGOT) 30 U/L (15-37); Alanine Aminotransfer ALT/SGPT 34 U/L (16-61); Albumin, Serum 3.5 g/dL (3.2-5.0); Alkaline Phosphatase 75 U/L (45-117); Anion Gap 5 (5-15); BUN 21 mg/dL (7-18); Calcium,Total 9.4 mg/dL (8.5-10.1); Chloride 102 mmol/L (98-107); Cholesterol 219 mg/dL (200); Creatinine, Serum 1.05 mg/dL (0.70-1.30); EST Glomerular Filtration Rate 73 mL/min (>60); Est Glom Filt Rate - Afr Amer 89 mL/min (>60); Globulin 3.5 g/dL (2.2-4.2); Glucose 103 mg/dL (74-106); High Density Lipoprotein 45 mg/dL; Magnesium 2.3 mg/dL (1.6-2.6); Potassium 4.3 mmol/L (3.5-5.1); Sodium Level 137 mmol/L (136-145); Thyroid Stim Hormone (TSH) 1.15 uIU/mL (0.358-3.74); Triglycerides 238 mg/dL; Very Low Density Lipoprotein 48 mg/dL (5-40)
== END | disposition home or self-care (01) ==
LOC: MFPLAB 08:55
PROVIDERS: PCP Family Medicine; Referring Provider Family Medicine; Visit Provider Family Medicine
DX: I48.0 Paroxysmal atrial fibrillation (principal); E55.9 Vitamin D deficiency, unspecified; I25.10 Atherosclerotic heart disease of native coronary artery without angina pectoris; R73.02 Impaired glucose tolerance (oral)
CPT/HCPCS: 36415; 80053; 80061; 82306; 83036; 83735; 84443; 85025

== ENCOUNTER → 2022-01-06 | Outpatient (CLI) | payer MEDICARE, BC, SELFPAY ==
[2022-01-06 13:14] LABS: Absolute Lymphocyte Count 1.73 X10^3/uL (0.83-4.51); Absolute Neutrophil Count 5.1 X10^3/uL (2.0-7.7); Basophil# 0.05 X10^3/uL; Basophil% 0.7 % (0-1); Eosinophils% 1.3 % (0-5); Hematocrit 45.5 % (40-54); Hemoglobin 14.7 g/dL (13.0-16.5); Lymphocyte # 1.73 X10^3/ul (0.83-4.51); Mean Corp Hgb Conc 32.3 g/dL (32-36); Mean Corpuscular Hgb 31.6 pg (27.0-32.0); Mean Corpuscular Volume 97.8 fL (80-94); Mean Platelet Vol. 9.2 fl (6.2-12.0); Monocyte# 0.46 X10^3/uL; Monocyte% 6.1 % (0-10); NRBC Flagged by Analyzer 0 % (0-5); Neutrophil % 67.7 % (47-70); Platelet Count 296 K/mm3 (150-450); RBC Distribution Width CV 12.8 % (11.6-14.6); RBC Distribution Width SD 45.3 fl (35.1-43.9); Red Blood Count 4.65 M/mm3 (4.6-6.2); White Blood Count 7.5 K/mm3 (4.4-11.0)
[2022-01-06 13:47] LABS: Anion Gap 6 (5-15); BUN 14 mg/dL (7-18); BUN/Creat Ratio 14.4 RATIO (10-20); Calcium,Total 9.3 mg/dL (8.5-10.1); Chloride 104 mmol/L (98-107); Creatinine, Serum 0.97 mg/dL (0.70-1.30); EST Glomerular Filtration Rate 80 mL/min (>60); Est Glom Filt Rate - Afr Amer 97 mL/min (>60); Glucose 118 mg/dL (74-106); Potassium 4.2 mmol/L (3.5-5.1); Sodium Level 139 mmol/L (136-145); Thyroid Stim Hormone (TSH) 1.14 uIU/mL (0.358-3.74)
== END | disposition home or self-care (01) ==
LOC: LAB 11:05
PROVIDERS: PCP Family Medicine; Visit Provider Physician Assistant Medical
DX: R53.83 Other fatigue (principal); I25.10 Atherosclerotic heart disease of native coronary artery without angina pectoris; E78.00 Pure hypercholesterolemia, unspecified
CPT/HCPCS: 36415; 80048; 84443; 85025

== ENCOUNTER → 2022-01-21 | Outpatient (CLI) | payer MEDICARE, BC, SELFPAY ==
--- NOTE | 2022-01-21 12:42 | STRESSREP ---
Stress Test Report Exercise myocardial perfusion stress test. 76-year-old man with a history of coronary artery disease status post coronary bypass surgery. Stress protocol: Resting EKG demonstrates normal sinus rhythm with a rate of 63 bpm normal intervals are noted resting blood pressure is 124/84 mmHg. T wave inversions noted in lead I and aVL. Occasional premature ventricular complexes noted. The patient exercised according to regular Giuseppe protocol for total duration of 6 minutes and 7 seconds. The maximum heart rate attained was 148 bpm which was 101% of max impacted heart rate patient completed 7 seconds into stage III of the Giuseppe protocol. Maximum workload was 7.3 metabolic equivalents. At rest there were no ST changes noted suggest ischemia T wave inversions were noted in lead I and aVL at peak exercise upsloping ST changes were noted with did not meet the criteria for ischemia. No clinical angina was noted the peak blood pressure was 172/88 mmHg. Patient complained of mild jaw discomfort at end of test. Test was terminated due to target heart rate being achieved. Myocardial perfusion protocol. 11.2 mCi of technetium 99m sestamibi was injected at rest. The patient exercised according to regular Giuseppe protocol for 6 minutes and at peak exercise 32.3 mCi of technetium 99m sestamibi was injected stress images were obtained stress and rest images were reconstructed and compared in the short axis vertical long and horizontal long axis. Gated images were also obtained. Perfusion SPECT analysis: Review of the stress images demonstrate normal uptake of tracer noted in all areas of the myocardium. The resting images similar demonstrate normal uptake of tracer noted in all areas of the myocardium. No areas of reversibility are noted suggest ischemia no previous infarct is noted. Gated SPECT analysis: The gated ejection fraction is 63%. Conclusion: Normal exercise myocardial perfusion stress test at a moderate workload. Preserved ejection fraction.
== END | disposition home or self-care (01) ==
LOC: CVS 07:34
PROVIDERS: PCP Family Medicine; Referring Provider Physician Assistant Medical; Visit Provider Physician Assistant Medical
DX: R53.83 Other fatigue (principal); I25.10 Atherosclerotic heart disease of native coronary artery without angina pectoris
CPT/HCPCS: 78452; 93017; A9500; A4216

== ENCOUNTER → 2022-03-25 | Outpatient (CLI) | payer MEDICARE, BC, SELFPAY ==
--- NOTE | 2022-03-25 11:11 | RAD_ITS ---
STUDY: X-RAY CHEST REASON FOR EXAM: Male, 77 years old. Hemoptysis. Shortness of breath. TECHNIQUE: PA and lateral views of the chest. COMPARISON: Chest, March 03, 2021. CT of the chest, August 01, 2021. FINDINGS: The lungs are clear and expanded. There is no demonstrated pleural abnormality. Sternal cerclage wires are present from a prior sternotomy. The heart is normal in size. Normal mediastinum and chaitanya. Normal visualized pulmonary arteries. There is atherosclerotic calcification of the aortic arch with tortuosity. There are diffuse degenerative changes of the visualized thoracic spine. There is an dorsal column stimulator with its electrodes posterior to the ninth through 11th vertebra. Normal visualized ribs, clavicles, and shoulders. There is no demonstrated abnormality of the visualized soft tissue structures of the upper abdomen. RAD/Chest PA and Lateral IMPRESSION: No acute cardiopulmonary disease. Dorsal column stimulator. Electronically Signed: Azeem Richards DO at 16:48 EST ,
[2022-03-25 12:36] LABS: Vitamin B12 654 pg/mL (211-911); Vitamin D,25 Hydroxy 60.5 ng/mL
[2022-03-25 12:37] LABS: ALB/GLOB Ratio 1.2 RATIO (0.9-2.4); AST(SGOT) 33 U/L (15-37); Alanine Aminotransfer ALT/SGPT 32 U/L (16-61); Albumin, Serum 3.5 g/dL (3.2-5.0); Alkaline Phosphatase 69 U/L (45-117); Anion Gap 4 (5-15); BUN 14 mg/dL (7-18); BUN/Creat Ratio 13.9 RATIO (10-20); Calcium,Total 8.7 mg/dL (8.5-10.1); Chloride 106 mmol/L (98-107); Cholesterol 189 mg/dL (200); Creatinine, Serum 1.01 mg/dL (0.70-1.30); EST Glomerular Filtration Rate 77 mL/min (>60); Est Glom Filt Rate - Afr Amer 93 mL/min (>60); Glucose 111 mg/dL (74-106); Hemoglobin A1c 5.4 % (3.8-5.6); High Density Lipoprotein 46 mg/dL; Potassium 4.3 mmol/L (3.5-5.1); Protein, Total 6.5 g/dL (6.4-8.2); Sodium Level 139 mmol/L (136-145); T4 Free Direct 0.77 ng/dL (0.76-1.46); Triglycerides 234 mg/dL; Very Low Density Lipoprotein 47 mg/dL (5-40)
== END | disposition home or self-care (01) ==
LOC: MTLAB 11:09
PROVIDERS: PCP Family Medicine; Referring Provider Family Medicine; Visit Provider Family Medicine
DX: R04.2 Hemoptysis (principal); E78.1 Pure hyperglyceridemia; R73.02 Impaired glucose tolerance (oral); R53.83 Other fatigue; E55.9 Vitamin D deficiency, unspecified
CPT/HCPCS: 36415; 71046; 80053; 80061; 82306; 82607; 83036; 84439

== ENCOUNTER → 2022-05-06 | Outpatient (CLI) | payer MEDICARE, BC, SELFPAY ==
[2022-05-06 18:30] LABS: PSA,Total - Annual Screen 0.94 ng/mL (0.00-4.00)
== END | disposition home or self-care (01) ==
LOC: MFPLAB 14:55
PROVIDERS: PCP Family Medicine; Referring Provider Family Medicine; Visit Provider Family Medicine
DX: Z12.5 Encounter for screening for malignant neoplasm of prostate (principal)
CPT/HCPCS: 36415; 84153; G0103

== ENCOUNTER → 2022-09-01 | Outpatient (CLI) | payer MEDICARE, BC, SELFPAY ==
[2022-09-01 10:15] LABS: Absolute Lymphocyte Count 1.19 X10^3/uL (0.83-4.51); Absolute Neutrophil Count 2.4 X10^3/uL (2.0-7.7); Basophil# 0.02 X10^3/uL; Basophil% 0.5 % (0-1); Eosinophils% 2.4 % (0-5); Hematocrit 44.4 % (40-54); Hemoglobin 14.7 g/dL (13.0-16.5); Lymphocyte # 1.19 X10^3/ul (0.83-4.51); Lymphocyte % 28.8 % (19-41); Mean Corp Hgb Conc 33.1 g/dL (32-36); Mean Corpuscular Hgb 32.2 pg (27.0-32.0); Mean Corpuscular Volume 97.4 fL (80-94); Mean Platelet Vol. 9.8 fl (6.2-12.0); Monocyte# 0.39 X10^3/uL; Monocyte% 9.4 % (0-10); NRBC Flagged by Analyzer 0 % (0-5); Neutrophil # 2.37 X10^3/uL (2.7-7.7); Neutrophil % 57.4 % (47-70); Platelet Count 196 K/mm3 (150-450); RBC Distribution Width CV 12.5 % (11.6-14.6); RBC Distribution Width SD 44.7 fl (35.1-43.9); Red Blood Count 4.56 M/mm3 (4.6-6.2); White Blood Count 4.1 K/mm3 (4.4-11.0)
[2022-09-01 10:51] LABS: ALB/GLOB Ratio 1.1 RATIO (0.9-2.4); AST(SGOT) 31 U/L (15-37); Alanine Aminotransfer ALT/SGPT 34 U/L (16-61); Albumin, Serum 3.5 g/dL (3.2-5.0); Alkaline Phosphatase 67 U/L (45-117); Anion Gap 6 (5-15); BUN 15 mg/dL (7-18); BUN/Creat Ratio 15.1 RATIO (10-20); Calcium,Total 9.1 mg/dL (8.5-10.1); Chloride 107 mmol/L (98-107); Cholesterol 198 mg/dL (200); Creatinine, Serum 0.99 mg/dL (0.70-1.30); EST Glomerular Filtration Rate 78 mL/min (>60); Est Glom Filt Rate - Afr Amer 94 mL/min (>60); Globulin 3.2 g/dL (2.2-4.2); Glucose 117 mg/dL (74-106); High Density Lipoprotein 56 mg/dL; Magnesium 2.3 mg/dL (1.6-2.6); Potassium 3.9 mmol/L (3.5-5.1); Protein, Total 6.7 g/dL (6.4-8.2); Sodium Level 138 mmol/L (136-145); Thyroid Stim Hormone (TSH) 1.36 uIU/mL (0.358-3.74); Triglycerides 271 mg/dL; Very Low Density Lipoprotein 54 mg/dL (5-40)
[2022-09-01 11:13] LABS: Bacteria 0 SEEN /hpf (None Seen); Mucous, Urine 0 SEEN /hpf (<or=2+); Red Blood Cells-Urine 0 SEEN /hpf (0-5); Squamous Epithelial Cells - UA 0 SEEN /hpf (0-5); White Blood Cells 0 SEEN /hpf (0-5)
[2022-09-01 11:26] LABS: Hemoglobin A1c 5.4 % (3.8-5.6)
[2022-09-01 13:10] LABS: Color, Urine Yellow (Yellow); Glucose, Dipstick Normal (Normal); Ketone-Dipstick Negative (Negative); Leukocyte Esterase-Dipstick Negative /ul (Negative); Nitrite-Dipstick Negative (Negative); Occult Blood-Urine Negative /ul (Negative); Protein-Dipstick Negative (Negative); Specific Gravity, Urine 1.025 (1.002-1.030); Urine Bilirubin Dipstick Negative (Negative); Urine Clarity Clear (Clear); Urine Urobilinogen Normal (Normal)
== END | disposition home or self-care (01) ==
LOC: MFPLAB 08:15
PROVIDERS: PCP Family Medicine; Visit Provider Family Medicine
DX: I10 Essential (primary) hypertension (principal); I48.0 Paroxysmal atrial fibrillation; R73.02 Impaired glucose tolerance (oral)
CPT/HCPCS: 36415; 80053; 80061; 81001; 83036; 83735; 84443; 85025

== ENCOUNTER → 2022-09-03 | Outpatient (CLI) | payer MEDICARE, BC, SELFPAY ==
--- NOTE | 2022-09-03 08:48 | CDU_ITS ---
Reason For Study: BILATERAL CAROTID STENOSIS Rt. Velocities/BP Lt. Velocities/BP Prox CCA 91.0/17.3 cm/sec. Prox CCA 149.6/23.6 cm/sec. Mid CCA 93.8/19.2 cm/sec. Mid CCA 133.2/21.7 cm/sec. Dist CCA 94.8/22.0 cm/sec. Dist CCA 116.7/29.0 cm/sec. Prox ICA 86.7/23.0 cm/sec. Prox ICA 150.9/10.2 cm/sec. Mid ICA 79.0/26.3 cm/sec. Mid ICA 116.2/24.8 cm/sec. Dist ICA 75.7/24.1 cm/sec. Dist ICA 72.6/29.2 cm/sec. Rt. ICA/CCA = 86.7/94.8=0.9. Lt. ICA/CCA = 150.9/133.2=1.1. Prox ECA 108.0/4.7 cm/sec. Prox ECA 134.4/13.9 cm/sec. Rt. Vert. 45.5/12.0 cm/sec. Lt. Vert. 60.4/15.0 cm/sec. Right Extracranial There is intimal thickening but no significant atherosclerotic plaque noted in the right common carotid artery. There is heterogeneous, irregular atherosclerotic plaque noted in the right internal carotid artery. There is no significant atherosclerotic plaque noted in the right external carotid artery. Antegrade flow is noted in the right vertebral artery. There is heterogeneous, irregular atherosclerotic plaque noted in the right bulb. Left Extracranial There is intimal thickening but no significant atherosclerotic plaque noted in the left common carotid artery. There is heterogeneous, smooth atherosclerotic plaque noted in the left internal carotid artery. There is no significant atherosclerotic plaque noted in the left external carotid artery. Antegrade flow is noted in the left vertebral artery. There is heterogeneous, smooth atherosclerotic plaque noted in the left bulb. Procedure Carotid Duplex 82137. This is a Carotid Duplex examination using B-mode, color flow and specral Doppler. Exam performed in department. VL/Carotid Duplex Ultrasound Interpretation Summary Mild (<50%) stenosis right extracranial internal carotid. Moderate (50-69%) ar nosis left extracranial internal carotid. Patent and antegrade vertebrals bilaterally. Mil d (<50%) stenosis right extracranial internal carotid. Moderate (50-69%) stenosis left extracranial internal carotid. Patent and antegrade vertebrals bilaterally. Ordering Physician: Saul Maxwell Referring Physician: Saul Maxwell Performed By: Shalini Metzger, MARLA, RVT
== END | disposition home or self-care (01) ==
LOC: CVS 08:43
PROVIDERS: PCP Family Medicine; Referring Provider Family Medicine; Visit Provider Family Medicine
DX: I65.23 Occlusion and stenosis of bilateral carotid arteries (principal)
CPT/HCPCS: 93880

== ENCOUNTER → 2023-01-25 | Outpatient (CLI) | payer MEDICARE, BC, SELFPAY ==
[2023-01-25 10:12] LABS: Absolute Lymphocyte Count 1.41 X10^3/uL (0.83-4.51); Absolute Neutrophil Count 2.4 X10^3/uL (2.0-7.7); Basophil# 0.03 X10^3/uL; Basophil% 0.7 % (0-1); Eosinophil# 0.13 X10^3/uL; Hematocrit 44.9 % (40-54); Hemoglobin 14.8 g/dL (13.0-16.5); Lymphocyte # 1.41 X10^3/ul (0.83-4.51); Lymphocyte % 32.1 % (19-41); Mean Platelet Vol. 9.6 fl (6.2-12.0); Monocyte# 0.41 X10^3/uL; Monocyte% 9.3 % (0-10); NRBC Flagged by Analyzer 0 % (0-5); Neutrophil % 54.7 % (47-70); Platelet Count 216 K/mm3 (150-450); RBC Distribution Width CV 12.3 % (11.6-14.6); RBC Distribution Width SD 43.5 fl (35.1-43.9); Red Blood Count 4.63 M/mm3 (4.6-6.2); White Blood Count 4.4 K/mm3 (4.4-11.0)
[2023-01-25 10:44] LABS: Hemoglobin A1c 5.2 % (3.8-5.6)
[2023-01-25 10:48] LABS: Vitamin D,25 Hydroxy 64.5 ng/mL
[2023-01-25 10:56] LABS: AST(SGOT) 28 U/L (15-37); Alanine Aminotransfer ALT/SGPT 34 U/L (16-61); Albumin, Serum 3.5 g/dL (3.2-5.0); Alkaline Phosphatase 70 U/L (45-117); Anion Gap 2 (5-15); BUN 15 mg/dL (7-18); Calcium,Total 8.9 mg/dL (8.5-10.1); Chloride 105 mmol/L (98-107); Cholesterol 188 mg/dL (200); Creatinine, Serum 1.07 mg/dL (0.70-1.30); EST Glomerular Filtration Rate 71 mL/min (>60); Est Glom Filt Rate - Afr Amer 86 mL/min (>60); Globulin 3.5 g/dL (2.2-4.2); Glucose 93 mg/dL (74-106); High Density Lipoprotein 55 mg/dL; Magnesium 2.3 mg/dL (1.6-2.6); Potassium 4.5 mmol/L (3.5-5.1); Sodium Level 136 mmol/L (136-145); Thyroid Stim Hormone (TSH) 1.13 uIU/mL (0.358-3.74); Triglycerides 224 mg/dL; Very Low Density Lipoprotein 45 mg/dL (5-40)
== END | disposition home or self-care (01) ==
LOC: MFPLAB 09:12
PROVIDERS: PCP Family Medicine; Visit Provider Family Medicine
DX: I48.0 Paroxysmal atrial fibrillation (principal); E55.9 Vitamin D deficiency, unspecified; I25.10 Atherosclerotic heart disease of native coronary artery without angina pectoris; R73.02 Impaired glucose tolerance (oral)
CPT/HCPCS: 36415; 80053; 80061; 82306; 83036; 83735; 84443; 85025

== ENCOUNTER → 2023-04-18 | Outpatient (CLI) | payer MEDICARE, BC, SELFPAY ==
--- NOTE | 2023-04-18 14:49 | ECHOD_ITS ---
Reason For Study: Murmur Procedure This was a 2D Doppler, Color Flow transthoracic echocardiogram. Exam performed in department. Left Ventricle Normal LV size. The estimated ejection fraction is 55 %. Mild segmental systolic dysfunction (see wall motion). Stage 2 diastolic dysfunction. Posterior-Basal: Hypokinetic. Mid-Posterior: Hypokinetic. Infero-Basal: Akinetic. There are regional wall motion abnormalities as specified. The rest of the wall segments are normal. Right Ventricle Normal RV size. Normal systolic function. Atria The left atrium is mildly enlarged. Normal right atrium. Mitral Valve Normal mitral valve. Tricuspid Valve Normal tricuspid valve. Aortic Valve Trisinus/trileaflet aortic valve. Mild focal aortic valve calcification. Peak aortic valve gradient 29 mmHg. Mean aortic valve gradient 17 mmHg. Pulmonic Valve Normal pulmonic valve. Great Vessels Normal aortic root. The pulmonary artery is normal size. Normal inferior vena cava. Pericardium/Pleural No pericardial effusion. MMode/2D Measurements & Calculations LVIDd: 5.0 cm IVSd: 1.3 cm LVOT diam: 2.1 cm LVIDs: 2.7 cm LVPWd: 1.2 cm LVOT area: 3.6 cm2 RVDd: 4.5 cm FS: 46.4 % Ao root diam: 3.2 cm LAV(MOD-bp): 90.8 ml LVAd ap4: 19.6 cm2 ACS: 0.65 cm LAV(MOD-bp) Indexed: 47.5 ml/m2 LVLd ap4: 6.7 cm LAV(MOD-sp2): 78.2 ml EDV(MOD-sp4): 51.7 ml LAV(MOD-sp4): 97.0 ml EDV(sp4-el): 49.0 ml LVAs ap4: 11.3 cm2 LVLs ap4: 5.8 cm ESV(MOD-sp4): 21.2 ml ESV(sp4-el): 18.6 ml EF(MOD-sp4): 59.0 % EF(sp4-el): 61.9 % SV(MOD-sp4): 30.5 ml SV(sp4-el): 30.3 ml LA A4 area: 27.5 cm2 LA dimension(2D): 5.3 cm RA A4 area: 16.7 cm2 TAPSE: 1.9 cm Time Measurements MV dec time: 0.25 sec Doppler Measurements & Calculations MV E max yakov: 79.5 cm/sec Lat Peak E' Yakov: 8.9 cm/sec Med Peak E' Yakov: 5.9 cm/sec MV A max yakov: 74.3 cm/sec E/E' lat: 8.9 E/E' med: 13.6 MV E/A: 1.1 Ao V2 max: 271.0 cm/sec LV V1 max: 121.0 cm/sec MV dec slope: 321.3 cm/sec2 Ao max P.4 mmHg LV V1 max P.9 mmHg Ao V2 mean: 197.0 cm/sec LV V1 mean P.9 mmHg Ao mean P.1 mmHg LV V1 mean: 95.6 cm/sec Ao V2 VTI: 62.1 cm LV V1 VTI: 30.0 cm AV (velocity ratio): 0.48 NIKOLE(I,D): 1.7 cm2 NIKOLE(V,D): 1.6 cm2 SV(LVOT): 108.6 ml PA V2 max: 78.3 cm/sec PI end-d yakov: 121.0 cm/sec TR max yakov: 277.0 cm/sec TR max P.7 mmHg
== END | disposition home or self-care (01) ==
LOC: CVS 14:46
PROVIDERS: PCP Family Medicine; Referring Provider Physician Assistant Medical; Visit Provider Physician Assistant Medical
DX: I25.10 Atherosclerotic heart disease of native coronary artery without angina pectoris (principal)
CPT/HCPCS: 93306

== ENCOUNTER → 2023-04-22 | Outpatient (CLI) | payer MEDICARE, BC, SELFPAY ==
--- OUTSIDE RECORDS SUMMARY | 2023-04-22 11:41 | XMS RPT_ITS | CCD ---
Author Name Unknown Address [address] [place] [address] Organization [facility] Care Team Providers Care Senior Counsel Name Role Phone Alize De Jesusshanika Do Unavailable De JesusEmily mandujano Unavailable Alyssa Zavala LPN Unavailable Maci Null Unavailable Unavailable Maci Null Unavailable Unavailable SELF, SELF Referring Unavailable REI BOSTON Attending Unavailable MIRANDA PETERSON Primary Care Physician [phone] МАРИНА LOERA, DR CHAY Tolentino Attending MIRANDA Dong Primary Care Unavailable MIRANDA PETERSON Primary Care Unavailable МАРИНА LOERA, DR CHAY Tolentino Attending Nadia Judd MD, DR CHAY Tolentino Attending MIRANDA Dong Primary Care Unavailable Allergies Allergy Classification Reported Allergen(s) Allergy Type Date of Onset Reaction(s) Facility (7 sources) egg; Translations: [EGGS] food allergy 12-19-2012 [facility] Work Phone: (5 sources) Hmg-Coa Reductase Inhibitors (Statins) drug allergy 12-19-2012 Myalgias [facility] Work Phone: (8 sources) NKA drug allergy 11-29-2012 [facility] Work Phone: (5 sources) FLU SHOT drug allergy 12-19-2012 [facility] Work Phone: (2 sources) Soybean preparation Drug Allergy [facility] Medications Current Medications Medication Drug Class(es) Dates Sig (Normalized) Sig (Original) Calcium, Magnesium and Zinc oral tablet (2 sources) Start: 04-04-2023 take 1 tablet by mouth once daily Calcium, Magnesium and Zinc oral tablet Dose = 1 tab(s), Oral, qDay, # 30 tab(s), 0 Refill(s) Start Date: 04/04/23 Status: Ordered docusate sodium 100 mg oral capsule (4 sources) Start: 04-04-2023 Colace 100 mg oral capsule Dose : 100 mg = 1 cap(s), Oral, BID, PRN as needed for constipation, # 20 cap(s), 0 Refill(s) Start Date: 04/04/23 Status: Ordered Completed/Discontinued Medications Medication Drug Class(es) Dates Sig (Normalized) Sig (Original) acetaminophen 500 mg oral tablet (20 sources) Start: 09-16-2015 End: 03-09-2016 TYLENOL EXTRA STRENGTH 500 MG TABS one as needed every 8-12 hours ACETAMINOPHEN [id number] Annalise Madsen PA-C Problems Active Problems Problem Classification Problem Date Documented Date Episodic/Chronic Cardiac dysrhythmias (5 sources) Bradycardia; Translations: [Bradycardia, unspecified] Onset: 11-29-2012 11-29-2012 Chronic Complication of device; implant or graft (5 sources) Atherosclerosis of coronary artery bypass graft(s) without angina pectoris; Translations: [Atherosclerosis of coronary artery bypass graft(s) without angina pectoris] Onset: 12-27-2012 12-27-2012 Chronic Coronary atherosclerosis and other heart disease (7 sources) Atherosclerotic heart disease of rincon coronary artery without angina pectoris; Translations: [Coronary arteriosclerosis] Onset: 11-30-2012 12-06-2012 Chronic Disorders of lipid metabolism (5 sources) Hyperlipidemia; Translations: [Hyperlipidemia, unspecified] Onset: 11-29-2012 11-29-2012 Chronic Essential hypertension (5 sources) Hypertensive disorder; Translations: [Essential (primary) hypertension] Onset: 11-29-2012 11-29-2012 Chronic Heart valve disorders (10 sources) Mitral valve prolapse; Translations: [Nonrheumatic mitral (valve) prolapse] Onset: 11-29-2012 Resolved: 03-08-2016 03-08-2016 Chronic Other nervous system disorders (5 sources) Cervical radiculopathy; Translations: [Radiculopathy, cervical region] Onset: 02-02-2016 02-02-2016 Chronic Other nutritional; endocrine; and metabolic disorders (18 sources) Body mass index (BMI) 31.0-31.9, adult; Translations: [Body mass index (BMI) 32.0-32.9, adult] Onset: 11-29-2012 Resolved: 09-16-2015 11-29-2012 Chronic Other nutritional; endocrine; and metabolic disorders (1 source) Body mass index (BMI) 32.0-32.9, adult; Translations: [Body mass index (BMI) 32.0-32.9, adult] Onset: 08-26-2014 08-26-2014 Chronic Other nutritional; endocrine; and metabolic disorders (1 source) Body mass index (BMI) 33.0-33.9, adult; Translations: [Body mass index (BMI) 33.0-33.9, adult] Onset: 08-26-2014 09-16-2015 Chronic Unclassified (2 sources) Long-term drug therapy; Translations: [Long-term (current) use of other medications] Onset: 01-11-2013 01-11-2013 Past or Other Problems Problem Classification Problem Date Documented Da te Episodic/Chronic Conditions associated with dizziness or vertigo (10 sources) Dizziness; Translations: [Dizziness and giddiness] Onset: 11-29-2012 Resolved: 03-08-2016 11-29-2012 Episodic Malaise and fatigue (5 sources) Fatigue; Translations: [Other fatigue] Onset: 11-01-2014 11-01-2014 Episodic Nonspecific chest pain (10 sources) Chest pain, unspecified; Translations: [Chest pain, unspecified] Onset: 11-29-2012 Resolved: 03-08-2016 11-29-2012 Episodic Other aftercare (8 sources) Other intermodal customer service (current) drug therapy; Translations: [Long-term (current) use of other medications] Onset: 01-11-2013 09-16-2015 Episodic Other lower respiratory disease (10 sources) Dyspnea; Translations: [Shortness of breath] Onset: 11-29-2012 Resolved: 03-08-2016 03-08-2016 Episodic Spondylosis; intervertebral disc disorders; other back problems (5 sources) Lumbar radiculopathy; Translations: [Radiculopathy, lumbar region] Onset: 02-02-2016 02-02-2016 Episodic Syncope (10 sources) Syncope; Translations: [Syncope and collapse] Onset: 11-29-2012 Resolved: 03-08-2016 11-29-2012 Episodic Results Test Name Value Interpretation Reference Range Facil ity Vital Signs Date Time Vital Sign Value Performing Clinician Facility 04-04-2023 08:50-[address] CHAY PARISH MD [facility] 04-04-2023 08:50-[address] CHAY PARISH MD [facility] 04-04-2023 08:50-0500 Body height 165.[address] CHAY PARISH MD [facility] 04-04-2023 08:50-0500 Body weight [address] CHAY PARISH MD [facility] 04-04-2023 08:50-0500 Body weight 31.18 kg/m2 DR CHAY PARISH MD [facility] 04-04-2023 08:50-0500 Diastolic Blood Pressure Non-Invasive 82 mm[Hg] DR CHAY PARISH MD [facility] 04-04-2023 08:50-0500 Heart rate 54 /min DR CHAY PARISH MD [facility] 04-04-2023 08:50-0500 Respiratory rate 18 /min DR CHAY PARISH MD [facility] 04-04-2023 08:50-0500 Systolic Blood Pressure Non-Invasive 118 mm[Hg] DR CHAY PARISH MD [facility] 09-07-2016 07:51-0400 BMI (Body Mass Index) 31.45 kg/m2 [facility] Work Phone: 09-07-2016 07:51-0400 BP Diastolic 80 mm[Hg] [facility] Work Phone: 09-07-2016 07:51-0400 BP Systolic 120 mm[Hg] [facility] Work Phone: 09-07-2016 07:51-0400 Pulse (Heart Rate) 64 /min [facility] Work Phone: 09-07-2016 07:51-0400 Weight 85.73 kg [facility] Work Phone: 03-09-2016 14:54-0500 BMI (Body Mass Index) 32.45 kg/m2 Alyssa Bonillagins [facility] Work Phone: 03-09-2016 14:54-0500 BP Diastolic 70 mm[Hg] Alyssa Bonillagins [facility] Work Phone: 03-09-2016 14:54-0500 BP Systolic 124 mm[Hg] Alyssa Bonillagins [facility] Work Phone: 03-09-2016 14:54-0500 BSA (Body Surface Area) 1.[address] [facility] Work Phone: 03-09-2016 14:54-0500 Pulse (Heart Rate) 60 /min Alyssanadiya BonillaZavala [facility] Work Phone: 03-09-2016 14:54-0500 Respiratory Rate 20 /min Alyssa Bonillagins [facility] Work Phone: 03-09-2016 14:54-0500 Weight 88.45 kg Alsysa Zavala [facility] Work Phone: 11-01-2014 14:33-0400 Heart rate 57 /min Maciserafin Null [facility] Work Phone: 08-26-2014 11:34-0400 BP Diastolic 80 mm[Hg] Alyssa Zavala [facility] Work Phone: 08-26-2014 11:34-0400 BP Diastolic 88 mm[Hg] Alyssa Zavala [facility] Work Phone: 08-26-2014 11:34-0400 BP Systolic 110 mm[Hg] Alyssa Zavala [facility] Work Phone: 08-26-2014 11:34-0400 Pulse (Heart Rate) 60 /min Alyssa Zavala [facility] Work Phone: 12-27-2012 09:59-0400 Pulse Oximetry 97 % Alyssa Zavala [facility] Work Phone: 11-29-2012 11:25-0400 Heart rate 426 ms Maciserafin Null [facility] Work Phone: 11-29-2012 10:57-0400 Height 165.1 cm Alyssa Zavala [facility] Work Phone: Encounters Encounter Date Encounter Type Care Provider Facility Start: 04-04-2023 End: 04-05-2023 ambulatory MIRANDA MICHEL Facility:B Start: 04-04-2023 End: 04-05-[address] CHAY PARISH MD Facility:[facility] Start: 04-04-2023 End: 04-04-[address] CHAY PARISH MD [facility] Start: 04-04-2023 End: 04-04-[address] CHAY PARISH MD [facility] Start: 02-09-[address] CHAY PARISH MD F acility:B Start: 10-04-2018 Patient encounter procedure SELF SELF Facility:[facility] Procedures Date Procedure Procedure Detail Performing Clinician Start: 07-26-2016 End: 07-26-2016 Dietary management education, guidance, and counseling Maci Null Start: 03-09-2016 End: 03-09-2016 Follow Up Appt 6 months Hina Mello Start: 03-09-2016 End: 03-09-2016 MAUDE Burnett MD Start: 09-16-2015 End: 09-16-2015 MANDY Madsen PA-C Work Phone: Start: 09-16-2015 End: 09-16-2015 Follow Up Appt 6 months Annalise joshi PA-C Work Phone: Start: 03-18-2015 End: 03-18-2015 Follow Up Appt 6 months Hina Mello Start: 03-18-2015 End: 03-18-2015 MMHina Burnett MD Start: 11-01-2014 End: 11-02-2014 Documentation of current medications Kush Burnett MD Start: 11-01-2014 End: 09-10-2015 Echocardiography Kush Burnett MD Start: 11-01-2014 End: 11-01-2014 Follow Up Appt 4 months Hina Mello Start: 11-01-2014 End: 11-01-2014 MAUDE Burnett MD Start: 11-01-2014 End: 11-11-2014 Nuclear stress test -exercise Kush Palacios MD Start: 08-26-2014 End: 08-26-2014 MANDY Madsen PA-C Work Phone: Start: 08-26-2014 End: 08-27-2014 Documentation of current medications Annalise Madsen PA-C Work Phone: Start: 08-26-2014 End: 08-26-2014 Follow Up Appt 6 months Annalise joshi PA-C Work Phone: Start: 02-26-2014 End: 02-26-2014 Follow Up Appt 6 months Hina Mello Start: 02-26-2014 End: 02-26-2014 MAUDE Burnett MD Start: 08-21-2013 End: 08-21-2013 [employer] Annalise Madsen PA-C Work Phone: Start: 08-21-2013 End: 08-21-2013 Follow Up Appt 6 months Annalise joshi PA-C Work Phone: Start: 02-21-2013 End: 02-21-2013 Follow Up Appt 6 months Hina Mello Start: 02-21-2013 End: 02-21-2013 MAUDE Burnett MD Start: 01-17-2013 End: 08-21-2013 *BMP Kush Burnett MD Start: 12-27-2012 End: 08-16-2013 Cardiac Rehab Kush Burnett MD Start: 12-27-2012 End: 12-27-2012 Electrocardiogram, complete Kush Petersen i, MD Start: 12-27-2012 End: 12-27-2012 Follow Up Appt 3 months Hina Mello Start: 12-27-2012 End: 12-27-2012 MAUDE Burnett MD Start: 11-29-2012 End: 11-29-2012 *BMP Kush Burnett MD Start: 11-29-2012 End: 11-29-2012 CBC W Auto Differential panel - Blood Kush Burnett MD Start: 11-29-2012 End: 11-29-2012 Chest x-ray Kush Burnett MD Start: 11-29-2012 End: 11-29-2012 [employer] Kush Burnett MD Start: 11-29-2012 End: 11-29-2012 Electrocardiogram, complete Kush Petersen i, MD Start: 11-29-2012 End: 11-29-2012 Follow Up Appt 6 weeks Kush Burnett MD Start: 11-29-2012 End: 08-21-2013 Left Heart Cath Kush Burnett MD Excision of lumbar intervertebral disc DR CHAY PARISH MD Plan of Treatment Date Care Activity Detail Author Start: 03-15-2017 End: 03-15-2017 Appointment Appointment [facility] Work Phone: Start: 09-27-2016 End: 09-27-2016 Appointment Appointment [facility] Work Phone: Start: 09-27-2016 End: 09-27-2016 Appointment Appointment [facility] Work Phone: Start: 09-07-2016 End: 09-07-2016 Appointment Appointment [facility] Work Phone: Start: 09-07-2016 End: 09-07-2016 [employer] [facility] Work Phone: Start: 09-07-2016 End: 09-07-2016 Follow Up Appt 6 months Follow Up Appt 6 months [facility] Work Phone: Start: 09-06-2016 End: 09-06-2016 Appointment Appointment [facility] Work Phone: Start: 07-28-2016 End: 09-06-2016 Physical Therapy General Physical Therapy [facility], [address] [place] [address], [id number] [facility] Work Phone: Start: 07-26-2016 End: 07-26-2016 Appointment Appointment [facility] Work Phone: Start: 07-26-2016 End: 07-26-2016 X-ray exam of lower spine X-Ray, Spine, Lumbosacral 2-3 views [facility] Work Phone: Start: 03-09-2016 End: 03-09-2016 Follow Up Appt 6 months Follow Up Appt 6 months [facility] Work Phone: Start: 03-09-2016 End: 03-09-2016 MMM MMM [facility] Work Phone: Start: 02-02-2016 End: 02-02-2016 Ct lumbar spine w/o dye CT Lumbar Spine [facility] Work Phone: Start: 02-02-2016 End: 02-02-2016 Mri lumbar spine w/o dye MRI Lumbar Spine [facility] Work Phone: Start: 02-02-2016 End: 02-02-2016 Mri neck spine w/o dye [facility] Work Phone: Start: 02-02-2016 End: 02-02-2016 X-ray exam of lower spine X-Ray, Spine, Lumbosacral 2-3 views [facility] Work Phone: Start: 02-02-2016 End: 02-02-2016 X-ray exam of trunk spine X-Ray, Scoliosis Study [facility] Work Phone: Start: 09-16-2015 End: 09-16-2015 [facility] Work Phone: Start: 09-16-2015 End: 09-16-2015 Follow Up Appt 6 months Follow Up Appt 6 months [facility] Work Phone: Start: 03-18-2015 End: 03-18-2015 Follow Up Appt 6 months Follow Up Appt 6 months [facility] Work Phone: Start: 03-18-2015 End: 03-18-2015 MMM MMM [facility] Work Phone: Start: 11-01-2014 End: 11-01-2014 Echocardiography Echocardiogram (complete) [facility] Work Phone: Start: 11-01-2014 End: 11-01-2014 Follow Up Appt 4 months Follow Up Appt 4 months [facility] Work Phone: Start: 11-01-2014 End: 11-01-2014 MMM MMM [facility] Work Phone: Start: 11-01-2014 End: 11-01-2014 Nuclear stress test -exercise Nuclear stress test -exercise [facility] Work Phone: Start: 08-26-2014 End: 08-26-2014 [facility] Work Phone: Start: 08-26-2014 End: 08-26-2014 Follow Up Appt 6 months Follow Up Appt 6 months [facility] Work Phone: Start: 02-26-2014 End: 02-26-2014 Follow Up Appt 6 months Follow Up Appt 6 months [facility] Work Phone: Start: 02-26-2014 End: 02-26-2014 MMM MMM [facility] Work Phone: Start: 08-21-2013 End: 08-21-2013 [employer] [facility] Work Phone: Start: 08-21-2013 End: 08-21-2013 Follow Up Appt 6 months Follow Up Appt 6 months [facility] Work Phone: Start: 02-21-2013 End: 02-21-2013 Follow Up Appt 6 months Follow Up Appt 6 months [facility] Work Phone: Start: 02-21-2013 End: 02-21-2013 MMM MMM [facility] Work Phone: Start: 01-17-2013 End: 08-21-2013 *BMP *BMP [facility] Work Phone: Start: 12-27-2012 End: 12-27-2012 Cardiac Rehab Cardiac Rehab [facility] Work Phone: Start: 12-27-2012 End: 12-27-2012 Electrocardiogram, complete EKG (In office) [facility] Work Phone: Start: 12-27-2012 End: 12-27-2012 Follow Up Appt 3 months Follow Up Appt 3 months [facility] Work Phone: Start: 12-27-2012 End: 12-27-2012 [facility] Work [facility]: Start: 11-29-2012 End: 11-29-2012 *BMP *BMP [facility] Work Phone: Start: 11-29-2012 End: 11-29-2012 CBC W Auto Differential panel - Blood *CBC without Diff [facility] Work Phone: Start: 11-29-2012 End: 11-29-2012 Chest x-ray X-Ray, Chest, PA & Lateral [facility] Work Phone: Start: 11-29-2012 End: 11-29-2012 [employer] [facility] Work Phone: Start: 11-29-2012 End: 11-29-2012 Electrocardiogram, complete EKG (In office) [facility] Work Phone: Start: 11-29-2012 End: 11-29-2012 Follow Up Appt 6 weeks Follow Up Appt 6 weeks [facility] Work Phone: Start: 11-29-2012 End: 11-29-2012 Left Heart Cath Left Heart Cath [facility] Work Phone: Patient Education [facility] Work Phone: Payers Date Payer Category Payer Medicare [id number] 2016 Unknown [id number] 2016 Medicare [id number] 1945 Unknown [id number] 1945 Unknown [id number] 1945 Unknown [id number] Social History Date Type Detail Facility Start: 04-04-2023 Tobacco smoking status Never s moked tobacco (finding) [facility] Sex Assigned At Sex [facility] Clinical Note 04-04-2023 Note Date & Type Note Facility 04-04-2023 Note ORIGINAL EXAMINATION: CT OF THE RIGHT KNEE WITHOUT CONTRAST04/04/2023 9:[address] of the right knee without contrast TECHNIQUE: Axial images of the knee are obtained with sagittal and coronal reconstructions. Limited axial imaging is also performed through the ipsilateral hip and ankle joints. This exam was performed according to our departmental dose-optimization program which includes automated exposure control, adjustment of the mA and/or kVp according to patient size and/or use of iterative reconstruction technique where applicable. COMPARISON: None HISTORY: ORDERING SYSTEM PROVIDED HISTORY: Reason for Exam: M17.11 Unilateral primary osteoarthritis, right knee., chronic knee pain, FINDINGS: Medial compartment: There is moderate marginal spurring, subchondral sclerosis and cystic change and moderate compartment narrowing. Lateral compartment: Marginal spurring and subchondral sclerosis without compartment narrowing. Patellofemoral compartment: Marginal osteophytes without significant joint space narrowing. There is at least mild chondromalacia. Other: There is small to moderate joint effusion. No significant popliteal cyst. There is some nonspecific soft tissue edema around the knee more prominent anteromedially. Hip: Limited axial images through the hip joint. There is only mild osteoarthritis of the hip. Ankle: Limited axial images of the ankle are also obtained. No aggressive bone lesion is seen. IMPRESSION: Tricompartment osteoarthritis of the knee most prominent in the medial compartment. Small to moderate joint effusion. Interpreted by: Anthony Middleton MD Preliminary Report By: Anthony Middleton MD Electronically signed By Anthony Middleton MD Dictated Date: 04/04/2023 12:49:18 PM Prelim Date: 04/04/2023 12:52:52 PM Sign Date: 04/04/2023 12:52:52 PM Ordering Provider: CHAY PARISH [facility] Evaluation + Plan note Note Date & Type Note Facility Evaluation + Plan note Future Appointments [facility] Hospital course Narrative Note Date & Type Note Facility Hospital course Narrative No data available for this section [facility] Hospital Discharge instructions Note Date & Type Note Facility Hospital Discharge instructions No data available for this section [facility] Progress note Note Date & Type Note Facility Progress note No data available for this section [facility] Summary Purpose Family History No Family History Records Found No data available for this section No data available for this section No Family History Records Found Advance Directives No Advanced Directives Records FoundNo Advanced Directives Records Found Additional Source Comments (unrecognized sect ion and content) No Status Records FoundNo Status Records Found INFORMATION SOURCE (unrecogn ized section and content) DATE CREATED AUTHOR AUTHOR'S ORGANIZ ATION 04/06/2023 [facility] ([place]) Patient Care team informatio n (unrecognized section and content) Care Team Personnel Name: MIRANDA ESCUDERO Member Role: Primary Care Physician Address: Address: [address] [place] [id number] Care Team Related Persons Name: ANTHONY PULLIAM Care Team Personnel Name: MIRANDA ESCUDERO Member Role: Primary Care Physician Address: Address: [address] [place] [address] Care Team Related Persons Name: ANTHONY PULLIAM FOR RECORDS PERTAINING TO PATIENTS WHO ARE OR HAVE BEEN ENROLLED IN A CHEMICAL DEPENDENCY/SUBSTANCEABUSE PROGRAM, SOME INFORMATION MAY BE OMITTED. This clinical summary was aggregated from multiple sources. Caution should be exercised in using it in the provision of clinical care. This summary normalizes information from multiple sources, and as a consequence, information in this document may materially change the coding, format and clinical context of patient data. In addition, data may be omitted in some cases. CLINICAL DECISIONS SHOULD BE BASED ON THE PRIMARY CLINICAL RECORDS. [employer] [facility]. provides no warranty or guarantee of the accuracy or completeness of information in this document.
[2023-04-22 12:19] LABS: Absolute Lymphocyte Count 1.64 X10^3/uL (0.83-4.51); Basophil# 0.03 X10^3/uL; Basophil% 0.6 % (0-1); Eosinophil# 0.09 X10^3/uL; Eosinophils% 1.7 % (0-5); Hematocrit 42.5 % (40-54); Hemoglobin 14.2 g/dL (13.0-16.5); Lymphocyte # 1.64 X10^3/ul (0.83-4.51); Lymphocyte % 31.4 % (19-41); Mean Corp Hgb Conc 33.4 g/dL (32-36); Mean Corpuscular Hgb 31.6 pg (27.0-32.0); Mean Corpuscular Volume 94.4 fL (80-94); Mean Platelet Vol. 9.6 fl (6.2-12.0); Monocyte# 0.49 X10^3/uL; Monocyte% 9.4 % (0-10); NRBC Flagged by Analyzer 0 % (0-5); Neutrophil # 2.96 X10^3/uL (2.7-7.7); Neutrophil % 56.7 % (47-70); Platelet Count 204 K/mm3 (150-450); RBC Distribution Width CV 11.9 % (11.6-14.6); RBC Distribution Width SD 40.9 fl (35.1-43.9); White Blood Count 5.2 K/mm3 (4.4-11.0)
[2023-04-22 12:56] LABS: Hemoglobin A1c 5.2 % (3.8-5.6)
[2023-04-22 13:02] LABS: ALB/GLOB Ratio 1.1 RATIO (0.9-2.4); AST(SGOT) 28 U/L (15-37); Alanine Aminotransfer ALT/SGPT 33 U/L (16-61); Albumin, Serum 3.5 g/dL (3.2-5.0); Alkaline Phosphatase 72 U/L (45-117); Anion Gap 5 (5-15); BUN 19 mg/dL (7-18); BUN/Creat Ratio 21.3 RATIO (10-20); Calcium,Total 9.1 mg/dL (8.5-10.1); Chloride 104 mmol/L (98-107); Cholesterol 185 mg/dL (200); Creatinine, Serum 0.89 mg/dL (0.70-1.30); EST Glomerular Filtration Rate 88 mL/min (>60); Est Glom Filt Rate - Afr Amer 106 mL/min (>60); Globulin 3.1 g/dL (2.2-4.2); Glucose 80 mg/dL (74-106); High Density Lipoprotein 48 mg/dL; Magnesium 2.4 mg/dL (1.6-2.6); Potassium 4.3 mmol/L (3.5-5.1); Protein, Total 6.6 g/dL (6.4-8.2); Sodium Level 138 mmol/L (136-145); Triglycerides 315 mg/dL; Very Low Density Lipoprotein 63 mg/dL (5-40)
== END | disposition home or self-care (01) ==
LOC: MFPLAB 11:12
PROVIDERS: PCP Family Medicine; Visit Provider Family Medicine
DX: I25.10 Atherosclerotic heart disease of native coronary artery without angina pectoris (principal); I48.0 Paroxysmal atrial fibrillation; R73.02 Impaired glucose tolerance (oral)
CPT/HCPCS: 36415; 80053; 80061; 83036; 83735; 85025

== ENCOUNTER 2023-05-06 16:59 | Emergency (ER) | payer MEDICARE, BC, SELFPAY ==
[2023-05-06 17:01] VITALS: BP 127/56; PULSE 72; RESP 16; TEMP 36.2; O2SAT 98; BMI 29.9
--- NOTE | 2023-05-06 17:41 | EX.ED.DYSGE1 ---
HPI History of Present Illness Chief Complaint: Lower Extremity Injury Detail of Chief Complaint: Postop leg swelling Informant: patient Narrative Narrative: Patient presents from orthopedics office due to concern for possible DVT. Patient had a right knee replacement on May 03 at [facility] with Dr. Patel. He has had increased pain and swelling with fever for the past 2 days. He was seen in [facility] emergency room last night and had extensive workup. He reportedly had a normal white count. He was seen by the PA at Dr. Patel's office just prior to arrival here. They wished the patient to have an ultrasound to ensure no evidence of DVT. Patient does have a history of clots and is currently on Xarelto. [facility] Medical History (Updated 05/06/23 @ 19:[address] Darlene Farmer MD) Alcohol use Ambulates with cane Arthritis Atherosclerosis of coronary artery of upper [place] heart without angina pectoris Basal cell carcinoma Bradycardia Cancer Cardiology follow-up encounter Carotid stenosis, right COVID-19 CPAP (continuous positive airway pressure) dependence Essential (primary) hypertension Essential tremor Fatigue Heart murmur Hepatitis History of atrial fibrillation History of echocardiogram History of edema History of pain when walking History of steroid therapy History of stress test Hx MRSA infection Hx of benign essential tremor Hx of Clostridium difficile infection Hx of mitral valve prolapse Hyperlipidemia Injury of head and neck Leg cramps Lightheadedness Loose, teeth Loss of hearing Lumbar stenosis Lung nodule Non-smoker Obesity Obstructive sleep apnea Osteoarthritis of right shoulder Over 65 years old Peripheral neuropathy Postoperative atrial fibrillation Pre-syncope Pulmonary embolism (10/2016) Right bundle branch block (RBBB) RLS (restless legs syndrome) Screening for intestinal cancer Sinusitis Squamous cell carcinoma Syncope Wears glasses Wears hearing aid Yeast infection Home Medications aspirin 81 mg chewable tablet 81 mg PO DAILY@0800 06/22/16 [Rx Last Taken 08/01/21] lactobacillus combination no.4 3 billion cell capsule (Probiotic) 3,000 mmu cells PO DAILY 03/15/19 [History Last Taken 07/07/20] ascorbic acid (vitamin C) 1,000 mg tablet 1,000 mg PO DAILY daily 02/26/20 [History Last Taken 07/07/20] multivitamin 1 tablet PO DAILY supplement 07/07/20 [History Last Taken 07/07/20] gabapentin 600 mg tablet 600 mg PO QHS 02/27/21 [History Last Taken Unknown] vitamin B complex (B Complex-Vitamin B12 tablet) 1 tab PO DAILY 03/31/21 [History Last Taken Unknown] acetaminophen 650 mg tablet,extended release 1,300 mg PO Q8H PRN Pain 06/09/21 [History Last Taken 06/15/21 04:00] calcium 600 mg capsule 600 mg PO DAILY 06/09/21 [History Last Taken Unknown] methocarbamol 500 mg tablet 250 mg PO TID PRN Spasms 06/09/21 [History Last Taken Unknown] milk thistle 200 mg capsule 200 mg PO DAILY 06/09/21 [History Last Taken Unknown] vit C 250 mg-vit E 90 mg-zinc 40 mg-copper 1 [id number] capsule (PreserVision AREDS-2) 1 tab PO DAILY 06/09/21 [History Last Taken Unknown] zinc 50 mg capsule 50 mg PO DAILY 06/09/21 [History Last Taken Unknown] docusate sodium 100 mg capsule (Colace) 100 mg PO DAILY 08/05/21 [History Last Taken Unknown] garlic 1,000 mg capsule 1,000 mg PO DAILY 08/05/21 [History Last Taken Unknown] icosapent ethyl 1 gram capsule (Vascepa) 2 g PO BID 01/06/22 [History Last Taken Unknown] 5-hydroxytryptophan (5-HTP) 100 mg capsule (5-HTP) 100 mg PO DAILY 04/08/22 [History Last Taken Unknown] cholecalciferol (vitamin D3) 50 mcg (2,000 unit) capsule 2,000 unit PO BID supplement 04/08/22 [History Last Taken Unknown] modafinil 200 mg tablet See Rx Instructions PO BID 04/08/22 [History Last Taken Unknown] primidone 50 mg tablet 50 mg PO DAILY 04/08/22 [History Last Taken Unknown] Allergy/AdvReac Type Severity Reaction Status Date / Time egg Allergy Severe fluid Verified 05/06/23 17:01 retention, nausea, flu-like symptoms Egg Derived Allergy Severe Food Verified 05/06/23 17:01 Allergy Influenza Virus Vaccines Allergy Severe Other Verified 05/06/23 17:01 soy Allergy Nausea/BODY Verified 05/06/23 17:01 ACHES/flu like symptoms Family History Father CAD (coronary artery disease) CABG and pacemaker COPD (chronic obstructive pulmonary disease) Alcoholism Myocardial infarction Melanoma Heart disease Mother , age 69 infection, aneurysms Hypertension Heart disease Depression Sister Clotting disorder Brother Clotting disorder Grandfather Seizures Surgical History H/O coronary artery bypass surgery (12/01/12) History of back surgery History of colonoscopy (~07/2021) History of incision and drainage History of lumbar laminectomy History of Mohs surgery for squamous cell carcinoma in situ of skin (~03/2021) History of right shoulder replacement (08/19/21) Hx of hemorrhoidectomy Hx of hernia repair Hx of tonsillectomy S/P insertion of spinal cord stimulator (~05/2021) Social History Smoking Status: Never smoker Electronic Cigarette Use: not used second hand exposure: Yes (Mother and Father smoked when he was a child ) alcohol intake: current alcohol intake frequency: 0-2 drinks per day Alcohol type: beer and wine substance use type: does not use caffeine: Yes Type: tea Number of servings: 1 ROS ROS ED Constitutional Constitutional ED: Reports fever(s); Denies chills Eyes Eyes: Denies change in vision or discharge from eye(s) ENT ENT ED: Denies discharge from eye(s), rhinorrhea or sore throat Cardiovascular Cardiovascular: Denies chest pain Respiratory/Chest Respiratory/Chest: Denies cough or dyspnea Gastrointestinal Gastrointestinal: Denies abdominal pain, nausea or vomiting Musculoskeletal Musculoskeletal: Reports extremity pain; Denies back pain Integumentary Denies Abrasions or rash Neurologic Neurologic: Denies headache(s) Psychiatric Psychiatric: Denies anxiety or depression Allergic/Immunologic Allergic/Immunologic ED: Denies lip swelling or urticaria EXAM Physical Exam Const Vital Signs: 05/06/23 17:01 05/06/23 18:07 Temperature 97.2 F L 99.4 F H Temperature Source Temporal Oral Pulse Rate 72 Respiratory Rate 16 Blood Pressure 127/56 H Blood Pressure Mean 79 Pulse Ox 98 Oxygen Delivery Method Room Air Positive well nourished and well developed General Appearance ED: well developed HEENT Reports moist mucous membranes Eyes EOMs intact bilaterally Chest Wall inspection of chest normal and palpation of chest normal Resp normal respiratory effort and clear to auscultation bilaterally Cardio regular rate and regular rhythm GI non-tender Palpation: soft Extremity Extremity Narrative: Marissa intact over anterior right knee incision. Minimal surrounding erythema. No drainage from the wound. 3+ edema of the right lower extremity noted. Good distal pulses. Neuro oriented x3 Psych mental status grossly normal MDM MDM MDM Narrative Medical decision making narrative: Venous ultrasound of the right lower extremity will be obtained to evaluate for potential DVT. Ultrasound called and advised patient had no evidence of DVT on study. Patient reassured and will continue his Xarelto at home. He is to follow-up with orthopedics next week. Return instructions given. Discharge Plan Triage Chief Complaint: Lower Extremity Injury ED Provider: Darlene Farmer Dx/Rx/DC Orders Clinical Impression: Leg edema, right, Encounter for post surgical wound check Instructions: ED Peripheral Edema, Unilateral, ED Post Op Wound Check, Pain Prescriptions: No Action modafinil 200 mg tablet See Rx Instructions PO BID Rx Instructions: 1 1/2 tabs AM, 1/2 tab lunch Probiotic 3 billion cell capsule 3,000 mmu cells PO DAILY Rx Instructions: administer with a meal ascorbic acid (vitamin C) 1,000 mg tablet 1,000 mg PO DAILY vitamin B complex [B Complex-Vitamin B12] Tablet 1 tab PO DAILY primidone 50 mg tablet 50 mg PO DAILY Patient Comments: Take 1 tablet by mouth daily 5-hydroxytryptophan (5-HTP) [5-HTP] 100 mg capsule 100 mg PO DAILY icosapent ethyl [Vascepa] 1 gram capsule 2 g PO BID aspirin 81 MG tablet,chewable 81 mg PO DAILY@0800 0RF Patient Comments: heart health multivitamin 1 TABLET tablet 1 tablet PO DAILY cholecalciferol (vitamin D3) 50 mcg (2,000 unit) capsule 2,000 unit PO BID gabapentin 600 mg tablet 600 mg PO QHS calcium 600 mg Capsule 600 mg PO DAILY methocarbamol 500 mg Tablet 250 mg PO TID PRN (Reason: Spasms) milk thistle 200 mg Capsule 200 mg PO DAILY acetaminophen 650 mg Tablet Extended Release 1,300 mg PO Q8H PRN (Reason: Pain) zinc 50 mg Capsule 50 mg PO DAILY PreserVision AREDS-2 250-90-40-1 mg Capsule 1 tab PO DAILY garlic 1,000 mg Capsule 1,000 mg PO DAILY docusate sodium [Colace] 100 mg Capsule 100 mg PO DAILY Primary Care Provider: Saul Maxwell Referrals: Saul Maxwell MD [Primary Care Provider] - Basilio Patel MD [Med Staff - Active Staff] - 5-7 Days Disposition Disposition: Home, Self Care
--- NOTE | 2023-05-06 17:53 | US_ITS ---
STUDY: VENOUS DOPPLER ULTRASOUND - RIGHT LOWER EXTREMITY REASON FOR EXAM: Male, 78 years old. SWELLING RT KNEE TECHNIQUE: Ultrasound evaluation of the deep vein system to include aburto-scale imaging and compression was performed. Aburot-scale imaging and Doppler sonographic evaluation, including duplex spectral analysis and qualitative color flow sonography, was performed. COMPARISON: None. FINDINGS: Common Femoral Vein: Normal compression, spontaneity and augmentation. Normal color Doppler. Common Femoral Vein/Greater Saphenous Junction: Normal compression, spontaneity and augmentation. Normal color Doppler. Deep Femoral Vein: Normal compression, spontaneity and augmentation. Normal color Doppler. Femoral Proximal: Normal compression, spontaneity and augmentation. Normal color Doppler. Femoral Middle: Normal compression, spontaneity and augmentation. Normal color Doppler. Femoral Distal: Normal compression, spontaneity and augmentation. Normal color Doppler. Popliteal Vein: Normal compression, spontaneity and augmentation. Normal color Doppler. Posterior Tibial Vein: Normal compression, spontaneity and augmentation. Normal color Doppler. Peroneal Vein: Normal compression, spontaneity and augmentation. Normal color Doppler. US/Venous Duplex Imag/Limited/Uni IMPRESSION: No evidence for DVT. Electronically Signed: Joey Araya MD at 19:09 EST ,
--- OUTSIDE RECORDS SUMMARY | 2023-05-06 18:05 | XMS RPT_ITS | CCD ---
Author Name Unknown Address [address] [place] [address] Organization [facility] Care Team Providers Care Disintegrator Operator Name Role Phone Alize De Jesusshanika Do Unavailable De JesusEmily mandujano Unavailable Alyssa Zavala LPN Unavailable Maci Null Unavailable Unavailable Maci Null Unavailable Unavailable SELF, SELF Referring Unavailable REI BOSTON Attending Unavailable MIRANDA PETERSON Primary Care Physician [phone] МАРИНА LOERA, DR CHAY Tolentino Attending MIRANDA Dong Primary Care Unavailable MIRANDA PETERSON Primary Care Unavailable МАРИНА LOERA, DR CHAY Tolentino Attending Nadia Judd MD, DR CHAY Tolentino Attending MIRANDA Dong Primary Care Unavailable Allergies Allergy Classification Reported Allergen(s) Allergy Type Date of Onset Reaction(s) Facility (7 sources) egg; Translations: [EGGS] food allergy 12-19-2012 [facility] Work Phone: (5 sources) Hmg-Coa Reductase Inhibitors (Statins) drug allergy 12-19-2012 Myalgias [facility] Work Phone: (8 sources) NKA drug allergy 11-29-2012 [facility] Work Phone: (5 sources) FLU SHOT drug allergy 12-19-2012 [facility] Work Phone: (2 sources) Soybean preparation Drug Allergy [facility] Medications Current Medications Medication Drug Class(es) Dates [...] one as needed every 8-12 hours ACETAMINOPHEN [id number] Annalise Madsen PA-C Problems Active Problems Problem [...] disease (7 sources) Atherosclerotic heart disease of [place] coronary artery without angina pectoris; Translations: [Coronary [...] 11-29-2012 Episodic Other aftercare (8 sources) 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; Translations: [Long-term (current) use [...] Blood Pressure Location DR CHAY PARISH MD [facility] 04-04-2023 08:50-[address] CHAY PARISH MD [facility] 04-04-2023 08:50-0500 Body height 165.[address] CHAY PARISH MD [facility] 04-04-2023 08:50-0500 Body weight [address] CHAY PARISH MD [facility] 04-04-2023 08:50-0500 Body weight 31.18 kg/m2 DR CHAY PARISH MD [facility] 04-04-2023 08:50-0500 Diastolic Blood Pressure Non-Invasive 82 mm[Hg] DR CHAY PARISH MD [facility] 04-04-2023 08:50-0500 Heart rate 54 /min DR CHAY PARISH MD [facility] 04-04-2023 08:50-0500 Respiratory rate 18 /min DR CHAY PARISH MD [facility] 04-04-2023 08:50-0500 Systolic Blood Pressure Non-Invasive 118 mm[Hg] DR CHAY PARISH MD [facility] 09-07-2016 07:51-0400 BMI (Body Mass Index) 31.45 kg/m2 [facility] Work Phone: 09-07-2016 07:51-0400 BP [...] (Body Mass Index) 32.45 kg/m2 Alyssa Bonillagins [facility] Work Phone: 03-09-2016 14:54-0500 BP Diastolic 70 mm[Hg] Alyssa Bonillagins [facility] Work Phone: 03-09-2016 14:54-0500 BP Systolic 124 mm[Hg] Alyssa Bonillagins [facility] Work Phone: 03-09-2016 14:54-0500 BSA (Body Surface Area) 1.96 m2 [facility] Work Phone: 03-09-2016 14:54-0500 Pulse (Heart Rate) 60 /min Alyssanadiya BonillaZavala [facility] Work Phone: 03-09-2016 14:54-0500 Respiratory Rate 20 /min Alyssa Bonillagins [facility] Work Phone: 03-09-2016 14:54-0500 Weight 88.45 kg Alyssa Zavala [facility] Work Phone: 11-01-2014 14:33-0400 Heart rate 57 /min [facility] Work Phone: 08-26-2014 11:34-0400 BP Diastolic 80 mm[Hg] Alyssa Zavala [facility] Work Phone: 08-26-2014 11:34-0400 BP Diastolic 88 mm[Hg] Alyssa Zavala [facility] Work Phone: 08-26-2014 11:34-0400 BP Systolic 110 mm[Hg] Alyssa Zavala [facility] Work Phone: 08-26-2014 11:34-0400 Pulse (Heart Rate) 60 /min Alyssa Zavala [facility] Work Phone: 12-27-2012 09:59-0400 Pulse Oximetry 97 % Alyssa Zavala [facility] Work Phone: 11-29-2012 11:25-0400 Heart rate 426 ms [facility] Work Phone: 11-29-2012 10:57-0400 Height 165.1 cm Alyssa Zavala [facility] Work Phone: Encounters Encounter Date Encounter Type Care Provider Facility Start: 04-04-2023 End: 04-05-2023 ambulatory MIRANDA MICHEL Facility:B Start: 04-04-2023 End: 04-05-[address] CHAY PARISH MD Facility:B Start: 04-04-2023 End: 04-04-[address] CHAY PARISH MD [facility] Start: 04-04-2023 End: 04-04-[address] CHAY PARISH MD [facility] Start: 02-09-[address] CHAY PARISH MD F acility:B Start: 10-04-2018 Patient encounter procedure SELF SELF Facility:[facility] Procedures Date Procedure Procedure Detail Performing Clinician [...] MAUDE Burnett MD Start: 08-21-2013 End: 08-21-2013 AUTOMATIC MACHINES SUPERVISOR Annalise Madesn PA-C Work Phone: Start: 08-21-2013 End: 08-21-2013 [...] Kush Burnett MD Start: 11-29-2012 End: 11-29-2012 AUTOMATIC MACHINES SUPERVISOR Kush Burnett MD Start: 11-29-2012 End: 11-29-2012 [...] Phone: Start: 09-27-2016 End: 09-27-2016 Appointment Appointment [facility] Work Phone: Start: 09-27-2016 End: 09-27-2016 Appointment Appointment [facility] Work Phone: Start: 09-07-2016 End: 09-07-2016 Appointment Appointment [facility] Work Phone: Start: 09-07-2016 End: 09-07-2016 AUTOMATIC MACHINES SUPERVISOR AUTOMATIC MACHINES SUPERVISOR [facility] Work Phone: Start: 09-07-2016 End: 09-07-2016 Follow Up Appt 6 months Follow Up Appt 6 months [facility] Work Phone: Start: 09-06-2016 End: 09-06-2016 Appointment Appointment [facility] Work Phone: Start: 07-28-2016 End: 09-06-2016 Physical Therapy General Physical Therapy [facility], [address] [place] [address], [id number] [facility] Work Phone: Start: 07-26-2016 End: 07-26-2016 Appointment Appointment [facility] Work Phone: Start: 07-26-2016 End: 07-26-2016 X-ray exam of lower spine X-Ray, Spine, Lumbosacral 2-3 views [facility] Work Phone: Start: 03-09-2016 End: 03-09-2016 Follow Up Appt 6 months Follow Up Appt 6 months [facility] Work Phone: Start: 03-09-2016 End: 03-09-2016 MMM MMM [facility] Work Phone: Start: 02-02-2016 End: 02-02-2016 Ct lumbar spine w/o dye CT Lumbar Spine [facility] Work Phone: Start: 02-02-2016 End: 02-02-2016 Mri lumbar spine w/o dye MRI Lumbar Spine [facility] Work Phone: Start: 02-02-2016 End: 02-02-2016 Mri neck spine w/o dye [facility] Work Phone: Start: 02-02-2016 End: 02-02-2016 X-ray exam of lower spine X-Ray, Spine, Lumbosacral 2-3 views [facility] Work Phone: Start: 02-02-2016 End: 02-02-2016 X-ray exam of trunk spine X-Ray, Scoliosis Study [facility] Work Phone: Start: 09-16-2015 End: 09-16-2015 [facility] Work Phone: Start: 09-16-2015 End: 09-16-2015 Follow Up Appt 6 months Follow Up Appt 6 months [facility] Work Phone: Start: 03-18-2015 End: 03-18-2015 Follow Up Appt 6 months Follow Up Appt 6 months [facility] Work Phone: Start: 03-18-2015 End: 03-18-2015 MMM MMM [facility] Work Phone: Start: 11-01-2014 End: 11-01-2014 Echocardiography Echocardiogram (complete) [facility] Work Phone: Start: 11-01-2014 End: 11-01-2014 Follow Up Appt 4 months Follow Up Appt 4 months [facility] Work Phone: Start: 11-01-2014 End: 11-01-2014 MMM MMM [facility] Work Phone: Start: 11-01-2014 End: 11-01-2014 Nuclear stress test -exercise Nuclear stress test -exercise [facility] Work Phone: Start: 08-26-2014 End: 08-26-2014 [facility] Work Phone: Start: 08-26-2014 End: 08-26-2014 Follow Up Appt 6 months Follow Up Appt 6 months [facility] Work Phone: Start: 02-26-2014 End: 02-26-2014 Follow Up Appt 6 months Follow Up Appt 6 months [facility] Work Phone: Start: 02-26-2014 End: 02-26-2014 MMM MMM [facility] Work Phone: Start: 08-21-2013 End: 08-21-2013 AUTOMATIC MACHINES SUPERVISOR AUTOMATIC MACHINES SUPERVISOR [facility] Work Phone: Start: 08-21-2013 End: 08-21-2013 Follow Up Appt 6 months Follow Up Appt 6 months [facility] Work Phone: Start: 02-21-2013 End: 02-21-2013 Follow Up Appt 6 months Follow Up Appt 6 months [facility] Work Phone: Start: 02-21-2013 End: 02-21-2013 MMM MMM [facility] Work Phone: Start: 01-17-2013 End: 08-21-2013 *BMP *BMP [facility] Work Phone: Start: 12-27-2012 End: 12-27-2012 Cardiac Rehab Cardiac Rehab [facility] Work Phone: Start: 12-27-2012 End: 12-27-2012 Electrocardiogram, complete EKG (In office) [facility] Work Phone: Start: 12-27-2012 End: 12-27-2012 Follow Up Appt 3 months Follow Up Appt 3 months [facility] Work Phone: Start: 12-27-2012 End: 12-27-2012 [facility] Work Phone: Start: 11-29-2012 End: 11-29-2012 *BMP *BMP [facility] Work Phone: Start: 11-29-2012 End: 11-29-2012 CBC W Auto Differential panel - Blood *CBC without Diff [facility] Work Phone: Start: 11-29-2012 End: 11-29-2012 Chest x-ray X-Ray, Chest, PA & Lateral [facility] Work Phone: Start: 11-29-2012 End: 11-29-2012 AUTOMATIC MACHINES SUPERVISOR AUTOMATIC MACHINES SUPERVISOR [facility] Work Phone: Start: 11-29-2012 End: 11-29-2012 Electrocardiogram, complete EKG (In office) [facility] Work Phone: Start: 11-29-2012 End: 11-29-2012 Follow Up Appt 6 weeks Follow Up Appt 6 weeks [facility] Work Phone: Start: 11-29-2012 End: 11-29-2012 Left Heart Cath Left Heart Cath [facility] Work Phone: Patient Education [facility] Work Phone: Payers Date Payer Category Payer Medicare [id number] 2016 Unknown [id number] 2016 Medicare [id number] 1945 Unknown [id number] 1945 Unknown [id number] 1945 Unknown [id number] Social History Date Type Detail Facility Start: 04-04-2023 Tobacco smoking status Never s moked tobacco (finding) [facility] Sex Assigned At Sex [facility] Clinical Note 04-04-2023 Note Date & Type [...] 04/04/2023 12:52:52 PM Ordering Provider: CHAY PARISH [facility] Evaluation + Plan note Note Date & Type Note Facility Evaluation + Plan note Future Appointments [facility] Hospital course Narrative Note Date & Type Note Facility Hospital course Narrative No data available for this section [facility] Hospital Discharge instructions Note Date & Type Note Facility Hospital Discharge instructions No data available for this section [facility] Progress note Note Date & Type Note Facility Progress note No data available for this section [facility] Summary Purpose Family History No Family History [...] DATE CREATED AUTHOR AUTHOR'S ORGANIZ ATION 04/06/2023 [facility] ([place]) Patient Care team informatio n (unrecognized section and content) Care Team Personnel Name: MIRANDA ESCUDERO Member Role: Primary Care Physician Address: Address: [address] [place] [id number] [place] Care Team Related Persons Name: ANTHONY PULLIAM Care Team Personnel Name: MIRANDA ESCUDERO Member Role: Primary Care Physician Address: Address: [address] [place] [address] Care Team Related Persons Name: ANTHONY PULLIAM [...] BE BASED ON THE PRIMARY CLINICAL RECORDS. [facility]. provides no warranty or guarantee of the accuracy or completeness of information in this document.
[2023-05-06 18:07] VITALS: TEMP 37.4
== END 2023-05-06 19:23 | disposition home or self-care (01) ==
PROVIDERS: Emergency Provider Emergency Medicine; PCP Family Medicine; Visit Provider Emergency Medicine
DX: R60.0 Localized edema (principal); Z51.89 Encounter for other specified aftercare; Z96.651 Presence of right artificial knee joint; Z86.711 Personal history of pulmonary embolism; Z79.01 Long term (current) use of anticoagulants; Z79.82 Long term (current) use of aspirin; Z96.611 Presence of right artificial shoulder joint
CPT/HCPCS: 93971; 99282

== ENCOUNTER 2023-05-21 01:34 | Emergency (ER) | payer MEDICARE, BC, SELFPAY ==
[2023-05-21 01:35] VITALS: BP 180/106; PULSE 69; RESP 19; TEMP 37; O2SAT 98; BMI 29.9
--- NOTE | 2023-05-21 02:09 | CT_ITS ---
STUDY: CTA CHEST REASON FOR EXAM: Male, 78 years old. chest pain with PMHX of PE RADIATION DOSAGE (If Supplied By Facility): CTDIvol = ( 14.57 ) mGy, DLP = ( 431.98 ) mGycm TECHNIQUE: The examination was performed with the intravenous administration of IV 100mL Isovue-370. Post-processing of the angiographic images was performed, with multiplanar reformation and 3D reconstruction. Individualized dose optimization techniques were used for this CT. COMPARISON: 03/03/2021 FINDINGS: PULMONARY ARTERIES: Normal enhancement of the main pulmonary artery and right and left pulmonary arteries. Normal enhancement of the bilateral peripheral pulmonary arteries. There is no demonstrated pulmonary embolism. AORTA: Normal thoracic aorta and visualized great vessels. There is no demonstrated aortic dissection. MEDIASTINUM: Mild cardiomegaly. Coronary calcifications status post coronary artery bypass grafting. There is no demonstrated mediastinal lymphadenopathy or mediastinal mass lesion. Normal hilar regions. LUNGS/PLEURA: Normal visualized trachea and bronchi. The lungs are well expanded. There are no pulmonary infiltrates. There are no pleural effusions. No pneumothorax. CHEST WALL: Normal chest wall structures. UPPER ABDOMEN: Normal visualized upper abdomen. OSSEOUS STRUCTURES: No acute or suspicious osseous abnormality. CT/CTA Chest W/WO Contrast IMPRESSION: No pulmonary embolism or other acute intrathoracic abnormality. Electronically Signed: Jitendra Rincon MD at 7:07 [facility] ,
--- NOTE | 2023-05-21 02:09 | CT_ITS ---
INDICATION: headache EXAMINATION: CT BRAIN - CT Head or Brain W/O Contrast Injection TECHNIQUE: Multiple axial images were obtained of the head without intravenous contrast. A radiation dose optimization technique was used for this scan. IV Contrast dosage and agent: None. RADIATION DOSAGE (If Supplied By Facility): CTDIvol = ( 44.99 ) mGy, DLP = ( 779.24 ) mGycm COMPARISON: MRI brain dated 07/07/2020 FINDINGS: BRAIN PARENCHYMA: No intra- or extra-axial hemorrhage. No evidence of acute infarct. No intracranial mass or mass effect. There is preservation of the mejia/white matter interface. Posterior fossa structures are unremarkable. Patchy periventricular and deep white matter hypoattenuation is consistent with moderate small vessel ischemic change. CSF SPACES: No cerebral volume loss. No hydrocephalus. Basal cisterns are patent. CALVARIUM, SKULL BASE, PARANASAL SINUSES AND MASTOID AIR CELLS: The mastoid air cells and visualized paranasal sinuses are well aerated. The calvarium is intact. No discrete lytic or blastic abnormalities. ORBITS: Both globes, extraocular muscles, optic nerves and retrobulbar fat appear unremarkable. CT/Brain/Head without Contrast IMPRESSION: No acute intracranial finding. Electronically Signed: Jitendra Rincon MD at 7:03 EST ,
--- NOTE | 2023-05-21 02:09 | EKG12_ITS ---
Test Reason : DYSRHYTHMIA Blood Pressure : / mmHG Vent. Rate : 068 BPM Atrial Rate : 068 BPM P-R Int : 158 ms QRS Dur : 132 ms QT Int : 428 ms P-R-T Axes : 046 000 081 degrees QTc Int : 455 ms Normal sinus rhythm Right bundle branch block Minimal voltage criteria for LVH, may be normal variant ( R in aVL ) Abnormal ECG Confirmed by FAZAL LOERA, JING ([id number]), society editor SHAMEKA VARGAS ([id number]) on 05/23/2023 9:34:59 AM Referred By: Confirmed By:JING DIEHL MD
--- OUTSIDE RECORDS SUMMARY | 2023-05-21 02:14 | XMS RPT_ITS ---
Author Name Auto Generated Organization [facility] Care Team Providers Care [employer] Operator Name Role Phone МАРИНА LOERA, DR CHAY Tolentino Attending Iqra chrystal MICHEL MIRANDA Primary Care Unavailable МАРИНА LOERA, DR CHAY Tolentino Attending Iqra MIRANDA Sepulveda Primary Care Unavailable MIRANDA PETERSON Primary Care Unavailable HÉCTOR VORA Consulting HÉCTOR De Attending Sadia PARISH MD, DR CHAY Tolentino Admitting Nadia Judd MD, DR CHAY Tolentino Referring [facility] TIM Caballero DO Attending [facility] KOTA MICHEL MIRANDA Primary Care Unavailable PROBLEMS No Problem Records Found PROCEDURES No Procedure Records Found RESULTS UA Collected: 05/05/2023 10:21 PM Status: F Source: [facility] REPOSITORY TYPE CODE TESTS RESULT OUT OF RANGE REFERENCE UNITS LAB SPCUA(LOINC) UA Specimen Type Clean Catch LAB CLRUA(LOINC) UA Color Yellow LAB APPUA(LOINC) UA Appear Clear Clear LAB SGUA(LOINC) UA Spec Grav 1.020 1.015-1.025 LAB GLUA(LOINC) UA Glucose Negative Negative mg/dL LAB BILUA(LOINC) UA Bili Negative Negative LAB KETUA(INC) UA Ketones Negative Negative mg/dL LAB BLDUA(LOINC) UA Blood Negative Negative LAB PHUA(LOINC) UA pH 7.0 5.0 - 8.0 LAB PROUA(LOINC) UA Protein Negative Negative mg/dL LAB UROUA(LOINC) UA Urobilinogen 0.2 0.2-1.0 E.U ./dL LAB NITUA(LOINC) UA Nitrite Negative Negative LAB LEUUA(INC) UA Leuk Est Negative Negative Performed By: #### UA #### [facility] [address] [place] [address] [facility] Observed: 05/05/2023 10:21 PM Status: F Source: [facility] REPOSITORY . MICRO - Microbiology PROCEDURE: Urine Culture [*1] SOURCE: Urine BODY SITE: COLLECTED DATE/TIME: 05/05/2023 22:21 EST RECEIVED DATE/TIME: 05/06/2023 14:25 EST START DATE/TIME: 05/06/2023 14:25 EST FREE TEXT SOURCE: FINAL REPORTS Final Report [] Verified Date/Time/Personnel: 05/08/2023 07:38 EST No growth at 48 hours. PRELIMINARY REPORTS Preliminary Report [] Verified Date/Time/Personnel: 05/07/2023 09:04 EST No growth to date Performing Locations *1: This test was performed at: [facility], [address] [place] [address], [id number]- , XR CHEST 1 VIEW Observed: 05/05/2023 10:19 PM Status: F Source: [facility] REPOSITORY ORIGINAL EXAMINATION: ONE XRAY VIEW OF THE CHEST 05/05/2023 10:29 pm COMPARISON: Radiograph of the chest May 04, 2023 HISTORY: ORDERING SYSTEM PROVIDED HISTORY: Reason for Exam: fever FINDINGS: Cardiomediastinal silhouette is unchanged in size. Costophrenic angles are sharp. No radiographic pneumothorax. Similar appearing left basilar streaky opacity/atelectasis or scarring. Osseous structures grossly unchanged. Spinal cord stimulator. IMPRESSION: No significant change from prior exam. Interpreted by: Sriram Younger Preliminary Report By: Sriram Younger Electronically signed By Sriram Younger Dictated Date: 05/05/2023 10:43:11 PM Prelim Date: 05/05/2023 10:43:54 PM Sign Date: 05/05/2023 10:43:54 PM Ordering Provider: TIM MUSTAFA Observed: 05/05/2023 10:01 PM Status: F Source: [facility] REPOSITORY . MICRO - Microbiology PROCEDURE: Blood Culture (bacterial) [*1] SOURCE: Blood BODY SITE: COLLECTED DATE/TIME: 05/05/2023 22:01 EST RECEIVED DATE/TIME: 05/06/2023 14:16 EST START DATE/TIME: 05/06/2023 14:16 EST FREE TEXT SOURCE: FINAL REPORTS Final Report [] Verified Date/Time/Personnel: 05/11/2023 14:59 EST Blood Culture: No Growth at 5 days. PRELIMINARY REPORTS Preliminary Report [] Verified Date/Time/Personnel: 05/06/2023 14:59 EST Culture has been received in lab and is no growth to date. Routine cultures are held for 5 days. Performing Locations *1: This test was performed at: [address], [address] [place] [address] CBL Observed: 05/05/2023 10:01 PM Status: F Source: [facility] REPOSITORY . MICRO - Microbiology PROCEDURE: Blood Culture (bacterial) [*1] SOURCE: Blood BODY SITE: COLLECTED DATE/TIME: 05/05/2023 22:01 EST RECEIVED DATE/TIME: 05/06/2023 14:16 EST START DATE/TIME: 05/06/2023 14:16 EST FREE TEXT SOURCE: FINAL REPORTS Final Report [] Verified Date/Time/Personnel: 05/11/2023 14:59 EST Blood Culture: No Growth at 5 days. PRELIMINARY REPORTS Preliminary Report [] Verified Date/Time/Personnel: 05/06/2023 14:59 EST Culture has been received in lab and is no growth to date. Routine cultures are held for 5 days. Performing Locations *1: This test was performed at: [facility], [address] [place] [address], [phone]- , CBC Collected: 4 10:01 PM Status: F Source: [facility] REPOSITORY TYPE CODE TESTS RESULT OUT OF RANGE REFERENCE UNITS LAB WBC(LOINC) WBC 8.5 4.6-10.8 10 3/mcL LAB RBCCT(LOINC) RBC 4.14 4.04-6.13 10 6/mcL LAB HGB(LOINC) Hgb 13.7 Low 14.0-18.0 G/dL LAB HCT(LOINC) Hct 39.2 Low 42.0-52.0 % LAB MCV(LOINC) MCV 94.7 High 80.0-94.0 fL LAB MCH(LOINC) MCH 33.1 High 27.0-31.2 pg LAB MCHC(LOINC) MCHC 34.9 31.8-35.4 G/dL LAB RDW(LOINC) RDW 12.7 11.5-14.5 % LAB PLT(LOINC) Platelet 200 130-400 10 3/mcL LAB MPV(LOINC) MPV 7.4 7.4-10.4 fL Performed By: #### CRPHS ### # [address] [address] #### ESR, LAC, ANEU, ADIFF, GFR, CBC, MDW, BMP #### [address] [address] .AUTO DIFF Collected: 4 10:01 PM Status: F Source: [facility] REPOSITORY TYPE CODE TESTS RESULT OUT OF RANGE REFERENCE UNITS LAB JOSE(LOINC) Neutrophil % 76.4 37.0-80.0 % LAB LYM(LOINC) Lymphocyte % 13.3 10.0-50.0 % LAB MON(LOINC) Monocyte % 9.4 1.7-13.0 % LAB EO(LOINC) Eosinophil % 0.4 0.0-7.0 % LAB BAS(LOINC) Basophil % 0.5 0.0-2.5 % LAB ABLYM(LOINC) Lymphocyte, Absolute 1.1 0.8-3.9 10 3/mcL LAB SYDNI(LOINC) Monocyte, Absolute 0.8 0.2-1.0 10 3/mcL LAB AEOS(LOINC) Eosinophil, Absolute 0.0 0.0-0.4 10 3/mcL LAB ABAS(LOINC) Basophil, Absolute 0.0 0.0-0.2 10 3/mcL Performed By: #### QAMAR ### # [place] [address] #### ESR, LAC, ANEU, ADIFF, GFR, CBC, MDW, BMP #### [address] [address] .NEUABS Collected: 10:01 PM Status: F Source: [facility] REPOSITORY TYPE CODE TESTS RESULT OUT OF RANGE REFERENCE UNITS LAB ANEU(LOINC) Neutrophil, Absolute 6.5 High 2.9-6.2 10 3/mcL Performed By: #### QAMAR ### # [place] [address] #### ESR, LAC, ANEU, ADIFF, GFR, CBC, MDW, BMP #### [address] [address] .MDW Collected: 05/05/2023 10:01 PM Status: F Source: [facility] TYPE CODE TESTS RESULT OUT OF RANGE REFERENCE UNITS LAB MDW(LOINC) Monocyte Distribution Width 21.88 High 0.00-20.00 Result Comment: For adults i n ED, MDW>20.0 may be associated with a higher risk of sepsis during the first 12hrs of hospital admission Performed By: #### QAMAR ### # [place] [address] #### ESR, LAC, ANEU, ADIFF, GFR, CBC, MDW, BMP #### [address] [address] ESR Collected: 05/05/2023 10:01 PM Status: F Source: [facility] REPOSITORY TYPE CODE TESTS RESULT OUT OF RANGE REFERENCE UNITS LAB ESR(LOINC) Erythrocyte Sed Rate 15 0-20 mm/hr Performed By: #### QAMAR ### # [place] [address] #### ESR, LAC, ANEU, ADIFF, GFR, CBC, MDW, BMP #### [place] [id number] [place], [place] [address] BMP Collected: 05/05/2023 10:01 PM Status: F Source: [facility] REPOSITORY TYPE CODE TESTS RESULT OUT OF RANGE REFERENCE UNITS LAB GLU(LOINC) Glucose Level 132 High 83-110 mg/dL LAB NA(LOINC) Sodium Level 138 136-145 mmol/L LAB K(LOINC) Potassium Level 4.5 3.5-5.1 mmol/L LAB CL(LOINC) Chloride 100 98-107 mmol/L LAB CO2(LOINC) CO2 29 23-31 mmol/L LAB EBAL(LOINC) Electrolyte Balance 9.0 4.0-15.0 mEq/L LAB BUN(LOINC) BUN 21 High 7-18 mg/dL LAB CRE(LOINC) Creatinine Lvl (s) 1.14 0.70-1.30 mg/dL LAB BC(LOINC) BUN/Creatinine Ratio 18 7-27 ratio LAB CA(LOINC) Calcium Lvl 9.0 8.4-10.2 mg/dL Performed By: #### CRP ### # [place] [address] #### ESR, LAC, ANEU, ADIFF, GFR, CBC, MDW, BMP #### [address] [address] .GFR Collected: 10:01 PM Status: F Source: [facility] REPOSITORY TYPE CODE TESTS RESULT OUT OF RANGE REFERENCE UNITS LAB GFRAA(LOINC) GFR 76 ml/min/1. 73sqm Result Comment: GFR Population mean for , Non- Americans Ages 20-29 = 116 mL/min/1.73 sq.m. Ages 30-39 = 107 mL/min/1.73 sq.m. Ages 40-49 = 99 mL/min/1.73 sq.m. Ages 50-59 = 93 mL/min/1.73 sq.m. Ages 60-69 = 85 mL/min/1.73 sq.m. Ages 70+ = 75 mL/min/1.73 sq.m. Chronic Kidney Disease: Less than 60 mL/min/1.73 square meters End Stage Renal Disease: Less than 15 mL/min/1.73 square meters LAB GFRNO(LOINC) GFR Non- 62 ml/min/1. 73sqm Result Comment: GFR Population mean for , Non- Americans Ages 20-29 = 116 mL/min/1.73 sq.m. Ages 30-39 = 107 mL/min/1.73 sq.m. Ages 40-49 = 99 mL/min/1.73 sq.m. Ages 50-59 = 93 mL/min/1.73 sq.m. Ages 60-69 = 85 mL/min/1.73 sq.m. Ages 70+ = 75 mL/min/1.73 sq.m. Chronic Kidney Disease: Less than 60 mL/min/1.73 square meters End Stage Renal Disease: Less than 15 mL/min/1.73 square meters Performed By: #### CRPHS ### # [address] [address] #### ESR, LAC, ANEU, ADIFF, GFR, CBC, MDW, BMP #### [place] [address] [place], [place] [address] LAC Collected: 4 10:01 PM Status: F Source: [facility] REPOSITORY TYPE CODE TESTS RESULT OUT OF RANGE REFERENCE UNITS LAB LAC(LOINC) Lactic Acid Lvl 1.2 0.4-2.0 mmol/L Performed By: #### CRPHS ### # [address] [address] #### ESR, LAC, ANEU, ADIFF, GFR, CBC, MDW, BMP #### [place] [address] [place], [place] [address] CRPHS Collected: 4 10:01 PM Status: F Source: [facility] REPOSITORY TYPE CODE TESTS RESULT OUT OF RANGE REFERENCE UNITS LAB CRPHS(INC) CRP, High Sensitive 176.63 High 0.20-3.00 mg/L Result Comment: Relative Ris k Category and Average hs-CRP Level: Higher Risk: > 5.0 mg/L Guidelines support that hs-CRP can be used as an independent predictor of increased coronary risk; however, hs-CRP results should only be interpreted in conjunction with other cardiac risk factors in establishing overall cardiac risk for a given patient. Performed By: #### CRPHS ### # [facility] [address] [place] [address] #### ESR, LAC, ANEU, ADIFF, GFR, CBC, MDW, BMP #### [place] [address] [place], [place] [address] XR CHEST 2 VIEWS Observed: 05/04/2023 2:51 PM Status: F Source: [facility] REPOSITORY ORIGINAL EXAMINATION: TWO XRAY VIEWS OF THE CHEST TECHNIQUE: Two views COMPARISON: Chest 12/05/2012 HISTORY: ORDERING SYSTEM PROVIDED HISTORY: Reason for Exam: Cough FINDINGS: Support devices: A thoracic epidural stimulator enters the posterior spinal canal at the approximate T12-L1 level and terminates at the approximate T8-T9 level. Cardiomediastinal: The heart is at the upper limits of normal. Status post median sternotomy and CABG. Lungs: No pulmonary edema, consolidation or a pleural effusion. The right diaphragm is elevated. Bibasilar linear parenchymal opacities noted. No pulmonary edema, consolidation or a pleural effusion. Pneumothorax: None. Osseous: No acute osseous pathology. 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 Incompletely image to posterior instrumentation of all vein the upper lumbar spine. Post reverse total right shoulder replacement with anatomic alignment. Remote left rib fracture. IMPRESSION: Bibasilar linear parenchymal opacities reflecting discoid atelectasis, scar or infiltrate (less likely). Attention on short-term follow-up examination advised. Interpreted by: Khurram Ellsworth MD Preliminary Report By: Khurram Ellsworth MD Electronically signed By Khurram Ellsworth MD Dictated Date: 05/04/2023 3:28:43 PM Prelim Date: 05/04/2023 3:32:38 PM Sign Date: 05/04/2023 3:32:38 PM Ordering Provider: HÉCTOR HUANG CBC Collected: 4 5:43 AM Status: F Source: [facility] REPOSITORY TYPE CODE TESTS RESULT OUT OF RANGE REFERENCE UNITS LAB WBC(LOINC) WBC 7.7 4.6-10.8 10 3/mcL LAB RBCCT(LOINC) RBC 3.78 Low 4.04-6.13 10 6/mcL LAB HGB(LOINC) Hgb 12.6 Low 14.0-18.0 G/dL LAB HCT(LOINC) Hct 35.9 Low 42.0-52.0 % LAB MCV(LOINC) MCV 95.0 High 80.0-94.0 fL LAB MCH(LOINC) MCH 33.2 High 27.0-31.2 pg LAB MCHC(LOINC) MCHC 35.0 31.8-35.4 G/dL LAB RDW(LOINC) RDW 12.6 11.5-14.5 % LAB PLT(LOINC) Platelet 195 130-400 10 3/mcL LAB MPV(LOINC) MPV 7.9 7.4-10.4 fL Performed By: #### CBC, ANEU , GFR, ADIFF, BMP #### [address] [address] .AUTO DIFF Collected: 05/04/2023 5:43 AM Status: F Source: [facility] REPOSITORY TYPE CODE TESTS RESULT OUT OF RANGE REFERENCE UNITS LAB JOSE(LOINC) Neutrophil % 75.1 37.0-80.0 % LAB LYM(LOINC) Lymphocyte % 17.7 10.0-50.0 % LAB MON(LOINC) Monocyte % 6.2 1.7-13.0 % LAB EO(LOINC) Eosinophil % 0.6 0.0-7.0 % LAB BAS(LOINC) Basophil % 0.4 0.0-2.5 % LAB ABLYM(LOINC) Lymphocyte, Absolute 1.4 0.8-3.9 10 3/mcL LAB SYDNI(LOINC) Monocyte, Absolute 0.5 0.2-1.0 10 3/mcL LAB AEOS(LOINC) Eosinophil, Absolute 0.0 0.0-0.4 10 3/mcL LAB ABAS(LOINC) Basophil, Absolute 0.0 0.0-0.2 10 3/mcL Performed By: #### CBC, ANEU , GFR, ADIFF, BMP #### [address] [address] .NEUABS Collected: 5:43 AM Status: F Source: [facility] REPOSITORY TYPE CODE TESTS RESULT OUT OF RANGE REFERENCE UNITS LAB ANEU(LOINC) Neutrophil, Absolute 5.8 2.9-6.2 10 3/mcL Performed By: #### CBC, ANEU , GFR, ADIFF, BMP #### [place] [address] BMP Collected: 05/04/2023 5:43 AM Status: F Source: [facility] REPOSITORY TYPE CODE TESTS RESULT OUT OF RANGE REFERENCE UNITS LAB GLU(LOINC) Glucose Level 134 High 83-110 mg/dL LAB NA(LOINC) Sodium Level 138 136-145 mmol/L LAB K(LOINC) Potassium Level 4.5 3.5-5.1 mmol/L LAB CL(LOINC) Chloride 101 98-107 mmol/L LAB CO2(LOINC) CO2 29 23-31 mmol/L LAB EBAL(LOINC) Electrolyte Balance 8.0 4.0-15.0 mEq/L LAB BUN(LOINC) BUN 27 High 7-18 mg/dL LAB CRE(LOINC) Creatinine Lvl (s) 1.15 0.70-1.30 mg/dL LAB BC(LOINC) BUN/Creatinine Ratio 23 7-27 ratio LAB CA(LOINC) Calcium Lvl 8.8 8.4-10.2 mg/dL Performed By: #### CBC, ANEU , GFR, ADIFF, BMP #### [place] [address] [address] .GFR Collected: 5:43 AM Status: F Source: [facility] REPOSITORY TYPE CODE TESTS RESULT OUT OF RANGE REFERENCE UNITS LAB GFRAA(LOINC) GFR 75 ml/min/1. 73sqm Result Comment: GFR Population mean for , Non- Americans Ages 20-29 = 116 mL/min/1.73 sq.m. Ages 30-39 = 107 mL/min/1.73 sq.m. Ages 40-49 = 99 mL/min/1.73 sq.m. Ages 50-59 = 93 mL/min/1.73 sq.m. Ages 60-69 = 85 mL/min/1.73 sq.m. Ages 70+ = 75 mL/min/1.73 sq.m. Chronic Kidney Disease: Less than 60 mL/min/1.73 square meters End Stage Renal Disease: Less than 15 mL/min/1.73 square meters LAB GFRNO(LOINC) GFR Non- 62 ml/min/1. 73sqm Result Comment: GFR Population mean for , Non- Americans Ages 20-29 = 116 mL/min/1.73 sq.m. Ages 30-39 = 107 mL/min/1.73 sq.m. Ages 40-49 = 99 mL/min/1.73 sq.m. Ages 50-59 = 93 mL/min/1.73 sq.m. Ages 60-69 = 85 mL/min/1.73 sq.m. Ages 70+ = 75 mL/min/1.73 sq.m. Chronic Kidney Disease: Less than 60 mL/min/1.73 square meters End Stage Renal Disease: Less than 15 mL/min/1.73 square meters Performed By: #### CBC, ANEU , GFR, ADIFF, BMP #### [place] [address] [address] XR KNEE 1 OR 2 VIEWS RIGHT Observed: 08/2023 10:20 AM Status: F Source: [facility] REPOSITORY ORIGINAL EXAMINATION: TWO XRAY VIEWS OF THE RIGHT KNEE 05/03/2023 10:26 am COMPARISON: None. HISTORY: ORDERING SYSTEM PROVIDED HISTORY: Reason for Exam: Status Post Arthroplasty FINDINGS: Skin nuria overlie the operative site and there is some soft tissue air and fluid from the surgery. The prosthetic components appear well seated, and no adjacent fracture is visible. IMPRESSION: Expected postoperative findings. Interpreted by: Jb Pederson MD Preliminary Report By: Jb Pederson MD Electronically signed By Jb Pederson MD Dictated Date: 05/03/2023 10:27:51 AM Prelim Date: 05/03/2023 10:28:19 AM Sign Date: 05/03/2023 10:28:19 AM Ordering Provider: CHAY PARISH GEL ABS Collected: 05/03/2023 7:21 AM Status: F Source: [facility] REPOSITORY TYPE CODE TESTS RESULT OUT OF RANGE REFERENCE UNITS LAB ANSG(LOINC) Antibody Screen Gel Negative ABSC Performed By: #### ANSG, ABO G #### [place] [address] [address] GEL ABO Collected: 7:21 AM Status: F Source: [facility] REPOSITORY TYPE CODE TESTS RESULT OUT OF RANGE REFERENCE UNITS LAB ABORH(LOINC) ABO/Rh Interp A POS Unknown Performed By: #### ANSG, ABO G #### [address] [address] [address] KNEE W/O CONTRAST RIGHT Observed: 10/2023 9:30 AM Status: F Source: [facility] REPOSITORY ORIGINAL EXAMINATION: CT OF THE RIGHT KNEE [...] 04/04/2023 12:52:52 PM Ordering Provider: CHAY PARISH CBC Collected: 9:22 AM Status: F Source: [facility] REPOSITORY Order Comment: Pre-Admission Testing TYPE CODE TESTS RESULT OUT OF RANGE REFERENCE UNITS LAB WBC(LOINC) WBC 5.4 4.6-10.8 10 3/mcL LAB RBCCT(LOINC) RBC 4.34 4.04-6.13 10 6/mcL LAB HGB(LOINC) Hgb 14.2 14.0-18.0 G/dL LAB HCT(LOINC) Hct 40.7 Low 42.0-52.0 % LAB MCV(LOINC) MCV 93.9 80.0-94.0 fL LAB MCH(LOINC) MCH 32.7 High 27.0-31.2 pg LAB MCHC(LOINC) MCHC 34.8 31.8-35.4 G/dL LAB RDW(LOINC) RDW 12.5 11.5-14.5 % LAB PLT(LOINC) Platelet 203 130-400 10 3/mcL LAB MPV(LOINC) MPV 7.3 Low 7.4-10.4 fL Performed By: #### CBC, ADIF F, GFR, BMP, ABOG, ALB, ANSG, ANEU #### [address] [address] .AUTO DIFF Collected: 04/04/2023 9:22 AM Status: F Source: [facility] REPOSITORY TYPE CODE TESTS RESULT OUT OF RANGE REFERENCE UNITS LAB JOSE(LOINC) Neutrophil % 61.2 37.0-80.0 % LAB LYM(LOINC) Lymphocyte % 26.4 10.0-50.0 % LAB MON(LOINC) Monocyte % 9.9 1.7-13.0 % LAB EO(LOINC) Eosinophil % 1.8 0.0-7.0 % LAB BAS(LOINC) Basophil % 0.7 0.0-2.5 % LAB ABLYM(LOINC) Lymphocyte, Absolute 1.4 0.8-3.9 10 3/mcL LAB SYDNI(LOINC) Monocyte, Absolute 0.5 0.2-1.0 10 3/mcL LAB AEOS(LOINC) Eosinophil, Absolute 0.1 0.0-0.4 10 3/mcL LAB ABAS(LOINC) Basophil, Absolute 0.0 0.0-0.2 10 3/mcL Performed By: #### CBC, ADIF F, GFR, BMP, ABOG, ALB, ANSG, ANEU #### [address] [address] .NEUABS Collected: 9:22 AM Status: F Source: [facility] REPOSITORY TYPE CODE TESTS RESULT OUT OF RANGE REFERENCE UNITS LAB ANEU([facility]) Neutrophil, Absolute 3.3 2.9-6.2 10 3/mcL Performed By: #### CBC, ADIF F, GFR, BMP, ABOG, ALB, ANSG, ANEU #### [address] [address] GEL ABO Collected: 9:22 AM Status: F Source: [facility] REPOSITORY Order Comment: SURG JANN 2/6 -AC TYPE CODE TESTS RESULT OUT OF RANGE REFERENCE UNITS LAB ABORH([facility]) ABO/Rh Interp A POS Unknown Performed By: #### CBC, ADIF F, GFR, BMP, ABOG, ALB, ANSG, ANEU #### [address] [address] GEL ABS Collected: 04/04/2023 9:22 AM Status: F Source: [facility] REPOSITORY Order Comment: SURG JANN 2/6 -AC TYPE CODE TESTS RESULT OUT OF RANGE REFERENCE UNITS LAB ANSG([facility]) Antibody Screen Gel Negative ABSC Performed By: #### CBC, ADIF F, GFR, BMP, ABOG, ALB, ANSG, ANEU #### [address] [address] BMP Collected: 04/04/2023 9:22 AM Status: F Source: [facility] REPOSITORY TYPE CODE TESTS RESULT OUT OF RANGE REFERENCE UNITS LAB GLU(LOINC) Glucose Level 89 83-110 mg/dL LAB NA(LOINC) Sodium Level 144 136-145 mmol/L LAB K(LOINC) Potassium Level 4.4 3.5-5.1 mmol/L LAB CL(LOINC) Chloride 105 98-107 mmol/L LAB CO2(LOINC) CO2 28 23-31 mmol/L LAB EBAL(LOINC) Electrolyte Balance 11.0 4.0-15.0 mEq/L LAB BUN(LOINC) BUN 16 7-18 mg/dL LAB CRE(LOINC) Creatinine Lvl (s) 1.01 0.70-1.30 mg/dL LAB BC(LOINC) BUN/Creatinine Ratio 16 7-27 ratio LAB CA(LOINC) Calcium Lvl 9.3 8.4-10.2 mg/dL Performed By: #### CBC, ADIF F, GFR, BMP, ABOG, ALB, ANSG, ANEU #### [place] [address] [place], [place] [address] ALB Collected: 04/04/2023 9:22 AM Status: F Source: [facility] REPOSITORY TYPE CODE TESTS RESULT OUT OF RANGE REFERENCE UNITS LAB ALB(LOINC) Albumin Level 3.7 3.4-4.8 G/dL Performed By: #### CBC, ADIF F, GFR, BMP, ABOG, ALB, ANSG, ANEU #### [place] [address] [place], [place] [address] .GFR Collected: 9:22 AM Status: F Source: [facility] REPOSITORY TYPE CODE TESTS RESULT OUT OF RANGE REFERENCE UNITS LAB GFRAA([facility]) GFR 87 ml/min/1. 73sqm Result Comment: GFR Population mean for , Non- Americans Ages 20-29 = 116 mL/min/1.73 sq.m. Ages 30-39 = 107 mL/min/1.73 sq.m. Ages 40-49 = 99 mL/min/1.73 sq.m. Ages 50-59 = 93 mL/min/1.73 sq.m. Ages 60-69 = 85 mL/min/1.73 sq.m. Ages 70+ = 75 mL/min/1.73 sq.m. Chronic Kidney Disease: Less than 60 mL/min/1.73 square meters End Stage Renal Disease: Less than 15 mL/min/1.73 square meters LAB GFRNO(LOINC) GFR Non- 72 ml/min/1. 73sqm Result Comment: GFR Population mean for , Non- Americans Ages 20-29 = 116 mL/min/1.73 sq.m. Ages 30-39 = 107 mL/min/1.73 sq.m. Ages 40-49 = 99 mL/min/1.73 sq.m. Ages 50-59 = 93 mL/min/1.73 sq.m. Ages 60-69 = 85 mL/min/1.73 sq.m. Ages 70+ = 75 mL/min/1.73 sq.m. Chronic Kidney Disease: Less than 60 mL/min/1.73 square meters End Stage Renal Disease: Less than 15 mL/min/1.73 square meters Performed By: #### CBC, ADIF F, GFR, BMP, ABOG, ALB, ANSG, ANEU #### [facility] [address] [place], [place] [address] MRSAPCR Collected: 9:22 AM Status: F Source: [facility] REPOSITORY TYPE CODE TESTS RESULT OUT OF RANGE REFERENCE UNITS LAB MRSAPCR1(LOINC) MRSA (PCR) Not Detected Not Dete cted Result Comment: Notes LAB MRSAPCRINT(LOIN C) MRSA PCR Int Result Comment: MRSA DNA not detected by Real-Time Polymerase Chain Reaction (PCR). A negative result may be due to intermittent colonization. Colonization may vary depending on patient treatment, patient status, or exposure to high-risk environments. As with all PCR based in vitro diagnostic tests, extremely low levels of target below the limit of detection of the assay may be detected, but results may not be reproducible. See Below Performed By: #### MRSAPCR # ### [place] [address] ALLERGIES No Allergies Records Found ENCOUNTERS ADMIT/DISCHARGE ACCOUNT NUMBER ADMITTING ENCOUNTER CLASS LOCATION SOURCE 05/05/2023/05/05/19 24 [id number] Emergency BBuilding:E RO [facility] [place] 05/03/2023/05/04/19 24 [id number] МАРИНА LOERA, DR CHAY Tolentino Ambulatory BBuilding:M SURRoom: 0230Bed: A [facility] 04/04/2023/04/04/19 24 [id number] Ambulatory BBuilding:R AD [facility] [place] 04/04/2023/04/04/19 24 [id number] Ambulatory BBuilding:O PRS [facility] PAYERS ENCOUNTER GUARANTOR PAYER SUBSCRIBER SOURCE 05/05/2023 CALE ZULUAGAOB: [id number] Celina [facility] [email or web address] ANNel: (HP) (WP) Primary Insurance:MEDICARE PART B INSCOPolicy Number: [id number] Date:5827-26-84Yadm Name:[facility] [place] [address]MV: CALE Boyd CHAPMANDOB: [id number] Celina [place], [place] [address]Haf: (HP) (WP) [facility] ([place] 05/05/2023 Secondary Insurance:[employer] BL[employer] CROSS INSCOPolicy Number: [id number] Date:1078-56-26Dgmm Name:[facility] Malick [address] [place] [address]WM: CALE MONCADAMANDOB: [id number] [place], [place] [address]Vuo: (HP) (WP) [facility] ([place] 05/03/2023 CALE Boyd CHAPMANDOB: [place] [email or web address]: (HP) (WP) Primary Insurance:MEDICARE PART B INSCOPolicy Number: [id number] Date:9209-72-15Gvtz Name:[facility] Administrators [facility] [place], [place] [address]HR: CALE Boyd CHAPMANDOB: [id number] [place] [place], [place] [address]Qhw: (HP) (WP) [facility] ([place] 05/03/2023 Secondary Insurance:[employer] BLUE CROSS INSCOPolicy Number: [id number] Date:8699-83-03Wyjm Name:[facility] Malick [place], [place] [address]BV: CALE MONCADAMANDOB: [id number] [facility], [place] [address]Mmg: (HP) (WP) [facility] [facility] ([place] 04/04/2023 CALE MONCADAMANDOB: [facility] [place] [email or web address]: (HP) (WP) Primary Insurance:MEDICARE PART B INSCOPolicy Number: [id number] Date:[id number] Name:[facility] Administrators [place] [id number] [id number]: CALE Boyd CORALMANDOB: [id number] [facility], [place] [address]Dtz: (HP) (WP) [facility] ([place] 04/04/2023 CALE Deb MONCADAMANDOB: [facility] [place] [email or web address]: (HP) (WP) Primary Insurance:MEDICARE PART B INSCOPolicy Number: [id number] Date:[id number] Name:[facility] [id number], [place] [id number]: CALE Boyd CHAPMANDOB: [id number] [place], [place] [address]Xid: (HP) (WP) [facility] ([place] 04/04/2023 Secondary Insurance:[employer] BLUE CROSS INSCOPolicy Number: [id number] Date:[id number] Name:[facility] [place] [id number], [place] [address]PT: CALE Deb ORTIZ: [id number] Celina [facility] [place] [facility], [place] [address]Yqb: (HP) (WP) [facility] ([place])
[2023-05-21 02:20] VITALS: BP 154/80; PULSE 67; RESP 15; O2SAT 98
[2023-05-21 02:42] LABS: Absolute Neutrophil Count 2.8 X10^3/uL (2.0-7.7); Basophil# 0.04 X10^3/uL; Basophil% 0.9 % (0-1); Eosinophil# 0.11 X10^3/uL; Eosinophils% 2.3 % (0-5); Hematocrit 40.9 % (40-54); Hemoglobin 13.4 g/dL (13.0-16.5); Lymphocyte % 25.6 % (19-41); Mean Corp Hgb Conc 32.8 g/dL (32-36); Mean Corpuscular Hgb 31.2 pg (27.0-32.0); Mean Corpuscular Volume 95.1 fL (80-94); Mean Platelet Vol. 9.6 fl (6.2-12.0); Monocyte# 0.49 X10^3/uL; Monocyte% 10.4 % (0-10); NRBC Flagged by Analyzer 0 % (0-5); Neutrophil # 2.83 X10^3/uL (2.7-7.7); Neutrophil % 60.4 % (47-70); POSITIVE COUNT YES; RBC Distribution Width CV 11.9 % (11.6-14.6); RBC Distribution Width SD 40.9 fl (35.1-43.9); White Blood Count 4.7 K/mm3 (4.4-11.0)
[2023-05-21 03:10] LABS: Differential Indicated SCAN CRITERIA MET
[2023-05-21 03:18] LABS: AST(SGOT) 58 U/L (15-37); Alanine Aminotransfer ALT/SGPT 25 U/L (16-61); Albumin, Serum 3.2 g/dL (3.2-5.0); Alkaline Phosphatase 91 U/L (45-117); Anion Gap 2 (5-15); BUN 27 mg/dL (7-18); BUN/Creat Ratio 25.2 RATIO (10-20); Bilirubin, Direct 0.12 mg/dL (0.00-0.30); Calcium,Total 8.7 mg/dL (8.5-10.1); Chloride 103 mmol/L (98-107); Creatinine, Serum 1.07 mg/dL (0.70-1.30); EST Glomerular Filtration Rate 71 mL/min (>60); Est Glom Filt Rate - Afr Amer 86 mL/min (>60); Estimated Creatinine Clearance 57.84 ml/min; Globulin 3.7 g/dL (2.2-4.2); Glucose 108 mg/dL (74-106); Potassium 5.3 mmol/L (3.5-5.1); Protein, Total 6.9 g/dL (6.4-8.2); Sodium Level 136 mmol/L (136-145); Thyroid Stim Hormone (TSH) 1.78 uIU/mL (0.358-3.74); Troponin-I HS 33 pg/mL (3.0-78.0)
[2023-05-21 03:21] LABS: Partial Thromboplast Time 23.3 Seconds (24.1-36.2)
[2023-05-21] MEDS: Ketorolac 15 MG/ML Vial IV (03:22)
[2023-05-21 03:23] LABS: Prothrombin Time (Protime)PT. 13.1 SECONDS (11.7-14.9)
[2023-05-21 03:39] LABS: Platelet Estimate ADEQUATE (ADEQ)
[2023-05-21 04:00] VITALS: BP 157/84; PULSE 74; RESP 18; O2SAT 98
[2023-05-21] MEDS: hydrALAZINE 20 MG/ML Vial 10 MG IV (04:29)
[2023-05-21 04:40] LABS: Bacteria 0 SEEN /hpf (None Seen); Mucous, Urine 0 SEEN /hpf (<or=2+); Red Blood Cells-Urine 0 SEEN /hpf (0-5); Squamous Epithelial Cells - UA 0 SEEN /hpf (0-5); White Blood Cells 0 SEEN /hpf (0-5)
[2023-05-21 04:48] VITALS: BP 121/69; PULSE 79; RESP 18
[2023-05-21 04:56] LABS: Color, Urine Yellow (Yellow); Glucose, Dipstick Normal (Normal); Ketone-Dipstick Negative (Negative); Leukocyte Esterase-Dipstick Negative /ul (Negative); Nitrite-Dipstick Negative (Negative); Occult Blood-Urine Negative /ul (Negative); Protein-Dipstick 15 mg/dl (Negative); Urine Bilirubin Dipstick Negative (Negative); Urine Clarity Clear (Clear); Urine Urobilinogen Normal (Normal)
[2023-05-21 05:07] LABS: Troponin-I HS 32 pg/mL (3.0-78.0)
[2023-05-21 05:16] LABS: Amorphous Sediment 2+
--- NOTE | 2023-05-21 07:16 | EX.ED.DYSGE1 ---
HPI History of Present Illness Chief Complaint: Hypertension Informant: patient and spouse/S.O. Narrative Narrative: Patient is 78-year-old male with past medical history of hyperlipidemia hypertension and previous DVT not on any type of anticoagulation. He states his blood pressure was dropping and therefore he was taken off all of his medications and that he had surgery to his right knee roughly 4 weeks ago. He states his blood pressure has been all over the place since that time. He also states that he is felt off and sleepy and states there has been intermittent confusion and she feels he may be overmedicated secondary to the pain meds after surgery. Therefore with these multiple complaints he was brought in for evaluation [facility] Medical History (Updated 05/26/23 @ 22:[address] Jonathon Wilson, DO) Alcohol use Ambulates with cane Arthritis Atherosclerosis of coronary artery of [place] heart without angina pectoris Basal cell carcinoma Bradycardia Cancer Cardiology follow-up encounter Carotid stenosis, right COVID-19 CPAP (continuous positive airway pressure) dependence Essential (primary) hypertension Essential tremor Fatigue Heart murmur Hepatitis History of atrial fibrillation History of echocardiogram History of edema History of pain when walking History of steroid therapy History of stress test Hx MRSA infection Hx of benign essential tremor Hx of Clostridium difficile infection Hx of mitral valve prolapse Hyperlipidemia Injury of head and neck Leg cramps Lightheadedness Loose, teeth Loss of hearing Lumbar stenosis Lung nodule Non-smoker Obesity Obstructive sleep apnea Osteoarthritis of right shoulder Over 65 years old Peripheral neuropathy Postoperative atrial fibrillation Pre-syncope Pulmonary embolism (10/2016) Right bundle branch block (RBBB) RLS (restless legs syndrome) Screening for intestinal cancer Sinusitis Squamous cell carcinoma Syncope Wears glasses Wears hearing aid Yeast infection Home Medications lactobacillus combination no.4 3 billion cell capsule (Probiotic) 3,000 mmu cells PO DAILY 03/15/19 [History Last Taken 07/07/20] ascorbic acid (vitamin C) 1,000 mg tablet 1,000 mg PO DAILY daily 02/26/20 [History Last Taken 07/07/20] multivitamin 1 tablet PO DAILY supplement 07/07/20 [History Last Taken 07/07/20] gabapentin 600 mg tablet 600 mg PO QHS 02/27/21 [History Last Taken Unknown] vitamin B complex (B Complex-Vitamin B12 tablet) 1 tab PO DAILY 03/31/21 [History Last Taken Unknown] acetaminophen 650 mg tablet,extended release 1,000 mg PO Q8H Pain 06/09/21 [History Last Taken 06/15/21 04:00] calcium 600 mg capsule 600 mg PO DAILY 06/09/21 [History Last Taken Unknown] methocarbamol 500 mg tablet 250 mg PO TID PRN Spasms 06/09/21 [History Last Taken Unknown] milk thistle 200 mg capsule 200 mg PO DAILY 06/09/21 [History Last Taken Unknown] vit C 250 mg-vit E 90 mg-zinc 40 mg-copper 1 [id number] capsule (PreserVision AREDS-2) 1 tab PO DAILY 06/09/21 [History Last Taken Unknown] zinc 50 mg capsule 50 mg PO DAILY 06/09/21 [History Last Taken Unknown] docusate sodium 100 mg capsule (Colace) 100 mg PO DAILY 08/05/21 [History Last Taken Unknown] garlic 1,000 mg capsule 1,000 mg PO DAILY 08/05/21 [History Last Taken Unknown] icosapent ethyl 1 gram capsule (Vascepa) 2 g PO BID 01/06/22 [History Last Taken Unknown] 5-hydroxytryptophan (5-HTP) 100 mg capsule (5-HTP) 100 mg PO DAILY 04/08/22 [History Last Taken Unknown] cholecalciferol (vitamin D3) 50 mcg (2,000 unit) capsule 2,000 unit PO BID supplement 04/08/22 [History Last Taken Unknown] modafinil 200 mg tablet See Rx Instructions PO BID 04/08/22 [History Last Taken Unknown] primidone 50 mg tablet 50 mg PO DAILY 04/08/22 [History Last Taken Unknown] aspirin 81 mg chewable tablet 81 mg PO BID 05/21/23 [History Last Taken Unknown] famotidine 20 mg tablet 20 mg PO DAILY 05/21/23 [History Last Taken Unknown] metoprolol tartrate 25 mg tablet 25 mg PO BID 30 days #60 tabs 05/21/23 [Rx Last Taken Unknown] oxycodone 5 mg tablet 5 - 10 mg PO Q6H PRN PRN pain 05/21/23 [History Last Taken Unknown] Allergy/AdvReac Type Severity Reaction Status Date / Time egg Allergy Severe fluid Verified 05/21/23 01:36 retention, nausea, flu-like symptoms Egg Derived Allergy Severe Food Verified 05/21/23 01:36 Allergy Influenza Virus Vaccines Allergy Severe Other Verified 05/21/23 01:36 soy Allergy Nausea/BODY Verified 05/21/23 01:36 ACHES/flu like symptoms morphine AdvReac Rash Verified 05/21/23 01:46 Family History Father CAD (coronary artery disease) CABG and pacemaker COPD (chronic obstructive pulmonary disease) Alcoholism Myocardial infarction Melanoma Heart disease Mother , age 69 infection, aneurysms Hypertension Heart disease Depression Sister Clotting disorder Brother Clotting disorder Grandfather Seizures Surgical History H/O coronary artery bypass surgery (12/01/12) History of back surgery History of colonoscopy (~07/2021) History of incision and drainage History of lumbar laminectomy History of Mohs surgery for squamous cell carcinoma in situ of skin (~03/2021) History of right shoulder replacement (08/19/21) Hx of hemorrhoidectomy Hx of hernia repair Hx of tonsillectomy S/P insertion of spinal cord stimulator (~05/2021) Social History Smoking Status: Never smoker Electronic Cigarette Use: not used second hand exposure: Yes (Mother and Father smoked when he was a child ) alcohol intake: current alcohol intake frequency: 0-2 drinks per day Alcohol type: beer and wine substance use type: does not use caffeine: Yes Type: tea Number of servings: 1 ROS ROS ED Constitutional Constitutional ED: Denies chills or fever(s) ENT ENT ED: Denies sore throat Cardiovascular Cardiovascular: Denies chest pain Respiratory/Chest Respiratory/Chest: Denies cough or dyspnea Gastrointestinal Gastrointestinal: Denies abdominal pain, diarrhea, nausea or vomiting Genitourinary Genitourinary ED: Denies dysuria Musculoskeletal Musculoskeletal: Reports other Details: Positive right leg/knee pain ; Denies myalgias Integumentary Denies rash Neurologic Neurologic: Reports weakness; Denies headache(s) Hematologic/Lymphatic Hematologic/Lymphatic: Denies easy bleeding or easy bruising EXAM Physical Exam Const Vital Signs: 05/21/23 01:35 05/21/23 01:35 05/21/23 02:20 Temperature 98.6 F Temperature Source Temporal Pulse Rate 69 67 Respiratory Rate 19 H 15 Respiratory Effort Normal Non-Labored Respiratory Pattern Normal Blood Pressure 180/106 H 154/80 H Blood Pressure Mean 130 104 Pulse Ox 98 98 Oxygen Delivery Method Room Air Room Air 05/21/23 04:00 05/21/23 04:48 Temperature Temperature Source Pulse Rate 74 79 Respiratory Rate 18 18 Respiratory Effort Respiratory Pattern Blood Pressure 157/84 H 121/69 H Blood Pressure Mean 108 86 Pulse Ox 98 Oxygen Delivery Method Room Air Positive well nourished and well developed General Appearance ED: well developed HEENT HEENT Narrative: Normocephalic atraumatic No signs of infection noted in the posterior pharynx No airway edema or compromise Eyes PERRL and EOMs intact bilaterally General Eye ED: Negative for scleral icterus Neck supple Neck Narrative: No nuchal rigidity or meningeal signs Resp normal respiratory effort and clear to auscultation bilaterally Cardio regular rate and regular rhythm Rate: other Other Details: Radial and carotid pulses are equal and symmetric GI non-tender and non-distended GI Narrative: Abdomen is soft nontender nondistended with hypoactive bowel sounds which correlates with his recent use of Percocet. No voluntary guarding or rigidity or pulsatile mass Auscultation: hypoactive bowel sounds Palpation: soft Extremity Extremity Narrative: Patient has soft tissue swelling of the right knee/lower leg consistent with his recent knee replacement and there is a postsurgical scar that is clean dry and intact without secondary changes to suggest infection. Negative Homans' sign bilaterally Neuro oriented x3, CN's II-XII intact bilaterally and no sensory deficits noted Neuro Narrative: Cranial nerves II through XII are grossly intact there are no focal neurologic deficits No pronator drift no dysmetria no truncal ataxia NIH stroke scale score of 0 Sensorium / Orientation: alert Psych mental status grossly normal Skin no rashes or lesions noted Skin Narrative: Soft tissue changes of the right lower leg consistent with recent surgery without secondary changes to suggest infection or wound dehiscence MDM MDM MDM Narrative Medical decision making narrative: Patient presented to the ER hypertensive otherwise with stable vitals. He had multiple vague complaints but based on his reported feeling off and with reporting intermittent confusion there is concern that he is having bouts of hypertensive encephalopathy or developing a potential infectious or metabolic encephalopathy causing these events. Based on his recent surgery and previous history of DVT and not on anticoagulation there is also concern that he may have developed a pulmonary embolus leading to the elevated blood pressure or that he has developed potential acute kidney injury or severe electrolyte derangement. Secondary to this basic labs and imaging studies of the head and chest were obtained. Labs revealed no clinically significant findings such as electrolyte abnormalities or acute kidney injury or anemia. Head CT revealed no acute mass or bleed and CTA of the chest revealed no signs of PE or dissection. Patient was medicated in the blood pressure improved. His mental status was normal for the entire ER stay with a total NIH stroke scale score of 0. Therefore at this time with overall negative workup and improvement of his hypertension and persistent normal neurologic exam as well as mental status I do not feel there is need for further workup and he is otherwise safe for discharge History & Record Review Discussion w/independent historian: Patient and Significant other Lab Data Attestation: I reviewed the patient's lab results. Labs: Laboratory Results - last 24 hr 05/21/23 05/21/23 05/21/23 02:33 04:34 04:39 WBC 4.7 RBC 4.30 L Hgb 13.4 Hct 40.9 MCV 95.1 H MCH 31.2 MCHC 32.8 RDW Std Deviation 40.9 RDW Coeff of Heather 11.9 Plt Count TNP MPV 9.6 Immature Gran % (Auto) 0.400 Neut % (Auto) 60.4 Lymph % (Auto) 25.6 Caroline % (Auto) 10.4 H Eos % (Auto) 2.3 Baso % (Auto) 0.9 Absolute Neuts (auto) 2.8 Absolute Lymphs (auto) 1.20 Nucleated RBC % 0 Platelet Estimate ADEQUATE PT 13.1 INR 1.0 APTT 23.3 L Sodium 136 Potassium 5.3 H Chloride 103 Carbon Dioxide 31.0 Anion Gap 2 L BUN 27 H Creatinine 1.07 Estim Creat Clear Calc 57.84 Est GFR (MDRD) Af Amer 86 Est GFR (MDRD) Non-Af 71 BUN/Creatinine Ratio 25.2 H Glucose 108 H Calcium 8.7 Total Bilirubin 0.60 Direct Bilirubin 0.12 AST 58 H ALT 25 Alkaline Phosphatase 91 Ammonia 17.0 Troponin I High Sens 33 32 Total Protein 6.9 Albumin 3.2 Globulin 3.7 TSH 1.78 Urine Color Yellow Urine Clarity Clear Urine pH 7.0 Ur Specific [place] 1.010 Urine Protein 15 H Urine Glucose (UA) Normal Urine Ketones Negative Urine Occult Blood Negative Urine Nitrite Negative Urine Bilirubin Negative Urine Urobilinogen Normal Ur Leukocyte Esterase Negative Urine RBC 0 SEEN Urine WBC 0 SEEN Ur Squamous Epith Cells 0 SEEN Amorphous Sediment 2+ Urine Bacteria 0 SEEN Urine Mucus 0 SEEN Radiography Diagnostic Testing: Clinical Impression(s) from Imaging Studies Brain CT 05/21/23 02:09 IMPRESSION: No acute intracranial finding. Electronically Signed: Jitendra Rincon MD at 7:03 EST , Chest CTA 05/21/23 02:09 IMPRESSION: No pulmonary embolism or other acute intrathoracic abnormality. Electronically Signed: Jitendra Rincon MD at 7:07 EST , Discharge Plan Triage Chief Complaint: Hypertension ED Provider: Jonathon Wilson Dx/Rx/DC Orders Clinical Impression: Hypertension, Hyperlipidemia, History of right knee joint replacement Instructions: Hypertension Dc Prescriptions: New metoprolol tartrate 25 mg tablet 25 mg PO BID 30 Days Qty: 60 0RF No Action modafinil 200 mg tablet See Rx Instructions PO BID Rx Instructions: 1 1/2 tabs AM, 1/2 tab lunch Probiotic 3 billion cell capsule 3,000 mmu cells PO DAILY Rx Instructions: administer with a meal ascorbic acid (vitamin C) 1,000 mg tablet 1,000 mg PO DAILY vitamin B complex [B Complex-Vitamin B12] Tablet 1 tab PO DAILY primidone 50 mg tablet 50 mg PO DAILY Patient Comments: Take 1 tablet by mouth daily 5-hydroxytryptophan (5-HTP) [5-HTP] 100 mg capsule 100 mg PO DAILY icosapent ethyl [Vascepa] 1 gram capsule 2 g PO BID multivitamin 1 TABLET tablet 1 tablet PO DAILY cholecalciferol (vitamin D3) 50 mcg (2,000 unit) capsule 2,000 unit PO BID gabapentin 600 mg tablet 600 mg PO QHS calcium 600 mg Capsule 600 mg PO DAILY methocarbamol 500 mg Tablet 250 mg PO TID PRN (Reason: Spasms) milk thistle 200 mg Capsule 200 mg PO DAILY acetaminophen 650 mg Tablet Extended Release 1,000 mg PO Q8H zinc 50 mg Capsule 50 mg PO DAILY PreserVision AREDS-2 250-90-40-1 mg Capsule 1 tab PO DAILY garlic 1,000 mg Capsule 1,000 mg PO DAILY docusate sodium [Colace] 100 mg Capsule 100 mg PO DAILY famotidine 20 mg tablet 20 mg PO DAILY oxycodone 5 mg tablet 5 - 10 mg PO Q6H PRN PRN (Reason: pain) aspirin 81 MG tablet,chewable 81 mg PO BID Patient Comments: heart health Primary Care Provider: Saul Maxwell Referrals: Saul Maxwell MD [Primary Care Provider] - Activity Restrictions/Additional Instructions: Please begin taking the prescribed metoprolol as directed to control your blood pressure and follow-up with your family doctor and/or international trade compliance manager for repeat evaluation. If you have any further concerns or worsening symptoms please return for repeat evaluation Disposition Disposition: Home, Self Care Discharge Date/Time: 05/21/23 07:40
[2023-05-21] MEDS: Metoprolol Tartrate 25 MG Tablet PO (07:30)
[2023-05-21 07:36] VITALS: BP 131/76; PULSE 67; RESP 16; TEMP 36.4; O2SAT 99
== END 2023-05-21 07:40 | disposition home or self-care (01) ==
PROVIDERS: Emergency Provider Emergency Medicine; PCP Family Medicine; Visit Provider Emergency Medicine
DX: I10 Essential (primary) hypertension (principal); I25.10 Atherosclerotic heart disease of native coronary artery without angina pectoris; E78.5 Hyperlipidemia, unspecified; G47.33 Obstructive sleep apnea (adult) (pediatric); Z99.89 Dependence on other enabling machines and devices; Z79.82 Long term (current) use of aspirin; Z79.899 Other long term (current) drug therapy; Z96.611 Presence of right artificial shoulder joint; Z96.651 Presence of right artificial knee joint; M79.89 Other specified soft tissue disorders
CPT/HCPCS: 70450; 71275; 80048; 80076; 81001; 82140; 84443; 84484; 85025; 85610; 85730; 93005; 96374; 99282; Q9967; A4216

== ENCOUNTER → 2023-08-11 | Outpatient (CLI) | payer MEDICARE, BC, SELFPAY ==
[2023-08-11 17:38] LABS: Absolute Lymphocyte Count 1.22 X10^3/uL (0.83-4.51); Absolute Neutrophil Count 3.2 X10^3/uL (2.0-7.7); Basophil# 0.03 X10^3/uL; Basophil% 0.6 % (0-1); Eosinophil# 0.06 X10^3/uL; Eosinophils% 1.3 % (0-5); Hematocrit 43.3 % (40-54); Hemoglobin 14.1 g/dL (13.0-16.5); Lymphocyte # 1.22 X10^3/ul (0.83-4.51); Lymphocyte % 25.4 % (19-41); Mean Corp Hgb Conc 32.6 g/dL (32-36); Mean Corpuscular Hgb 31.8 pg (27.0-32.0); Mean Corpuscular Volume 97.7 fL (80-94); Mean Platelet Vol. 9.5 fl (6.2-12.0); Monocyte# 0.29 X10^3/uL; NRBC Flagged by Analyzer 0 % (0-5); Neutrophil # 3.19 X10^3/uL (2.7-7.7); Neutrophil % 66.5 % (47-70); Platelet Count 234 K/mm3 (150-450); RBC Distribution Width CV 12.8 % (11.6-14.6); RBC Distribution Width SD 46.2 fl (35.1-43.9); Red Blood Count 4.43 M/mm3 (4.6-6.2); White Blood Count 4.8 K/mm3 (4.4-11.0)
[2023-08-11 17:54] LABS: ALB/GLOB Ratio 1.3 RATIO (0.9-2.4); AST(SGOT) 47 U/L (15-37); Alanine Aminotransfer ALT/SGPT 36 U/L (16-61); Alkaline Phosphatase 81 U/L (45-117); Anion Gap 5 (5-15); BUN 14 mg/dL (7-18); BUN/Creat Ratio 15.7 RATIO (10-20); Calcium,Total 9.2 mg/dL (8.5-10.1); Chloride 105 mmol/L (98-107); Cholesterol 198 mg/dL (200); Creatinine, Serum 0.89 mg/dL (0.70-1.30); EST Glomerular Filtration Rate 88 mL/min (>60); Est Glom Filt Rate - Afr Amer 107 mL/min (>60); Glucose 106 mg/dL (74-106); High Density Lipoprotein 65 mg/dL; Magnesium 2.4 mg/dL (1.6-2.6); Potassium 4.4 mmol/L (3.5-5.1); Sodium Level 139 mmol/L (136-145); Triglycerides 173 mg/dL; Very Low Density Lipoprotein 35 mg/dL (5-40)
[2023-08-11 17:56] LABS: Hemoglobin A1c 5.1 % (3.8-5.6)
[2023-08-11 18:12] LABS: Vitamin D,25 Hydroxy 64.3 ng/mL
== END | disposition home or self-care (01) ==
LOC: MFPLAB 14:30
PROVIDERS: PCP Family Medicine; Visit Provider Family Medicine
DX: I25.10 Atherosclerotic heart disease of native coronary artery without angina pectoris (principal); I48.0 Paroxysmal atrial fibrillation; R73.02 Impaired glucose tolerance (oral); E55.9 Vitamin D deficiency, unspecified
CPT/HCPCS: 36415; 80053; 80061; 82306; 83036; 83735; 85025

== ENCOUNTER → 2023-08-25 | Outpatient (CLI) | payer MEDICARE, BC, SELFPAY ==
--- NOTE | 2023-08-25 08:35 | CDU_ITS ---
Reason For Study: Carotid stenosis Rt. Velocities/BP Lt. Velocities/BP Prox CCA 93.8/15.7 cm/sec. Prox CCA 130.2/13.3 cm/sec. Mid CCA 76.2/15.7 cm/sec. Mid CCA 87.6/16.3 cm/sec. Dist CCA 81.7/17.9 cm/sec. Dist CCA 88.8/18.8 cm/sec. Prox ICA 106/20 cm/sec. Prox ICA 71.6/16.3 cm/sec. Mid ICA 85.1/18.8 cm/sec. Mid ICA 79/24.9 cm/sec. Dist ICA 72.8/22.5 cm/sec. Dist ICA 61.8/21.2 cm/sec. Rt. ICA/CCA = 1.39. Lt. ICA/CCA = 0.90. Prox ECA 137.5/9.7 cm/sec. Prox ECA 126.6/6 cm/sec. Rt. Vert. 44.3/9.1 cm/sec. Lt. Vert. 53.2/12.6 cm/sec. Right Extracranial There is homogeneous, smooth atherosclerotic plaque noted in the right common carotid artery. There is heterogeneous, irregular atherosclerotic plaque noted in the right internal carotid artery. There is intimal thickening but no significant atherosclerotic plaque noted in the right external carotid artery. Antegrade flow is noted in the right vertebral artery. Left Extracranial There is homogeneous, smooth atherosclerotic plaque noted in the left common carotid artery. There is homogeneous, smooth atherosclerotic plaque noted in the left internal carotid artery. There is intimal thickening but no significant atherosclerotic plaque noted in the left external carotid artery. Antegrade flow is noted in the left vertebral artery. Procedure Carotid Duplex 31220. This is a Carotid Duplex examination using B-mode, color flow and specral Doppler. Exam performed in department. VL/Carotid Duplex Ultrasound Interpretation Summary Irregular calcific plaque with shadowing at the proximal right internal carotid artery with less than 50% stenosis. Less than 50% stenosis right external carotid artery Smooth plaque at the proximal left internal carotid artery with less than 50% s tenosis Less than 50% stenosis left external carotid artery Patent antegrade vertebral arteries bilaterally Findings do not demonstrate advancement of disease from previous examination of September 03, 2022 Ordering Physician: Saul Maxwell Referring Physician: Saul Maxwell Performed By: Lianna Plunkett RVT
== END | disposition home or self-care (01) ==
LOC: CVS 08:33
PROVIDERS: PCP Family Medicine; Referring Provider Family Medicine; Visit Provider Family Medicine
DX: I65.23 Occlusion and stenosis of bilateral carotid arteries (principal)
CPT/HCPCS: 93880

== ENCOUNTER → 2023-09-14 | Outpatient (CLI) | payer MEDICARE, BC, SELFPAY ==
--- NOTE | 2023-09-14 12:45 | RAD_ITS ---
STUDY: X-RAY CHEST REASON FOR EXAM: Male, 78 years old. bronchitis TECHNIQUE: Single AP portable view of the chest. COMPARISON: 03/25/2022. FINDINGS: The lungs are clear and expanded. There is no demonstrated pleural abnormality. Normal size heart. Previous CABG. Normal mediastinum and chaitanya. Normal visualized pulmonary arteries. There is atherosclerotic tortuosity of the aortic arch and descending thoracic aorta. Normal visualized thoracic spine. Stable appearance and positioning of epidural stimulator. Stable satisfactory appearance of right shoulder arthroplasty. There is no demonstrated abnormality of the visualized soft tissue structures of the upper abdomen. RAD/Chest PA and Lateral IMPRESSION: No definite acute or significant abnormality seen. Electronically Signed: Joey Araya MD at 22:19 EDT ,
== END | disposition home or self-care (01) ==
PROVIDERS: PCP Family Medicine; Referring Provider Family Medicine; Visit Provider Family Medicine
DX: J20.9 Acute bronchitis, unspecified (principal)
CPT/HCPCS: 71046

== ENCOUNTER → 2024-05-16 | Outpatient (CLI) | payer MEDICARE, BC, SELFPAY ==
[2024-05-16 13:57] LABS: Bacteria 0 SEEN /hpf (None Seen); Squamous Epithelial Cells - UA 0 SEEN /hpf (0-5)
[2024-05-16 15:38] LABS: Absolute Lymphocyte Count 1.47 X10^3/uL (0.83-4.51); Absolute Neutrophil Count 1.9 X10^3/uL (2.0-7.7); Basophil# 0.02 X10^3/uL; Basophil% 0.5 % (0-1); Eosinophil# 0.06 X10^3/uL; Eosinophils% 1.6 % (0-5); Hematocrit 45.2 % (40-54); Hemoglobin 14.7 g/dL (13.0-16.5); Lymphocyte # 1.47 X10^3/ul (0.83-4.51); Lymphocyte % 38.2 % (19-41); Mean Corp Hgb Conc 32.5 g/dL (32-36); Mean Corpuscular Hgb 32.3 pg (27.0-32.0); Mean Corpuscular Volume 99.3 fL (80-94); Monocyte# 0.42 X10^3/uL; Monocyte% 10.9 % (0-10); NRBC Flagged by Analyzer 0 % (0-5); Neutrophil # 1.87 X10^3/uL (2.7-7.7); Neutrophil % 48.5 % (47-70); Platelet Count 229 K/mm3 (150-450); RBC Distribution Width CV 12.7 % (11.6-14.6); RBC Distribution Width SD 46.5 fl (35.1-43.9); Red Blood Count 4.55 M/mm3 (4.6-6.2); White Blood Count 3.9 K/mm3 (4.4-11.0)
[2024-05-16 16:06] LABS: Color, Urine Yellow (Yellow); Glucose, Dipstick Normal (Normal); Ketone-Dipstick Negative (Negative); Leukocyte Esterase-Dipstick Negative /ul (Negative); Nitrite-Dipstick Negative (Negative); Occult Blood-Urine Negative /ul (Negative); Protein-Dipstick Negative (Negative); Urine Bilirubin Dipstick Negative (Negative); Urine Clarity Clear (Clear); Urine Urobilinogen Normal (Normal)
[2024-05-16 16:10] LABS: ALB/GLOB Ratio 1.1 RATIO (0.9-2.4); AST(SGOT) 35 U/L (15-37); Alanine Aminotransfer ALT/SGPT 31 U/L (16-61); Albumin, Serum 3.9 g/dL (3.2-5.0); Alkaline Phosphatase 103 U/L (45-117); Anion Gap 6 (5-15); BUN 15 mg/dL (7-18); BUN/Creat Ratio 15.5 RATIO (10-20); Calcium,Total 9.3 mg/dL (8.5-10.1); Chloride 106 mmol/L (98-107); Cholesterol 199 mg/dL (200); Creatinine, Serum 0.97 mg/dL (0.70-1.30); EST Glomerular Filtration Rate 80 mL/min (>60); Est Glom Filt Rate - Afr Amer 96 mL/min (>60); Globulin 3.5 g/dL (2.2-4.2); Glucose 84 mg/dL (74-106); High Density Lipoprotein 80 mg/dL; Magnesium 2.4 mg/dL (1.6-2.6); Potassium 4.8 mmol/L (3.5-5.1); Protein, Total 7.4 g/dL (6.4-8.2); Sodium Level 140 mmol/L (136-145); Triglycerides 141 mg/dL; Very Low Density Lipoprotein 28 mg/dL (5-40)
[2024-05-16 17:04] LABS: Hemoglobin A1c 5.3 % (3.8-5.6)
[2024-05-16 17:20] LABS: White Blood Cells 0-5 SEEN /hpf (0-5)
[2024-05-16 17:21] LABS: Hyaline Cast 0-5 SEEN /lpf (0-5); Mucous, Urine 1+ /hpf (<or=2+); Red Blood Cells-Urine 0-5 SEEN /hpf (0-5)
== END | disposition home or self-care (01) ==
LOC: MFPLAB 10:58
PROVIDERS: PCP Family Medicine; Referring Provider Family Medicine; Visit Provider Family Medicine
DX: I10 Essential (primary) hypertension (principal); I47.20 Ventricular tachycardia, unspecified; I48.0 Paroxysmal atrial fibrillation; E55.9 Vitamin D deficiency, unspecified; R73.02 Impaired glucose tolerance (oral)
CPT/HCPCS: 36415; 80053; 80061; 81001; 82306; 83036; 83735; 84443; 85025

== ENCOUNTER 2024-07-17 07:17 | Day surgery (SDC) | payer MEDICARE, BC, SELFPAY ==
--- NOTE | 2024-07-11 13:19 | PAT.ANESEVAL ---
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 When Was Last Pacemaker Check QUESTION #4 FULL TEXT: You/Your Family Experience fever (hyperthermia) with Anesthesia Last Oral Intake Last Oral intake: Last Oral Intake NPO since Meds taken in AM with sips of water? 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 Female No 07/11/24 12:24 HX of Motion Sickness No 07/11/24 12:24 HX of N/V After Surgery No 07/11/24 12:24 Non-Smoker Yes 07/11/24 12:24 Duration of Surgery greater No 07/11/24 12:24 than 60 minutes Number of Risk Factors 1 07/11/24 12:24 PONV Score Low Risk 07/11/24 12:24 Height & Weight Height & Weight: Anesthesia: Height & Weight Height 5 ft 5 in 06/05/24 14:34 Respiratory Assessment Respiratory Assessment - piped buttonhole machine operator: Respiratory Tract Infection Hx - 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 Has anyone observed you stop No 07/11/24 12:24 breathing during sleep? STOP Results Negative 07/11/24 12:24 QUESTION #5 FULL TEXT : Do you snore loudly (louder than talking or can be heard through closed doors)? 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 Specify any problems Hx of Preganancy in last 3 N/A 07/11/24 12:24 Months Nurse Filling Out Transfusion VCHRISTIN 07/11/24 12:24 & Questions: Date: 07/11/24 07/11/24 12:24 Time: 12:27 07/11/24 12:24 Patient unable to answer at this time (ie. 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 buttonhole machine operator Hx Now No 07/11/24 12:24 Gestational Age (in weeks): EDC: Hx Hx Para Hx Section SAB No 07/11/24 12:24 PFSH Medical History (Updated 07/11/24 @ 12:24 by May Zuleta) MRSA infection High cholesterol Back pain Injury of back Difficulty swallowing Sleep apnea Osteoarthritis of right shoulder Wears hearing aid Loose, teeth Essential tremor Heart murmur Screening for intestinal cancer Yeast infection Loss of hearing Wears glasses Cancer Hx of benign essential tremor Alcohol use History of steroid therapy Ambulates with cane Arthritis Hepatitis Injury of head and neck Syncope Hx of mitral valve prolapse Non-smoker CPAP (continuous positive airway pressure) dependence Leg cramps History of pain when walking History of edema History of echocardiogram History of stress test Cardiology follow-up encounter History of atrial fibrillation Hx of Clostridium difficile infection Hx MRSA infection COVID-19 Over 67 years old Pre-syncope Fatigue Sinusitis Carotid stenosis, right Lightheadedness Lung nodule Postoperative atrial fibrillation Right bundle branch block (RBBB) Pulmonary embolism (10/2016) Squamous cell carcinoma Basal cell carcinoma Peripheral neuropathy Obesity Lumbar stenosis RLS (restless legs syndrome) Obstructive sleep apnea Atherosclerosis of coronary artery of [place] heart without angina pectoris Essential (primary) hypertension Bradycardia Hyperlipidemia Home Medications ?Medication ?Instructions ?Recorded ?Last Taken ?Type ascorbic acid (vitamin C) 1,000 mg 1,000 mg PO DAILY daily 02/26/20 07/07/20 History tablet multivitamin 1 tablet PO DAILY supplement 07/07/20 07/07/20 History gabapentin 600 mg tablet 600 mg PO QHS 02/27/21 Unknown History vitamin B complex (B 1 tab PO DAILY 03/31/21 Unknown History Complex-Vitamin B12 tablet) acetaminophen 650 mg 1,000 mg PO PRN Pain 06/09/21 06/15/21 04:00 History tablet,extended release methocarbamol 500 mg tablet 250 mg PO TID PRN Spasms 06/09/21 Unknown History docusate sodium 100 mg capsule 100 mg PO DAILY 08/05/21 Unknown History (Colace) icosapent ethyl 1 gram capsule 2 g PO BID 01/06/22 Unknown History (Vascepa) cholecalciferol (vitamin D3) 50 2,000 unit PO DAILY supplement 04/08/22 Unknown History mcg (2,000 unit) capsule primidone 50 mg tablet 50 mg PO DAILY 04/08/22 Unknown History aspirin 81 mg chewable tablet 81 mg PO QHS 05/21/23 Unknown History modafinil 200 mg tablet 300 mg PO .QAM 06/05/24 Unknown History tadalafil 10 mg tablet 10 mg PO PRN 06/05/24 Unknown History metoprolol tartrate 25 mg tablet 12.5 mg PO BID 07/11/24 Unknown History Allergy/AdvReac Type Severity Reaction Status Date / Time egg Allergy Severe fluid Verified 07/11/24 12:02 retention, nausea, flu-like symptoms Egg Derived Allergy Severe Food Verified 07/11/24 12:02 Allergy Influenza Virus Vaccines Allergy Severe Other Verified 07/11/24 12:02 soy Allergy Nausea/BODY Verified 07/11/24 12:02 ACHES/flu like symptoms morphine AdvReac Rash Verified 07/11/24 12:02 Family History Father CAD (coronary artery disease) CABG and pacemaker COPD (chronic obstructive pulmonary disease) Alcoholism Myocardial infarction Melanoma Heart disease Mother , age 69 infection, aneurysms Hypertension Heart disease Depression Sister Clotting disorder Brother Clotting disorder Grandfather Seizures Surgical History (Updated 07/11/24 @ 12:24 by May Zuleta) History of cardiac catheterization Hx of shoulder replacement History of total knee replacement History of Mohs surgery for squamous cell carcinoma in situ of skin (~03/2021) History of colonoscopy (~07/2021) History of back surgery History of right shoulder replacement (08/19/21) S/P insertion of spinal cord stimulator (~05/2021) Hx of tonsillectomy Hx of hernia repair Hx of hemorrhoidectomy History of incision and drainage History of lumbar laminectomy H/O coronary artery bypass surgery (12/01/12) Social History Smoking Status: Never smoker Electronic Cigarette Use: not used second hand exposure: Yes (Mother and Father smoked when he was a child ) alcohol intake: current alcohol intake frequency: 0-2 drinks per day Alcohol type: beer and wine substance use type: does not use caffeine: Yes Type: tea Number of servings: 1 Audit: Pertinent Findings Pertinent Findings EKG Perinent findings: 05/21/2023. Normal sinus rhythm 60 bpm. Right bundle branch block. Minimal voltage for LVH. Echo (EF%) pertinent findings: 04/18/2023. Normal size function EF 55% Consult pertinent findings: Cardiology 04/09/2024. History of coronary artery bypass surgery. 12/01/2012. Last stress test 2021 demonstrated no evidence of ischemia at moderate workload. Stable continue to monitor. Hypertension. Stable. Recommendation Anesthesia Recommendation Anesthesia recommendation: OPTIMIZED for anesthesia
[2024-07-17] VITALS (9 sets, daily range): BP systolic 103–144; BP diastolic 59–81; PULSE 54–62; RESP 14–16; TEMP 36.1–36.9; O2SAT 95–99; BMI 26.5
--- NOTE | 2024-07-17 07:53 | PCM.PRE.AN2 ---
ASA Classification* ASA Classification ASA Classification: 3 Assessment & Plan Anesthesia* Anesthesia Assessment Anesthesia Assessment: Discussed sedation and/or anesthesia options, risks, benefits, and alternatives with patient/parents/legal guardian/POA. Questions invited. The patient/parents/legal guardian/POA seems to understand and agrees to proceed with anesthesia plan. Reviewed the physical assessment, medical history, allergy history and patient home medications list prior to surgery/procedure/anesthetic and documented any changes. Performed airway and anesthesia risk assessments. Anesthesia Type Anesthesia Type: MAC (Patient's says that the patient eats eggs all the time. Also believes that he has had sore in the past. Will pretreat with Benadryl just in case.) History Source History Obtained from:: Patient and Chart Anesthesia Focused Assessment* Temperature: 98.2 F Pulse Rate: 58 Blood Pressure: 144/81 Respiratory Rate: 16 Pulse Ox: 95 Oxygen Delivery Method: Room Air Airway Assessment Mouth opens: >3 cm Mallampati Score: IV Teeth Condition: Chipped/Broken (Patient has several broken teeth.) and Missing (Patient has several missing teeth. Rest are tight.) Neck Range of motion (ROM): Full ROM Focused Labs Anesthesia Preop lab: CBC WBC 3.9 K/mm3 (4.4-11.0) L 05/16/24 10:59 05/16/24 RBC 4.55 M/mm3 (4.6-6.2) L 05/16/24 10:59 05/16/24 Hgb 14.7 g/dL (13.0-16.5) 05/16/24 10:59 05/16/24 Hct 45.2 % (40-54) 05/16/24 10:59 05/16/24 Plt Count 229 K/mm3 (150-450) 05/16/24 10:59 05/16/24 CHEMISTRY Potassium 4.8 mmol/L (3.5-5.1) 05/16/24 10:59 05/16/24 Sodium 140 mmol/L (136-145) 05/16/24 10:59 05/16/24 Magnesium 2.4 mg/dL (1.6-2.6) 05/16/24 10:59 05/16/24 BUN 15 mg/dL (7-18) 05/16/24 10:59 05/16/24 Creatinine 0.97 mg/dL (0.70-1.30) 05/16/24 10:59 05/16/24 Glucose 84 mg/dL (74-106) 05/16/24 10:59 05/16/24 POC Glucose 105 mg/dL (74-106) 08/19/21 09:32 08/19/21 TSH 1.620 uIU/mL (0.358-3.740) 05/16/24 10:59 05/16/24 COAG PT 13.1 SECONDS (11.7-14.9) 05/21/23 02:33 05/21/23 Pre-Assessment Diagnosis/Proposed Procedure Planned Operative Procedure(s): COLONOSCOPY Anesthesia History 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 When Was Last Pacemaker Check QUESTION #4 FULL TEXT: You/Your Family Experience fever (hyperthermia) with Anesthesia Last Oral Intake Last Oral intake: Last Oral Intake NPO since 22:30 07/17/24 07:41 Meds taken in AM with sips of No 07/17/24 07:41 water? 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 Female No 07/11/24 12:24 HX of Motion Sickness No 07/11/24 12:24 HX of N/V After Surgery No 07/11/24 12:24 Non-Smoker Yes 07/11/24 12:24 Duration of Surgery greater No 07/11/24 12:24 than 60 minutes Number of Risk Factors 1 07/11/24 12:24 PONV Score Low Risk 07/11/24 12:24 Height & Weight Height & Weight: Anesthesia: Height & Weight Height 5 ft 5 in 07/17/24 07:41 Weight: 72.3 kg 07/17/24 07:41 Body Mass Index (BMI) 26.5 07/17/24 07:41 Respiratory Assessment Respiratory Assessment - inspector and tester: Respiratory Tract Infection Hx - inspector and tester Hx Respiratory Tract Infection No 07/11/24 12:24 STOP Sleep Apnea STOP Sleep Apnea - inspector and tester: STOP Sleep Apnea - inspector and tester Hx Hypertension Yes: CONTROLLED ON MED 07/11/24 12:24 Hx Sleep Apnea No 07/11/24 12:24 CPAP No 07/11/24 12:24 BIPAP No 07/11/24 12:24 Do you snore loudly (louder No 07/11/24 12:24 than talking or can be heard Do you often feel tired/ No 07/11/24 12:24 fatigued/ sleepy during daytime? Has anyone observed you stop No 07/11/24 12:24 breathing during sleep? STOP Results Negative 07/11/24 12:24 QUESTION #5 FULL TEXT : Do you snore loudly (louder than talking or can be heard through closed doors)? 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 Specify any problems Hx of Preganancy in last 3 N/A 07/11/24 12:24 Months Nurse Filling Out Transfusion VCHRISTIN 07/11/24 12:24 & Questions: Date: 07/11/24 07/11/24 12:24 Time: 12:27 07/11/24 12:24 Patient unable to answer at this time (ie. 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 Hx Now No 07/11/24 12:24 Gestational Age (in weeks): EDC: Hx Hx Para Hx Section SAB No 07/11/24 12:24 [facility] Medical History MRSA infection High cholesterol Back pain Injury of back Difficulty swallowing Sleep apnea Osteoarthritis of right shoulder Wears hearing aid Loose, teeth Essential tremor Heart murmur Screening for intestinal cancer Yeast infection Loss of hearing Wears glasses Cancer Hx of benign essential tremor Alcohol use History of steroid therapy Ambulates with cane Arthritis Hepatitis Injury of head and neck Syncope Hx of mitral valve prolapse Non-smoker CPAP (continuous positive airway pressure) dependence Leg cramps History of pain when walking History of edema History of echocardiogram History of stress test Cardiology follow-up encounter History of atrial fibrillation Hx of Clostridium difficile infection Hx MRSA infection COVID-19 Over 67 years old Pre-syncope Fatigue Sinusitis Carotid stenosis, right Lightheadedness Lung nodule Postoperative atrial fibrillation Right bundle branch block (RBBB) Pulmonary embolism (10/2016) Squamous cell carcinoma Basal cell carcinoma Peripheral neuropathy Obesity Lumbar stenosis RLS (restless legs syndrome) Obstructive sleep apnea Atherosclerosis of coronary artery of [place] heart without angina pectoris Essential (primary) hypertension Bradycardia Hyperlipidemia Home Medications ?Medication ?Instructions ?Recorded ?Last Taken ?Type ascorbic acid (vitamin C) 1,000 mg 1,000 mg PO DAILY daily 02/26/20 07/07/20 History tablet multivitamin 1 tablet PO DAILY supplement 07/07/20 07/07/20 History gabapentin 600 mg tablet 600 mg PO QHS 02/27/21 Unknown History vitamin B complex (B 1 tab PO DAILY 03/31/21 Unknown History Complex-Vitamin B12 tablet) acetaminophen 650 mg 1,000 mg PO PRN Pain 06/09/21 06/15/21 04:00 History tablet,extended release methocarbamol 500 mg tablet 250 mg PO TID PRN Spasms 06/09/21 Unknown History docusate sodium 100 mg capsule 100 mg PO DAILY 08/05/21 Unknown History (Colace) icosapent ethyl 1 gram capsule 2 g PO BID 01/06/22 Unknown History (Vascepa) cholecalciferol (vitamin D3) 50 2,000 unit PO DAILY supplement 04/08/22 Unknown History mcg (2,000 unit) capsule primidone 50 mg tablet 50 mg PO DAILY 04/08/22 Unknown History aspirin 81 mg chewable tablet 81 mg PO QHS 05/21/23 07/15/24 History modafinil 200 mg tablet 300 mg PO .QAM 06/05/24 Unknown History tadalafil 10 mg tablet 10 mg PO PRN 06/05/24 Unknown History metoprolol tartrate 25 mg tablet 12.5 mg PO BID 07/11/24 Unknown History Allergy/AdvReac Type Severity Reaction Status Date / Time egg Allergy Severe fluid Verified 07/17/24 07:39 retention, nausea, flu-like symptoms Egg Derived Allergy Severe Food Verified 07/17/24 07:39 Allergy Influenza Virus Vaccines Allergy Severe Other Verified 07/17/24 07:39 soy Allergy Nausea/BODY Verified 07/17/24 07:39 ACHES/flu like symptoms morphine AdvReac Rash Verified 07/17/24 07:39 Family History Father CAD (coronary artery disease) CABG and pacemaker COPD (chronic obstructive pulmonary disease) Alcoholism Myocardial infarction Melanoma Heart disease Mother , age 69 infection, aneurysms Hypertension Heart disease Depression Sister Clotting disorder Brother Clotting disorder Grandfather Seizures Surgical History History of cardiac catheterization Hx of shoulder replacement History of total knee replacement History of Mohs surgery for squamous cell carcinoma in situ of skin (~03/2021) History of colonoscopy (~07/2021) History of back surgery History of right shoulder replacement (08/19/21) S/P insertion of spinal cord stimulator (~05/2021) Hx of tonsillectomy Hx of hernia repair Hx of hemorrhoidectomy History of incision and drainage History of lumbar laminectomy H/O coronary artery bypass surgery (12/01/12) Social History Smoking Status: Never smoker Electronic Cigarette Use: not used second hand exposure: Yes (Mother and Father smoked when he was a child ) alcohol intake: current alcohol intake frequency: 0-2 drinks per day Alcohol type: beer and wine substance use type: does not use caffeine: Yes Type: tea Number of servings: 1 Review of Systems (Anesthesia) ROS Narrative System reviewed and no additional complaints, except as documented.
--- NOTE | 2024-07-17 08:02 | PCM.HP.BLA ---
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 Required: No Is patient in pain?: No Allergies egg Allergy (Severe, Verified 06/05/24 14:34) fluid retention, nausea, flu-like symptomsEgg Derived Allergy (Severe, Verified 06/05/24 14:34) Food AllergyInfluenza Virus Vaccines Allergy (Severe, Verified 06/05/24 14:34) Othersoy Allergy (Verified 06/05/24 14:34) Nausea/BODY ACHES/flu like symptomsmorphine Adverse Reaction (Verified 06/05/24 14:34) Rash Medications ?Medication ?Instructions ?Recorded ?Confirmed ?Type ascorbic acid (vitamin C) 1,000 mg 1,000 mg PO DAILY daily 02/26/20 06/05/24 History tablet multivitamin 1 tablet PO DAILY supplement 07/07/20 06/05/24 History gabapentin 600 mg tablet 600 mg PO QHS 02/27/21 06/05/24 History vitamin B complex (B 1 tab PO DAILY 03/31/21 06/05/24 History Complex-Vitamin B12 tablet) acetaminophen 650 mg 1,000 mg PO Q8H Pain 06/09/21 06/05/24 History tablet,extended release methocarbamol 500 mg tablet 250 mg PO TID PRN Spasms 06/09/21 06/05/24 History vit C 250 mg-vit E 90 mg-zinc 40 1 tab PO DAILY 06/09/21 06/05/24 History mg-copper 1 [id number] capsule (PreserVision AREDS-2) docusate sodium 100 mg capsule 100 mg PO DAILY 08/05/21 06/05/24 History (Colace) icosapent ethyl 1 gram capsule 2 g PO BID 01/06/22 06/05/24 History (Vascepa) 5-hydroxytryptophan (5-HTP) 100 mg 100 mg PO DAILY 04/08/22 06/05/24 History capsule (5-HTP) cholecalciferol (vitamin D3) 50 2,000 unit PO BID supplement 04/08/22 06/05/24 History mcg (2,000 unit) capsule primidone 50 mg tablet 50 mg PO DAILY 04/08/22 06/05/24 History aspirin 81 mg chewable tablet 81 mg PO BID 05/21/23 06/05/24 History metoprolol tartrate 25 mg tablet 25 mg PO BID 30 days #60 tabs 05/21/23 06/05/24 Rx Lactobacillus cap PO 06/05/24 06/05/24 History no.51-Bifidobacterium no.4 50 billion cell capsule (up4 Probiotics Ultra) coenzyme Q10 75 mg capsule (Ultra 75 mg PO QDAY 06/05/24 06/05/24 History CoQ10) garlic 5,000 mcg tablet 5 mg PO ONCE 06/05/24 06/05/24 History modafinil 200 mg tablet 200 mg PO BID 06/05/24 06/05/24 History tadalafil 10 mg tablet 10 mg PO 06/05/24 06/05/24 History trazodone 100 mg tablet mg PO 06/05/24 06/05/24 History Have you fallen in the past year?: No PFSH Medical History Osteoarthritis of right shoulder Wears hearing aid Loose, teeth Essential tremor Heart murmur Screening for intestinal cancer Yeast infection Loss of hearing Wears glasses Cancer Hx of benign essential tremor Alcohol use History of steroid therapy Ambulates with cane Arthritis Hepatitis Injury of head and neck Syncope Hx of mitral valve prolapse Non-smoker CPAP (continuous positive airway pressure) dependence Leg cramps History of pain when walking History of edema History of echocardiogram History of stress test Cardiology follow-up encounter History of atrial fibrillation Hx of Clostridium difficile infection Hx MRSA infection COVID-19 Over 65 years old Pre-syncope Fatigue Sinusitis Carotid stenosis, right Lightheadedness Lung nodule Postoperative atrial fibrillation Right bundle branch block (RBBB) Pulmonary embolism (10/2016) Squamous cell carcinoma Basal cell carcinoma Peripheral neuropathy Obesity Lumbar stenosis RLS (restless legs syndrome) Obstructive sleep apnea Atherosclerosis of coronary artery of [place] heart without angina pectoris Essential (primary) hypertension Bradycardia Hyperlipidemia Surgical History History of Mohs surgery for squamous cell carcinoma in situ of skin (~03/2021) History of colonoscopy (~07/2021) History of back surgery History of right shoulder replacement (08/19/21) S/P insertion of spinal cord stimulator (~05/2021) Hx of tonsillectomy Hx of hernia repair Hx of hemorrhoidectomy History of incision and drainage History of lumbar laminectomy H/O coronary artery bypass 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/01/12) Family History Father CAD (coronary artery disease) CABG and pacemaker COPD (chronic obstructive pulmonary disease) Alcoholism Myocardial infarction Melanoma Heart diseaseMother , age 69 infection, aneurysms Hypertension Heart disease DepressionSister Clotting disorderBrother Clotting disorderGrandfather Seizures Social History Smoking Status: Never smoker Electronic Cigarette Use: not used second hand exposure: Yes (Mother and Father smoked when he was a child ) alcohol intake: current alcohol intake frequency: 0-2 drinks per day Alcohol type: beer and wine substance use type: does not use caffeine: Yes Type: tea Number of servings: 1 HPI HPI HPI: Patient is a 79-year-old male here for thrombosed hemorrhoid as well as need for colonoscopy. Patient's last colonoscopy was 3 years ago and he had 3 tubular adenomas removed and was recommended for 3-year follow-up. Patient is also complaining of a hemorrhoid that was causing a lot more pain and then a ruptured open and blood now it is not. This is believes this was thrombosed. He is currently not having much issue. ROS General General: Yes weight change and appetite; No fatigue, colon cancer, breast cancer or weakness HEENT HEENT: Yes difficulty swallowing; No eye injury, eye surgery, swollen glands or hoarseness Endo Endocrine: No thyroid disease, diabetes mellitus, thyroid cancer, Hair loss, heat intolerance or cold intolerance Skin Skin: Yes changing moles; No rash Breast Breast: No left breast lump, right breast lump, nipple discharge, breast pain, abnormal mammogram, abnormal US or breast enlargement Musc Musculoskeletal: Yes back problems and arthritis; No rheumatoid arthritis, gout or joint pain Cardio Cardiovascular: Yes murmur and heart disease; No pacemaker, atrial fibrillation, high blood pressure, heart attack, heart stent, palpitations, shortness of breath with exertion or chest pain Psych Psychiatric: No depression, anxiety or hearing voices Resp Respiratory: No shortness of breath, Yes sleep apnea, No cough, No COPD, No asthma, No emphysema and No wheezing Gastro Gastrointestinal: No abdominal pain, No nausea or vomiting, No diarrhea, No constipation, Yes blood in stool, No acid reflux, Yes hemorrhoids, No ulcers, No gallbladder problem and No black,tarry stools Tony Hematologic: No blood thinners, No blood disorders, No bleeding, No anemia and No blood clots Neuro Neurologic: No system reviewed and no additional complaints, except as documented, No as per HPI, No abnormal gait, No abnormal hearing, No abnormal movements, No abnormal speech, No behavioral changes, No burning sensations, No confusion, No convulsions, No disequilibrium, No dizziness, No localized weakness, No frequent falls, No headache(s), No lack of coordination, No loss of vision, No memory loss, No numbness, No other visual disturbances, No radicular pain, No restless legs, No sensory deficit, No syncope, No tingling, No tremor(s), No weakness and No other Exam Const General: cooperative Orientation: alert and oriented x3 HENMT Head: normal to inspection Neck Neck: normal visual inspection and full ROM Chest Chest palpation & inspection: normal inspection of the chest Resp Effort & Inspection: normal respiratory effort Auscultation: clear to auscultation bilaterally Cardio Rate: regular rate Rhythm: regular rhythm GI Inspection: non-distended Palpation: soft and nontender Skin General: no rashes or lesions noted Neuro General: patient alert and patient oriented x3 Extrem General: full ROM Psych Appearance: grossly normal Mental Status: mental status grossly normal Assessment and Plan Assessment and Plan (1) Thrombosed hemorrhoids: Status: Acute Plan: Patient had a thrombosed hemorrhoid that spontaneously evacuated. The area appears that is healing and the area that is hard is shrinking and he reports that it is about the size of a small marble at this point. I reassured him I think this will fully resolve in the next week or 2. I do not believe there is anything surgically to do for this at this point. I did advise him that if this happens again to come in immediately so that we can evacuate the hematoma. (2) Screen for colon cancer: Status: Acute Plan: Patient is due for surveillance colonoscopy. He has a history of polyps. During his last colonoscopy 3 years ago 3 tubular adenomas removed and he was recommended for 3-year follow-up. . I explained endoscopy in detail to the patient. I explained the risks including but not limited to stroke or heart attack with anesthesia, perforation of the GI tract, bleeding, infection. I explained that any of these could necessitate further emergency surgery. The patient understands and all questions were answered sufficiently. The patient wishes to proceed with procedure. Dillon Rosas MD Pager: [facility] [address] [place] [address], [address] [place] [address] Office: I have examined the patient and the H&P has been reviewed. There are no clinical changes since date of exam.
--- NOTE | 2024-07-17 08:32 | PCM.POST.ANE ---
Anesthesia: Postop Eval I Current Vital Signs Temperature: 97 F Pulse Rate: 62 Blood Pressure: 106/62 Respiratory Rate: 14 Pulse Ox: 99 Oxygen Delivery Method: Room Air Assessment Airway patent: Yes Spontaneous unlabored respirations: Yes Mental status: Awake nausea: No Vomiting: No Anesthesia Complication: No Fluid Hydration Crystalloid volume administer (ml): 10 Total IV fluid infused: 10 Progress Note Anesthesia document: Postop Eval 1 completed: Yes
--- NOTE | 2024-07-17 08:33 | OP.CCLET_ITS ---
07/17/2024 Saul Maxwell [address] [place] [address] Re : Colonoscopy procedure for Jitendra Cavour Dear Dr. Maxwell This procedure was performed on Wednesday, July 17, 2024. My impressions and recommendations are as follows: Impressions : - The entire examined colon is normal on direct and retroflexion views. - No specimens collected. Recommendations : - Discharge patient to home. - Resume previous diet. - Continue present medications. - Repeat colonoscopy is not recommended due to current age (66 years or older) for screening purposes. My findings are described in the full procedure note, which is enclosed. If I can be of further assistance, please feel free to contact me at Doctor phone number(s): , Work: . Sincerely, Dillon Rosas MD 07/17/2024 8:33:05 AM This report has been signed electronically.
--- NOTE | 2024-07-17 08:33 | OP.COLON_ITS ---
Patient Name: Jitendra Stoll Procedure Date: 07/17/2024 8:05 AM Date of : 1945 Age: 79 Procedure: Colonoscopy Indications: High risk colon cancer surveillance: Personal history of colonic polyps Providers: Dillon Rosas MD Referring MD: Saul Maxwell Medicines: Propofol per Anesthesia Patient Profile: This is a 79 year old male. Refer to note in patient chart for documentation of history and physical. Last Colonoscopy: 3 years ago. Complications: No immediate complications. Procedure: Pre-Anesthesia Assessment: - Prior to the procedure, a History and Physical was performed, and patient medications and allergies were reviewed. The patient's tolerance of previous anesthesia was also reviewed. The risks and benefits of the procedure and the sedation options and risks were discussed with the patient. All questions were answered, and informed consent was obtained. Prior Anticoagulants: The patient has taken no anticoagulant or antiplatelet agents. After reviewing the risks and benefits, the patient was deemed in satisfactory condition to undergo the procedure. After I obtained informed consent, the scope was passed under direct vision. Throughout the procedure, the patient's blood pressure, pulse, and oxygen saturations were monitored continuously. The colonoscope was introduced through the anus and advanced to the cecum, identified by appendiceal orifice and ileocecal valve. The colonoscopy was performed without difficulty. The patient tolerated the procedure well. The quality of the bowel preparation was good. The ileocecal valve, appendiceal orifice, and rectum were photographed. Scope In: 8:15:22 AM Scope Withdrawal Time 0 hours 6 minutes 27 seconds Scope Out: 8:30:51 AM Total Procedure Duration Time 0 hours 15 minutes 29 seconds Findings: The entire examined colon appeared normal on direct and retroflexion views. Impression: - The entire examined colon is normal on direct and retroflexion views. - No specimens collected. Recommendation: - Discharge patient to home. - Resume previous diet. - Continue present medications. - Repeat colonoscopy is not recommended due to current age (66 years or older) for screening purposes. Procedure Code(s): --- Professional --- 22011, Colonoscopy, flexible; diagnostic, including collection of specimen(s) by brushing or washing, when performed (separate procedure) Diagnosis Code(s): --- Professional --- Z86.010, Personal history of colonic polyps CPT copyright 2021 [employer]. All rights reserved. The codes documented in this report are preliminary and upon pipe line inspector review may be revised to meet current compliance requirements. Dillon Rosas MD 07/17/2024 8:33:05 AM This report has been signed electronically. Number of Addenda: 0 Note Initiated On: 07/17/2024 8:05 AM
--- NOTE | 2024-07-17 09:40 | POSTOPAN2_ITS ---
Anesthesia Postop Eval I Sum Postop Eval Completion status Anesthesia document: Postop Eval 1 completed: Yes Anesthesia Postop Eval I Summary Anesthesia Postop Eval I Summary: Anesthesia Postop Eval I: Assessment Summary Airway patent Yes 07/17/24 08:34 INDUSTRIAL [email or web address] Spontaneous unlabored Yes 07/17/24 08:34 INDUSTRIAL [email or web address].[email or web address] respirations Mental status Awake 07/17/24 08:34 INDUSTRIAL [email or web address].HBARR nausea No 07/17/24 08:34 INDUSTRIAL RADIOGRAPHER.HBARR Vomiting No 07/17/24 08:34 INDUSTRIAL [email or web address].HBARR Anesthesia Postop Eval I: Fluid Summary Crystalloid volume administer 10 07/17/24 08:34 INDUSTRIAL [email or web address].HBARR (ml) Colloids volume administered ( ml) Blood Product volume administered (ml) Total IV fluid infused 10 07/17/24 08:34 INDUSTRIAL [email or web address].HBARR Anesthesia Postop Eval I: Summary Notes Anesthesia Complication No 07/17/24 08:34 INDUSTRIAL [email or web address].HBARR Anesthesia Complication Comment: Post-operative progress note Anesthesia: Postop Eval II Evaluation Mental status: Awake and Calm Pain Level: 0 nausea: No Vomiting: No Complications Anesthesia Complication: No
--- NOTE | 2024-07-17 09:40 | PCM.POSTANE2 ---
Anesthesia Postop Eval I Sum Postop Eval Completion status Anesthesia document: Postop Eval 1 completed: Yes Anesthesia Postop Eval I Summary Anesthesia Postop Eval I Summary: Anesthesia Postop Eval I: Assessment Summary Airway patent Yes 07/17/24 08:34 ELECTRICAL HIGH TENSION TESTER.[email or web address] Spontaneous unlabored Yes 07/17/24 08:34 ELECTRICAL HIGH TENSION TESTER.HBARR respirations Mental status Awake 07/17/24 08:34 ELECTRICAL HIGH TENSION TESTER.HBARR nausea No 07/17/24 08:34 ELECTRICAL HIGH TENSION TESTER.HBARR Vomiting No 07/17/24 08:34 ELECTRICAL HIGH TENSION TESTER.HBARR Anesthesia Postop Eval I: Fluid Summary Crystalloid volume administer 10 07/17/24 08:34 ELECTRICAL HIGH TENSION [email or web address].HBARR (ml) Colloids volume administered ( ml) Blood Product volume administered (ml) Total IV fluid infused 10 07/17/24 08:34 ELECTRICAL HIGH TENSION TESTER.HBARR Anesthesia Postop Eval I: Summary Notes Anesthesia Complication No 07/17/24 08:34 ELECTRICAL HIGH TENSION TESTER.HBARR Anesthesia Complication Comment: Post-operative progress note Anesthesia: Postop Eval II Evaluation Mental status: Awake and Calm Pain Level: 0 nausea: No Vomiting: No Complications Anesthesia Complication: No
== END 2024-07-17 09:26 | disposition home or self-care (01) ==
LOC: EN 07:18 → AC 07:19
PROVIDERS: PCP Family Medicine; Referring Provider Family Medicine; Visit Provider Surgery
PROC: 0DJD8ZZ Inspection of Lower Intestinal Tract, Via Natural or Artificial Opening Endoscopic (ICD-10-PCS; CPT 45378; principal; 2024-07-17 07:55)
DX: Z12.11 Encounter for screening for malignant neoplasm of colon (principal); I25.10 Atherosclerotic heart disease of native coronary artery without angina pectoris; K64.5 Perianal venous thrombosis; Z86.0100 Personal history of colon polyps, unspecified; E78.5 Hyperlipidemia, unspecified; I10 Essential (primary) hypertension
CPT/HCPCS: G0105; A4216

== ENCOUNTER → 2024-08-13 | Outpatient (CLI) | payer MEDICARE, BC, SELFPAY ==
[2024-08-13 18:08] LABS: PSA,Total - Annual Screen 1.26 ng/mL (0.02-4.00)
[2024-08-13 18:30] LABS: Hemoglobin A1c 5.6 % (<=5.6)
== END | disposition home or self-care (01) ==
LOC: MFPLAB 14:40
PROVIDERS: PCP Family Medicine; Referring Provider Family Medicine; Visit Provider Family Medicine
DX: Z12.5 Encounter for screening for malignant neoplasm of prostate (principal); Z13.1 Encounter for screening for diabetes mellitus
CPT/HCPCS: 36415; 83036; 84153; G0103

== ENCOUNTER 2025-01-21 14:30 | Inpatient (IN) | payer MEDICARE, BC, SELFPAY ==
[2025-01-21] VITALS (9 sets, daily range): BP systolic 156–192; BP diastolic 91–94; PULSE 51–62; RESP 14–19; TEMP 36.8–37.2; O2SAT 94–99; BMI 27.7; BMI 27.1
[2025-01-21 15:02] LABS: Hematocrit 42.7 % (40-54); Hemoglobin 14.3 g/dL (13.0-16.5); Immature Granulocytes Count 0.010 X10^3/uL (0.0-0.0); Mean Corp Hgb Conc 33.5 g/dL (32-36); Mean Corpuscular Volume 95.5 fL (80-94); Mean Platelet Vol. 9.2 fl (6.2-12.0); NRBC Flagged by Analyzer 0 % (0-5); Platelet Count 184 K/mm3 (150-450); RBC Distribution Width CV 12.1 % (11.6-14.6); RBC Distribution Width SD 42.1 fl (35.1-43.9); Red Blood Count 4.47 M/mm3 (4.6-6.2); White Blood Count 4.7 K/mm3 (4.4-11.0)
--- NOTE | 2025-01-21 15:03 | ED.VIS.CHEST ---
HPI History of Present Illness Chief Complaint: Chest Pain Narrative Narrative: 79-year-old male past medical history coronary artery disease status post remote bypass surgery on his heart presents with chest pain that began today at noon at around 3 PM. He had an episode like this about a week ago after he was mowing the lawn/doing yard work. His blood pressure was fine. It resolved and he thought nothing of it. He had his significant other state that he went to his primary care provider's office today and they put a Holter monitor on him. He has history of sleep apnea and has been tachycardic at night. Approximately 3 hours ago, he was doing chores around the house and running around and he started having chest pain and pressure again. He states it feels like when he got sign the cold air, when you get the discomfort of the cold air hitting your lungs. He states that it radiates to his neck and arm as well. It is worse with exertion and relieved with rest. He denies any fevers or chills, no cough, no leg swelling or other symptoms. [facility] Medical History MRSA infection High cholesterol Back pain Injury of back Difficulty swallowing Sleep apnea Osteoarthritis of right shoulder Wears hearing aid Loose, teeth Essential tremor Heart murmur Screening for intestinal cancer Yeast infection Loss of hearing Wears glasses Cancer Hx of benign essential tremor Alcohol use History of steroid therapy Ambulates with cane Arthritis Hepatitis Injury of head and neck Syncope Hx of mitral valve prolapse Non-smoker CPAP (continuous positive airway pressure) dependence Leg cramps History of pain when walking History of edema History of echocardiogram History of stress test Cardiology follow-up encounter History of atrial fibrillation Hx of Clostridium difficile infection Hx MRSA infection COVID-19 Over 67 years old Pre-syncope Fatigue Sinusitis Carotid stenosis, right Lightheadedness Lung nodule Postoperative atrial fibrillation Right bundle branch block (RBBB) Pulmonary embolism (10/2016) Squamous cell carcinoma Basal cell carcinoma Peripheral neuropathy Obesity Lumbar stenosis RLS (restless legs syndrome) Obstructive sleep apnea Atherosclerosis of coronary artery of [place] heart without angina pectoris Essential (primary) hypertension Bradycardia Hyperlipidemia Home Medications ?Medication ?Instructions ?Recorded ?Last Taken ?Type multivitamin 1 tablet PO DAILY supplement 07/07/20 01/21/25 History gabapentin 600 mg tablet 600 mg PO QHS 12/03/21 Unknown History acetaminophen 650 mg 1,000 mg PO PRN Pain 06/09/21 01/20/25 History tablet,extended release methocarbamol 500 mg tablet 250 mg PO TID PRN Spasms 06/09/21 01/17/25 History icosapent ethyl 1 gram capsule 2 g PO BID 01/06/22 01/14/25 History (Vascepa) cholecalciferol (vitamin D3) 50 2,000 unit PO DAILY supplement 04/08/22 Unknown History mcg (2,000 unit) capsule primidone 50 mg tablet 50 mg PO DAILY 04/08/22 01/21/25 History aspirin 81 mg chewable tablet 81 mg PO QHS 05/21/23 01/20/25 History modafinil 200 mg tablet 300 mg PO DAILY 06/05/24 01/21/25 History metoprolol tartrate 25 mg tablet 12.5 mg PO BID 07/11/24 Unknown History Allergy/AdvReac Type Severity Reaction Status Date / Time egg Allergy Severe fluid Verified 01/21/25 14:34 retention, nausea, flu-like symptoms Egg Derived Allergy Severe Food Verified 01/21/25 14:34 Allergy Influenza Virus Vaccines Allergy Severe Other Verified 01/21/25 14:34 soy Allergy Nausea/BODY Verified 01/21/25 14:34 ACHES/flu like symptoms morphine AdvReac Rash Verified 01/21/25 14:34 Family History Father CAD (coronary artery disease) CABG and pacemaker COPD (chronic obstructive pulmonary disease) Alcoholism Myocardial infarction Melanoma Heart disease Mother , age 69 infection, aneurysms Hypertension Heart disease Depression Sister Clotting disorder Brother Clotting disorder Grandfather Seizures Surgical History History of cardiac catheterization Hx of shoulder replacement History of total knee replacement History of Mohs surgery for squamous cell carcinoma in situ of skin (~03/2021) History of colonoscopy (~07/2021) History of back surgery History of right shoulder replacement (08/19/21) S/P insertion of spinal cord stimulator (~05/2021) Hx of tonsillectomy Hx of hernia repair Hx of hemorrhoidectomy History of incision and drainage History of lumbar laminectomy H/O coronary artery bypass surgery (12/01/12) Social History Smoking Status: Never smoker Electronic Cigarette Use: not used second hand exposure: Yes (Mother and Father smoked when he was a child ) alcohol intake: current alcohol intake frequency: 0-2 drinks per day Alcohol type: beer and wine substance use type: does not use caffeine: Yes Type: tea Number of servings: 1 ROS ROS ED ROS Narrative Review of systems positive for chest discomfort/pressure and pain. No fevers or chills, no cough, no shortness of breath, no diaphoresis, no nausea or vomiting. History of hypertension, hypercholesterolemia, obstructive sleep apnea on CPAP. No leg swelling. Worse with exertion. Relieved by rest. EXAM Physical Exam Narrative Exam Narrative: Afebrile. Vital signs noted. Nontoxic-appearing. Cardiovascular examination reveals a regular bradycardia. Lungs are clear to auscultation bilaterally. Abdomen is soft and nontender with normal active bowel sounds. No guarding or rebound. Neurological examination is nonfocal, nonlateralizing. Awake, alert, interactive, appropriate. No appreciable pitting edema bilaterally. Const Vital Signs: 01/21/25 14:32 01/21/25 14:51 01/21/25 14:51 Temperature 99 F Temperature Source Oral Pulse Rate 56 L Respiratory Rate 16 Respiratory Effort Normal Blood Pressure 163/92 H Blood Pressure Mean 115 Pulse Ox 98 Oxygen Delivery Method Room Air Room Air 01/21/25 15:31 01/21/25 16:00 01/21/25 17:00 Temperature Temperature Source Pulse Rate 54 L 53 L 53 L Respiratory Rate 19 H 18 19 H Respiratory Effort Blood Pressure Blood Pressure Mean Pulse Ox 97 94 Oxygen Delivery Method Room Air Room Air Room Air MDM MDM MDM Narrative Medical decision making narrative: The differential diagnosis includes but not limited to ACS versus pneumonia versus pneumothorax versus pulmonary embolism. History and physical does not support pulmonary embolism. Patient is not tachycardic. Pulse ox is normal on room air. Given his cardiac history, concern is for ACS/unstable angina/STEMI versus non-STEMI. Chest pain workup was pursued per protocol. EKG obtained interpreted by myself independently as sinus bradycardia at 55 bpm without ectopy or acute ST changes. No STEMI. He does have T wave inversion laterally. However, no significant change from EKG dated May 21, 2023, there is a right bundle branch block that was present at that time as well. I reviewed his laboratory work and he has normal white count of 4.7 with hemoglobin 14.3, hematocrit 42.7, platelet count 184. Sodium normal at 143 with potassium 4.2, BUN of 15 and creatinine 1.12. Glucose normal at 84. Initial high-sensitivity troponin is elevated at 39 with repeat at 43. Chest x-ray interpreted by myself independently shows no evidence of pneumonia or pneumothorax. I reviewed the radiology report which confirms my independent interpretation. Given the patient's age, history of coronary artery disease with bypass, and him not having a stress test since 2021 with a good story concerning for coronary artery disease type of chest pain, patient will be discussed with Dr. Falcon for observation and stress testing. Disposition is assigned observation. Patient is in stable condition. History & Record Review Discussion w/independent historian: Patient and Family Additional record(s) reviewed:: Prior outpatient record (Last stress test 2021) and Prior labs Lab Data Attestation: I reviewed the patient's lab results. Labs: Laboratory Results - last 24 hr 01/21/25 01/21/25 14:43 16:40 WBC 4.7 RBC 4.47 L Hgb 14.3 Hct 42.7 MCV 95.5 H MCH 32.0 MCHC 33.5 RDW Std Deviation 42.1 RDW Coeff of Heather 12.1 Plt Count 184 MPV 9.2 Immature Gran % (Auto) 0.200 Neut % (Auto) 53.7 Lymph % (Auto) 34.3 [place] % (Auto) 8.8 Eos % (Auto) 2.4 Baso % (Auto) 0.6 Absolute Neuts (auto) 2.5 Absolute Lymphs (auto) 1.60 Nucleated RBC % 0 Sodium 143 Potassium 4.2 Chloride 105 Carbon Dioxide 26.9 Anion Gap 10 BUN 15 Creatinine 1.11 Estim Creat Clear Calc 52.92 Est GFR (MDRD) Non-Af 68 BUN/Creatinine Ratio 13.1 Glucose 84 Calcium 9.3 Troponin T High Sens 39 H Troponin T Hi Sens 2 Hr 43 H Radiography Chest X-Ray - ED: 1 View, Read by ED Physician, Read by Radiologist, No Acute Disease and Cardiomegaly Diagnostic Testing: Clinical Impression(s) from Imaging Studies Chest X-Ray 01/21/25 15:10 IMPRESSION: Mild cardiomegaly. The lungs are clear. Reading Location: [id number] Management Discussion w/another healthcare provider: Hospitalist (Dr. Falcon) Discharge Plan Dx/Rx/DC Orders Clinical Impression: Chest pain, H/O coronary artery bypass surgery, Elevated troponin Disposition Disposition: Acute Care Hospital [facility]
--- NOTE | 2025-01-21 15:10 | RAD_ITS ---
PROCEDURE: CHEST 1 VIEW (PORTABLE) 01/21/2025 REASON FOR EXAM: CHEST PAIN TECHNIQUE: Frontal view of the chest. COMPARISON: None FINDINGS: Hardware: An ICD is present. EKG electrodes are seen. Prior CABG. Right reverse shoulder replacement. Heart: Heart size is mildly enlarged. Lungs: Elevation of the right lung base. The lungs are clear. Bones: Degenerative changes are identified within the thoracic spine. RAD/Chest 1 View (Portable) IMPRESSION: Mild cardiomegaly. The lungs are clear. Reading Location: [id number]
[2025-01-21 15:32] LABS: Anion Gap 10 (5-15); BUN 15 mg/dL (4-19); BUN/Creat Ratio 13.1 RATIO (10-20); Calcium,Total 9.3 mg/dL (7.6-11.0); Carbon Dioxide 26.9 mmol/L (21.0-32.0); Chloride 105 mmol/L (98-108); Estimated Creatinine Clearance 52.92 ml/min (50-250); Glucose 84 mg/dL (70-99); Potassium 4.2 mmol/L (3.3-5.1); Troponin T High Sensitivity 39 ng/L (<=22)
[2025-01-21 17:11] LABS: Troponin T High Sens 2 HR 43 ng/L (<=22)
--- NOTE | 2025-01-21 17:29 | PCM.HP.STD ---
HPI - General General Date of Admission: 01/21/25 Date of Service: 01/21/25 Chief Complaint: Chest pain HPI Narrative CALE PULLIAM, is a 79 M who presented to [facility] ED on 01/21/2025 with chest pain. Medical history significant for CAD s/p CABG x 3 in 2012, hypertension and hyperlipidemia. Follows with cardiology, last office visit in March. Last had stress testing done in 2021 that was negative. Last echo in 2023 showed EF 55%, stage II diastolic function, stable regional wall motion abnormalities, no other concerning findings. Patient presented today with chest pain that began around noon. He was active around the house when he developed chest pain that radiated up into the left side of his neck. He notes having an episode last week while mowing the lawn that was similar. In the ED he was hypertensive to the 160s systolic, had mild sinus bradycardia, was otherwise stable on room air at rest. CBC and BMP were benign. Troponin trend 39 > 43 > 43. EKG showed T wave inversions in lateral leads that appear chronic, no other concerning findings. He was given a dose of 325 mg of aspirin. Given his high risk history, hospitalist was contacted for admission. I saw the patient at bedside in the ED, was present. Patient was sitting back comfortably in bed, conversing normally, in no acute distress. Noted that the chest pain was much improved from earlier today. He denied any shortness of breath. No other acute concerns currently. Will be admitted for further management. [facility] Medical History MRSA infection High cholesterol Back pain Injury of back Difficulty swallowing Sleep apnea Osteoarthritis of right shoulder Wears hearing aid Loose, teeth Essential tremor Heart murmur Screening for intestinal cancer Yeast infection Loss of hearing Wears glasses Cancer Hx of benign essential tremor Alcohol use History of steroid therapy Ambulates with cane Arthritis Hepatitis Injury of head and neck Syncope Hx of mitral valve prolapse Non-smoker CPAP (continuous positive airway pressure) dependence Leg cramps History of pain when walking History of edema History of echocardiogram History of stress test Cardiology follow-up encounter History of atrial fibrillation Hx of Clostridium difficile infection Hx MRSA infection COVID-19 Over 67 years old Pre-syncope Fatigue Sinusitis Carotid stenosis, right Lightheadedness Lung nodule Postoperative atrial fibrillation Right bundle branch block (RBBB) Pulmonary embolism (10/2016) Squamous cell carcinoma Basal cell carcinoma Peripheral neuropathy Obesity Lumbar stenosis RLS (restless legs syndrome) Obstructive sleep apnea Atherosclerosis of coronary artery of [place] heart without angina pectoris Essential (primary) hypertension Bradycardia Hyperlipidemia Home Medications ?Medication ?Instructions ?Recorded ?Last Taken ?Type multivitamin 1 tablet PO DAILY supplement 07/07/20 01/21/25 History gabapentin 600 mg tablet 600 mg PO QHS 02/27/21 Unknown History acetaminophen 650 mg 1,000 mg PO PRN Pain 06/09/21 01/20/25 History tablet,extended release methocarbamol 500 mg tablet 250 mg PO TID PRN Spasms 06/09/21 01/17/25 History icosapent ethyl 1 gram capsule 2 g PO BID 01/06/22 01/14/25 History (Vascepa) cholecalciferol (vitamin D3) 50 2,000 unit PO DAILY supplement 04/08/22 Unknown History mcg (2,000 unit) capsule primidone 50 mg tablet 50 mg PO DAILY 04/08/22 01/21/25 History aspirin 81 mg chewable tablet 81 mg PO QHS 05/21/23 01/20/25 History modafinil 200 mg tablet 300 mg PO DAILY 06/05/24 01/21/25 History metoprolol tartrate 25 mg tablet 12.5 mg PO BID 07/11/24 Unknown History Allergy/AdvReac Type Severity Reaction Status Date / Time egg Allergy Severe fluid Verified 01/21/25 14:34 retention, nausea, flu-like symptoms Egg Derived Allergy Severe Food Verified 01/21/25 14:34 Allergy Influenza Virus Vaccines Allergy Severe Other Verified 01/21/25 14:34 soy Allergy Nausea/BODY Verified 01/21/25 14:34 ACHES/flu like symptoms morphine AdvReac Rash Verified 01/21/25 14:34 Family History Father CAD (coronary artery disease) CABG and pacemaker COPD (chronic obstructive pulmonary disease) Alcoholism Myocardial infarction Melanoma Heart disease Mother , age 69 infection, aneurysms Hypertension Heart disease Depression Sister Clotting disorder Brother Clotting disorder Grandfather Seizures Surgical History History of cardiac catheterization Hx of shoulder replacement History of total knee replacement History of Mohs surgery for squamous cell carcinoma in situ of skin (~03/2021) History of colonoscopy (~07/2021) History of back surgery History of right shoulder replacement (08/19/21) S/P insertion of spinal cord stimulator (~05/2021) Hx of tonsillectomy Hx of hernia repair Hx of hemorrhoidectomy History of incision and drainage History of lumbar laminectomy H/O coronary artery bypass surgery (12/01/12) Social History Smoking Status: Never smoker Electronic Cigarette Use: not used second hand exposure: Yes (Mother and Father smoked when he was a child ) alcohol intake: current alcohol intake frequency: 0-2 drinks per day Alcohol type: beer and wine substance use type: does not use caffeine: Yes Type: tea Number of servings: 1 ROS Constitutional Constitutional: Denies chills, fatigue, fever(s) or weakness Cardiovascular Cardiovascular: Reports chest pain; Denies dyspnea on exertion, edema, lightheadedness or palpitations Respiratory/Chest Respiratory/Chest: Denies cough, productive cough, shortness of breath at rest or wheezing Gastrointestinal Gastrointestinal: Denies abdominal pain, nausea or vomiting Musculoskeletal Musculoskeletal: Denies arthralgias or myalgias Neurologic Neurologic: Denies dizziness, focal weakness or headache(s) Vital Signs Vital Signs Vital Signs: 01/21/25 14:32 01/21/25 14:51 01/21/25 14:51 Temperature 99 F Temperature Source Oral Pulse Rate 56 L Respiratory Rate 16 Respiratory Effort Normal Blood Pressure 163/92 H Blood Pressure Mean 115 Pulse Ox 98 Oxygen Delivery Method Room Air Room Air 01/21/25 15:31 01/21/25 16:00 01/21/25 17:00 Temperature Temperature Source Pulse Rate 54 L 53 L 53 L Respiratory Rate 19 H 18 19 H Respiratory Effort Blood Pressure Blood Pressure Mean Pulse Ox 97 94 Oxygen Delivery Method Room Air Room Air Room Air Weight Weight: 75.568 kg Body Mass Index (BMI) 27.7 Physical Exam Const alert, oriented x3, no apparent distress and average body habitus Constitutional Narrative: Elderly male, sitting back comfortably in bed, conversing normally, in no acute distress. General Appearance: cooperative and comfortable HEENT normocephalic, head/scalp atraumatic, hearing grossly normal bilaterally, nasal mucous membranes and turbinates normal and moist oral mucous membranes Eyes PERRL, EOMs intact bilaterally and conjunctivae normal Neck full ROM Chest inspection of chest normal Resp normal respiratory effort, normal air movement, no use of accessory muscles and clear to auscultation bilaterally Cardio regular rate, regular rhythm, no murmurs and peripheral pulses 2+ throughout GI normal to inspection, nondistended, normoactive bowel sounds, soft to palpation, non-tender and non-distended Back/Spine normal ROM Extremity normal to inspection, full ROM and no pedal edema Skin no rashes or lesions noted Psych mental status grossly normal Results Lab / Micro Data 01/21/25 14:43 01/21/25 14:43 Labs: Laboratory Results - last 24 hr 01/21/25 14:43: WBC 4.7, RBC 4.47 L, Hgb 14.3, Hct 42.7, MCV 95.5 H, MCH 32.0, MCHC 33.5, RDW Std Deviation 42.1, RDW Coeff of [place] 12.1, Plt Count 184, MPV 9.2, Immature Gran % (Auto) 0.200, Neut % (Auto) 53.7, Lymph % (Auto) 34.3, [place] % (Auto) 8.8, Eos % (Auto) 2.4, Baso % (Auto) 0.6, Absolute Neuts (auto) 2.5, Absolute Lymphs (auto) 1.60, Nucleated RBC % 0, Sodium 143, Potassium 4.2, Chloride 105, Carbon Dioxide 26.9, Anion Gap 10, BUN 15, Creatinine 1.11, Estim Creat Clear Calc 52.92, Est GFR (MDRD) Non-Af 68, BUN/Creatinine Ratio 13.1, Glucose 84, Calcium 9.3, Troponin T High Sens 39 H 01/21/25 16:40: Troponin T Hi Sens 2 Hr 43 H Imaging Radiology Impression Chest X-Ray 01/21/25 15:10 IMPRESSION: Mild cardiomegaly. The lungs are clear. Reading Location: [id number] Assessment & Plan Assessment/Plan (1) Chest pain: PLAN: Plan Patient is a 79-year-old male who presented to [facility] ED on 01/21/2025 with chest pain. 1. Chest pain with mild elevated troponins ? Admit under observation status to PCU. Troponin trend 39 > 43 > 43. EKG with normal sinus rhythm, chronic T wave inversions in lateral leads noted, no other concerning findings. Chest x-ray unremarkable. Last echo in 03/2023 with EF 55%, stage II diastolic function, stable regional wall motion abnormalities, no other concerning findings. Last tress test in 2021 was negative. Nuclear stress test ordered for tomorrow morning, n.p.o. at midnight. Repeat echo ordered as well. 2. History of CAD s/p CABG, hypertension, hyperlipidemia ? Follows with cardiology, last office visit in March. History of CABG x 3 in 2012. Intolerant of statins, was on Vascepa for hyperlipidemia but has not been taking recently for unclear reason. Repeat lipid panel ordered. Holding home Lopressor for stress test tomorrow morning. Continue home baby aspirin. 3. Essential tremor ? Continue home primidone. DVT prophylaxis: Lovenox CODE STATUS: Full code, verified Expected disposition: Home, 1 to 2 days Total clinical time spent by myself addressing the patient's medical issues, reviewing all the data, and collaborating with patient's care team: 57 minutes. Charges/Coding Visit Charges Inpatient E&M: 29883 Init Hosp L2
--- NOTE | 2025-01-21 17:33 | ECHOD_ITS ---
Reason For Study Reason For Study: Chest Pain Procedure This was a 2D Doppler, Color Flow transthoracic echocardiogram. Exam performed in department. Left Ventricle Normal LV size. Severe eccentric left ventricular hypertrophy. Posterior basal and inferior basal hypokinesis. Mild basal lateral hypokinesis. Estimated LVEF 55%. Stage III diastolic dysfunction. Right Ventricle Mildly dilated right ventricle. Normal systolic function. Atria The left atrium is severely enlarged. Probable chiari network. The right atrium is mildly enlarged. Mitral Valve Moderate mitral annular calcification. Mild (1+) eccentric mitral valve insufficiency. Tricuspid Valve Mild tricuspid valve prolapse. Mild (1+) tricuspid valve insufficiency. Pulmonary artery systolic pressure is 34 mmHg. Aortic Valve Trisinus/trileaflet aortic valve. Moderate to severe aortic stenosis. Peak aortic valve gradient 42 mmHg. Mean aortic valve gradient 23 mmHg. Pulmonic Valve Normal pulmonic valve. Mild (1+) pulmonic valve insufficiency. Great Vessels Normal sized aortic root. Pericardium/Pleural No pericardial effusion. MMode/2D Measurements & Calculations LVIDd: 4.9 cm IVSd: 1.7 cm LVOT diam: 2.2 cm LVIDs: 3.7 cm LVPWd: 0.98 cm LVOT area: 3.7 cm2 RVDd: 4.6 cm FS: 24.3 % Ao root diam: 3.5 cm LAV(MOD-bp): 95.3 ml LVAd ap4: 26.2 cm2 LA dimension: 5.0 cm LAV(MOD-bp) Indexed: 52.7 ml/m2 LVLd ap4: 6.9 cm LAV(MOD-sp2): 109.7 ml EDV(MOD-sp4): 87.2 ml LAV(MOD-sp4): 83.6 ml EDV(sp4-el): 85.1 ml LVAs ap4: 14.3 cm2 LVLs ap4: 5.4 cm ESV(MOD-sp4): 32.7 ml ESV(sp4-el): 31.8 ml EF(MOD-sp4): 62.5 % EF(sp4-el): 62.6 % SV(MOD-sp4): 54.5 ml SV(sp4-el): 53.2 ml LA A4 area: 25.3 cm2 SI(MOD-sp4): 30.2 ml/m2 LA dimension(2D): 5.6 cm RA A4 area: 18.3 cm2 TAPSE: 2.4 cm Time Measurements MV dec time: 0.22 sec Doppler Measurements & Calculations MV E max yakov: 96.2 cm/sec Lat Peak E' Yakov: 5.4 cm/sec Med Peak E' Yakov: 3.9 cm/sec MV A max yakov: 47.1 cm/sec E/E' lat: 17.7 E/E' med: 24.4 MV E/A: 2.0 MV V2 max: 105.8 cm/sec MV P1/2t max yakov: 106.8 cm/sec Ao V2 max: 322.3 cm/sec MV max P.5 mmHg MV P1/2t: 74.6 msec Ao max P.7 mmHg MV V2 mean: 45.1 cm/sec Ao V2 mean: 228.6 cm/sec MV mean P.0 mmHg MV dec slope: 419.4 cm/sec2 Ao mean P.6 mmHg MV V2 VTI: 37.8 cm MVA(P1/2t): 3.0 cm2 Ao V2 VTI: 85.7 cm AV (velocity ratio): 0.22 MVA(VTI): 1.8 cm2 NIKOLE(I,D): 0.81 cm2 NIKOLE(V,D): 0.81 cm2 LV V1 max: 70.0 cm/sec SV(LVOT): 69.8 ml PA V2 max: 67.2 cm/sec LV V1 max P.0 mmHg LV V1 mean P.98 mmHg LV V1 mean: 45.6 cm/sec LV V1 VTI: 18.6 cm PI dec slope: 121.5 cm/sec2 TR max yakov: 281.8 cm/sec TR max P.9 mmHg ECHO/Echo Complete Interpretation Summary Posterior basal and inferior basal hypokinesis. Mild basal lateral hypokinesis. Estimated LVEF 55%. Stage III diastolic dysfunction. Mildly dilated right ventricle. The left atrium is severely enlarged.. The right atrium is mildly enlarged. Mild (1+) eccentric mitral valve insufficiency. Mild (1+) tricuspid valve insufficiency. Moderate to severe aortic stenosis. Recommend FAY for further evaluation. 8 cm circumscribed mass noted adjacent to the right atrium. Recommend CT scan o f the chest for further evaluation. Ordering Physician: Kendell Falcon Performed By: Tello Burrows RCS
[2025-01-21] MEDS: Nitroglycerin SL (ED/IMG/CATH) 0.4 MG TABLET SL (18:10)
--- NOTE | 2025-01-21 18:53 | CASEMGMT ---
Care Management Face to Face with patient for initial transition planning/care coordination assessment in the ED. This writer editor introduced self and role at [facility]. Patient alert and oriented. Patient willing to participate in assessment and is able to answer all questions appropriately. Care providers, pharmacy, and demographics verified. Admitting Diagnosis: acute chest pain Other diagnosis history: heart murmur, a-fib, essential hypertension, bradycardia, hyperlipidemia PCP: Alissa Specialists: Hortencia, cardiology. Sibilia, pulmonary. Jamil, pain management. Preferred Pharmacy: [facility] Insurance: Medicare A B (primary). [place] (secondary). Prescription Benefit: yes, although patient stated prescription costs still being too high sometimes and having to choose which prescriptions to fill Living Will/HPOA: patient would like to complete during admission if possible. Patient states recently marrying , Dana Fernando, and needing to create new documents (patient's previous ). LNOK: , 4 children, 2 stepchildren. Living Arrangements: lives with in a 2 story home with patient's Values of n studio that patient uses often on second floor (full flight between floors). Otherwise, first floor living and patient states being independent with ADLs/IADLs. Transportation: patient drives DME: grab bars, walking stick HHC: none SNF/Rehab: Community Resources: none Behavioral Health History: none Patient goals: Patient wishes to discharge home, denies need for home health care at this time. Patient denies any further needs or concerns at this time. Disposition Plan: admission to acute; RN CM/SW to follow for discharge planning needs that may arise. Shandra Yen, HEAD OF DIGITAL, DOOR OPERATOR
[2025-01-21 20:31] LABS: Troponin T High Sens 4 HR 43 ng/L (<=22)
--- NOTE | 2025-01-21 21:32 | CPS ---
pt has own bipap/cpap machine in room
[2025-01-22 03:26] VITALS: BP 139/84; PULSE 50; RESP 16; TEMP 36.3; O2SAT 97
[2025-01-22 05:58] LABS: Hematocrit 39.3 % (40-54); Hemoglobin 13.4 g/dL (13.0-16.5); Mean Corp Hgb Conc 34.1 g/dL (32-36); Mean Corpuscular Volume 93.3 fL (80-94); Mean Platelet Vol. 9.4 fl (6.2-12.0); Platelet Count 192 K/mm3 (150-450); RBC Distribution Width CV 12.0 % (11.6-14.6); RBC Distribution Width SD 41.5 fl (35.1-43.9); Red Blood Count 4.21 M/mm3 (4.6-6.2); White Blood Count 3.8 K/mm3 (4.4-11.0)
[2025-01-22 06:23] LABS: Anion Gap 10 (5-15); BUN 14 mg/dL (4-19); BUN/Creat Ratio 14.6 RATIO (10-20); Calcium,Total 8.6 mg/dL (7.6-11.0); Carbon Dioxide 25.0 mmol/L (21.0-32.0); Chloride 104 mmol/L (98-108); Cholesterol 181 mg/dL (<=200); Estimated Creatinine Clearance 59.95 ml/min (50-250); Glucose 94 mg/dL (70-99); Low Density Lipoprotein Calc. 83 mg/dL; Potassium 4.2 mmol/L (3.3-5.1); Triglycerides 200 mg/dL; Very Low Density Lipoprotein 40 mg/dL (5-40); cholesterol:hdl ratio screen 2.81
[2025-01-22 06:47] VITALS: O2SAT 95
[2025-01-22 07:43] VITALS: BP 150/79; PULSE 50; RESP 16; TEMP 36.9; O2SAT 98
--- NOTE | 2025-01-22 09:20 | CASEMGMT ---
Social Work SW meet with the patient discuss AD. Patient did not want to complete the AD at this time. SW provided the patient an educational packet, a blank POA/LW paperwork and a phone number to call for assistance with completing after DC. MARY Prajapati
--- NOTE | 2025-01-22 11:22 | STRESSREP ---
Stress Test Report Date: 01/22/2025 Procedure: Pharmacologic stress nuclear imaging study Indications: Chest pain Consent: Per the patient Procedure: The patient underwent pharmacologic (Regadenoson 0.4mg ) evaluation with a peak heart rate of 60 beats per minute (41%predicted maximal heart rate) and a peak blood pressure of 142/80 mmHg. The baseline ECG demonstrated sinus rhythm with nonspecific T wave changes. The peak pharmacologic ECG did not show any diagnostic ischemic changes. There were no cardiac dysrhythmias pretest, during pharmacologic infusion, or recovery. There was no complaint of chest discomfort during pharmacologic infusion or recovery. The patient was injected with 11.0 millicuries of technetium 99m Cardiolite and subsequently rest SPECT Cardiolite nuclear imaging was obtained in the horizontal long, vertical long, and short axis views. The patient underwent pharmacologic (Regadenoson) evaluation. The patient was injected with 33.5 millicuries of technetium 99m Cardiolite and subsequently stress SPECT Cardiolite nuclear imaging was obtained in the horizontal long, vertical long, and short axis views. A gated Cardiolite study at peak stress was obtained. The examination was stopped secondary to completion of protocol. Rest and stress SPECT Cardiolite nuclear imaging status post realignment, normalization, and attenuation correction demonstrate small fixed perfusion defect of the basal lateral wall that may suggest prior nontransmural infarct. There is end systolic thickening and brightening. The gated study shows basal lateral hypokinesis. The reported LVEF is 55%. Impression: 1. Pharmacologic (Regadenoson) evaluation 2. Peak pharmacologic ECG with no diagnostic changes. 3. There were no cardiac dysrhythmias pretest, during pharmacologic infusion, or recovery. 5. Small fixed basal lateral defect with hypokinesis, suggestive of prior nontransmural infarct. No reversible ischemia. 6. The gated Cardiolite study reports an LVEF of 55%. This note was generated with Protonetation software. It may contain incorrect words, spelling, and punctuation that were not noted in checking the note before signing.
--- NOTE | 2025-01-22 12:39 | CT_ITS ---
PROCEDURE: CHEST WITHOUT CONTRAST 01/22/2025 REASON FOR EXAM: EVALUATE MASS ADJACENT TO RIGHT ATRIUM TECHNIQUE: Chest CT without contrast. Coronal and Sagittal reconstruction series were provided. One or more dose reduction techniques were used (e.g., Automated exposure control, adjustment of the mA and/or kV according to patient size, use of iterative reconstruction technique RADIATION DOSE SUMMARY: CTDlvol: 11 mGy DLP: 385 mGycm COMPARISON: January 21, 2025 FINDINGS: Hardware: Reverse right total shoulder arthroplasty. Lower thoracic neurostimulator. Lymph nodes: None appear enlarged. Heart and Vasculature: The heart is mildly enlarged. The aortic valve and mitral valve shows some annular calcification. Masslike fullness at the posterior aspect of the left atrium has a linear tubular appearance suggestive of an anatomic variant of the left inferior pulmonary vein. This could be confirmed with the presence of IV contrast. Prior median sternotomy. Coronary Artery Calcifications: Present Lungs and Airways: No consolidation or mass. Right middle lobe subpleural nodule versus subsegmental atelectasis measuring 5 mm on image 71. Mild subpleural scarring of the lung bases.. Pleura: No pleural effusion or pneumothorax. Upper Abdomen: Splenic granulomas. Partially imaged simple cyst left upper pole is at least 6 cm. Bones: Degenerative changes of the thoracic spine. CT/Chest without Contrast IMPRESSION: 1. Cardiac enlargement. Prior median sternotomy. Aortic and mitral valve evans cification. 2. No mass is seen adjacent to the right atrium. However, posterior to the le ft atrium there is a linear tubular structure that is favored to represent anatomic variant of the left inferior pulmonary vein. Sensitivity to confirm would be improved with IV contrast if clinically desired. 3. Right middle lobe nodule is 5 mm. ACR Fleischner Society recommendations ( MacMahon, et al. Radiology 2017; 284(1): 228-43) suggest the following: For patients with low risk of lung cancer, no need for f ollow-up. For patients with high risk of lung cancer, generally no need for follow-up. An optional chest CT at 12 months coul d be performed if there is high index of suspicion. Reading Location: [id number]
--- NOTE | 2025-01-22 12:48 | PCM.CONS.C ---
Assessment & Plan Assessment/Plan (1) Angina pectoris: PLAN: Angina with effort. Stress test with no reversible ischemia. Continue aspirin. Start Clopidogrel. Beta-blockers. Start calcium channel blockers. Ambulate patient. If no recurrence of symptoms, then may discharge home with follow-up as outpatient. If he continues to have symptoms despite maximal medical therapy, then we will consider coronary angiography. (2) H/O coronary artery bypass surgery: PLAN: History of three-vessel CABG in 2014. See #1 above. (3) Diastolic dysfunction without heart failure: PLAN: Monitor. (4) Aortic valve stenosis: PLAN: FAY as outpatient to evaluate severity. (5) Essential (primary) hypertension: PLAN: Continue metoprolol. Start amlodipine. (6) Dyslipidemia: PLAN: Patient reportedly intolerant of statins. He was started on Vascepa however has not been taking that neither. Discuss further options as outpatient. HPI Consult Data Date of Consult: 01/22/25 HPI Narrative Reason for Consultation: Chest Pain HPI Narrative: 79-year-old gentleman with past medical history significant for coronary artery disease status post three-vessel CABG in 2014. Also history of aortic valve stenosis, hypertension and dyslipidemia. He presented to the emergency room with complaints of anterior chest discomfort that started while he was doing chores at home. According to his , he climbed a flight of stairs 2-3 times and then started having chest discomfort. There was radiation into his neck and left arm. No associated shortness of breath. No diaphoresis. The discomfort lasted about 5 to 6 hours and then was relieved on its own in the emergency room. Per patient, he has had a similar episode couple of weeks ago when he was mowing his lawn. Patient differentiates his chest pain from his previous anginal episodes before his bypass surgery. Patient has been pain-free today. Ambulating. He has had a Lexiscan stress Myoview done. It did not show any reversible ischemia but fixed defect of the basal lateral wall consistent with previous infarct. Echocardiogram shows posterior basal and basal lateral hypokinesis. Overall LVEF 55%. Moderate to severe aortic valve stenosis. Stage III diastolic dysfunction. [facility] Medical History MRSA infection High cholesterol Back pain Injury of back Difficulty swallowing Sleep apnea Osteoarthritis of right shoulder Wears hearing aid Loose, teeth Essential tremor Heart murmur Screening for intestinal cancer Yeast infection Loss of hearing Wears glasses Cancer Hx of benign essential tremor Alcohol use History of steroid therapy Ambulates with cane Arthritis Hepatitis Injury of head and neck Syncope Hx of mitral valve prolapse Non-smoker CPAP (continuous positive airway pressure) dependence Leg cramps History of pain when walking History of edema History of echocardiogram History of stress test Cardiology follow-up encounter History of atrial fibrillation Hx of Clostridium difficile infection Hx MRSA infection COVID-19 Over 65 years old Pre-syncope Fatigue Sinusitis Carotid stenosis, right Lightheadedness Lung nodule Postoperative atrial fibrillation Right bundle branch block (RBBB) Pulmonary embolism (10/2016) Squamous cell carcinoma Basal cell carcinoma Peripheral neuropathy Obesity Lumbar stenosis RLS (restless legs syndrome) Obstructive sleep apnea Atherosclerosis of coronary artery of [place] heart without angina pectoris Essential (primary) hypertension Bradycardia Hyperlipidemia Home Medications ?Medication ?Instructions ?Recorded ?Last Taken ?Type multivitamin 1 tablet PO DAILY supplement 07/07/20 01/21/25 History gabapentin 600 mg tablet 600 mg PO QHS 02/27/21 Unknown History acetaminophen 650 mg 1,000 mg PO PRN Pain 06/09/21 01/20/25 History tablet,extended release methocarbamol 500 mg tablet 250 mg PO TID PRN Spasms 06/09/21 01/17/25 History icosapent ethyl 1 gram capsule 2 g PO BID 01/06/22 01/14/25 History (Vascepa) cholecalciferol (vitamin D3) 50 2,000 unit PO DAILY supplement 04/08/22 Unknown History mcg (2,000 unit) capsule primidone 50 mg tablet 50 mg PO DAILY 04/08/22 01/21/25 History aspirin 81 mg chewable tablet 81 mg PO QHS 05/21/23 01/20/25 History modafinil 200 mg tablet 300 mg PO DAILY 06/05/24 01/21/25 History metoprolol tartrate 25 mg tablet 12.5 mg PO BID 07/11/24 Unknown History Allergy/AdvReac Type Severity Reaction Status Date / Time egg Allergy Severe fluid Verified 01/21/25 14:34 retention, nausea, flu-like symptoms Egg Derived Allergy Severe Food Verified 01/21/25 14:34 Allergy Influenza Virus Vaccines Allergy Severe Other Verified 01/21/25 14:34 soy Allergy Nausea/BODY Verified 01/21/25 14:34 ACHES/flu like symptoms morphine AdvReac Rash Verified 01/21/25 14:34 Family History Father CAD (coronary artery disease) CABG and pacemaker COPD (chronic obstructive pulmonary disease) Alcoholism Myocardial infarction Melanoma Heart disease Mother , age 69 infection, aneurysms Hypertension Heart disease Depression Sister Clotting disorder Brother Clotting disorder Grandfather Seizures Surgical History History of cardiac catheterization Hx of shoulder replacement History of total knee replacement History of Mohs surgery for squamous cell carcinoma in situ of skin (~03/2021) History of colonoscopy (~07/2021) History of back surgery History of right shoulder replacement (08/19/21) S/P insertion of spinal cord stimulator (~05/2021) Hx of tonsillectomy Hx of hernia repair Hx of hemorrhoidectomy History of incision and drainage History of lumbar laminectomy H/O coronary artery bypass surgery (12/01/12) Social History Smoking Status: Never smoker Electronic Cigarette Use: not used second hand exposure: Yes (Mother and Father smoked when he was a child ) alcohol intake: current alcohol intake frequency: 0-2 drinks per day Alcohol type: beer and wine substance use type: does not use caffeine: Yes Type: tea Number of servings: 1 Physical Exam Narrative Comfortable. No apparent distress. Heart sounds 1 and 2 noted. 2/6 systolic murmur at base. Chest clear to auscultation bilaterally. Alert oriented x 3. Trace bilateral ankle edema. Objective Data Vital Signs: Vital Signs Temp Pulse Resp BP Pulse Ox O2 Del Method 98.4 F 50 L 16 150/79 H 98 Room Air 01/22/25 07:43 01/22/25 07:43 01/22/25 07:43 01/22/25 07:43 01/22/25 07:43 01/22/25 07:56 Oxygen Delivery Method Room Air Weight: 162 lb 14.746 oz Body Mass Index (BMI) 27.1 Lab / Micro Data 01/22/25 05:04 01/22/25 05:04 Labs: Laboratory Results - last 24 hr 01/21/25 14:43: WBC 4.7, RBC 4.47 L, Hgb 14.3, Hct 42.7, MCV 95.5 H, MCH 32.0, MCHC 33.5, RDW Std Deviation 42.1, RDW Coeff of Heather 12.1, Plt Count 184, MPV 9.2, Immature Gran % (Auto) 0.200, Neut % (Auto) 53.7, Lymph % (Auto) 34.3, [place] % (Auto) 8.8, Eos % (Auto) 2.4, Baso % (Auto) 0.6, Absolute Neuts (auto) 2.5, Absolute Lymphs (auto) 1.60, Nucleated RBC % 0, Sodium 143, Potassium 4.2, Chloride 105, Carbon Dioxide 26.9, Anion Gap 10, BUN 15, Creatinine 1.11, Estim Creat Clear Calc 52.92, Est GFR (MDRD) Non-Af 68, BUN/Creatinine Ratio 13.1, Glucose 84, Calcium 9.3, Troponin T High Sens 39 H 01/21/25 16:40: Troponin T Hi Sens 2 Hr 43 H 01/21/25 19:29: Troponin T Hi Sens 4Hr 43 H 01/22/25 05:04: WBC 3.8 L, RBC 4.21 L, Hgb 13.4, Hct 39.3 L, MCV 93.3, MCH 31.8, MCHC 34.1, RDW Std Deviation 41.5, RDW Coeff of Heather 12.0, Plt Count 192, MPV 9.4, Sodium 139, Potassium 4.2, Chloride 104, Carbon Dioxide 25.0, Anion Gap 10, BUN 14, Creatinine 0.97, Estim Creat Clear Calc 59.95, Est GFR (MDRD) Non-Af 81, BUN/Creatinine Ratio 14.6, Glucose 94, Calcium 8.6, Triglycerides 200 H, Cholesterol 181, LDL Cholesterol, Calc 83, VLDL Cholesterol 40, HDL Cholesterol 65, Cholesterol/HDL Ratio 2.81 Rhythm Strip Rhythm Strip: Sinus Rhythm Cardiology Labs/Tests 01/21/25 14:43: WBC 4.7, RBC 4.47 L, Hgb 14.3, Hct 42.7, MCV 95.5 H, MCH 32.0, MCHC 33.5, Plt Count 184, MPV 9.2, Immature Gran % (Auto) 0.200, Neut % (Auto) 53.7, Lymph % (Auto) 34.3, [place] % (Auto) 8.8, Eos % (Auto) 2.4, Baso % (Auto) 0.6, Absolute Neuts (auto) 2.5, Nucleated RBC % 0, Sodium 143, Potassium 4.2, Chloride 105, Carbon Dioxide 26.9, Anion Gap 10, BUN 15, Creatinine 1.11, Est GFR (MDRD) Non-Af 68, BUN/Creatinine Ratio 13.1, Glucose 84, Calcium 9.3 01/22/25 05:04: WBC 3.8 L, RBC 4.21 L, Hgb 13.4, Hct 39.3 L, MCV 93.3, MCH 31.8, MCHC 34.1, Plt Count 192, MPV 9.4, Sodium 139, Potassium 4.2, Chloride 104, Carbon Dioxide 25.0, Anion Gap 10, BUN 14, Creatinine 0.97, Est GFR (MDRD) Non-Af 81, BUN/Creatinine Ratio 14.6, Glucose 94, Calcium 8.6, Triglycerides 200 H, Cholesterol 181, VLDL Cholesterol 40, HDL Cholesterol 65, Cholesterol/HDL Ratio 2.81 Rhythm: EKG: Sinus rhythm. Right bundle branch block. Lateral T wave inversions which are unchanged from EKG from 2021. Possible old inferior KS with Q waves in inferior leads. ECHO: LVEF 55%. Stage III diastolic dysfunction. Moderate to severe aortic valve stenosis. Stress Test: Cardiac Cath: PCI: CT Surgery: Holter monitor: EPS: PPM: CXR: Chest CT Scan: Radiography Diagnostic Testing: Radiology Impression Chest X-Ray 01/21/25 15:10 IMPRESSION: Mild cardiomegaly. The lungs are clear. Reading Location: [id number] Echocardiogram 01/21/25 17:33 Interpretation Summary Posterior basal and inferior basal hypokinesis. Mild basal lateral hypokinesis. Estimated LVEF 55%. Stage III diastolic dysfunction. Mildly dilated right ventricle. The left atrium is severely enlarged.. The right atrium is mildly enlarged. Mild (1+) eccentric mitral valve insufficiency. Mild (1+) tricuspid valve insufficiency. Moderate to severe aortic stenosis. Recommend FAY for further evaluation. 8 cm circumscribed mass noted adjacent to the right atrium. Recommend CT scan of the chest for further evaluation. Ordering Physician: Kendell Falcon Performed By: Tello Burrows RCS TIN Risk Score for UA/STEMI Assesmment (YES = 1) Risk Stratification Applicable: No
[2025-01-22 12:55] VITALS: BP 164/88; PULSE 56; RESP 16; TEMP 36.9; O2SAT 98
--- NOTE | 2025-01-22 13:53 | PN.HOSP_ITS ---
Subjective Subjective Doing well, denies any chest pain currently. Stress test was unremarkable, echocardiogram with stage III diastolic dysfunction with moderate-severe aortic stenosis Objective Data Objective Data Vital Signs: Vital Signs Temp Pulse Resp BP Pulse Ox O2 Del Method 98.4 F 56 L 16 164/88 H 98 Room Air 01/22/25 12:55 01/22/25 12:55 01/22/25 12:55 01/22/25 12:55 01/22/25 12:55 01/22/25 12:55 Oxygen Delivery Method Room Air Weight: 162 lb 14.746 oz Body Mass Index (BMI) 27.1 Lab / Micro Data 01/22/25 05:04 01/22/25 05:04 Labs: Laboratory Results - last 24 hr 01/21/25 14:43: WBC 4.7, RBC 4.47 L, Hgb 14.3, Hct 42.7, MCV 95.5 H, MCH 32.0, MCHC 33.5, RDW Std Deviation 42.1, RDW Coeff of Heather 12.1, Plt Count 184, MPV 9.2, Immature Gran % (Auto) 0.200, Neut % (Auto) 53.7, Lymph % (Auto) 34.3, [place] % (Auto) 8.8, Eos % (Auto) 2.4, Baso % (Auto) 0.6, Absolute Neuts (auto) 2.5, Absolute Lymphs (auto) 1.60, Nucleated RBC % 0, Sodium 143, Potassium 4.2, Chloride 105, Carbon Dioxide 26.9, Anion Gap 10, BUN 15, Creatinine 1.11, Estim Creat Clear Calc 52.92, Est GFR (MDRD) Non-Af 68, BUN/Creatinine Ratio 13.1, Glucose 84, Calcium 9.3, Troponin T High Sens 39 H 01/21/25 16:40: Troponin T Hi Sens 2 Hr 43 H 01/21/25 19:29: Troponin T Hi Sens 4Hr 43 H 01/22/25 05:04: WBC 3.8 L, RBC 4.21 L, Hgb 13.4, Hct 39.3 L, MCV 93.3, MCH 31.8, MCHC 34.1, RDW Std Deviation 41.5, RDW Coeff of [place] 12.0, Plt Count 192, MPV 9.4, Sodium 139, Potassium 4.2, Chloride 104, Carbon Dioxide 25.0, Anion Gap 10, BUN 14, Creatinine 0.97, Estim Creat Clear Calc 59.95, Est GFR (MDRD) Non-Af 81, BUN/Creatinine Ratio 14.6, Glucose 94, Calcium 8.6, Triglycerides 200 H, Cholesterol 181, LDL Cholesterol, Calc 83, VLDL Cholesterol 40, HDL Cholesterol 65, Cholesterol/HDL Ratio 2.81 Radiography Diagnostic Testing: Radiology Impression Chest X-Ray 01/21/25 15:10 IMPRESSION: Mild cardiomegaly. The lungs are clear. Reading Location: [facility] Echocardiogram 01/21/25 17:33 Interpretation Summary Posterior basal and inferior basal hypokinesis. Mild basal lateral hypokinesis. Estimated LVEF 55%. Stage III diastolic dysfunction. Mildly dilated right ventricle. The left atrium is severely enlarged.. The right atrium is mildly enlarged. Mild (1+) eccentric mitral valve insufficiency. Mild (1+) tricuspid valve insufficiency. Moderate to severe aortic stenosis. Recommend FAY for further evaluation. 8 cm circumscribed mass noted adjacent to the right atrium. Recommend CT scan of the chest for further evaluation. Ordering Physician: Kendell Falcon Performed By: Tello Burrows RCS Chest CT 01/22/25 12:39 IMPRESSION: 1. Cardiac enlargement. Prior median sternotomy. Aortic and mitral valve calcification. 2. No mass is seen adjacent to the right atrium. However, posterior to the left atrium there is a linear tubular structure that is favored to represent anatomic variant of the left inferior pulmonary vein. Sensitivity to confirm would be improved with IV contrast if clinically desired. 3. Right middle lobe nodule is 5 mm. ACR Fleischner Society recommendations (MacMahon, et al. Radiology 2017; 284(1): 228-43) suggest the following: For patients with low risk of lung cancer, no need for follow-up. For patients with high risk of lung cancer, generally no need for follow-up. An optional chest CT at 12 months could be performed if there is high index of suspicion. Reading Location: [facility] Rhythm Strip Rhythm Strip: Sinus Rhythm Physical Exam Narrative General: Alert, Oriented x3, Cooperative, No apparent distress HEENT: Atraumatic, PERRLA, EOMI, Normocephalic Oral: Moist Mucosa Neck: Supple, No JVD Lungs: Diminished, Normal air movement, No rhonchi, No wheeze, No rales Cardiovascular: Regular rate, Regular Rhythm, Normal S1, Normal S2, No murmurs Abdomen: Soft, Non Tender, Non-Distended, No Hepato-splenomegaly Extremities: No edema, Capillary Refill Less than 3 Seconds Skin: No rashes, No breakdown Musculoskeletal: No Tenderness to Palpation of Joints or Extremities Neurological: No focal neurological deficits, moves all extremities Psych/Mental Status: Normal Affect, Appropriate Assessment & Plan Assessment/Plan (1) Chest pain: PLAN: Plan 1. Chest pain rule out/CAD status post CABG/essential HTN/HLD ? Stress test was negative with an old infarct however this was extremely concerning to the family as they were unaware that he had had an infarct since 2023 ? Consult to cardiology who given family concern elected to proceed with a cardiac cath tomorrow despite the nonreversibility of the lesion ? In 2021 he had a stress test that was normal but in March 2023 he had an echocardiogram with wall motion abnormality and akinetic infero-basal wall segment in the mid posterior hypokinetic segment ? Echo today demonstrates an EF of 55% with stage III diastolic dysfunction and moderate to severe aortic stenosis ?Continue with his home blood pressure medications as well as his home cholesterol medications ? Continue with Plavix and aspirin 2. Essential tremor ? Continue home primidone. DVT: Lovenox Charges/Coding Visit Charges Inpatient E&M: 25176 Subs Hosp L2
--- NOTE | 2025-01-22 14:32 | CHAPLAIN ---
Type of Pastoral Visit _x__ Initial Visit ___ Follow-up Visit ___ On-call Visit ___ General Patient Visit ___ Spiritual Assessment ___ Family Conference ___ Bereavement ___ Rapid Response ___ Code Blue ___ Other (describe below) Pastoral Care Referral From _x__ Patient _x__ Family ___ Nurse ___ Physician ___ Paver Operator ___ Digitizer ___ Other (describe below) Sacrament/Intervention _x__ Active listening ___ Anointing ___ Spiritism ___ Bereavement ___ Communion _x__ Dina exploration ___ _x__ Life review _x__ Prayer ___ Reconciliation ___ Sacrament of Sick _x__ Supportive presence ___ Wedding ___ Other (describe below) Pastoral Comments patient and new spouse are in the room; both are interactive in conversation; 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
--- NOTE | 2025-01-22 16:08 | CASEMGMT ---
MEI Met with patient to complete MEI form. MEI form and its content were verbally explained and patient's questions were answered to the best of my ability.? Patient voiced understanding and signed MEI form.? Patient provided a copy of signed MEI form and original placed in patient's chart.? Patient had no further questions. Mary Butler, Discharge Planning Asst
[2025-01-22 16:09] VITALS: BP 133/79; PULSE 58; RESP 16; TEMP 37.2; O2SAT 95
[2025-01-22 21:05] VITALS: BP 142/79; PULSE 58; RESP 14; TEMP 37; O2SAT 95
[2025-01-23] VITALS (13 sets, daily range): BP systolic 133–168; BP diastolic 78–92; PULSE 46–65; RESP 16–18; TEMP 36.2–37.3; O2SAT 95–98; BMI 27.1
[2025-01-23 11:35] LABS: ACT Activated Clotting Time 302 sec (74-137)
--- NOTE | 2025-01-23 11:45 | EKG12_ITS ---
Test Reason : POST PCI Blood Pressure : */* mmHG Vent. Rate : 51 BPM Atrial Rate : 51 BPM P-R Int : 148 ms QRS Dur : 140 ms QT Int : 472 ms P-R-T Axes : -11 4 59 degrees QTcB Int : 435 ms Sinus bradycardia Right bundle branch block T wave abnormality, consider lateral ischemia Abnormal ECG When compared with ECG of 23-Jan-2025 05:39, Nonspecific T wave abnormality has replaced inverted T waves in Inferior leads T wave inversion now evident in Lateral leads Confirmed by FAZAL LOERA, JING ([id number]), design editor SHAMEKA VARGAS ([id number]) on 01/25/2025 10:53:48 AM Referred By: NEDA Confirmed By: JING DIEHL MD
--- NOTE | 2025-01-23 12:05 | CL.I_ITS ---
Patient Name: CALE PULLIAM Study Date: 01/23/2025 Performing: Yue Crandall MD Ht: 65 inches 165.1 cm : 1945 Wt: 163.1 lbs 73.9 kg Age: 79 Gender: male BSA: 1.81 PROCEDURE(S) PERFORMED DC04-(17652)LHC/COR/CABG DC11-(16864)AO ROOT ANGIO WITH HEART CATH IC12-(61742/C9600)ESTEFANÍA W/WO PTCA, SINGLE CORONARY ARTERY IC13-(12561/C9600)ESTEFANÍA W/WO PTCA, EACH ADD'L ART, SAME MAJOR CLINICAL PROFILE AND CO-MORBIDITIES Indications: New Onset Angina <= 2 months Heart Failure: None Stress/Imaging Date: 01/22/2025 Angina Classification Anginal Classification w/in 2 Weeks: CCS II CAD Presentations: Stable angina. 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 HOROWITZ to LAD patent. Distal LAD 70%; SVG to D1 patent. Prox D1 70-80% (small 2 mm vessel) CONTINUOUS MINER OPERATOR HELPER Prox Ramus; Unable to find SVG to Ramus Distal RCA 95%; Prox RPLV 70%, Mid RPLV 95% Successful PTCA/ESTEFANÍA Mid RPLV using Tebbetts Nu Mine 2.5x15 mm Successful PTCA/ESTEFANÍA distal RCA usigng Tebbetts Nu Mine 2.5x26 mm, post-dilated using 3.0 mm balloon, optimized proximally using 3.5 mm balloon Successful ESTEFANÍA prox RPLV using Tebbetts Nu Mine 2.5x8 mm RECOMMENDATIONS ASA Indefinitley Plavix for at least [address] with coronary angio, evaluate Aortic Valve and patency of SVG to Ramus DESCRIPTION OF PROCEDURE The patient arrived to the procedure lab. The risks and benefits of the procedure as well as a full description of our services here and lack of surgical backup were fully explained to the patient and/or their significant other prior to the catheterization. The Timeout was completed, verifying the correct patient and procedure. The patient's procedural site was prepped and draped in the usual fashion. Local anesthetic was given subcutaneously to left radial region with Lidocaine 2%. Local anesthetic was given subcutaneously to right radial region with Lidocaine 2%. Using a modified Seldinger technique, arterial access was obtained via the left femoral artery, a 6Fr sheath was inserted., arterial access was obtained via the right radial artery, a 6Fr sheath was inserted.. Left internal mammary artery graft to the LAD selective angiography was performed in multiple views using a 5 Fr. IM catheter. Left Coronary Artery selective angiography was performed in multiple views using a 5 Fr. JL 4.5 catheter. Right Coronary Artery selective angiography was then performed in multiple views using a 5 Fr. 3DRC (Jeevan) catheter. Saphenous Vein graft to the DIAG 1 selective angiography was performed in multiple views using a 5 Fr. AL 1 catheter. Right Coronary Artery selective angiography was then performed in multiple views using a 5 Fr. JR 4 catheter. Ascending (root) aorta selective angiography was then performed in single view, Multiple pictures taken. Ascending (root) aorta selective angiography was then performed in single view, Multiple pictures takenThe images were reviewed and options discussed. A decision was then made to proceed with an Intervention, IVUS or other adjunct procedure. JR4 Guide catheter was inserted and engaged into the RCA. Runthrough Guide wire was advanced to the RPL. Emerge 2.0 x 12 Balloon catheter was inserted. Balloon catheter was advanced across lesion in the RPL, mid Angiogram performed pre balloon dilatation. PTCA balloon inflated at 6 atms for 8 secs. PTCA balloon inflated at 6 atms for 10 secs. PTCA balloon inflated at 6 atms for 10 secs. Ruddy Nu Mine 2.5 x 15 Drug Eluting stent was inserted. Drug Eluting stent was advanced across the lesion in the RPL mid Angiogram performed pre stent deployment. Tebbetts Nu Mine 2.5 x 26 Drug Eluting stent was inserted. Drug Eluting stent was advanced across the lesion in the right coronary, distal. Angiogram performed pre stent deployment. Angiogram performed post stent deployment. NC Euphora 2.5 x 12 Balloon catheter was inserted. Balloon catheter was advanced across lesion in the RPL mid Angiogram performed pre balloon dilatation. Balloon catheter was repositioned to additional lesion in the right coronary, distal. Angiogram performed pre balloon dilatation. Angiogram performed post balloon dilatation. Angiogram performed post balloon dilatation. NC Euphora 3.5 x 6 Balloon catheter was inserted. Balloon catheter was advanced across lesion in the right coronary, distal. Tebbetts Nu Mine 2.5 x 8 Drug Eluting stent was inserted. Drug Eluting stent was advanced across the lesion in the RPL proximal NC Emerge 3.0 x 20 Balloon catheter was inserted. Balloon catheter was advanced across lesion in the RPL proximal Balloon catheter was advanced across lesion in the right coronary, distal. The left arterial sheath was pulled and a TR Band was applied for hemostasis. The right arterial sheath was pulled and a TR Band was applied for hemostasis CORONARY ANGIOGRAPHY DOMINANCE: Right Dominant LEFT MAIN: Angiographically normal LEFT ANTERIOR DESCENDING ARTERY: LAD: Tubular 100% Proximal lesion in LAD Tubular 70% Distal lesion in LAD DIAGONAL 1: Tubular 70% Mid lesion in DIAG1 Tubular 70% Mid lesion in DIAG1 RAMUS: Tubular 100% Proximal lesion in Ramus RIGHT CORONARY ARTERY: RCA: Tubular 95% Distal lesion in RCA GRAFTS: HOROWITZ Graft to LAD SVG Graft to DIAG1 AORTIC ROOT: Normal size INTERVENTION INFORMATION LESION SITE: RPL (2nd) Lesion Complexity: Non-High/Non-C, lesion length: 13 mm Pre Stenosis: 95 % Pre intervention AGUSTIN flow: 3 PROCEDURE: Drug Eluting Stent with pre and post dilatation Post Stenosis: 0 % Post intervention AGUSTIN flow: 3 Lesion Devices: Terumo .014 180cm Runthrough Extra Floppy straight Cordis 6 Fr JR4 100cm Guide Catheter Tam Sci EMERGE MR 2.00x12 BALLOON Medtronic 2.50 x 15 RUDDY FRONTIER ESTEFANÍA Medtronic NC EUPHORA RX 2.5x12 BALLOON LESION SITE: RCA (Distal) Lesion Complexity: High/C, lesion length: 24 mm Pre Stenosis: 95 % Pre intervention AGUSTIN flow: 3 Post Stenosis: 0 % Post intervention AGUSTIN flow: 3 Lesion Devices: Terumo .014 180cm Runthrough Extra Floppy straight Cordis 6 Fr JR4 100cm Guide Catheter Medtronic 2.50 x 26 RUDDY FRONTIER ESTEFANÍA Medtronic NC EUPHORA RX 2.5x12 BALLOON Medtronic NC EUPHORA RX 3.5x06 BALLOON Tam Sci NC EMERGE MR 3.00x20 BALLOON LESION SITE: RPL (1st) Lesion Complexity: Non-High/Non-C, lesion length: 6 mm Pre Stenosis: 70 % Pre intervention AGUSTIN flow: 3 PROCEDURE: Drug Eluting Stent 0 % Post intervention AGUSTIN flow: 3 Lesion Devices: Terumo .014 180cm Runthrough Extra Floppy straight Cordis 6 Fr JR4 100cm Guide Catheter Medtronic 2.50 x 08 RUDDY FRONTIER ESTEFANÍA COMPLICATIONS No Complications PROCEDURE MEDICATIONS Versed 1 mg IV Fentanyl 50 mcg IV Fentanyl 25 mcg IV Versed 1 mg IV Oxygen: 2 L/min via nasal cannula Heparin given IA 01/23/2025 08:54:44 Heparin 2000 unit(s) IV 01/23/2025 09:27:11 Heparin given IA 01/23/2025 09:44:44 Heparin 5000 unit(s) IV 01/23/2025 10:28:40 Heparin 2000 unit(s) IV 01/23/2025 10:53:50 Nitro 200 mcg IC 01/23/2025 10:40:16 Nitro 200 mcg IC 01/23/2025 10:40:16 Plavix 300 mg PO 01/23/2025 11:30:54 Verapamil 2.5mg, Ntg 200mcgs, 2000 units of Heparin given IA 01/23/2025 08:54:44 IV Bolus: .9 NaCl 250 ml total 01/23/2025 11:18:21 SUMMARY OF HEMODYNAMIC DATA Time AIR REST ECG 08:35:43 Art 103/57 (73) 09:01:13 AO 102/61 (78) SA 09:04:18 AO 116/73 (91) 09:55:46 Signed By Yue Crandall MD On 01/23/2025 12:04:09 Yue Crandall MD
--- NOTE | 2025-01-23 12:11 | PCM.PN.HOSP ---
Subjective Subjective Doing well, no shortness of breath or chest pain Objective Data Objective Data Vital Signs: Vital Signs Temp Pulse Resp BP Pulse Ox O2 Del Method 97.8 F 49 L 16 164/91 H 97 Room Air 01/23/25 08:15 01/23/25 12:00 01/23/25 12:00 01/23/25 12:00 01/23/25 12:00 01/23/25 12:00 Oxygen Delivery Method Room Air Weight: 162 lb 14.746 oz Body Mass Index (BMI) 27.1 Lab / Micro Data 01/22/25 05:04 01/22/25 05:04 Labs: Laboratory Results - last 24 hr 01/23/25 10:22: Activated Clotting Time 302 H Radiography Diagnostic Testing: Radiology Impression Echocardiogram 01/21/25 17:33 Interpretation Summary Posterior basal and inferior basal hypokinesis. Mild basal lateral hypokinesis. Estimated LVEF 55%. Stage III diastolic dysfunction. Mildly dilated right ventricle. The left atrium is severely enlarged.. The right atrium is mildly enlarged. Mild (1+) eccentric mitral valve insufficiency. Mild (1+) tricuspid valve insufficiency. Moderate to severe aortic stenosis. Recommend FAY for further evaluation. 8 cm circumscribed mass noted adjacent to the right atrium. Recommend CT scan of the chest for further evaluation. Ordering Physician: Kendell Falcon Performed By: Tello Burrows RCS Chest CT 01/22/25 12:39 IMPRESSION: 1. Cardiac enlargement. Prior median sternotomy. Aortic and mitral valve calcification. 2. No mass is seen adjacent to the right atrium. However, posterior to the left atrium there is a linear tubular structure that is favored to represent anatomic variant of the left inferior pulmonary vein. Sensitivity to confirm would be improved with IV contrast if clinically desired. 3. Right middle lobe nodule is 5 mm. ACR Fleischner Society recommendations (MacRosiehoallyn, et al. Radiology 2017; 284(1): 228-43) suggest the following: For patients with low risk of lung cancer, no need for follow-up. For patients with high risk of lung cancer, generally no need for follow-up. An optional chest CT at 12 months could be performed if there is high index of suspicion. Reading Location: [facility] Rhythm Strip Rhythm Strip: Sinus Rhythm Physical Exam Narrative General: Alert, Oriented x3, Cooperative, No apparent distress HEENT: Atraumatic, PERRLA, EOMI, Normocephalic Oral: Moist Mucosa Neck: Supple, No JVD Lungs: Diminished, Normal air movement, No rhonchi, No wheeze, No rales Cardiovascular: Regular rate, Regular Rhythm, Normal S1, Normal S2, No murmurs Abdomen: Soft, Non Tender, Non-Distended, No Hepato-splenomegaly Extremities: No edema, Capillary Refill Less than 3 Seconds Skin: No rashes, No breakdown Musculoskeletal: No Tenderness to Palpation of Joints or Extremities Neurological: No focal neurological deficits, moves all extremities Psych/Mental Status: Normal Affect, Appropriate Assessment & Plan Assessment/Plan (1) Chest pain: PLAN: Plan 1. Chest pain rule out/CAD status post CABG/essential HTN/HLD ? Stress test was negative with an old infarct however this was extremely concerning to the family as they were unaware that he had had an infarct since 2023 ? Consult to cardiology who given family concern elected to proceed with a cardiac cath with 3 stents placed to incidental findings in the 1st and 2nd RPL, distal RCA ? In 2021 he had a stress test that was normal but in March 2023 he had an echocardiogram with wall motion abnormality and akinetic infero-basal wall segment in the mid posterior hypokinetic segment ? Echo today demonstrates an EF of 55% with stage III diastolic dysfunction and moderate to severe aortic stenosis ?Continue with his home blood pressure medications as well as his home cholesterol medications ? Continue with Plavix and aspirin ?Plan for discharge home tomorrow with outpatient CT angiogram 2. Essential tremor ? Continue home primidone. DVT: Lovenox Charges/Coding Visit Charges Inpatient E&M: 57076 Subs Hosp L2
[2025-01-23] MEDS: 0.9% Normal Saline (1000mL) 1,000 ML 100 ML IV (12:50)
--- NOTE | 2025-01-23 13:03 | CRPHASE1_ITS ---
Patient Communication Patient Information Former Patient:: Phase I and Phase II PHII Cardiac Rehab Discussed with Patient:: Yes Guide to Cardiac Rehab Given to Patient:: Yes Cardiac Rehab Facility Choice List Given to Patient:: Yes Communication to Cardiac Rehab Choice Program [facility] CR PHII:: Communication Given to CR Braille Duplicating Machine Operator:: Yue Crandall Phase II Cardiac Rehab:: Yes Sessions:: 36 sessions - 3 days/wk, 12 weeks Cardiac Rehabilitation Info Program Information Cardiac Rehabilitation Program Information: Cardiac Rehab The cardiac rehab team at [facility] consists of highly skilled exercise physiologists, nurses, respiratory therapists and physicians working together with you. Our purpose is to help you have a full recovery and achieve the goals you set for yourself. Over the years many of our patients have returned to activities they assumed they would never do again! We can help restore your confidence and motivation to make lifestyle changes that can have a significant impact on your health and quality of life! We can help answer questions and concerns you may have about exercise, lifestyle, medications, diet, stress and anxiety which are common following a hospitalization. WE monitor ECG and vital signs during exercise and discuss your progress with you and report to your physician(s). Cardiac Rehab is proven to help reduce readmissions, improve functional capacity and lower recurrence of problems with your heart. Our Cardiac Rehab program is Certified by the [place] [employer]-Vascular [employer] Pulmonary [employer] (AACVPR) and Accredited by the [place] [employer] through our [facility]. You can contact us at . We invite you to call us with your questions or to get started in our program. If you have other questions or concerns be sure to ask your physician/provider during your follow-up visit. WE look forward to seeing you!
--- NOTE | 2025-01-23 13:04 | CRPH1.INSTRU ---
General Education Discussed with Patient CAD and cardiac anatomy and function:: Patient communicates acknowledgment Explanation of diagnoses and procedures:: Patient communicates acknowledgment Sign/Symptoms of NV:: Patient communicates acknowledgment Antiplatelet therapy: Patient communicates acknowledgment Proper use of NTG-SL: Patient communicates acknowledgment Emergency procedures and activation of EMS: Patient communicates acknowledgment Compliance of all prescribed medications: Patient communicates acknowledgment Smoking Risk Factors Patient Nicotine/Smoking Risk Factors Are:: Never smoked Dyslipidemia Risk Factors Patient Dyslipidemia Risk Factors Are:: Total Cholesterol, Triglycerides, HDL and LDL Recommendations Recommendations Include:: Lipid profile provided, Reviewed NCEP/ATP guidelines and Therapeutic Lifestyle Change dietary guidelines Response Code Dyslipidemia Response Code:: Patient communicates acknowledgment Overweight/Obesity Risk Factors Patient Overweight/Obesity Risk Factors Are:: Overweight = 26-29 Recommendations Recommendations Include:: Weight loss of 5-10%, Reduced calorie diet and Exercise 5-7 times/week Response Code Overweight/Obesity:: Patient communicates acknowledgment Hypertension Recommendations Recommendations Include:: Maintain BP <130/85, DASH dietary guidelines, Decrease/maintain normal body weight and Moderation of ETOH Response Code Hypertension:: Patient communicates acknowledgment Heart Disease Risk Factors Patient Heart Disease Risk Factors Are:: Previous cardiac event Diabetes Risk Factors Patient Diabetes Risk Factors Are:: No documented hx of diabetes Metabolic Syndrome Risk Factors Patient Metabolic Syndrome Risk Factors Are [3 of 5]:: Fasting blood sugar > 100 mg/dL, Waist circumference > 35 [female] or 40 [male], High triglyceride >150, Hypertension and Low HDL <40 [male] or < 50 [female] Recommendations Recommendations Include:: Reinforce compliance to risk factor modifications and Encouraged follow-up with Primary Care Physician Response Code Metabolic Syndrome Response Code:: Patient communicates acknowledgment Sedentary Risk Factors Patient Sedentary Risk Factors Are:: Lack of regular exercise Recommendations Recommendations Include:: Aerobic exercise 5-7 times/week for 20-30 minutes continuously, Benefits of regular exercise, Discussed home walking program and Monitored Outpatient Cardiac Rehab Response Code Sedentary Response Code:: Patient communicates acknowledgment Stress Recommendations Recommendations Include:: Identification of stressors, and assessment of coping skills and Stress management techniques Response Code Stress Response Code:: Patient communicates acknowledgment
--- NOTE | 2025-01-23 15:10 | CHAPLAIN ---
Type of Pastoral Visit ___ Initial Visit _x__ Follow-up Visit ___ On-call Visit ___ General Patient Visit ___ Spiritual Assessment ___ Family Conference ___ Bereavement ___ Rapid Response ___ Code Blue ___ Other (describe below) Pastoral Care Referral From _x__ Patient ___ Family ___ Nurse ___ Physician ___ Sink Maker ___ Saw Setter ___ Other (describe below) Sacrament/Intervention _x__ Active listening ___ Anointing ___ Temple ___ Bereavement ___ Communion ___ Dina exploration ___ ___ Life review ___ Prayer ___ Reconciliation ___ Sacrament of Sick _x__ Supportive presence ___ Wedding ___ Other (describe below) Pastoral Comments patient had a heart cath and three stents earlier today; pt is recovering in room and expressing thanks for the support and prayers for this outcome; pt admits that 'there is more to come yet with a valve and I will do what has to happen'; spouse is with him; pt requests prayers ongoing for his future surgery which will be at a different hospital
[2025-01-24 01:16] VITALS: BP 99/68; PULSE 63; RESP 16; TEMP 36.7; O2SAT 98
[2025-01-24 05:16] VITALS: BP 114/69; PULSE 56; RESP 18; TEMP 36.1; O2SAT 93
[2025-01-24 05:59] LABS: Hematocrit 40.9 % (40-54); Hemoglobin 14.4 g/dL (13.0-16.5); Immature Granulocytes Count 0.010 X10^3/uL (0.0-0.0); Mean Corp Hgb Conc 35.2 g/dL (32-36); Mean Corpuscular Volume 90.9 fL (80-94); Mean Platelet Vol. 9.1 fl (6.2-12.0); NRBC Flagged by Analyzer 0 % (0-5); Platelet Count 179 K/mm3 (150-450); RBC Distribution Width CV 12.1 % (11.6-14.6); RBC Distribution Width SD 40.4 fl (35.1-43.9); Red Blood Count 4.50 M/mm3 (4.6-6.2); White Blood Count 5.2 K/mm3 (4.4-11.0)
[2025-01-24 06:53] VITALS: O2SAT 94
[2025-01-24 06:54] LABS: AST(SGOT) 21 U/L (<=37); Alanine Aminotransfer ALT/SGPT 14 U/L (<=46); Albumin, Serum 3.7 g/dL (3.4-4.8); Alkaline Phosphatase 69 U/L (40-129); Anion Gap 10 (5-15); BUN 14 mg/dL (4-19); BUN/Creat Ratio 14.6 RATIO (10-20); Calcium,Total 8.8 mg/dL (7.6-11.0); Carbon Dioxide 22.2 mmol/L (21.0-32.0); Chloride 103 mmol/L (98-108); Estimated Creatinine Clearance 59.34 ml/min (50-250); Globulin 2.4 g/dL (2.2-4.2); Glucose 119 mg/dL (70-99); Potassium 4.1 mmol/L (3.3-5.1)
--- NOTE | 2025-01-24 08:25 | PCM.PN.CARD ---
Subjective Subjective Patient seen and evaluated. Doing well no complaints this morning and he underwent PCI yesterday successfully. Objective Data Vital Signs: Vital Signs Temp Pulse Resp BP Pulse Ox O2 Del Method 97.0 F L 56 L 18 114/69 93 Room Air 01/24/25 05:16 01/24/25 05:16 01/24/25 05:16 01/24/25 05:16 01/24/25 05:16 01/24/25 05:16 Oxygen Delivery Method Room Air Weight: 162 lb 14.746 oz Body Mass Index (BMI) 27.1 Intake & Output: Intake and Output for Last 24 Hours 01/22/25 01/23/25 01/24/25 23:59 23:59 23:59 Intake Total 1600.00 / 1600.00 0 / 0 Balance 1600.00 / 1600.00 0 / 0 Lab / Micro Data 01/24/25 05:32 01/24/25 05:32 Labs: Laboratory Results - last 24 hr 01/23/25 10:22: Activated Clotting Time 302 H 01/24/25 05:32: WBC 5.2, RBC 4.50 L, Hgb 14.4, Hct 40.9, MCV 90.9, MCH 32.0, MCHC 35.2, RDW Std Deviation 40.4, RDW Coeff of Heather 12.1, Plt Count 179, MPV 9.1, Immature Gran % (Auto) 0.200, Neut % (Auto) 72.1 H, Lymph % (Auto) 17.0 L, [place] % (Auto) 8.6, Eos % (Auto) 1.7, Baso % (Auto) 0.4, Absolute Neuts (auto) 3.8, Absolute Lymphs (auto) 0.89, Nucleated RBC % 0, Sodium 136, Potassium 4.1, Chloride 103, Carbon Dioxide 22.2, Anion Gap 10, BUN 14, Creatinine 0.98, Estim Creat Clear Calc 59.34, Est GFR (MDRD) Non-Af 79, BUN/Creatinine Ratio 14.6, Glucose 119 H, Calcium 8.8, Total Bilirubin 0.38, AST 21, ALT 14, Alkaline Phosphatase 69, Total Protein 6.1, Albumin 3.7, Globulin 2.4, Albumin/Globulin Ratio 1.6 Rhythm Strip Rhythm Strip: Sinus Rhythm Cardiology Labs/Tests 01/24/25 05:32: WBC 5.2, RBC 4.50 L, Hgb 14.4, Hct 40.9, MCV 90.9, MCH 32.0, MCHC 35.2, Plt Count 179, MPV 9.1, Immature Gran % (Auto) 0.200, Neut % (Auto) 72.1 H, Lymph % (Auto) 17.0 L, [place] % (Auto) 8.6, Eos % (Auto) 1.7, Baso % (Auto) 0.4, Absolute Neuts (auto) 3.8, Nucleated RBC % 0, Sodium 136, Potassium 4.1, Chloride 103, Carbon Dioxide 22.2, Anion Gap 10, BUN 14, Creatinine 0.98, Est GFR (MDRD) Non-Af 79, BUN/Creatinine Ratio 14.6, Glucose 119 H, Calcium 8.8, Total Bilirubin 0.38 Rhythm: EKG: ECHO: Stress Test: Cardiac Cath: PCI: CT Surgery: Holter monitor: EPS: PPM: CXR: Chest CT Scan: Physical Exam Const alert and oriented x3 Orientation / Consciousness: awake Eyes PERRL Neck Carotids: normal carotid upstroke Chest inspection of chest normal Cardio regular rate and regular rhythm GI normal to inspection, nondistended, normoactive bowel sounds Extremity normal to inspection Psych mental status grossly normal Assessment & Plan Assessment/Plan (1) Status post percutaneous coronary intervention (PCI): PLAN: Patient underwent coronary intervention of the [place] distal right coronary artery and right posterolateral artery successfully. The plan is for him to be discharged on dual antiplatelet therapy and for him to start cardiac rehabilitation. (2) Aortic valve stenosis: PLAN: He does have moderate aortic stenosis with a peak gradient of 42 mmHg and a mean gradient of 23 mmHg. This can be evaluated further as an outpatient with a FAY or a CAT scan of the aortic valve. (3) H/O coronary artery bypass surgery: PLAN: Patient is status post coronary bypass surgery. Cardiac catheterization demonstrated 2 out of his 3 bypass grafts to be patent. Saphenous vein graft to the ramus intermedius was not found. There was no ischemia however noted on the stress test. This will be managed medically. (4) Essential (primary) hypertension: PLAN: Patient has a history of hypertension will continue with current medical therapy. (5) Hyperlipidemia: QUALIFIERS: Hyperlipidemia type: pure hypercholesterolemia Qualified Code(s): E78.00 - Pure hypercholesterolemia, unspecified; E78.00 - Pure hypercholesterolemia, unspecified; E78.00 - Pure hypercholesterolemia, unspecified; E78.0 - Pure hypercholesterolemia PLAN: Patient will continue with aggressive risk factor modification and lipid-lowering.
[2025-01-24 09:25] VITALS: BP 117/71; PULSE 62; RESP 16; TEMP 36.6; O2SAT 97
[2025-01-24] MEDS: Cholecalciferol (VIT D3) 25 MCG TABLET (1,000 UNITS) 50 MCG PO (09:26)
--- NOTE | 2025-01-24 10:40 | DCINST_ITS ---
Discharge Instructions DC O2, CPAP, BIPAP needs Home O2 Discharge instructions: No Dressing / Incision Discharge Activity: Return to Normal Activity Dressing / Incision Call your doctor if you observe: Fever of 101 or Higher, Shortness of breath, Dizziness, Fainting spells, Swelling in the ankles, Chest pain and Increased palpitations (irregular heartbeat) Follow Up Care Test Results: Test results from this visit will be discussed in further detail at your follow- up appointment, if applicable. Discharge Plan Admission Admit Date/Time: 01/23/25 15:26 Attending Provider: Joseph Cowan Primary Care Provider: Saul Maxwell Consulting Providers: Kendell Falcon; Yue Crandall Discharge Orders/Prescriptions Prescriptions: New clopidogrel 75 mg Tablet 75 mg PO DAILY 30 Days Qty: 30 0RF amlodipine 5 mg Tablet 5 mg PO DAILY 30 Days Qty: 30 0RF ezetimibe 10 mg Tablet 10 mg PO DAILY 30 Days Qty: 30 0RF Continued modafinil 200 mg tablet 300 mg PO DAILY Patient Comments: ONLY TAKES 1/2 TAB AFTERNOON IF DRIVING primidone 50 mg tablet 50 mg PO DAILY Patient Comments: Take 1 tablet by mouth daily multivitamin 1 TABLET tablet 1 tablet PO DAILY cholecalciferol (vitamin D3) 50 mcg (2,000 unit) capsule 2,000 unit PO DAILY methocarbamol 500 mg Tablet 250 mg PO TID PRN (Reason: Spasms) acetaminophen 650 mg Tablet Extended Release 1,000 mg PO PRN aspirin 81 MG tablet,chewable 81 mg PO QHS metoprolol tartrate 25 mg tablet 12.5 mg PO BID Discontinued icosapent ethyl [Vascepa] 1 gram capsule 2 g PO BID gabapentin 600 mg tablet 600 mg PO QHS Referrals / Follow Up: Kush Burnett MD [Med Staff - Active Staff, Cardiology] - Within 2 Weeks Saul Maxwell MD [Primary Care Provider, Family Practice] - Within 1 Week Disposition Disposition (needs filled in before D/C Order can be placed): Home, Self Care
--- NOTE | 2025-01-24 11:37 | PCM.DC.SUM ---
Providers Date of Admission: 01/23/25 Primary Care Physician: Dr. Saul Maxwell MD Consultations 01/22/25 11:59 Consult: Cardiology Routine Consulting Provider: Yue Crandall Reason for Consult: discuss stress test EMERGENT Consult: No MD Notified: Yes Date Notified: 01/22/25 Time Notified: 11:59 Method of Notification: Verbal Reason For Visit: CHEST PAIN Diagnosis Discharge Diagnosis (1) Status post percutaneous coronary intervention (PCI): Status: Acute Code(s): Z98.61 - Coronary angioplasty status (2) Aortic valve stenosis: Status: Acute Code(s): I35.0 - Nonrheumatic aortic (valve) stenosis (3) H/O coronary artery bypass surgery: Status: Chronic Code(s): Z95.1 - Presence of aortocoronary bypass graft (4) Essential (primary) hypertension: Status: Chronic Code(s): I10 - Essential (primary) hypertension (5) Hyperlipidemia: Status: Chronic Code(s): E78.5 - Hyperlipidemia, unspecified Qualifiers: Hyperlipidemia type: pure hypercholesterolemia Qualified Code(s): E78.00 - Pure hypercholesterolemia, unspecified; E78.00 - Pure hypercholesterolemia, unspecified; E78.00 - Pure hypercholesterolemia, unspecified; E78.0 - Pure hypercholesterolemia Medications at Discharge Home Medications multivitamin 1 tablet PO DAILY supplement 07/07/20 acetaminophen 650 mg tablet,extended release 1,000 mg PO PRN Pain 06/09/21 methocarbamol 500 mg tablet 250 mg PO TID PRN Spasms 06/09/21 cholecalciferol (vitamin D3) 50 mcg (2,000 unit) capsule 2,000 unit PO DAILY supplement 04/08/22 primidone 50 mg tablet 50 mg PO DAILY seizures 04/08/22 aspirin 81 mg chewable tablet 81 mg PO [facility] heart [facility] 05/21/23 modafinil 200 mg tablet 300 mg PO DAILY 06/05/24 metoprolol tartrate 25 mg tablet 12.5 mg PO BID blood pressure 07/11/24 amlodipine 5 mg tablet 5 mg PO DAILY 30 days #30 tabs 01/24/25 clopidogrel 75 mg tablet 75 mg PO DAILY 30 days #30 tabs 01/24/25 ezetimibe 10 mg tablet 10 mg PO DAILY 30 days #30 tabs 01/24/25 Hospital Course Operations None Procedures 2-D Echocardiogram, Cardiac catheterization and Stress test Summary of Care Provided Minutes Spent on Discharge: 34 Hospital Course: Per HPI: CALE PULLIAM, is a 79 M who presented to [facility] ED on 01/21/2025 with chest pain. Medical history significant for CAD s/p CABG x 3 in 2012, hypertension and hyperlipidemia. Follows with cardiology, last office visit in March. Last had stress testing done in 2021 that was negative. Last echo in 2023 showed EF 55%, stage II diastolic function, stable regional wall motion abnormalities, no other concerning findings. Patient presented today with chest pain that began around noon. He was active around the house when he developed chest pain that radiated up into the left side of his neck. He notes having an episode last week while mowing the lawn that was similar. In the ED he was hypertensive to the 160s systolic, had mild sinus bradycardia, was otherwise stable on room air at rest. CBC and BMP were benign. Troponin trend 39 > 43 > 43. EKG showed T wave inversions in lateral leads that appear chronic, no other concerning findings. He was given a dose of 325 mg of aspirin. Given his high risk history, hospitalist was contacted for admission. I saw the patient at bedside in the ED, was present. Patient was sitting back comfortably in bed, conversing normally, in no acute distress. Noted that the chest pain was much improved from earlier today. He denied any shortness of breath. No other acute concerns currently. Will be admitted for further management. Hospital Course: 1. Chest pain rule out/CAD status post CABG/essential HTN/HLD?79-year-old male presented to the hospital with chest pain. He underwent a stress test which was negative however family became overly concerned with a nonreversible infarct in the basal lateral wall which has been present since an echocardiogram on 04/18/2023. Echocardiogram demonstrated EF of 55% with stage III diastolic dysfunction and moderate to severe aortic stenosis therefore cardiology was consulted and proceeded with a heart cath that demonstrated that 2 out of the 3 SVG grafts were patent third was just not visualized, and then 3 stents were placed in the RCA system which seem to be unrelated to the left lateral ischemia. we will proceed with an outpatient FAY versus CT scan of the aortic valve. CT chest demonstrated a right middle lobe nodule that is 5 mm however he is low risk non-smoker recommend outpatient follow-up with his PCP. Will continue with his metoprolol but will add amlodipine 5 mg p.o. daily. Will continue with aspirin and Plavix indefinitely. I discussed with him the plan for discharge today and he expressed understanding of the risk and benefits of going home and would like to go home today. Physical Exam Narrative General: Alert, Oriented x3, Cooperative, No apparent distress HEENT: Atraumatic, PERRLA, EOMI, Normocephalic Oral: Moist Mucosa Neck: Supple, No JVD Lungs: Diminished, Normal air movement, No rhonchi, No wheeze, No rales Cardiovascular: Regular rate, Regular Rhythm, Normal S1, Normal S2, No murmurs Abdomen: Soft, Non Tender, Non-Distended, No Hepato-splenomegaly Extremities: No edema, Capillary Refill Less than 3 Seconds Skin: No rashes, No breakdown Musculoskeletal: No Tenderness to Palpation of Joints or Extremities Neurological: No focal neurological deficits, moves all extremities Psych/Mental Status: Normal Affect, Appropriate Weight / BMI Weight Weight: 162 lb 14.746 oz Body Mass Index (BMI) 27.1 ABG / Lab / Microbiology Data 01/24/25 05:32 01/24/25 05:32 Laboratory: Laboratory Results - last 24 hr 01/24/25 05:32: WBC 5.2, RBC 4.50 L, Hgb 14.4, Hct 40.9, MCV 90.9, MCH 32.0, MCHC 35.2, RDW Std Deviation 40.4, RDW Coeff of Heather 12.1, Plt Count 179, MPV 9.1, Immature Gran % (Auto) 0.200, Neut % (Auto) 72.1 H, Lymph % (Auto) 17.0 L, [place] % (Auto) 8.6, Eos % (Auto) 1.7, Baso % (Auto) 0.4, Absolute Neuts (auto) 3.8, Absolute Lymphs (auto) 0.89, Nucleated RBC % 0, Sodium 136, Potassium 4.1, Chloride 103, Carbon Dioxide 22.2, Anion Gap 10, BUN 14, Creatinine 0.98, Estim Creat Clear Calc 59.34, Est GFR (MDRD) Non-Af 79, BUN/Creatinine Ratio 14.6, Glucose 119 H, Calcium 8.8, Total Bilirubin 0.38, AST 21, ALT 14, Alkaline Phosphatase 69, Total Protein 6.1, Albumin 3.7, Globulin 2.4, Albumin/Globulin Ratio 1.6 D/C Instructions Call your doctor if you observe: Fever of 101 or Higher, Shortness of breath, Dizziness, Fainting spells, Swelling in the ankles, Chest pain and Increased palpitations (irregular heartbeat) DC O2, CPAP, BIPAP Needs Home O2 Discharge instructions: No Meaningful Use Info Meaningful Use Meaningful Use Diagnoses (Choose all that apply): None applicable Discharge Plan Admission Admit Date/Time: 01/23/25 15:26 Attending Provider: Joseph Cowan Primary Care Provider: Saul Maxwell Consulting Providers: Kendell Falcon; Yue Crandall Discharge Orders/Prescriptions Prescriptions: New clopidogrel 75 mg Tablet 75 mg PO DAILY 30 Days Qty: 30 0RF amlodipine 5 mg Tablet 5 mg PO DAILY 30 Days Qty: 30 0RF ezetimibe 10 mg Tablet 10 mg PO DAILY 30 Days Qty: 30 0RF Continued modafinil 200 mg tablet 300 mg PO DAILY Patient Comments: ONLY TAKES 1/2 TAB AFTERNOON IF DRIVING primidone 50 mg tablet 50 mg PO DAILY Patient Comments: Take 1 tablet by mouth daily multivitamin 1 TABLET tablet 1 tablet PO DAILY cholecalciferol (vitamin D3) 50 mcg (2,000 unit) capsule 2,000 unit PO DAILY methocarbamol 500 mg Tablet 250 mg PO TID PRN (Reason: Spasms) acetaminophen 650 mg Tablet Extended Release 1,000 mg PO PRN aspirin 81 MG tablet,chewable 81 mg PO QHS metoprolol tartrate 25 mg tablet 12.5 mg PO BID Discontinued icosapent ethyl [Vascepa] 1 gram capsule 2 g PO BID gabapentin 600 mg tablet 600 mg PO QHS Referrals / Follow Up: Kush Burnett MD [Med Staff - Active Staff, Cardiology] - Within 2 Weeks Saul Maxwell MD [Primary Care Provider, Family Practice] - Within 1 Week Disposition Disposition (needs filled in before D/C Order can be placed): Home, Self Care Charges/Coding Visit Charges Inpatient E&M: 51937 Disch Hosp >30min
--- NOTE | 2025-01-24 11:42 | CASEMGMT ---
Patient has order for discharge. RN CM in to discuss needs at discharge, at bedside. Patient up independent to restroom. denies needs or help at discharge. had no further questions or concerns.
--- NOTE | 2025-01-24 12:07 | PHA.DC.COU.R ---
Pharmacy [facility] has performed discharge medication counseling for this patient. The patient was counseled on the following discharge medications and changes in medications for homegoing review. - Clopidogrel 75 mg tablet, Amlodipine 5 mg tablet, Ezetimibe 10 mg tablet The Reason for Use, instructions for use, and potential side effects were reviewed for all new medications. The patient's questions regarding all of their medications were answered. - Discussed the new medications, their uses, mechanism of action, and instructions with his . The patient was able to verbally demonstrate an understanding of their discharge medications. Medications at Discharge Home Medications multivitamin 1 tablet PO DAILY supplement 07/07/20 acetaminophen 650 mg tablet,extended release 1,000 mg PO PRN Pain 06/09/21 methocarbamol 500 mg tablet 250 mg PO TID PRN Spasms 06/09/21 cholecalciferol (vitamin D3) 50 mcg (2,000 unit) capsule 2,000 unit PO DAILY supplement 04/08/22 primidone 50 mg tablet 50 mg PO DAILY seizures 04/08/22 aspirin 81 mg chewable tablet 81 mg PO [facility] heart [facility] 05/21/23 modafinil 200 mg tablet 300 mg PO DAILY 06/05/24 metoprolol tartrate 25 mg tablet 12.5 mg PO BID blood pressure 07/11/24 amlodipine 5 mg tablet 5 mg PO DAILY 30 days #30 tabs 01/24/25 clopidogrel 75 mg tablet 75 mg PO DAILY 30 days #30 tabs 01/24/25 ezetimibe 10 mg tablet 10 mg PO DAILY 30 days #30 tabs 01/24/25
== END 2025-01-24 14:51 | disposition home or self-care (01) | DRG 322 ==
LOC: ED 17:36 → PCU 17:55
PROVIDERS: Internal Medicine Cardiovascular Disease; Admitting Provider Hospitalist; Emergency Provider Emergency Medicine; PCP Family Medicine; Visit Provider Family Medicine
DX: I20.9 Angina pectoris, unspecified (principal); E78.5 Hyperlipidemia, unspecified; I35.0 Nonrheumatic aortic (valve) stenosis; I10 Essential (primary) hypertension; G25.0 Essential tremor; I25.82 Chronic total occlusion of coronary artery; R00.1 Bradycardia, unspecified; I25.2 Old myocardial infarction; Z82.49 Family history of ischemic heart disease and other diseases of the circulatory system; Z86.711 Personal history of pulmonary embolism; Z79.82 Long term (current) use of aspirin; Z86.16 Personal history of COVID-19; Z95.1 Presence of aortocoronary bypass graft; R00.0 Tachycardia, unspecified; Z98.61 Coronary angioplasty status
CPT/HCPCS: 36415; 71045; 71250; 78452; 80048; 80053; 80061; 84484; 85025; 85027; 85347; 92928; 92929; 93005; 93017; 93306; 93455; 93567; 99152; 99153; 99285; A9500; C1725; C1894; Q9967; A4216; C1769; C1874; C1887; C9600; C9601; J2785

== ENCOUNTER 2025-01-27 11:53 | Emergency (ER) | payer MEDICARE, BC, SELFPAY ==
[2025-01-27 11:55] VITALS: BP 142/81; PULSE 54; RESP 16; TEMP 36.8; O2SAT 99; BMI 27.1
--- NOTE | 2025-01-27 13:09 | ED.VIS.CHEST ---
HPI History of Present Illness Chief Complaint: Chest Pain Informant: patient Onset/Context/Timing Onset: Today Activity at onset: sudden Timing: Continuous Quality: Positive for Sharp Location: Left Chest Worsened By: Nothing Relieved By: Nothing Associated Symptoms: Negative for Nausea, Vomiting, Diaphoresis, Dyspnea, Cough, Fever, Lightheadedness, Acid Reflux or Palpitations Narrative Narrative: Patient presents with chest pain that began today. Patient states it began rather suddenly. Patient states it is constant. Patient describes it as sharp. Patient states he underwent recent cardiac stent placement this week. Patient states this pain is different than the pain he had prior to his stent placement. Patient states nothing makes it better and nothing makes it worse. Patient denies any fevers. Patient denies any nausea or vomiting. Patient denies any shortness of breath or cough. CVD Risk Factors: Negative for Hypertension, Diabetes, Hypercholesterolemia, Family History 1' </=55 or Smoking PE Risk Factors: Positive for Cancer (Skin); Negative for Recent Travel/Surgery, Recent Immobilization, Prior DVT or PE or OCP + Smoking + >/=35 PFSH PFSH Medical History MRSA infection High cholesterol Back pain Injury of back Difficulty swallowing Sleep apnea Osteoarthritis of right shoulder Wears hearing aid Loose, teeth Essential tremor Heart murmur Screening for intestinal cancer Yeast infection Loss of hearing Wears glasses Cancer Hx of benign essential tremor Alcohol use History of steroid therapy Ambulates with cane Arthritis Hepatitis Injury of head and neck Syncope Hx of mitral valve prolapse Non-smoker CPAP (continuous positive airway pressure) dependence Leg cramps History of pain when walking History of edema History of echocardiogram History of stress test Cardiology follow-up encounter History of atrial fibrillation Hx of Clostridium difficile infection Hx MRSA infection COVID-19 Over 65 years old Pre-syncope Fatigue Sinusitis Carotid stenosis, right Lightheadedness Lung nodule Postoperative atrial fibrillation Right bundle branch block (RBBB) Pulmonary embolism (10/2016) Squamous cell carcinoma Basal cell carcinoma Peripheral neuropathy Obesity Lumbar stenosis RLS (restless legs syndrome) Obstructive sleep apnea Atherosclerosis of coronary artery of [place] heart without angina pectoris Essential (primary) hypertension Bradycardia Hyperlipidemia Home Medications ?Medication ?Instructions ?Recorded ?Last Taken ?Type multivitamin 1 tablet PO DAILY supplement 07/07/20 01/21/25 History acetaminophen 650 mg 1,000 mg PO PRN Pain 06/09/21 01/20/25 History tablet,extended release methocarbamol 500 mg tablet 250 mg PO TID PRN Spasms 06/09/21 01/17/25 History cholecalciferol (vitamin D3) 50 2,000 unit PO DAILY supplement 04/08/22 Unknown History mcg (2,000 unit) capsule primidone 50 mg tablet 50 mg PO DAILY seizures 04/08/22 01/21/25 History aspirin 81 mg chewable tablet 81 mg PO [facility] 05/21/23 01/20/25 History modafinil 200 mg tablet 300 mg PO DAILY 06/05/24 01/21/25 History metoprolol tartrate 25 mg tablet 12.5 mg PO BID blood pressure 07/11/24 Unknown History amlodipine 5 mg tablet 5 mg PO DAILY 30 days #30 tabs 01/24/25 Unknown Rx clopidogrel 75 mg tablet 75 mg PO DAILY 30 days #30 tabs 01/24/25 Unknown Rx ezetimibe 10 mg tablet 10 mg PO DAILY 30 days #30 tabs 01/24/25 Unknown Rx calcium 600 mg capsule mg PO 01/27/25 Unknown History zinc 100 mg tablet mg PO 01/27/25 Unknown History Allergy/AdvReac Type Severity Reaction Status Date / Time Influenza Virus Vaccines Allergy Severe Other Verified 01/27/25 11:54 morphine AdvReac Rash Verified 01/27/25 11:54 Family History Father CAD (coronary artery disease) CABG and pacemaker COPD (chronic obstructive pulmonary disease) Alcoholism Myocardial infarction Melanoma Heart disease Mother , age 69 infection, aneurysms Hypertension Heart disease Depression Sister Clotting disorder Brother Clotting disorder Grandfather Seizures Surgical History History of cardiac catheterization Hx of shoulder replacement History of total knee replacement History of Mohs surgery for squamous cell carcinoma in situ of skin (~03/2021) History of colonoscopy (~07/2021) History of back surgery History of right shoulder replacement (08/19/21) S/P insertion of spinal cord stimulator (~05/2021) Hx of tonsillectomy Hx of hernia repair Hx of hemorrhoidectomy History of incision and drainage History of lumbar laminectomy H/O coronary artery bypass surgery (12/01/12) Social History Smoking Status: Never smoker Electronic Cigarette Use: not used second hand exposure: Yes (Mother and Father smoked when he was a child ) alcohol intake: current alcohol intake frequency: 0-2 drinks per day Alcohol type: beer and wine substance use type: does not use caffeine: Yes Type: tea Number of servings: 1 ROS ROS ED Constitutional Constitutional ED: Reports chills; Denies fever(s) Eyes Eyes: Denies blurry vision or change in vision ENT ENT ED: Reports rhinorrhea; Denies sore throat Cardiovascular Cardiovascular: Reports as per HPI and chest pain; Denies palpitations Respiratory/Chest Respiratory/Chest: Denies cough or dyspnea Gastrointestinal Gastrointestinal: Denies nausea or vomiting Genitourinary Genitourinary ED: Denies dysuria or hematuria Musculoskeletal Musculoskeletal: Reports back pain and neck pain Integumentary Denies abscess or rash Neurologic Neurologic: Denies headache(s) or weakness Allergic/Immunologic Allergic/Immunologic ED: Denies mouth swelling or urticaria EXAM Physical Exam Const Vital Signs: 01/27/25 11:55 01/27/25 12:11 01/27/25 13:30 Temperature 98.3 F Temperature Source Oral Pulse Rate 54 L 52 L Respiratory Rate 16 Respiratory Effort Normal Non-Labored Blood Pressure 142/81 H 136/83 H Blood Pressure Mean 101 Pulse Ox 99 Oxygen Delivery Method Room Air 01/27/25 13:30 01/27/25 13:31 01/27/25 14:00 Temperature 97.6 F L Temperature Source Oral Pulse Rate 52 L 56 L Respiratory Rate 14 15 Respiratory Effort Blood Pressure 136/83 H 106/76 Blood Pressure Mean 99 86 Pulse Ox 99 98 Oxygen Delivery Method Room Air Room Air 01/27/25 15:00 Temperature 97.8 F Temperature Source Oral Pulse Rate 50 L Respiratory Rate 15 Respiratory Effort Blood Pressure 122/80 H Blood Pressure Mean 94 Pulse Ox 99 Oxygen Delivery Method Room Air Positive well nourished and well developed Constitutional Narrative: BMI is 27.2. General Appearance ED: well developed and NAD HEENT Reports moist mucous membranes Neck supple and no JVD Chest Wall palpation of chest normal Chest: Negative for tenderness Resp normal respiratory effort and clear to auscultation bilaterally Cardio regular rate and regular rhythm GI soft to palpation, non-tender and non-distended Extremity normal to inspection General Extremety ED: Negative for edema or tenderness General Extremity: Negative for edema Neuro oriented x3, CN's II-XII intact bilaterally and no sensory deficits noted Sensorium / Orientation: awake and alert Motor Exam: strength 5/5 throughout Psych mental status grossly normal Heart Score History: Slightly/Non-Suspicious ECG: Nonspecific Repolarization Age: >/= 65 years Risk Factors: >/= 3 Risk Factors or History of CAD Troponin: >1 - <3 Normal Limit Score: 6 MDM MDM MDM Narrative Medical decision making narrative: Differential diagnose includes cardiac dysrhythmia, cardiac ischemia, pneumonia, bronchitis, electrolyte abnormality, musculoskeletal pain, anxiety, and gastroesophageal reflux disease. EKG will be obtained to assess for cardiac dysrhythmia and cardiac ischemia. Chest x-ray will be obtained to assess for pneumonia and bronchitis. CBC will be obtained to assess for leukocytosis and anemia. Basic metabolic profile will be obtained to assess for electrolyte abnormality renal function. PT with INR and PTT will be obtained to assess for coagulopathy. High-sensitivity troponin will be obtained to assess for cardiac ischemia. 2-hour repeat high-sensitivity troponin will be obtained to assess for ongoing cardiac ischemia. Lab Data Attestation: I reviewed the patient's lab results. Lab results narrative: CBC was reviewed and was within normal limits. Basic metabolic profile was reviewed and was essentially within normal limits. Initial high-sensitivity troponin was reviewed and was 42. PT with INR and PTT were reviewed and were within normal limits. 2-hour repeat high-sensitivity troponin was reviewed and was 40. Labs: Laboratory Results - last 24 hr 01/27/25 01/27/25 13:00 14:50 WBC 4.1 L RBC 4.57 L Hgb 14.9 Hct 42.8 MCV 93.7 MCH 32.6 H MCHC 34.8 RDW Std Deviation 42.1 RDW Coeff of Heather 12.2 Plt Count 194 MPV 9.7 Immature Gran % (Auto) 0.200 Neut % (Auto) 65.3 Lymph % (Auto) 23.0 [place] % (Auto) 8.1 Eos % (Auto) 2.7 Baso % (Auto) 0.7 Absolute Neuts (auto) 2.7 Absolute Lymphs (auto) 0.94 Nucleated RBC % 0 PT 13.4 INR 1.0 APTT 31.2 Sodium 139 Potassium 4.1 Chloride 100 Carbon Dioxide 27.4 Anion Gap 12 BUN 16 Creatinine 0.98 Estim Creat Clear Calc 59.38 Est GFR (MDRD) Non-Af 79 BUN/Creatinine Ratio 16.6 Glucose 118 H Calcium 9.8 Troponin T High Sens 42 H D Troponin T Hi Sens 2 Hr 40 H Radiography Chest X-Ray - ED: 2 View, Read by ED Physician, Read by Radiologist and No Acute Disease Diagnostic Testing: Clinical Impression(s) from Imaging Studies Chest X-Ray 01/27/25 13:40 IMPRESSION: No acute process appreciated. Reading Location: [facility] [place] and lateral chest x-ray was obtained. There are 2 views. On my independent interpretation, lung moeller are clear. There is normal cardiac silhouette. Bony thorax is normal. There is no acute process noted. Radiologist also interpreted the x-ray and agrees. EKG Initial EKG: Attestation: I personally reviewed and interpreted this EKG as follows: Interpretation: Sinus Bradycardia (52), RBBB and Non-Specific ST Changes Comments: EKG was obtained. On my independent interpretation, it shows sinus bradycardia with a rate of 52. ND interval was normal at 120 ms. QRS interval is slightly prolonged at 142 ms. QTc interval is normal at 422 ms. [place] was -7. There are nonspecific ST-T wave changes. These are unchanged compared to previous EKG dated 01/23/2025. Prior EKG tracings: available for review Prior: Unchanged (01/23/2025) Treatment and Re-Evaluation :: Patient was given aspirin. Patient is feeling better on reevaluation. Patient was advised of his findings. Since the patient had a cardiac catheterization and stent placement this week, I do not feel this is cardiac in nature. Patient feels better and wants to go home. Patient was instructed to contact his tutoring assistant tomorrow for follow-up appointment. Patient was instructed to return if worse in any way. Patient understood and was agreeable with the plan. All questions were answered. Discharge Plan Triage Chief Complaint: Chest Pain ED Provider: Shahid Romero Dx/Rx/DC Orders Clinical Impression: Chest pain, Essential (primary) hypertension Instructions: ED Chest Pain, Uncertain Cause Prescriptions: No Action modafinil 200 mg tablet 300 mg PO DAILY Patient Comments: ONLY TAKES 1/2 TAB AFTERNOON IF DRIVING primidone 50 mg tablet 50 mg PO DAILY Patient Comments: Take 1 tablet by mouth daily multivitamin 1 TABLET tablet 1 tablet PO DAILY cholecalciferol (vitamin D3) 50 mcg (2,000 unit) capsule 2,000 unit PO DAILY methocarbamol 500 mg Tablet 250 mg PO TID PRN (Reason: Spasms) acetaminophen 650 mg Tablet Extended Release 1,000 mg PO PRN aspirin 81 MG tablet,chewable 81 mg PO QHS metoprolol tartrate 25 mg tablet 12.5 mg PO BID clopidogrel 75 mg Tablet 75 mg PO DAILY 30 Days Qty: 30 0RF amlodipine 5 mg Tablet 5 mg PO DAILY 30 Days Qty: 30 0RF ezetimibe 10 mg Tablet 10 mg PO DAILY 30 Days Qty: 30 0RF zinc 100 mg tablet PO calcium 600 mg capsule PO Primary Care Provider: Saul Maxwell Referrals: Kush Burnett MD [Med Staff - Active Staff, Cardiology] - 3-5 Days Saul Maxwell MD [Primary Care Provider, Family Practice] - 5-7 Days Print Language: Romansh Disposition Disposition: Home, Self Care
[2025-01-27 13:30] VITALS: BP 136/83; PULSE 52; RESP 14; O2SAT 99
[2025-01-27] MEDS: Nitroglycerin SL (ED/IMG/CATH) 0.4 MG TABLET SL (13:30)
[2025-01-27 13:40] LABS: Hematocrit 42.8 % (40-54); Hemoglobin 14.9 g/dL (13.0-16.5); Immature Granulocytes Count 0.010 X10^3/uL (0.0-0.0); Mean Corp Hgb Conc 34.8 g/dL (32-36); Mean Corpuscular Volume 93.7 fL (80-94); Mean Platelet Vol. 9.7 fl (6.2-12.0); NRBC Flagged by Analyzer 0 % (0-5); Platelet Count 194 K/mm3 (150-450); RBC Distribution Width CV 12.2 % (11.6-14.6); RBC Distribution Width SD 42.1 fl (35.1-43.9); Red Blood Count 4.57 M/mm3 (4.6-6.2); White Blood Count 4.1 K/mm3 (4.4-11.0)
--- NOTE | 2025-01-27 13:40 | RAD_ITS ---
PROCEDURE: RAD/Chest PA and Lateral
[2025-01-27 13:48] LABS: Prothrombin Time (Protime)PT. 13.4 SECONDS (11.7-14.9)
[2025-01-27 13:50] LABS: Partial Thromboplast Time 31.2 Seconds (24.1-36.2)
[2025-01-27 14:00] VITALS: BP 106/76; PULSE 56; RESP 15; TEMP 36.4; O2SAT 98
[2025-01-27 14:00] LABS: Anion Gap 12 (5-15); BUN 16 mg/dL (4-19); BUN/Creat Ratio 16.6 RATIO (10-20); Calcium,Total 9.8 mg/dL (7.6-11.0); Carbon Dioxide 27.4 mmol/L (21.0-32.0); Chloride 100 mmol/L (98-108); Estimated Creatinine Clearance 59.38 ml/min (50-250); Glucose 118 mg/dL (70-99); Potassium 4.1 mmol/L (3.3-5.1); Troponin T High Sensitivity 42 ng/L (<=22)
[2025-01-27 15:00] VITALS: BP 122/80; PULSE 50; RESP 15; TEMP 36.6; O2SAT 99
[2025-01-27 15:32] LABS: Troponin T High Sens 2 HR 40 ng/L (<=22)
[2025-01-27 16:44] VITALS: BP 131/81; PULSE 52; RESP 16; TEMP 36.7; O2SAT 97
== END 2025-01-27 16:51 | disposition home or self-care (01) ==
PROVIDERS: Emergency Provider Emergency Medicine; PCP Family Medicine; Visit Provider Emergency Medicine
DX: R07.9 Chest pain, unspecified (principal); I25.10 Atherosclerotic heart disease of native coronary artery without angina pectoris; I10 Essential (primary) hypertension; E78.00 Pure hypercholesterolemia, unspecified; Z95.5 Presence of coronary angioplasty implant and graft; Z79.899 Other long term (current) drug therapy; Z79.82 Long term (current) use of aspirin; Z79.02 Long term (current) use of antithrombotics/antiplatelets
CPT/HCPCS: 71046; 80048; 84484; 85025; 85610; 85730; 93005; 99283; A4216

== ENCOUNTER → 2025-02-05 | Outpatient (CLI) | payer MEDICARE, BC, SELFPAY ==
--- NOTE | 2025-02-05 | CYSPIN_PTH ---
PATIENT: CALE PULLIAM LOC: [facility] U#:[id number] AGE/SX: 80/M ROOM: RE02/05/[address]: Dr. Saul Maxwell MD : 1945 BED: DIS: 02/05/2025 SPEC #: [id number] RECD: 02/05/25 15:20 STATUS: JLUIS BIJAN #: [id number] LASHELL: 02/05/25 00:[address]: Saul Maxwell DEPT: CYTOLOGY RECD BY: Ronak Seymour Tissues: A - Urine Procedures: Pap Stain (control) Special Stain Group II Cytospin Fluid HEADER OPERATION: Not noted PRE-OP DIAGNOSIS: Hematuria TISSUE SUBMITTED: A- Urine for cytology - CLEAN CATCH DIAGNOSIS CYTOLOGY A. Urine, voided (cytospin): - Atypical urothelial cells. CYTOLOGY STUDY Slides are reviewed. CYTOLOGY GROSS A. Received is 5 ml of yellow-cloudy fluid labeled with the patient's name and and designated per the requisition as "urine." Submitted for cytology preparation. Mr 02/06/2025 CPT: 36286
[2025-02-05 15:22] LABS: Cytology, Body Fluid / CSF SEE PATHOLOGY REPORT
== END | disposition home or self-care (01) ==
LOC: MTLAB 15:15
PROVIDERS: PCP Family Medicine; Referring Provider Family Medicine; Visit Provider Family Medicine
DX: R31.9 Hematuria, unspecified (principal)
CPT/HCPCS: 87086; 88108; 88313